=== PATIENT | female | born 1965 | race Caucasian/White ===

== ENCOUNTER 2025-08-15 14:50 | Inpatient (IN) | payer MEDICAID, SELFPAY ==
[2025-08-15] VITALS (11 sets, daily range): BP systolic 101–123; BP diastolic 59–71; PULSE 74–87; RESP 15–24; TEMP 36.6–36.8; O2SAT 90–100; BMI 35.0; BMI 33.3
--- NOTE | 2025-08-15 15:03 | EKG12_ITS ---
Test Reason : Blood Pressure : */* mmHG Vent. Rate : 76 BPM Atrial Rate : 76 BPM P-R Int : 182 ms QRS Dur : 94 ms QT Int : 408 ms P-R-T Axes : 55 37 81 degrees QTcB Int : 459 ms Normal sinus rhythm Normal ECG Confirmed by VILMA AVINA, MAURICE ([id number]), market editor GINO RUBIN ([id number]) on 08/16/2025 9:18:58 AM Referred By: MAEGAN Confirmed By: MAURICE ESPARZA MD
--- NOTE | 2025-08-15 15:10 | ED.VIS.CHEST ---
HPI History of Present Illness Chief Complaint: Chest Pain Informant: patient Onset/Context/Timing Onset: Today Activity at onset: gradual Timing: Continuous Quality: Positive for Burning Location: Substernal Current Severity: Mild Maximum Severity: Mild Worsened By: Nothing Relieved By: Rest Associated Symptoms: Positive for Diaphoresis; Negative for Nausea or Vomiting Narrative Narrative: 60-year-old female history of CAD with a stent in March, hypertension, on Plavix and aspirin, prior history of lung cancer resected 6 years ago. Quit smoking at that time. No history of DVT or PE. No mops this. No pleuritic pain. No recent travel, surgery or immobilization. No calf pain or mops this. Today was walking and developed midsternal chest pain radiating to her back. It is nearly resolved now. Better at rest. Denies any recent exertional chest pain or exertional dyspnea. She has not been hospitalized since her stent in March. Prior Similar Symptoms: No Recent Illness/Hospitalization: No CVD Risk Factors: Positive for Hypertension PE Risk Factors: Negative for Recent Travel/Surgery, Recent Immobilization, Prior DVT or PE or OCP + Smoking + >/=35 TAD Risk Factors: Negative for Marfan's Syndrome [facility] Medical History Hyperlipidemia Hypertension Lung cancer Home Medications Medication Instructions Recorded Last Taken Type aspirin 81 mg tablet,delayed 81 mg PO DAILY 08/15/25 Unknown History release atorvastatin 40 mg tablet 40 mg PO DAILY 08/15/25 08/13/25 History buspirone 10 mg tablet 10 mg PO TID 08/15/25 08/14/25 History carvedilol 6.25 mg tablet 6.25 mg PO BID 08/15/25 Unknown History clopidogrel 75 mg tablet 75 mg PO DAILY 08/15/25 Unknown History Allergy/AdvReac Type Severity Reaction Status Date / Time acetaminophen (From Vicodin) Allergy Mild Nausea Verified 08/15/25 14:52 hydrocodone (From Vicodin) Allergy Mild Nausea Verified 08/15/25 14:52 Surgical History Stented coronary artery S/P lobectomy of lung History of appendectomy Social History Smoking Status: Former smoker ROS ROS ED ROS Narrative Yesterday he developed URI with sore throat and cough of brown sputum. No hemoptysis. Constitutional Constitutional ED: Denies chills or fever(s) Eyes Eyes: Reports none ENT ENT ED: Denies ear pain Cardiovascular Cardiovascular: Reports as per HPI and chest pain; Denies palpitations or racing heartbeat Respiratory/Chest Respiratory/Chest: Denies dyspnea or dyspnea on exertion Gastrointestinal Gastrointestinal: Denies abdominal pain, diarrhea, nausea or vomiting Genitourinary Genitourinary ED: Denies dysuria or hematuria Musculoskeletal Musculoskeletal: Denies arthralgias or back pain Integumentary Denies abscess Neurologic Neurologic: Denies headache(s) Psychiatric Psychiatric: Denies anxiety Endocrine Endocrinology: Denies cold intolerance Hematologic/Lymphatic Hematologic/Lymphatic: Denies easy bleeding, easy bruising or lymphadenopathy Allergic/Immunologic Allergic/Immunologic ED: Denies mouth swelling, tongue swelling or urticaria EXAM Physical Exam Narrative Exam Narrative: 60-year-old female sitting upright in bed vital signs stable pulse ox 90% on room air 96% on 2 L. H EENT exam pupils round react light. Moist mucosa. Neck nontender no JVD. No lymphadenopathy. Lungs clear to auscultation bilaterally. Equal symmetrical. Heart regular rhythm rate about 80 no murmur. Chest wall and ribs are nontender no reproducible pain. Abdomen soft nontender. Moving all 4 extremities. Equal symmetrical education program specialist strength. Dorsi plantarflexion intact. Calves are nontender without edema or cords. Neurologically she is awake alert. Answering questions following commands. Benign exam. Const Vital Signs: 08/15/25 14:51 08/15/25 14:58 08/15/25 14:59 Temperature 98.3 F Temperature Source Oral Pulse Rate 81 79 Respiratory Rate 15 18 Respiratory Effort Normal Non-Labored Blood Pressure 115/71 115/71 Blood Pressure Mean 85 85 Pulse Ox 90 96 Oxygen Delivery Method Room Air Nasal Cannula Oxygen Flow Rate (L/min) 2 08/15/25 15:17 08/15/25 15:51 08/15/25 16:00 Temperature Temperature Source Pulse Rate 74 76 Respiratory Rate 20 H 16 Respiratory Effort Blood Pressure 101/66 113/59 L Blood Pressure Mean 77 77 Pulse Ox 96 100 100 Oxygen Delivery Method Nasal Cannula Nasal Cannula Oxygen Flow Rate (L/min) 2 2 08/15/25 17:07 08/15/25 18:00 Temperature Temperature Source Pulse Rate 78 78 Respiratory Rate 20 H 17 Respiratory Effort Blood Pressure 116/61 117/62 Blood Pressure Mean 79 80 Pulse Ox 100 100 Oxygen Delivery Method Nasal Cannula Nasal Cannula Oxygen Flow Rate (L/min) 2 2 Heart Score History: Moderately Suspicious ECG: Normal Age: >45 - <65 years Risk Factors: >/= 3 Risk Factors or History of CAD Troponin: </= Normal Limit Score: 4 MDM MDM MDM Narrative Medical decision making narrative: 60-year-old with known CAD with a stent known prior lung cancer resection. With chest pain today with exertion. Also recent illness started yesterday with cough and sore throat. She undergo cardiac workup. D-dimer to rule out pulmonary emboli but she never had a pulmonary emboli really does not have any significant risk factors. Repeat exam patient is doing well around 6:10 PM. Discussed test results and second troponin with her and family at bedside. She will be admitted for chest pain with an elevated 2-hour troponin. CTA was already done waiting for radiologist interpretation. I did review it I do not see any obvious large pulmonary emboli. Currently patient is symptom-free resting comfortably. Spoke to hospitalist patient be admitted to the PCU. I also spoke to the casino beverage server and the patient will be started on a heparin bolus and drip. He chose that over Lovenox so that they could stop it if they do a heart cath. History & Record Review Discussion w/independent historian: Patient and Family Additional record(s) reviewed:: No prior records Lab Data Attestation: I reviewed the patient's lab results. Lab results narrative: CBC shows a white count of 13. H&H 12.8 and 40. Platelets 342. Chemistries show a gap of 11. BUN and creatinine 10 and 0.8. Glucose 120. Initial troponin 10. 2-hour troponin is 111. D-dimer is elevated 1.53 the CTA of the chest to be obtained. Labs: Laboratory Results - last 24 hr 08/15/25 08/15/25 15:01 17:10 WBC 13.0 H RBC 4.24 Hgb 12.8 Hct 40.4 MCV 95.3 MCH 30.2 MCHC 31.7 L RDW Std Deviation 48.1 H RDW Coeff of Yuliana 13.7 Plt Count 342 MPV 8.5 Immature Gran % (Auto) 0.600 Neut % (Auto) 64.6 Lymph % (Auto) 23.7 Coffey % (Auto) 7.5 Eos % (Auto) 2.9 Baso % (Auto) 0.7 Absolute Neuts (auto) 8.4 H Absolute Lymphs (auto) 3.07 Nucleated RBC % 0 D-Dimer Quant (PE/DVT) 1.53 H* Sodium 140 Potassium 4.3 Chloride 100 Carbon Dioxide 29.0 Anion Gap 11 BUN 10 Creatinine 0.84 Estim Creat Clear Calc 66.09 Est GFR (MDRD) Non-Af 80 BUN/Creatinine Ratio 12.3 Glucose 120 H Calcium 9.7 Troponin T High Sens 10 Troponin T Hi Sens 2 Hr 111 H* Radiography Chest X-Ray - ED: 2 View, Read by ED Physician, Heart, Lungs, Mediastinum, Bony Structures, No Acute Disease and Chronic Changes Diagnostic Testing: Clinical Impression(s) from Imaging Studies Chest X-Ray 08/15/25 15:20 IMPRESSION: No acute pulmonary process Reading Location: [facility] Chest CTA 08/15/25 17:25 IMPRESSION: 1. No pulmonary embolism or acute cardiopulmonary abnormality. 2. Ground-glass nodule in the right lower lobe measuring 9 mm, and solid nodule in the right upper lobe measuring 3 mm. In the setting of prior postoperative changes, recommend close clinical follow-up and repeat imaging within 6 months. Reading Location: [facility] Chest x-ray, 3 views, AP and lateral, interpreted by myself shows normal cardiac silhouette. Normal mediastinum. Chronic changes. No acute process. No effusion. No pneumonia. Rhythm Strip Rhythm Strip: Sinus Rhythm Rate: 76 Ectopy: None EKG Initial EKG: Attestation: I personally reviewed and interpreted this EKG as follows: Interpretation: Sinus Rhythm and No Acute Injury Pattern Comments: Normal sinus rhythm rate 76 no acute signs of [place] or ischemia. No prior. Discharge Plan Dx/Rx/DC Orders Clinical Impression: Chest pain, exertional, Elevated troponin I level, History of CAD (coronary artery disease), Hx of heart artery stent Disposition Disposition: [facility]
[2025-08-15 15:15] LABS: Hematocrit 40.4 % (37-47); Hemoglobin 12.8 g/dL (12.0-15.0); Immature Granulocytes Count 0.080 X10^3/uL (0.0-0.0); Mean Corp Hgb Conc 31.7 g/dL (32-36); Mean Corpuscular Volume 95.3 fL (81-99); Mean Platelet Vol. 8.5 fl (6.2-12.0); NRBC Flagged by Analyzer 0 % (0-5); Platelet Count 342 K/mm3 (150-450); RBC Distribution Width CV 13.7 % (11.6-14.6); RBC Distribution Width SD 48.1 fl (35.1-43.9); Red Blood Count 4.24 M/mm3 (4.2-5.4); White Blood Count 13.0 K/mm3 (4.4-11.0)
--- NOTE | 2025-08-15 15:20 | RAD_ITS ---
PROCEDURE: CHEST PA AND LATERAL 08/15/2025 REASON FOR EXAM: CHEST PAIN TECHNIQUE: Procedure Code: RADCXR Modality: DX Procedure: CHEST PA AND LATERAL COMPARISON: None FINDINGS: Hardware: EKG leads overlie the chest Heart: The heart size is normal. Mediastinum: The mediastinal contour is unremarkable. Lungs: Chronic interstitial changes without a superimposed acute pulmonary process Bones: Degenerative changes are identified within the thoracic spine. RAD/Chest PA and Lateral IMPRESSION: No acute pulmonary process Reading Location: [id number]
[2025-08-15 15:57] LABS: Anion Gap 11 (5-15); BUN 10 mg/dL (4-19); BUN/Creat Ratio 12.3 RATIO (10-20); Calcium,Total 9.7 mg/dL (7.6-11.0); Carbon Dioxide 29.0 mmol/L (21.0-32.0); Chloride 100 mmol/L (98-108); Estimated Creatinine Clearance 66.09 ml/min (50-250); Glucose 120 mg/dL (70-99); Potassium 4.3 mmol/L (3.3-5.1); Troponin T High Sensitivity 10 ng/L (<=14)
--- OUTSIDE RECORDS SUMMARY | 2025-08-15 16:03 | XMS RPT_ITS | CCD ---
Author Organization [facility] Care Team Providers Care Patented Hogshead Assembler Name Role Phone NO, PHYSICIAN Primary Care Unavailable Toyn Rivera CNP Unavailable Serge Tony KRISHNAMURTHY Primary Care Provider [phone] Serge SENIOR LINUX SYSTEMS ADMINISTRATOR, Tony Moore Primary Care Provider [phone] Lowe YESSY, Tony Oscar Unavailable Lowe YESSY, Tony Moore Primary Care Provider Lowe YESSY, Tony Oscar Unavailable Lowe SENIOR LINUX SYSTEMS ADMINISTRATOR, Tony Moore Primary Care Provider [phone] Lowe SENIOR LINUX SYSTEMS ADMINISTRATOR, Tony Oscar Unavailable Lowe SENIOR LINUX SYSTEMS ADMINISTRATOR, Tony Moore Primary Care Provider TONY RIVERA Primary Care Unavailable RIO CAPONE Admitting Unavailab RIO Rasmussen Attending Unavailab RIO Rasmussen Referring Unavailab le TONY RIVERA Referring Unavailable KURT JARRELL Attending Unavailable LOWEYIFANE OSCAR Primary Care Unavailable LOWEYIFANE OSCAR Primary Care Unavailable TONY RIVERA Attending Unavailable TONY RIVERA Admitting Unavailable LOWEYIFANE OSCAR Primary Care Unavailable DIAN LLAMAS Attending Unavailable TONY RIVERA Referring Unavailable LOWEYIFANE OSCAR Primary Care Unavailable TONY RIVERA Attending Unavailable FRITZ ESQUIVEL Attending Unavailable LOWETONY Primary Care Unavailable BONILLA EMERY Admitting Unavailable LOWETONY Primary Care Unavailable MART CARTER Attending Unavailable DOMINGO LESTER Admitting Unavailable H AND V, [employer] Consulting Unavailable TONY RIVERA Primary Care Unavailable RIO CAPONE Attending Unavailab le TONY RIVERA Primary Care Unavailable RIO CAPONE Referring Unavailab le Allergies Allergy Classification Reported Allergen(s) Allergy Type Date of Onset Reaction(s) Facility (20 sources) Acetaminophen / HYDROcodone; Translations: [HYDROCODONE-ACET AMINOPHEN] Drug Allergy GI Intolerance [facility] Repository Medications Current Medications Medication Drug Class(es) Dates Sig (Normalized) Sig (Original) albuterol 0.83 mg/ml inhalation solution (20 sources) beta2-Adrenergic Agonist Start: 02-11-2024 End: 07-10-2025 take 2 puff(s) by inhalation every four hours as needed for cough albuterol 90 mcg/actuation inhaler Indications: Moderate persistent asthma, uncomplicated Inhale 2 (two) puffs every 4 (four) hours as needed for wheezing, shortness of breath or cough . 18 g 1 06/10/2025 Active Start: 02-12-2023 End: 02-11-2024 take 2 puff(s) by inhalation every four hours as needed for cough albuterol 90 mcg/actuation inhaler Indications: Moderate persistent asthma, uncomplicated Inhale 2 (two) puffs every 4 (four) hours as needed for wheezing, shortness of breath or cough . 6.7 g 0 08/13/2023 02/11/2024 Discontinued (Reorder (Suppress CancelRx Message to Pharmacy)) Start: 12-20-2021 End: 12-20-2022 take 2 puff(s) by inhalation every four hours as needed for cough albuterol 90 mcg/actuation inhaler Indications: Moderate persistent asthma, uncomplicated Inhale 2 (two) puffs every 4 (four) hours as needed for wheezing, shortness of breath or cough . 6.7 g 5 12/20/2021 Active Start: 11-08-2021 End: 07-10-2025 albuterol (PROVENTIL) 2.5 mg /3 mL (0.083 %) nebulizer solution Indications: Moderate persistent asthma, uncomplicated Take 3 mL (2.5 mg total) by nebulization every 6 (six) hours as needed for wheezing . 75 mL 06/10/2025 Active Start: 02-08-2021 End: 11-08-2021 take 2.5 mg by inhalation every six hours as needed albuterol (PROVENTIL) 2.5 mg /3 mL (0.083 %) nebulizer solution Inhale 2.5 mg every 6 (six) hours as needed . 0 02/08/2021 11/08/2021 Discontinued (Reorder) aspirin 81 mg delayed release oral tablet (4 sources) Platelet Aggregation Inhibitor, Nonsteroidal Anti-inflammatory Drug Start: 04-28-2025 End: 04-28-2026 take 1 tablet by mouth once daily aspirin 81 MG EC tablet Take 1 (one) tablet (81 mg total) by mouth daily Start: 04/28/25. 30 tablet 11 04/27/2025 11:09 AM EDT 04/28/2025 04/28/2026 Active atorvastatin 80 mg oral tablet (14 sources) HMG-CoA Reductase Inhibitor Start: 04-27-2025 End: 04-27-2026 take 1 tablet by mouth once daily atorvastatin (LIPITOR) 80 MG tablet Take 1 (one) tablet (80 mg total) by mouth nightly . 30 tablet 11 04/27/2025 11:09 AM EDT 04/27/2025 04/27/2026 Active Start: 07-09-2023 End: 08-18-2025 take 1 tablet by mouth once daily atorvastatin (LIPITOR) 40 MG tablet Indications: Hyperlipidemia, unspecified hyperlipidemia type Take 1 (one) tablet (40 mg total) by mouth daily . 30 tablet 5 08/18/2024 08/18/2025 Active Azithromycin (2 sources) Macrolide Antimicrobial Start: 08-18-2024 End: 08-23-2024 take 6 tablets by mouth once daily azithromycin (Z-MED) 5 day dose pack Indications: Bronchitis Take by mouth daily for 5 days . 6 tablet 08/18/2024 08/23/2024 Active 60 actuat budesonide 0.09 mg/actuat dry powder inhaler (8 sources) Corticosteroid Start: 07-25-2023 End: 02-10-2025 take 2 puff(s) by inhalation twice daily budesonide (PULMICORT) 90 mcg/actuation inhaler Indications: Moderate persistent asthma, uncomplicated Inhale 2 (two) puffs 2 (two) times a day . 1 each 2 02/11/2024 Active 60 actuat budesonide 0.16 mg/actuat / formoterol fumarate 0.0045 mg/actuat metered dose inhaler (11 sources) Corticosteroid, beta2-Adrenergic Agonist Start: 04-26-2025 End: 04-26-2026 take 2 puff(s) by inhalation twice daily Symbicort 160-4.5 mcg/actuation inhaler Indications: Moderate persistent asthma, uncomplicated Inhale 2 (two) puffs 2 (two) times a day . 1 each 12 04/26/2025 04/26/2026 Active Start: 08-18-2024 End: 04-26-2025 take 2 puff(s) by inhalation twice daily budesonide-formoteroL (Symbicort) 160-4.5 mcg/actuation inhaler Indications: Moderate persistent asthma, uncomplicated Inhale 2 (two) puffs 2 (two) times a day . 1 each 12 08/18/2024 04/26/2025 Discontinued (Reorder (Suppress CancelRx Message to Pharmacy)) Start: 08-18-2024 End: 08-18-2025 take 2 puff(s) by inhalation twice daily budesonide-formoteroL (Symbicort) 160-4.5 mcg/actuation inhaler Indications: Moderate persistent asthma, uncomplicated Inhale 2 (two) puffs 2 (two) times a day . 1 each 12 08/18/2024 08/18/2025 Active Start: 02-12-2024 End: 08-18-2024 take 2 puff(s) by inhalation twice daily budesonide-formoteroL (Symbicort) 160-4.5 mcg/actuation inhaler Indications: Moderate persistent asthma, uncomplicated Inhale 2 (two) puffs 2 (two) times a day . 1 each 12 02/12/2024 08/18/2024 Discontinued (Reorder (Suppress CancelRx Message to Pharmacy)) 120 actuat budesonide 0.16 mg/actuat / formoterol fumarate 0.0048 mg/actuat / glycopyrrolate 0.009 mg/actuat metered dose inhaler (2 sources) Corticosteroid, beta2-Adrenergic Agonist Start: 07-25-2023 take 1 puff(s) by inhalation twice daily ktgmsuflaj-uyjyzdjo-nqiqtuzegm (Breztri Aerosphere) 160-9-4.8 mcg/actuation HFAA Indications: COPD, moderate (HCC) Inhale 1 (one) puff 2 (two) times a day . 5.9 g 0 07/25/2023 Active busPIRone hydrochloride 10 mg oral tablet (20 sources) Start: 11-08-2021 End: 06-10-2025 take 1 tablet by mouth three times daily busPIRone (BUSPAR) 10 MG tablet Indications: Anxiety Take 1 (one) tablet (10 mg total) by mouth 3 (three) times a day . 180 tablet 5 06/10/2025 Active Start: 01-24-2021 End: 11-08-2021 take 1 tablet by mouth twice daily busPIRone (BUSPAR) 7.5 MG tablet Take 7.5 mg by mouth 2 (two) times a day . 0 01/24/2021 11/08/2021 Discontinued (Reorder) carvedilol 6.25 mg oral tablet (20 sources) alpha-Adrenergic Aravind, beta-Adrenergic Aravind Start: 04-27-2025 End: 04-27-2026 take 1 tablet by mouth twice daily at mealtime carvediloL (COREG) 6.25 MG tablet Take 1 (one) tablet (6.25 mg total) by mouth 2 (two) times a day with meals . 60 tablet 11 04/27/2025 11:09 AM EDT 04/27/2025 04/27/2026 Active Start: 11-08-2021 End: 08-18-2024 take 1 tablet by mouth twice daily at mealtime carvediloL (COREG) 6.25 MG tablet Indications: Hypertension, unspecified type Take 1 (one) tablet (6.25 mg total) by mouth 2 (two) times a day with meals . 60 tablet 5 08/18/2024 Active Start: 01-24-2021 End: 11-08-2021 carvediloL (COREG) 3.125 MG tablet Take 3.125 mg by mouth . 0 01/24/2021 11/08/2021 Discontinued (Reorder) clopidogrel 75 mg oral tablet (4 sources) [id number] Platelet Inhibitor Start: 04-28-2025 End: 10-25-2025 take 1 tablet by mouth once daily clopidogreL (PLAVIX) 75 mg tablet Take 1 (one) tablet (75 mg total) by mouth daily Start: 04/28/25. 30 tablet 5 04/28/2025 10/25/2025 Active ezetimibe 10 mg oral tablet (4 sources) Dietary Cholesterol Absorption Inhibitor Start: 04-27-2025 End: 04-27-2026 take 1 tablet by mouth once daily ezetimibe (ZETIA) 10 mg tablet Take 1 (one) tablet (10 mg total) by mouth nightly . 30 tablet 11 04/27/2025 11:09 AM EDT 04/27/2025 04/27/2026 Active famotidine 40 mg oral tablet (17 sources) Histamine-2 Receptor Antagonist Start: 07-08-2023 End: 12-07-2025 take 1 tablet by mouth once daily famotidine (PEPCID) 40 MG tablet Indications: Gastroesophageal reflux disease, unspecified whether esophagitis present Take 1 (one) tablet (40 mg total) by mouth daily . 30 tablet 5 06/10/2025 12/07/2025 Active FLUoxetine 20 mg oral capsule (20 sources) Serotonin Reuptake Inhibitor Start: 01-24-2021 End: 06-10-2027 take 1 capsule by mouth once daily FLUoxetine (PROZAC) 20 MG capsule Indications: Anxiety Take 1 (one) capsule (20 mg total) by mouth daily . 30 capsule 06/10/2025 06/10/2027 Active 30 actuat fluticasone furoate 0.2 mg/actuat / vilanterol 0.025 mg/actuat dry powder inhaler (5 sources) Corticosteroid, beta2-Adrenergic Agonist Start: 02-11-2024 take 1 puff(s) by inhalation once daily fluticasone furoate-vilanteroL (Breo Ellipta) 200-25 mcg/dose DsDv Indications: Moderate persistent asthma, uncomplicated Inhale 1 (one) puff daily . 60 each 1 02/11/2024 Active 12 hr guaiFENesin 600 mg / pseudoephedrine hydrochloride 60 mg extended release oral tablet (2 sources) alpha-Adrenergic Agonist Start: 08-14-2024 End: 08-21-2024 take 1 tablet by mouth every twelve hours pseudoephedrine-guai FENesin (MUCINEX D) 60-600 mg per tablet Take 1 (one) tablet by mouth every 12 (twelve) hours for 7 days . 14 tablet 08/14/2024 08/21/2024 Active nitroglycerin 0.4 mg sublingual tablet (4 sources) Nitrate Vasodilator Start: 04-27-2025 nitroGLYCERIN (Nitrostat) 0.[address] 1 (one) tablet (0.4 mg total) under the tongue every 5 (five) minutes as needed for chest pain , if no relief after 3 doses call 911 . 100 tablet 3 04/27/2025 11:09 AM EDT 04/27/2025 Active predniSONE 20 mg oral tablet (1 source) Start: 08-14-2024 End: 08-18-2024 take 2 tablets by mouth once daily predniSONE (DELTASONE) 20 MG tablet Take 2 (two) tablets (40 mg total) by mouth daily for 4 days . 8 tablet 08/14/2024 08/18/2024 Active 30 actuat umeclidinium 0.0625 mg/actuat / vilanterol 0.025 mg/actuat dry powder inhaler (7 sources) Anticholinergic, beta2-Adrenergic Agonist Start: 07-05-2020 End: 11-07-2024 take 1 puff(s) by inhalation once daily umeclidinium-vilante roL (Anoro Ellipta) 62.5-25 mcg/actuation DsDv Indications: COPD, moderate (HCC) Inhale 1 puff daily . 14 each 1 11/08/2021 04/10/2022 Discontinued Completed/Discontinued Medications Medication Drug Class(es) Dates Sig (Normalized) Sig (Original) lidocaine 0.05 mg/mg medicated patch (5 sources) Antiarrhythmic, Amide Local Anesthetic Start: 08-18-2024 End: 08-18-2025 apply 1 dose transdermal route once daily, then apply 1 dose transdermal route every twelve hours lidocaine (LIDODERM) 5 % patch Place 1 (one) patch on the skin daily Remove & Discard patch within 12 hours or as directed by . 30 patch 08/18/2024 06/07/2025 Discontinued ondansetron 4 mg disintegrating oral tablet (12 sources) Serotonin-3 Receptor Antagonist Start: 05-23-2022 End: 06-07-2025 take 1 tablet by mouth every eight hours as needed ondansetron (ZOFRAN-ODT) 4 MG disintegrating tablet Dissolve 1 (one) tablet (4 mg total) on top of tongue every 8 (eight) hours as needed . 20 tablet 05/23/2022 06/07/2025 Discontinued Problems Active Problems Problem Classification Problem Date Documented Date Episodic/Chronic Anxiety disorders (9 sources) Anxiety; Translations: [Anxiety disorder, unspecified] Onset: 08-18-2024 Chronic Asthma (20 sources) Uncomplicated moderate persistent asthma; Translations: [Moderate persistent asthma, uncomplicated] Onset: 12-20-2021 Chronic Cancer of bronchus; lung (20 sources) Malignant tumor of lung; Translations: [Malignant neoplasm of unspecified part of unspecified bronchus or lung] Onset: 11-27-2019 11-08-2021 Chronic Cancer of bronchus; lung (5 sources) History of malignant neoplasm of thoracic cavity structure; Translations: [Personal history of other malignant neoplasm of bronchus and lung] Episodic Chronic obstructive pulmonary disease and bronchiectasis (7 sources) Moderate chronic obstructive pulmonary disease; Translations: [Chronic obstructive pulmonary disease, unspecified] Onset: 08-12-2019 Chronic Coronary atherosclerosis and other heart disease (10 sources) Typical angina; Translations: [Angina pectoris, unspecified] Onset: 04-25-2025 04-25-2025 Chronic Diabetes mellitus without complication (3 sources) Prediabetes; Translations: [Prediabetes] Onset: 06-30-2025 06-30-2025 Episodic Disorders of lipid metabolism (4 sources) Hyperlipidemia; Translations: [Hyperlipidemia, unspecified] Onset: 08-18-2024 02-11-2024 Chronic Esophageal disorders (7 sources) Gastroesophageal reflux disease; Translations: [Gastro-esophageal reflux disease without esophagitis] Onset: 08-18-2024 07-08-2023 Chronic Essential hypertension (9 sources) Hypertensive disorder; Translations: [Essential (primary) hypertension] Onset: 08-18-2024 Chronic Lymphadenitis (6 sources) Mediastinal lymphadenopathy; Translations: [Localized enlarged lymph nodes] Onset: 08-03-2025 04-26-2025 Episodic Other aftercare (2 sources) Long-term current use of drug therapy; Translations: [Other superintendent [employer]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] Onset: 06-30-2025 06-30-2025 Episodic Other aftercare (1 source) Other superintendent [employer]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; Translations: [Other superintendent [employer]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] Onset: 06-30-2025 Episodic Other lower respiratory disease (7 sources) Nodule of lung; Translations: [Solitary pulmonary nodule] Onset: 07-31-2019 11-08-2021 Episodic Other lower respiratory disease (1 source) Dyspnea on exertion; Translations: [Other forms of dyspnea] 07-08-2023 Episodic Other lower respiratory disease (1 source) Rib pain; Translations: [Pleurodynia] 08-18-2024 Episodic Other lower respiratory disease (4 sources) Radiologic infiltrate of lung ; Translations: [Other nonspecific abnormal finding of lung field] 04-26-2025 Episodic Other lower respiratory disease (2 sources) Solitary pulmonary nodule; Translations: [Solitary pulmonary nodule] Onset: 08-03-2025 Episodic Other lower respiratory disease (2 sources) Other nonspecific abnormal finding of lung field; Translations: [Other nonspecific abnormal finding of lung field] Onset: 08-03-2025 Episodic Other nutritional; endocrine; and metabolic disorders (1 source) Disorder of lipid metabolism; Translations: [Disorder of lipoprotein metabolism, unspecified] 06-07-2025 Chronic Other nutritional; endocrine; and metabolic disorders (2 sources) Disorder of lipoprotein metabolism, unspecified; Translations: [Disorder of lipoprotein metabolism, unspecified] Onset: 06-07-2025 Chronic Other screening for suspected conditions (not mental disorders or infectious disease) (20 sources) Cancer cervix screening status; Translations: [Encounter for screening for malignant neoplasm of cervix] Onset: 08-18-2024 Episodic Residual codes; unclassified (2 sources) Family history of cancer of colon; Translations: [Family history of malignant neoplasm of digestive organs] 06-30-2025 Episodic Residual codes; unclassified (2 sources) Family history of malignant neoplasm of digestive organs; Translations: [Family history of malignant neoplasm of digestive organs] Onset: 07-16-2025 Episodic Screening and history of mental health and substance abuse codes (1 source) Ex-smoker; Translations: [Personal history of nicotine dependence] 01-07-2023 Episodic Unclassified (3 sources) Patient encounter status 08-18-2024 Past or Other Problems Problem Classification Problem Date Documented Da te Episodic/Chronic Chronic obstructive pulmonary disease and bronchiectasis (3 sources) Bronchitis; Translations: [Bronchitis, not specified as acute or chronic] Onset: 08-18-2024 08-18-2024 Episodic Disorders of teeth and jaw (2 sources) Periapical abscess without sinus; Translations: [Periapical abscess without sinus] Onset: 03-31-2025 Episodic Immunizations and screening for infectious disease (6 sources) Vaccination needed; Translations: [Encounter for immunization] Onset: 08-18-2024 01-07-2023 Episodic Mood disorders (12 sources) Mood disorders Onset: 02-11-2024 Resolved: 06-30-2025 02-11-2024 Nonspecific chest pain (6 sources) Chest pain; Translations: [Chest pain, unspecified] Onset: 04-25-2025 04-26-2025 Episodic Other lower respiratory disease (2 sources) Pleurodynia; Translations: [Pleurodynia] Onset: 08-18-2024 Episodic Other upper respiratory infections (2 sources) Acute upper respiratory infection, unspecified; Translations: [Acute upper respiratory infection, unspecified] Onset: 08-14-2024 Episodic Results Test Name Value Interpretation Reference Range Facility CT CHEST WITH CONTRASTon CT CHEST WITH CONTRAST EXAMINATION: CT CHEST WITH CONTRAST 08/07/2025 HISTORY: ORDERING SYSTEM PROVIDED HISTORY: Pulmonary infiltrate, TECHNOLOGIST PROVIDED HISTORY: Illness/Other Reason for exam: Respiratory illness, nondiagnostic xray; mediastinal lymphadenopathy Encounter Type: Initial Additional signs and symptoms: Respiratory illness, nondiagnostic xray; mediastinal lymphadenopathy ORDERING SYSTEM PROVIDED DIAGNOSIS CODES: R91.8 Pulmonary infiltrate R59.0 Mediastinal lymphadenopathy COMPARISON: Unenhanced CT scan of the chest, 04/26/2025. TECHNIQUE: 3.75 mm axial images from thoracic inlet through upper abdomen following administration of intravenous contrast were obtained. Sagittal, coronal reconstructions were also performed. Dose reduction techniques were achieved by using automated exposure control and/or adjustment of mA and/or kV according to patient size and/or use of iterative reconstruction technique. CONTRAST: IOPAMIDOL 370 MG IODINE/ML (76%) INTRAVENOUS SOLUTION - 75 mL FINDINGS: Patient has undergone right upper lobectomy with some scarring at the right apex. There is patchy ground-glass density, with a questionable nodule in right lower lobe, image 21 sequence 4, measures 5 mm in size. This remains unchanged. The remaining lungs are free of infiltrates, pleural effusions, pulmonary edema or pneumothorax. There is a linear band of density posteriorly at the right lung base, which has developed since previous examination, image 57 sequence 4, measuring approximately 0.6 x 1.4 cm. No such density was seen previously. The visualized thyroid, great vessels, aorta seem normal except for mild atherosclerotic changes of the aorta. There are a few small lymph nodes in the mediastinum. One of these lymph nodes to the left of the aortic arch at the level of AP window, image 26 sequence 5, measures approximately 4 x 9 mm, previously measuring approximately 6 x 13 mm. No significant new axillary, hilar or mediastinal adenopathy is seen. The pericardium, cardiac structures appear normal. There is no significant axillary adenopathy. The visualized upper abdominal organs including liver, spleen, pancreas, adrenal glands, kidneys appear normal. The patient is status post cholecystectomy. Images on bone windows demonstrate no gross abnormalities. IMPRESSION: 1. There is a linear band of density, measuring 0.6 x 1.4 cm in the posterior right lower lobe, may represent some atelectasis, or resolving inflammatory changes; however, developing mass would be difficult to exclude. Otherwise no recurrent or metastatic disease in the visualized volume of chest, upper abdomen. Patient is status post right upper lobectomy. There is some hazy ground-glass density with a small, but less than 1 cm nodule in the right lower lobe, unchanged. 2. Decrease in size of mediastinal adenopathy. 3. Prior cholecystectomy. [employer] Workstation ID: [id number] Dictated by: NALLELY CURIEL on Sat Aug 07, 2025 7:33:37 PM EST Transcribed by: CYNTHIA FOSTER on Sat Aug 07, 2025 8:27:17 PM EST Finalized by: NALLELY CURIEL on Sat Aug 07, 2025 8:35:22 PM EST [facility] Comment on above: Order Comment: [facility] has implemented the eGFR calculation approach that does not have a coefficient for race that conforms to the NKF-ASN Task Force Recommendations. CBC WITH AUTO DIFFERENTIALon 04-27-2025 AUTO NRBC 0.0 % [facility] Comment on above: Performed By: #### [id number] #### [facility] [address] [address] Dacia Villagran M.D. [id number] AUTO NRBC ABS COUNT 0.00 K/mcL Normal 0.00-0.00 [facility] Comment on above: Performed By: #### [id number] #### [facility] [address] [address] Dacia Villagran M.D. [id number] BASOPHILS ABSOLUTE COUNT 0.08 K/mcL Normal 0.00-0.30 [facility] Comment on above: Performed By: #### 4 [id number] #### [facility] [address] [address] Dacia Villagran M.D. [id number] Basophils/100 WBC (Bld) 0.8 % [facility] Comment on above: Performed By: #### 4 [id number] #### [facility] [address] [address] Dacia Villagran M.D. [id number] Eosinophils (Bld) [#/Vol] 0.37 10*3/uL Normal 0.00-0.50 [facility] Comment on above: Performed By: #### 4 [id number] #### [facility] [address] [address] Dacia Villagran M.D. [id number] Eosinophils/100 WBC (Bld) 3.6 % [facility] Comment on above: Performed By: #### 4 [id number] #### [facility] [address] [address] Dacia Villagran M.D. [id number] Erythrocyte distribution width (RBC) [Ratio] 12.8 % Normal 11.6-14.8 [facility] Comment on above: Performed By: #### [id number] #### [facility] [address] [place], [place] [address] Dacia Villagran M.D. [id number] Hematocrit (Bld) [Volume fraction] 35.1 % Low 36.0-46.0 [facility] Comment on above: Performed By: #### [id number] #### [facility] [address] [address] Dacia Villagran M.D. [id number] Hemoglobin (Bld) [Mass/Vol] 11.6 g/dL Low 12.0-16.0 [facility] Comment on above: Performed By: #### 4 [id number] #### [facility] [address] [address] Dacia Villagran M.D. [id number] IG ABSOLUTE 0.05 K/mcL Normal 0.00-0.30 [facility] Comment on above: Performed By: #### 4 [id number] #### [facility] [address] [address] Dacia Villagran M.D. [id number] IG PERCENT 0.50 % [facility] Comment on above: Result Comment: The IG parameter is the percentage of metamyelocytes, myelocytes and promyelocytes. An immature granulocyte count (IG) of 1% or more suggests the possibility of infection, an IG count of 3% is very likely related to an infection. Performed By: #### [id number] #### [facility] [address] [address] Dacia Villagran M.D. [id number] Lymphocytes (Bld) [#/Vol] 2.10 10*3/uL Normal 0.90-4.00 [facility] Comment on above: Performed By: #### 4 [id number] #### [facility] [address] [address] Dacia Villagran M.D. [id number] Lymphocytes/100 WBC (Bld) 20.3 % [facility] Comment on above: Performed By: #### 4 [id number] #### [facility] [address] [address] Dacia Villagran M.D. [id number] MCH (RBC) [Entitic mass] 31.0 pg Normal 26.0-34.0 [facility] Comment on above: Performed By: #### 4 [id number] #### [facility] [address] [address] Dacia Villagran M.D. [id number] MCV (RBC) [Entitic vol] 93.9 fL Normal 80.0-100.0 [facility] Comment on above: Performed By: #### 4 [id number] #### [facility] [address] [address] Dacia Villagran M.D. [id number] MEAN CORPUSCULAR HEMOGLOBIN CONC 33.0 g/dL Normal 31.0-37.0 [facility] Comment on above: Performed By: #### 4 [id number] #### [facility] [address] [address] Dacia Villagran M.D. [id number] Monocytes (Bld) [#/Vol] 0.75 10*3/uL Normal 0.30-0.90 [facility] Comment on above: Performed By: #### 4 [id number] #### [facility] [address] [address] Dacia Villagran M.D. [id number] Monocytes/100 WBC (Bld) 7.3 % Normal [facility] Comment on above: Performed By: #### 4 6449 #### [facility] [address] [address] Dacia Villagran M.D. [id number] NEUTROPHILS ABSOLUTE COUNT 6.98 K/mcL Normal 1.70-7.00 [facility] Comment on above: Performed By: #### 4 6449 #### [facility] [address] [address]Keshawn Villagran M.D. [id number] Neutrophils/100 WBC (Bld) 67.5 % Normal [facility] Comment on above: Performed By: #### 4 6449 #### [facility] [address] [address] Dacia Villagran M.D. [id number] Platelet mean volume (Bld) [Entitic vol] 8.6 fL Low 9.4-12.4 [facility] Comment on above: Performed By: #### 4 6449 #### [facility] [address] [address] Dacia Villagran M.D. [id number] Platelets (Bld) [#/Vol] 272 10*3/uL Normal 150-400 [facility] Comment on above: Performed By: #### 4 6449 #### [facility] [address] [address]Keshawn Villagran M.D. [id number] RBC (Bld) [#/Vol] 3.74 10*6/uL Low 4.00-5.20 [facility] Comment on above: Performed By: #### 4 6449 #### [facility] [address] [place], [place] [address] Dacia Villagran M.D. [id number] WBC (Bld) [#/Vol] 10.33 10*3/uL Normal 4.50-11.00 [facility] Comment on above: Performed By: #### 4 [id number] #### [facility] [address] [place], [place] [address] Dacia Villagran M.D. [id number] RENAL FUNCTION PANELon 04-27 Albumin [Mass/Vol] 3.8 g/dL Normal 3.2-5.2 [facility] Comment on above: Order Comment: [facility] has implemented the eGFR calculation approach that does not have a coefficient for race that conforms to the NKF-ASN Task Force Recommendations. Performed By: #### 4 6449 #### [facility] [address] [place], [place] [address] Dacia Villagran M.D. [id number] Anion gap [Moles/Vol] 16 mmol/L Normal 10-20 [facility] Comment on above: Order Comment: [facility] has implemented the eGFR calculation approach that does not have a coefficient for race that conforms to the NKF-ASN Task Force Recommendations. Performed By: #### 4 6449 #### [facility] [address] [place], [place] [address] Dacia Villagran M.D. [id number] Calcium [Mass/Vol] 9.0 mg/dL Normal 8.4-10.2 [facility] Comment on above: Order Comment: [facility] has implemented the eGFR calculation approach that does not have a coefficient for race that conforms to the NKF-ASN Task Force Recommendations. Performed By: #### 4 6449 #### [facility] [address] [place], [place] [address] aDcia Villagran M.D. [id number] Chloride [Moles/Vol] 104 mmol/L Normal 98-108 [facility] Comment on above: Order Comment: [facility] has implemented the eGFR calculation approach that does not have a coefficient for race that conforms to the NKF-ASN Task Force Recommendations. Performed By: #### 4 6449 #### [facility] [address] [place], [place] [address] Dacia Villagran M.D. [id number] Creatinine [Mass/Vol] 0.70 mg/dL Normal 0.40-1.10 [facility] Comment on above: Order Comment: [facility] has implemented the eGFR calculation approach that does not have a coefficient for race that conforms to the NKF-ASN Task Force Recommendations. Performed By: #### 4 6449 #### [facility] [address] [place], [place] [address] Dacia Villagran M.D. [id number] EGFR 100 mL/min/1.73 m2 Normal >=60 [facility] Comment on above: Order Comment: [facility] has implemented the eGFR calculation approach that does not have a coefficient for race that conforms to the NKF-ASN Task Force Recommendations. Result Comment: Evelyne mated GFR was calculated using the 2020 CKD-EPI creatinine equation. Performed By: #### 4 [id number] #### [facility] [address] [place], [place] [address] Dacia Villagran M.D. [id number] Glucose [Mass/Vol] 108 mg/dL High 65-99 [facility] Comment on above: Order Comment: [facility] has implemented the eGFR calculation approach that does not have a coefficient for race that conforms to the NKF-ASN Task Force Recommendations. Performed By: #### 4 6449 #### [facility] [address] [place], [place] [address] Dacia Villagran M.D. [id number] HCO3 (Bld) [Moles/Vol] 24 mmol/L Normal 21-32 [facility] Comment on above: Order Comment: [facility] has implemented the eGFR calculation approach that does not have a coefficient for race that conforms to the NKF-ASN Task Force Recommendations. Performed By: #### 4 6449 #### [facility] [address] [place], [place] [address] Dacia Villagran M.D. [id number] Phosphate [Mass/Vol] 2.7 mg/dL Normal 2.7-4.5 [facility] Comment on above: Order Comment: [facility] has implemented the eGFR calculation approach that does not have a coefficient for race that conforms to the NKF-ASN Task Force Recommendations. Performed By: #### 4 6449 #### [facility] [address] [place], [place] [address] Dacia Villagran M.D. [id number] Potassium [Moles/Vol] 3.8 mmol/L Normal 3.5-5.1 [facility] Comment on above: Order Comment: [facility] has implemented the eGFR calculation approach that does not have a coefficient for race that conforms to the NKF-ASN Task Force Recommendations. Performed By: #### 4 6449 #### [facility] [address] [place], [place] [address] Dacia Villagran M.D. [id number] Sodium [Moles/Vol] 140 mmol/L Normal 135-145 [facility] Comment on above: Order Comment: [facility] has implemented the eGFR calculation approach that does not have a coefficient for race that conforms to the NKF-ASN Task Force Recommendations. Performed By: #### 4 6449 #### [facility] [address] [place], [place] [address] Dacia Villagran M.D. [id number] Urea nitrogen [Mass/Vol] 15 mg/dL Normal 8-25 [facility] Comment on above: Order Comment: [facility] has implemented the eGFR calculation approach that does not have a coefficient for race that conforms to the NKF-ASN Task Force Recommendations. Performed By: #### 4 6449 #### [facility] [address] [place], [place] [address] Dacia Villagran M.D. [id number] Urea nitrogen/Creatinine [Mass ratio] 21.4 mg/mg High 10.0-20.0 [facility] Comment on above: Order Comment: [facility] has implemented the eGFR calculation approach that does not have a coefficient for race that conforms to the NKF-ASN Task Force Recommendations. Performed By: #### 4 6449 #### [facility] [address] [address] Dacia Villagran M.D. [id number] CBC WITH AUTO DIFFERENTIALon 04-26-2025 AUTO NRBC 0.0 % Normal [facility] Comment on above: Performed By: #### 4 6124 #### [facility] [address] [address] Dacia Villagran M.D. [id number] AUTO NRBC ABS COUNT 0.00 K/mcL Normal 0.00-0.00 [facility] Comment on above: Performed By: #### 4 6124 #### [facility] [address] [address] Dacia Villagran M.D. [id number] BASOPHILS ABSOLUTE COUNT 0.06 K/mcL Normal 0.00-0.30 [facility] Comment on above: Performed By: #### 4 6124 #### [facility] [address] [address] Dacia Villagran M.D. [id number] Basophils/100 WBC (Bld) 0.7 % Normal [facility] Comment on above: Performed By: #### 4 6124 #### [facility] [address] [address] Dacia Villagran M.D. [id number] Eosinophils (Bld) [#/Vol] 0.35 10*3/uL Normal 0.00-0.50 [facility] Comment on above: Performed By: #### 4 6124 #### [facility] [address] [address] Dacia Villagran M.D. [id number] Eosinophils/100 WBC (Bld) 4.1 % Normal [facility] Comment on above: Performed By: #### 4 6124 #### [facility] [address] [address] Dacia Villagran M.D. [id number] Erythrocyte distribution width (RBC) [Ratio] 12.8 % Normal 11.6-14.8 [facility] Comment on above: Performed By: #### 4 6124 #### [facility] [address] [address] Dacia Villagran M.D. [id number] Hematocrit (Bld) [Volume fraction] 36.4 % Normal 36.0-46.0 [facility] Comment on above: Performed By: #### 4 6124 #### [facility] [address] [address] Dacia Villagran M.D. [id number] Hemoglobin (Bld) [Mass/Vol] 11.6 g/dL Low 12.0-16.0 [facility] Comment on above: Performed By: #### 4 6124 #### [facility] [address] [address] Dacia Villagran M.D. [id number] IG ABSOLUTE 0.03 K/mcL Normal 0.00-0.30 [facility] Comment on above: Performed By: #### 4 6124 #### [facility] [address] [address] Dacia Villagran M.D. [id number] IG PERCENT 0.40 % [facility] Comment on above: Result Comment: The IG parameter is the percentage of metamyelocytes, myelocytes and promyelocytes. An immature granulocyte count (IG) of 1% or more suggests the possibility of infection, an IG count of 3% is very likely related to an infection. Performed By: #### 4 [id number] #### [facility] [address] [address] Dacia Villagran M.D. [id number] Lymphocytes (Bld) [#/Vol] 1.90 10*3/uL Normal 0.90-4.00 [facility] Comment on above: Performed By: #### 4 6124 #### [facility] [address] [address] Dacia Villagran M.D. [id number] Lymphocytes/100 WBC (Bld) 22.2 % Normal [facility] Comment on above: Performed By: #### 4 6124 #### [facility] [address] [address] Dacia Villagran M.D. [id number] MCH (RBC) [Entitic mass] 30.5 pg Normal 26.0-34.0 [facility] Comment on above: Performed By: #### 4 6124 #### [facility] [address] [place], [place] [address] Dacia Villagran M.D. [id number] MCV (RBC) [Entitic vol] 95.8 fL Normal 80.0-100.0 [facility] Comment on above: Performed By: #### 4 6124 #### [facility] [address] [address] Dacia Villagran M.D. [id number] MEAN CORPUSCULAR HEMOGLOBIN CONC 31.9 g/dL Normal 31.0-37.0 [facility] Comment on above: Performed By: #### 4 6124 #### [facility] [address] [address] Dacia Villagran M.D. [id number] Monocytes (Bld) [#/Vol] 0.62 10*3/uL Normal 0.30-0.90 [facility] Comment on above: Performed By: #### 4 6124 #### [facility] [address] [address]Keshawn Villagran M.D. [id number] Monocytes/100 WBC (Bld) 7.3 % Normal [facility] Comment on above: Performed By: #### 4 6124 #### [facility] [address] [address] Dacia Villagran M.D. [id number] NEUTROPHILS ABSOLUTE COUNT 5.59 K/mcL Normal 1.70-7.00 [facility] Comment on above: Performed By: #### 4 6124 #### [facility] [address] [address] Dacia Villagran M.D. [id number] Neutrophils/100 WBC (Bld) 65.3 % Normal [facility] Comment on above: Performed By: #### 4 6181 #### [facility] [address] [address] Dacia Villagran M.D. [id number] Platelet mean volume (Bld) [Entitic vol] 8.8 fL Low 9.4-12.4 [facility] Comment on above: Performed By: #### 4 6124 #### [facility] [address] [place], [place] [address] Dacia Villagran M.D. [id number] Platelets (Bld) [#/Vol] 261 10*3/uL Normal 150-400 [facility] Comment on above: Performed By: #### 4 6124 #### [facility] [address] [place], [place] [address] Dacia Villagran M.D. [id number] RBC (Bld) [#/Vol] 3.80 10*6/uL Low 4.00-5.20 [facility] Comment on above: Performed By: #### 4 6124 #### [facility] [address] [place], [place] [address] Dacia Villagran M.D. [id number] WBC (Bld) [#/Vol] 8.55 10*3/uL Normal 4.50-11.00 [facility] Comment on above: Performed By: #### 4 6124 #### [facility] [address] [place], [place] [address] Dacia Villagran M.D. [id number] CONSULTon 04-26-2025 CONSULT -- Attestation signed by Srinath Mccann MD at 04/26/2025 9:44 AM Attending Addendum I have seen and independently examined the patient with physician hand presser/nurse practitioner. I agree with the documented history, physical exam, assessment and plan as outlined and/or as amended below. Symptoms concerning for new onset typical angina with noted left main/LAD/circumflex calcification on noncontrast CT. Given this, would recommend proceeding with cardiac catheterization. She also notes recent wheezing which is not common for her, if no significant CAD symptoms likely lung related given CT findings. CARDIOLOGY CONSULT NOTE Patient Name: Gail Lewis Admit Date: [id number] MR #: [id number] : 1965 Physicians: Tony Rivera, YESSY (Family); No ref. provider found (Referring) Reason for Consult: Stable angina Assessment and Plan: 1. Angina, troponin negative x 2, EKG NSR without ischemic changes noted 2. Hypertension, current BP 98/61 - On Coreg outpatient 3. HLD, on statin 4. Asthma 5. History of lung cancer Plan: -Echo pending - Plan for [facility], further recommendations pending results -Discussed indications, risks, benefits, alternatives of cardiac catheterization including option of not proceeding with procedure and treating with medical therapy. All questions answered to best of my ability and patient agreeable to proceed, consent obtained. Denies IV dye allergy. Discussed with patient that this procedure is being performed at a hospital that does not have an on site open heart surgery service and that if the need arises, patient will need to be transferred to a receiving service for medical/surgical management. Case reviewed with rounding top lift compressor and discussed medication changes/plan of care/decision making together History of Present Illness: Gail Lewis is a 59 y.o. female presenting with complaints of angina. Patient states she has been having exertional, nonradiating chest heaviness over the last 4 days with associated shortness of breath. Patient notes symptoms lasted a few minutes at a time and dissipated when she sat down and rested. Patient with PMH of hypertension, HLD, lung cancer, asthma and recent tooth abscess. States she recently stopped taking antibiotics for this. Patient denies previous ischemic workup including stress test or heart catheterization. Denies recent illness, lightheadedness or dizziness, palpitations, orthopnea, weight gain. The following conditions were present on admission: No Vizient risk variables were present on admission Please see assessment and plan for further details. History: Past Medical History: Diagnosis Date Hypertension Lung cancer (HCC) 11/27/2019 RUL Adenocarcinoma Moderate persistent asthma, uncomplicated Symptomatic cholelithiasis 11/24/2020 Past Surgical History: Procedure Laterality Date APPENDECTOMY CHOLECYSTECTOMY CT BIOPSY LUNG 10/21/2019 CT BIOPSY LUNG 10/21/2019 CT BIOPSY LUNG 09/16/2019 CT BIOPSY LUNG 09/16/2019 LUNG SURGERY RUL Lobectomy 2018 Family History Problem Relation Age of Onset Cancer Father Heart disease Sister Cancer Brother Heart disease Brother Social History [1] Allergy Information: I have reviewed the patient's allergies. Vicodin [hydrocodone-acetamino phen] Home Medications: Outpatient Medications as of 04/25/2025 Medication Sig albuterol (PROVENTIL) 2.5 mg /3 mL (0.083 %) nebulizer solution Take 3 mL (2.5 mg total) by nebulization every 6 (six) hours as needed for wheezing . albuterol 90 mcg/actuation inhaler Inhale 2 (two) puffs every 4 (four) hours as needed for wheezing, shortness of breath or cough . busPIRone (BUSPAR) 10 MG tablet Take 1 (one) tablet (10 mg total) by mouth 3 (three) times a day . atorvastatin (LIPITOR) 40 MG tablet Take 1 (one) tablet (40 mg total) by mouth daily . budesonide-formoteroL (Symbicort) 160-4.5 mcg/actuation inhaler Inhale 2 (two) puffs 2 (two) times a day . carvediloL (COREG) 6.25 MG tablet Take 1 (one) tablet (6.25 mg total) by mouth 2 (two) times a day with meals . FLUoxetine (PROZAC) 20 MG capsule Take 1 (one) capsule (20 mg total) by mouth daily . fluticasone furoate-vilanteroL (Breo Ellipta) 200-25 mcg/dose DsDv Inhale 1 (one) puff daily . (Patient not taking: Reported on 08/18/2024 .) lidocaine (LIDODERM) 5 % patch Place 1 (one) patch on the skin daily Remove & Discard patch within 12 hours or as directed by MD . Review of Systems: The following system(s) were reviewed and pertinent findings noted: All other systems reviewed and negative other than HPI Physical Examination: Vital Signs: BP 103/65 Pulse 71 Temp 98 degrees F (36.7 degrees C) (Oral) Resp 14 Ht 4' 11" Wt 78.1 kg (172 l (more content not included)... Normal [facility] CT CHEST WITHOUT CONTRASTon 04-26-2025 CT CHEST WITHOUT CONTRAST EXAMINATION: CT CHEST WITHOUT CONTRAST 04/26/2025 HISTORY: ORDERING SYSTEM PROVIDED HISTORY: ACS admission with SOB. Has hx of RUL adenocarcinoma lost to follow up, no recent surveillence imaging, TECHNOLOGIST PROVIDED HISTORY: Illness/Other Reason for exam: ACS admission with SOB. Has hx of RUL adenocarcinoma lost to follow up, no recent surveillence imaging Encounter Type: Initial Additional signs and symptoms: ACS admission with SOB. Has hx of RUL adenocarcinoma lost to follow up, no recent surveillence imaging ORDERING SYSTEM PROVIDED DIAGNOSIS CODES: R07.9 Chest pain, moderate coronary artery risk COMPARISON STUDY: CT of the chest without contrast 08/05/2023. TECHNIQUE: CT examination of the chest without IV contrast. Coronal and sagittal reformations were performed. Dose reduction techniques were achieved by using automated exposure control and/or adjustment of mA and/or kV according to patient size and/or use of iterative reconstruction technique. FINDINGS: Gallbladder is surgically absent. Visualized portions of the upper abdominal contents appear unremarkable. Both adrenals appear unremarkable. Small nonenlarged noncalcified intrathoracic nodes are stable. The lateral aortic recess node on image number 30 has slightly increased in size. This measures 5 x 15 mm. CORONARY ARTERIES: Heart size is stable. Coronary artery calcifications are again noted in a double-vessel distribution. Partial right-sided pneumonectomy is noted. Interval progression of small airways disease since prior exam. There is interval worsening of background bronchial wall cuffing with scattered tree-in-bud opacities noted. This is most apparent within the caudal aspect of the lingula anteromedially, image number 49 as well as involving basilar segments of right lower lobe, image 52. The subcarinal node is also slightly increased in size with short axis measurement of 8 mm. Stable chronic biapical pleural parenchymal fibrotic-type changes noted. No dense consolidation noted. No suspicious pulmonary mass noted otherwise. No acute osseous change in the interval. IMPRESSION: 1. Prior right upper lobe resection. 2. Interval development of infectious/inflammator y bronchitis. Multifocal infectious/inflammator y bronchiolitis with tree-in-bud opacities predominantly involving the lingula and basilar segments of the right lower lobe are noted. No dense consolidation. 3. Slight interval increase in size of mediastinal nodes, likely due to reactive change. Otherwise no convincing evidence of new intrathoracic metastases. Continued follow-up is recommended. 4. Prior cholecystectomy. SKS/tde Workstation ID: [id number] Dictated by: MELISSA ARIAS on SatApr 26, 2025 8:45:11 AM EDT Transcribed by: VICTORIA MEJIA on SatApr 26, 2025 8:57:59 AM EDT Finalized by: MELISSA ARIAS on SatApr 26, 2025 10:15:53 AM EDT Normal [facility] Comment on above: Order Comment: [facility] has implemented the eGFR calculation approach that does not have a coefficient for race that conforms to the NKF-ASN Task Force Recommendations. ECHOCARDIOGRAM COMPLETEon ECHOCARDIOGRAM COMPLETE Patient Info Name: GAIL LEWIS Age: 59 years : 1965 Gender: Female Ht: 150 cm Wt: 78 kg BSA: 1.84 m2 HR: 71 bpm BP: 103 / 65 mmHg Exam Date: 04/26/2025 8:29 AM Patient Status: Inpatient Fellmongery Worker: Adam Enciso RDCS, [place] Exam Type: ECHOCARDIOGRAM COMPLETE Study Info Indications - Chest pain Attending Physician: [facility] [place] [facility] Referring Physician: TREVON Rogers; [id number] BMI: 34.74 kg/m2 Summary 1. Normal cardiac chamber sizes. 2. Relative wall thickness of left ventricle is normal. 3. Left ventricular systolic function is normal with an ejection fraction by Biplane Method of Discs of 55 %. 4. Left ventricular segmental wall motion is normal. 5. There is normal diastolic function. 6. Right ventricular systolic function is normal. 7. There is mild tricuspid valve regurgitation. 8. The proximal ascending aorta is mildly dilated measuring 3.5 cm with an index of 1.9 cm/m2. 9. There is no pericardial effusion. History/Risk Factors Hypertension: Yes Dyslipidemia: Yes Diabetes Mellitus: No Procedure(s): Complete two-dimensional, color flow and Doppler transthoracic echocardiogram is performed. Left Ventricle Left ventricular chamber dimension is normal. Left ventricular systolic function is normal with an ejection fraction by Biplane Method of Discs of 55 %. Normal left ventricular mass. Left ventricular segmental wall motion is normal. There is normal diastolic function. Relative wall thickness of left ventricle is normal. Right Ventricle Right ventricular size and systolic function are normal. Right ventricular systolic function is normal. Ventricular Septum Intact interventricular septum visualized by 2D imaging. Left Atria Left atrial chamber is normal with a left atrial volume index of 15 ml/m2 by BP MOD. Right Atria Right atrial chamber dimension is normal. Atrial Septum Intact interatrial septum visualized by 2D imaging. Aortic Valve The aortic valve is trileaflet. There is no aortic valve sclerosis. There is no aortic valve stenosis. There is no aortic valve regurgitation. Pulmonic Valve The pulmonic valve is normal. There is no pulmonic valve stenosis. There is trace pulmonic regurgitation. Mitral Valve The mitral valve has normal leaflets. There is no mitral valve stenosis. There is no mitral valve regurgitation. Tricuspid Valve The tricuspid valve leaflets are normal. There is no significant tricuspid valve stenosis. There is mild tricuspid valve regurgitation. There is no pulmonary hypertension, estimated right ventricle systolic pressure is 36 mmHg. Pericardium/Pleural The pericardium appears normal. There is no pericardial effusion. Inferior Vena Cava Normal inferior vena cava with >50% collapse upon inspiration consistent with normal right atrial pressure. Aorta The aortic measurements are indexed to age and body surface area. The aortic root is normal measuring 2.8 cm with an index of 1.5 cm/m2. The proximal ascending aorta is mildly dilated measuring 3.5 cm with an index of 1.9 cm/m2. Left Ventricular Outflow Tract ---- Name Value Normal ---- LVOT 2D ---- LVOT Diameter 2.0 cm LVOT Doppler ---- LVOT Peak Velocity 1.0 m/s LVOT Peak Gradient 4 mmHg LVOT Mean Gradient 2 mmHg LVOT VTI 22 cm LVOT VTI/AV VTI Ratio 0.8 LVOT Stroke Volume 67 ml LVOT Stroke Index 36.58 ml/m2 LVOT CO 4.0 l/min LVOT CI 2.2 L/min/m2 Pulmonic Valve ---- Name Value Normal ---- RVOT Doppler ---- RVOT Peak Velocity 49 cm/s RVOT Peak Gradient 1 mmHg RVOT Mean Gradient 1 mmHg RVOT VTI 14 cm PV Doppler ---- PV Peak Velocity 0.60 m/s PV Peak Gradient 1 mmHg Mitral Valve ---- Name Value Normal ---- MV Doppler ---- MV Decel [place] 431 cm/s2 MV PHT 53 ms MV Area (PHT) 4.1 cm2 4.0-5.0 MV Regurgitation Doppler ---- MR Peak Velocity 5 m/s MR Peak Gradient 92 mmHg MV Diastolic Function ---- MV E Peak Velocity 0.79 m/s MV A Peak Velocity 0.76 m/s MV E/A 1.0 MV D (more content not included)... Normal [facility] LEFT HEART CATHon 04-26-2025 LEFT HEART CATH This is a summary report. The complete report is available in the patient's medical record. If you cannot access the medical record, please contact the sending organization for a detailed fax or copy. Impression: LM mild disease LAD with diffuse mild disease Ramus with 80% ostial stenosis with dFR of 0.91 and IVUS assessed stenosis of approximately 80%, s/p successful IVUS-guided PCI with 2.25 x 12mm Xience Skypoint Rx with APPLE 3 flow resulting Lcx with MLI RCA (dominant) with diffuse mild disease LVEDP of 15 mmHg Uncomplicated 6Fr right radial arterial access Recommendations: Continue aspirin 81 mg daily indefinitely and clopidogrel for 6 months Target LDL<70 mg/dL with a high-intensity statin Optimal lifestyle habits including smoking cessation, adopting a Mediterranean diet, and regular moderate-intensity exercise (>3 hours weekly) Participation in cardiac rehabilitation Optimal BP <120/80 mm Hg Patient declined to have any family member or POA notified of this procedure Kurt Jarrell IV, MD, [facility] Interventional Cardiology [facility] [address] [place], [place] [id number] Office: Coronary Findings Diagnostic Dominance: Left Left Main: The vessel was visualized by angiography and is moderate in size. There is mild diffuse disease throughout the vessel. Left Anterior Descending: The vessel was visualized by angiography and is moderate in size. There is mild diffuse disease throughout the vessel. Ramus Intermedius: Ramus lesion is 80% stenosed. APPLE flow is 3. The lesion is type C. Left Circumflex: The vessel was visualized by angiography and is moderate in size. The vessel exhibits minimal luminal irregularities. Right Coronary Artery: The vessel was visualized by angiography and is moderate in size. There is mild diffuse disease throughout the vessel. Intervention Ramus lesion: Stent: A drug-eluting stent was successfully placed. Maximum pressure: 9 aniceto. Inflation time: 8 sec. Supplies Used: STENT 2.25 X 12 XIENCE SKYPOINT RX Post-Intervention Lesion Assessment: Post-intervention APPLE flow is 3. There were no complications. There is a 0% residual stenosis post intervention. Appropriate use criteria Indication for PCI: SIHD. SIHD: stable angina. Syntax score is low. Normal [facility] POC ACTIVATED CLOTTING TIME - Kip 04-26-2025 POC ACT CELITE 335 seconds Normal [facility] Comment on above: Performed By: #### 4 [id number] #### [facility] [address] [place], [place] [address] Dacia Villagran M.D. [id number] RENAL FUNCTION PANEL 04-26 Albumin [Mass/Vol] 3.8 g/dL Normal 3.2-5.2 [facility] Comment on above: Order Comment: [facility] has implemented the eGFR calculation approach that does not have a coefficient for race that conforms to the NKF-ASN Task Force Recommendations. Performed By: #### 4 [id number] #### [facility] [address] [place], [place] [address] Dacia Villagran M.D. [id number] Anion gap [Moles/Vol] 16 mmol/L Normal 10-20 [facility] Comment on above: Order Comment: [facility] has implemented the eGFR calculation approach that does not have a coefficient for race that conforms to the NKF-ASN Task Force Recommendations. Performed By: #### 4 [id number] #### [facility] [address] [place], [place] [address] Dacia Villagran M.D. [id number] Calcium [Mass/Vol] 9.0 mg/dL Normal 8.4-10.2 [facility] Comment on above: Order Comment: [facility] has implemented the eGFR calculation approach that does not have a coefficient for race that conforms to the NKF-ASN Task Force Recommendations. Performed By: #### 4 6449 #### [facility] [address] [place], [place] [address] Dacia Villagran M.D. [id number] Chloride [Moles/Vol] 104 mmol/L Normal 98-108 [facility] Comment on above: Order Comment: [facility] has implemented the eGFR calculation approach that does not have a coefficient for race that conforms to the NKF-ASN Task Force Recommendations. Performed By: #### 4 6449 #### [facility] [address] [place], [place] [address] Dacia Villagran M.D. [id number] Creatinine [Mass/Vol] 0.66 mg/dL Normal 0.40-1.10 [facility] Comment on above: Order Comment: [facility] has implemented the eGFR calculation approach that does not have a coefficient for race that conforms to the NKF-ASN Task Force Recommendations. Performed By: #### 4 [id number] #### [facility] [address] [place] [address] Dacia Villagran M.D. [id number] EGFR 101 mL/min/1.73 m2 Normal >=60 [facility] Comment on above: Order Comment: [facility] has implemented the eGFR calculation approach that does not have a coefficient for race that conforms to the NKF-ASN Task Force Recommendations. Result Comment: Evelyne mated GFR was calculated using the 2020 CKD-EPI creatinine equation. Performed By: #### 4 [id number] #### [facility] [address] [place] [address] Dacia Villagran M.D. [id number] Glucose [Mass/Vol] 101 mg/dL High 65-99 [facility] Comment on above: Order Comment: [facility] has implemented the eGFR calculation approach that does not have a coefficient for race that conforms to the NKF-ASN Task Force Recommendations. Performed By: #### 4 [id number] #### [facility] [address] [place], [place] [address] Dacia Villagran M.D. [id number] HCO3 (Bld) [Moles/Vol] 24 mmol/L Normal 21-32 [facility] Comment on above: Order Comment: [facility] has implemented the eGFR calculation approach that does not have a coefficient for race that conforms to the NKF-ASN Task Force Recommendations. Performed By: #### 4 6449 #### [facility] [address] [place], [place] [address] Dacia Villagran M.D. [id number] Phosphate [Mass/Vol] 3.4 mg/dL Normal 2.7-4.5 [facility] Comment on above: Order Comment: [facility] has implemented the eGFR calculation approach that does not have a coefficient for race that conforms to the NKF-ASN Task Force Recommendations. Performed By: #### 4 [id number] #### [facility] [address] [place], [place] [address] Dacia Villagran M.D. [id number] Potassium [Moles/Vol] 3.8 mmol/L Normal 3.5-5.1 [facility] Comment on above: Order Comment: [facility] has implemented the eGFR calculation approach that does not have a coefficient for race that conforms to the NKF-ASN Task Force Recommendations. Performed By: #### 4 [id number] #### [facility] [address] [place], [place] [address] Dacia Villagran M.D. [id number] Sodium [Moles/Vol] 140 mmol/L Normal 135-145 [facility] Comment on above: Order Comment: [facility] has implemented the eGFR calculation approach that does not have a coefficient for race that conforms to the NKF-ASN Task Force Recommendations. Performed By: #### 4 [id number] #### [facility] [address] [place], [place] [address] Dacia Villagran M.D. [id number] Urea nitrogen [Mass/Vol] 12 mg/dL Normal 8-25 [facility] Comment on above: Order Comment: [facility] has implemented the eGFR calculation approach that does not have a coefficient for race that conforms to the NKF-ASN Task Force Recommendations. Performed By: #### 4 6449 #### [facility] [address] [place], [place] [address] Dacia Villagran M.D. [id number] Urea nitrogen/Creatinine [Mass ratio] 18.2 mg/mg Normal 10.0-20.0 [facility] Comment on above: Order Comment: [facility] has implemented the eGFR calculation approach that does not have a coefficient for race that conforms to the NKF-ASN Task Force Recommendations. Performed By: #### 4 6449 #### [facility] [address] [place], [place] [address] Dacia Villagran M.D. [id number] BASIC METABOLIC PANEL 03-31 Anion gap [Moles/Vol] 19 mmol/L Normal 10-20 [facility] Comment on above: Order Comment: [facility] has implemented the eGFR calculation approach that does not have a coefficient for race that conforms to the NKF-ASN Task Force Recommendations. Performed By: #### 4 6124 #### [facility] [address] [place], [place] [address] Dacia Villagran M.D. [id number] Calcium [Mass/Vol] 9.4 mg/dL Normal 8.4-10.2 [facility] Comment on above: Order Comment: [facility] has implemented the eGFR calculation approach that does not have a coefficient for race that conforms to the NKF-ASN Task Force Recommendations. Performed By: #### 4 6124 #### [facility] [address] [place], [place] [address] Dacia Villagran M.D. [id number] Chloride [Moles/Vol] 104 mmol/L Normal 98-108 [facility] Comment on above: Order Comment: [facility] has implemented the eGFR calculation approach that does not have a coefficient for race that conforms to the NKF-ASN Task Force Recommendations. Performed By: #### 4 6124 #### [facility] [address] [place], [place] [address] Dacia Villagran M.D. [id number] Creatinine [Mass/Vol] 0.68 mg/dL Normal 0.40-1.10 [facility] Comment on above: Order Comment: [facility] has implemented the eGFR calculation approach that does not have a coefficient for race that conforms to the NKF-ASN Task Force Recommendations. Performed By: #### 4 6124 #### [facility] [address] [place], [place] [address] Dacia Villagran M.D. [id number] EGFR 100 mL/min/1.73 m2 Normal >=60 [facility] Comment on above: Order Comment: [facility] has implemented the eGFR calculation approach that does not have a coefficient for race that conforms to the NKF-ASN Task Force Recommendations. Result Comment: Evelyne mated GFR was calculated using the 2020 CKD-EPI creatinine equation. Performed By: #### 4 6124 #### [facility] [address] [place], [place] [address] Dacia Villagran M.D. [id number] Glucose [Mass/Vol] 106 mg/dL High 65-99 [facility] Comment on above: Order Comment: [facility] has implemented the eGFR calculation approach that does not have a coefficient for race that conforms to the NKF-ASN Task Force Recommendations. Performed By: #### 4 [id number] #### [facility] [address] [place], [place] [address] Dacia Villagran M.D. [id number] HCO3 (Bld) [Moles/Vol] 23 mmol/L Normal 21-32 [facility] Comment on above: Order Comment: [facility] has implemented the eGFR calculation approach that does not have a coefficient for race that conforms to the NKF-ASN Task Force Recommendations. Performed By: #### 4 [id number] #### [facility] [address] [place] [address] Dacia Villagran M.D. [id number] Potassium [Moles/Vol] 3.6 mmol/L Normal 3.5-5.1 [facility] Comment on above: Order Comment: [facility] has implemented the eGFR calculation approach that does not have a coefficient for race that conforms to the NKF-ASN Task Force Recommendations. Performed By: #### 4 6124 #### [facility] [address] [place], [place] [address] Dacia Villagran M.D. [id number] Sodium [Moles/Vol] 142 mmol/L Normal 135-145 [facility] Comment on above: Order Comment: [facility] has implemented the eGFR calculation approach that does not have a coefficient for race that conforms to the NKF-ASN Task Force Recommendations. Performed By: #### 4 6124 #### [facility] [address] [place], [place] [address] Dacia Villagran M.D. [id number] Urea nitrogen [Mass/Vol] 13 mg/dL Normal 8-25 [facility] Comment on above: Order Comment: [facility] has implemented the eGFR calculation approach that does not have a coefficient for race that conforms to the NKF-ASN Task Force Recommendations. Performed By: #### 4 [id number] #### [facility] [address] [place], [place] [address] Dacia Villagran M.D. [id number] Urea nitrogen/Creatinine [Mass ratio] 19.1 mg/mg Normal 10.0-20.0 [facility] Comment on above: Order Comment: [facility] has implemented the eGFR calculation approach that does not have a coefficient for race that conforms to the NKF-ASN Task Force Recommendations. Performed By: #### 4 [id number] #### [facility] [address] [place] [address] Dacia Villagran M.D. [id number] BLOOD GAS, VENOUSon 04-25-20 25 BASE EXCESS, VENOUS 0.8 Normal -2.0-2.0 [facility] Comment on above: Performed By: #### 4 6733 #### [facility] [address] [place] [address] Dacia Villagran M.D. [id number] HCO3 (Bld) [Moles/Vol] 25.3 mmol/L Normal 24.0-28.0 [facility] Comment on above: Performed By: #### 4 6733 #### [facility] [address] [place], [place] [address] Dacia Villagran M.D. [id number] Hematocrit (Bld) [Volume fraction] 34.3 % Low 36.0-46.0 [facility] Comment on above: Performed By: #### 4 [id number] #### [facility] [address] [place], [place] [address] Dacia Villagran M.D. [id number] Hemoglobin (Bld) [Mass/Vol] 11.1 g/dL Low 12.0-16.0 [facility] Comment on above: Performed By: #### 4 [id number] #### [facility] [address] [place], [place] [address] Dacia Villagran M.D. [id number] Oxygen saturation in Blood 97.2 % High 40.0-70.0 [facility] Comment on above: Performed By: #### 4 6733 #### [facility] [address] [place] [address] Dacia Villagran M.D. [id number] PCO2 VENOUS 42.3 mm Hg Normal 41.0-51.0 [facility] Comment on above: Performed By: #### 4 6733 #### [facility] [address] [place] [address] Dacia Villagran M.D. [id number] PH VENOUS 7.39 Normal 7.32-7.42 [facility] Comment on above: Performed By: #### 4 [id number] #### [facility] [address] [place] [address] Dacia Villagran M.D. [id number] PO2 VENOUS 87 mm Hg High 25-40 [facility] Comment on above: Performed By: #### 4 [id number] #### [facility] [address] [place] [address] Dacia Villagran M.D. [id number] CBC WITH AUTO DIFFERENTIALon 04-25-2025 AUTO NRBC 0.0 % [facility] Comment on above: Performed By: #### 4 6449 #### [facility] [address] [place] [address] Dacia Villagran M.D. [id number] AUTO NRBC ABS COUNT 0.00 K/mcL Normal 0.00-0.00 [facility] Comment on above: Performed By: #### 4 6449 #### [facility] [address] [place] [address] Dacia Villagran M.D. [id number] BASOPHILS ABSOLUTE COUNT 0.06 K/mcL Normal 0.00-0.30 [facility] Comment on above: Performed By: #### 4 6449 #### [facility] [address] [place] [address] Dacia Villagarn M.D. [id number] Basophils/100 WBC (Bld) 0.5 % [facility] Comment on above: Performed By: #### 4 6449 #### [facility] [address] [place] [address] Dacia Villagran M.D. [id number] Eosinophils (Bld) [#/Vol] 0.44 10*3/uL Normal 0.00-0.50 [facility] Comment on above: Performed By: #### 4 6449 #### [facility] [address] [place] [address] Dacia Villagran M.D. [id number] Eosinophils/100 WBC (Bld) 3.9 % Normal [facility] Comment on above: Performed By: #### 4 6449 #### [facility] [address] [place] [address] Dacia Villagran M.D. [id number] Erythrocyte distribution width (RBC) [Ratio] 12.9 % Normal 11.6-14.8 [facility] Comment on above: Performed By: #### 4 6449 #### [facility] [address] [place] [address] Dacia Villagran M.D. [id number] Hematocrit (Bld) [Volume fraction] 36.1 % Normal 36.0-46.0 [facility] Comment on above: Performed By: #### 4 6449 #### [facility] [address] [place] [address] Dacia Villagran M.D. [id number] Hemoglobin (Bld) [Mass/Vol] 12.0 g/dL Normal 12.0-16.0 [facility] Comment on above: Performed By: #### 4 6449 #### [facility] [address] [place] [address] Dacia Villagran M.D. [id number] IG ABSOLUTE 0.11 K/mcL Normal 0.00-0.30 [facility] Comment on above: Performed By: #### 4 6449 #### [facility] [address] [place] [address] Dacia Villagran M.D. [id number] IG PERCENT 1.00 % Normal [facility] Comment on above: Result Comment: The IG parameter is the percentage of metamyelocytes, myelocytes and promyelocytes. An immature granulocyte count (IG) of 1% or more suggests the possibility of infection, an IG count of 3% is very likely related to an infection. Performed By: #### 4 6449 #### [facility] [address] [place] [address] Dacia Villagran M.D. [id number] Lymphocytes (Bld) [#/Vol] 2.20 10*3/uL Normal 0.90-4.00 [facility] Comment on above: Performed By: #### 4 6449 #### [facility] [address] [place] [address] Dacia Villagran M.D. [id number] Lymphocytes/100 WBC (Bld) 19.5 % Normal [facility] Comment on above: Performed By: #### 4 6449 #### [facility] [address] [place] [address] Dacia Villagran M.D. [id number] MCH (RBC) [Entitic mass] 31.0 pg Normal 26.0-34.0 [facility] Comment on above: Performed By: #### 4 6449 #### [facility] [address] [place] [address] Dacia Villagran M.D. [id number] MCV (RBC) [Entitic vol] 93.3 fL Normal 80.0-100.0 [facility] Comment on above: Performed By: #### 4 6449 #### [facility] [address] [place] [address] Dacia Villagran M.D. [id number] MEAN CORPUSCULAR HEMOGLOBIN CONC 33.2 g/dL Normal 31.0-37.0 [facility] Comment on above: Performed By: #### 4 6449 #### [facility] [address] [place] [address] Dacia Villagran M.D. [id number] Monocytes (Bld) [#/Vol] 0.82 10*3/uL Normal 0.30-0.90 [facility] Comment on above: Performed By: #### 4 6449 #### [facility] [address] [place] [address] Dacia Villagran M.D. [id number] Monocytes/100 WBC (Bld) 7.3 % Normal [facility] Comment on above: Performed By: #### 4 6449 #### [facility] [address] [place], [place] [address] Dacia Villagran M.D. [id number] NEUTROPHILS ABSOLUTE COUNT 7.63 K/mcL High 1.70-7.00 [facility] Comment on above: Performed By: #### 4 6449 #### [facility] [address] [place], [place] [address] Dacia Villagran M.D. [id number] Neutrophils/100 WBC (Bld) 67.8 % Normal [facility] Comment on above: Performed By: #### 4 6449 #### [facility] [address] [place], [place] [address] Dacia Villagran M.D. [id number] Platelet mean volume (Bld) [Entitic vol] 8.8 fL Low 9.4-12.4 [facility] Comment on above: Performed By: #### 4 6449 #### [facility] [address] [place] [address] Dacia Villagran M.D. [id number] Platelets (Bld) [#/Vol] 272 10*3/uL Normal 150-400 [facility] Comment on above: Performed By: #### 4 6449 #### [facility] [address] [place], [place] [address] Dacia Villagran M.D. [id number] RBC (Bld) [#/Vol] 3.87 10*6/uL Low 4.00-5.20 [facility] Comment on above: Performed By: #### 4 6449 #### [facility] [address] [place] [address] Dacia Villagran M.D. [id number] WBC (Bld) [#/Vol] 11.26 10*3/uL High 4.50-11.00 [facility] Comment on above: Performed By: #### 4 6449 #### [facility] [address] [place], [place] [address] Dacia Villagran M.D. [id number] COVID-19/INFLUENZA A,B MOLEC ULARon 04-25-2025 SARS-CoV-2 (COVID-19) Ab IA Ql SARS-COV-2 (BELEN) Not Detected INFLUENZA A (BELEN) Not Detected INFLUENZA B (BELEN) Not Detected Normal Not Detected [facility] Comment on above: Performed By: #### 4 [id number] #### [facility] [address] [place], [place] [address] Dacia Villagran M.D. [id number] D-DIMER, QUANTITATIVEon 03-31 D-DIMER QUANTITATIVE 0.33 mcg/mL FEU Normal 0.27-0.49 [facility] Comment on above: Order Comment: A D-d kane concentration of <0.5 micrograms per milliliter FEU is considered a low probability for pulmonary embolus (PE) and deep venous thrombosis (DVT). Results of this test should always be interpreted in conjunction with the patient's medical history,clinical presentation, and other findings. Clinical diagnosis should not be based on the results of the D-dimer alone. Performed By: #### 4 5434 #### [facility] [address] [place], [place] [address] Dacia Villagran M.D. [id number] ED Prov Noteon 04-25-2025 ED Prov Note [facility] ED Physician Note: NAME: Gail Lewis 59 y.o. CSN: [id number] PCP: Tony Rivera CNP ED Course / Medical Decision Making: Medical Decision Making Problems Addressed: Chest pain, moderate coronary artery risk: acute illness or injury Amount and/or Complexity of Data Reviewed Labs: ordered. Decision-making details documented in ED Course. Radiology: ordered. Decision-making details documented in ED Course. ECG/medicine tests: ordered and independent interpretation performed. Decision-making details documented in ED Course. Risk Decision regarding hospitalization. 59-year-old female with history of HTN, asthma, lung cancer presents to ED reporting recurring episodes of tightness in the center of her chest with exertion over the last 3 days, as described below. Differential diagnosis includes but not limited to acute myocardial infarction, stable angina, bronchitis, pneumonia, pulmonary embolism, CHF, pleural effusion, pneumothorax. EKG shows no acute injury pattern, initial and repeat 2-hour troponin both negative. No EKG or biomarker evidence of acute myocardial infarction. No EKG criteria for pericarditis. Patient has been ill with cough and URI symptoms for several days, I did hear some rhonchi at the right lung base, but radiology reports a clear chest x-ray, does not report concern for pneumonia. She has a history of asthma, but she is not wheezing, she is not in any respiratory distress, oxygen saturation is 93-94% on room air. She is not having any pleuritic pain, she is not tachycardic or tachypneic or hypoxic, no findings in extremities to suggest DVT, D-dimer negative, no evidence of pulmonary embolism. BNP normal at 127, radiology does not report concern for CHF on chest x-ray. I discussed with her that she could potentially have an acute bronchitis, but due to the exertional nature of her chest pain, did recommend hospitalization for further cardiac evaluation. Patient agreeable with this. Case discussed with the admitting hospitalist, who accepted admission on the [facility] service. Clinical Impression: 1. Chest pain, moderate coronary artery risk History: Chief Complaint: Chest Pain HPI: The history was obtained from the patient. She is a 59 y.o. female who presents with a chief complaint of Chest Pain. HPI 59-year-old female with history of hypertension, moderate persistent asthma, lung cancer presents to ED reporting recurring episodes of tightness in the center of her chest the last 3 days. She states the tightness will come on with exertion, will last 2 to 3 hours, eventually goes away with rest. There is no radiation of this discomfort in her chest to her jaw or down the arms. No associated diaphoresis, nausea or vomiting. Has felt short of breath the last several days as well, worse with exertion. She has had chest congestion with productive cough, grayish sputum for 3 to 4 days. Subjective fevers, has never checked her temperature at home. The last 2 days has had right subscapular back pain, worse when she coughs, somewhat worse on exertion, but no pleuritic pain. Has had associated nasal congestion, sore throat, intermittent frontal headache over the last few days. No abdominal pain, vomiting or diarrhea, bloody stools, leg pain or swelling. PMHx: Past Medical History: Diagnosis Date Hypertension Lung cancer (HCC) 11/27/2019 RUL Adenocarcinoma Moderate persistent asthma, uncomplicated Symptomatic cholelithiasis 11/24/2020 PMSx: Past Surgical History: Procedure Laterality Date APPENDECTOMY CHOLECYSTECTOMY CT BIOPSY LUNG 10/21/2019 CT BIOPSY LUNG 10/21/2019 CT BIOPSY LUNG 09/16/2019 CT BIOPSY LUNG 09/16/2019 LUNG SURGERY RUL Lobectomy 2019 FAM. Hx: Family History Problem Relation Age of Onset Cancer Father Heart disease Sister Cancer Brother Heart disease Brother SOC. Hx: Social History [1] MEDs: Previous Medications Medication Sig albuterol (PROVENTIL) 2.5 mg /3 mL (0.083 %) nebulizer solution Take 3 mL (2.5 mg total) by nebulization every 6 (six) hours as needed for wheezing . albuterol 90 mcg/actuation inhaler Inhale 2 (two) puffs every 4 (four) hours as needed for wheezing, shortness of breath or cough . atorvastatin (LIPITOR) 40 MG tablet Take 1 (one) tablet (40 mg total) by mouth daily . busPIRone (BUSPAR) 10 MG tablet Take 1 (one) tablet (10 mg total) by mouth 3 (three) times a day . carvediloL (COREG) 6.25 MG tablet Take 1 (one) tablet (6.25 mg total) by mouth 2 (two) times a day with meals . famotidine (PEPCID) 40 MG tablet Take 1 (one) tablet (40 mg total) by mouth daily . FLUoxetine (PROZAC) 20 MG capsule Take 1 (one) capsule (20 mg total) by mouth daily . [DISCONTINUED] budesonide-formoteroL (Symbicort) 160-4.5 mcg/actuation inhaler Inhale 2 (two) puffs 2 (two) times a day . budesonide (PULMICORT) 90 mcg/actuation inhaler Inhale 2 (two) puffs 2 (two) (more content not included)... Normal [facility] HEMOGLOBIN A1Con 04-25-2025 Glucose [Mass/Vol] 123 mg/dL High 74-114 [facility] Comment on above: Performed By: #### [id number] #### [facility] [address] [address] Dacia Villagran M.D. [id number] HbA1c (Bld) [Mass fraction] 5.9 % High 4.2-5.6 [facility] Comment on above: Performed By: #### [id number] #### [facility] [address], [place] [address] Dacia Villagran M.D. [id number] LIPID PANELon 04-25-2025 Cholesterol [Mass/Vol] 209 mg/dL High 100-199 [facility] Comment on above: Result Comment: [facility] Cholesterol Education Program Guidelines: Cholesterol Desirable: <200 mg/dL Borderline High: 200-239 mg/dL High: greater than or equal to 240 mg/dL Performed By: #### [id number] #### [facility] [address], [place] [address] Dacia Villagran M.D. [id number] Cholesterol in HDL [Mass/Vol] 47 mg/dL Normal 40-59 [facility] Comment on above: Result Comment: [facility] Cholesterol Education Program Guidelines: HDL Cholesterol Low: <40 mg/dL Near Optimal: 40-59 mg/dL High: greater than or equal to 60 mg/dL Performed By: #### [id number] #### [facility] [address], [place] [address] Dacia Villagran M.D. [id number] Cholesterol.total/C holesterol in HDL [Mass ratio] 4.4 {ratio} Normal [facility] Comment on above: Result Comment: Fema le Cholesterol/HDL Ratio: Average risk: 4.4 1/2 average risk: 3.3 2 x average risk: 7.1 Performed By: #### [id number] #### [facility] [address], [place] [address] Dacia Villagran M.D. [id number] LDL CHOLESTEROL CALCULATED 138 mg/dL High 10-130 [facility] Comment on above: Result Comment: [facility] Cholesterol Education Program Guidelines: LDL Cholesterol Optimal: <100 mg/dL Near Optimal/above Optimal: 100-129 mg/dL Borderline High: 130-159 mg/dL High: 160-189 mg/dL Very High: greater than or equal to 190 mg/dL Performed By: #### 4 [id number] #### [facility] [address] [place], [place] [address] Dacia Villagran M.D. [id number] NON HDL CHOL 162 mg/dL Normal [facility] Comment on above: Result Comment: [facility] Cholesterol Education Program Guidelines: NON HDL Cholesterol Desirable: <130 mg/dL Borderline High: 130-159 mg/dL High: 160-189 mg/dL Very High: > or = 190 mg/dL Performed By: #### [id number] #### [facility] [address], [place] [address] Dacia Villagran M.D. [id number] Triglyceride [Mass/Vol] 121 mg/dL Normal 30-150 [facility] Comment on above: Result Comment: [facility] Cholesterol Education Program Guidelines: Triglyceride Normal: <150 mg/dL Borderline High: 150-199 mg/dL High: 200-499 mg/dL Very High: greater than or equal to 500 mg/dL Performed By: #### [id number] #### [facility] [address], [place] [address] Dacia Villagran M.D. [id number] NT PRO BNPon 04-25-2025 Natriuretic peptide B (Bld) [Mass/Vol] 127 pg/mL Normal 0-300 [facility] Comment on above: Order Comment: Pride Study Cut-offs Rule In: < /= 50 Years >450 pg/mL 51 Years - 75 Years >900 pg/mL 76 Years - 99 Years >1800 pg/mL Rule Out: All patients <300 pg/mL Performed By: #### 4 [id number] #### [facility] [address] [place], [place] [address] Dacia Villagran M.D. [id number] TROPONIN X 2 (NOW AND REPEAT IN 2 HOURS)on 04-25-2025 TROPONIN T DELTA CHANGE INTERPRETATION No biomarker evidence of cardiac injury. Normal [facility] Comment on above: Performed By: #### 4 [id number] #### [facility] [address], [place] [address] Dacia Villagran M.D. [id number] TROPONIN T NG/L < Normal <=14 [facility] Comment on above: Performed By: #### 4 6608 #### [facility] [address], [place] [address] Dacia Villagran M.D. [id number] BASELINE TROPONIN T NG/L < Normal <=14 [facility] Comment on above: Performed By: #### 4 [id number] #### [facility] [address], [place] [address] Dacia Villagran M.D. [id number] TROPONIN T INTERPRETATION Normal Normal [facility] Comment on above: Performed By: #### 4 [id number] #### [facility] [address] [place], [place] [address] Dacia Villagran M.D. [id number] TSH WITH REFLEX FREE T4on TSH Qn 2.81 m[IU]/L Normal 0.27-4.20 [facility] Comment on above: Performed By: #### 4 6612 #### [facility] [address] [place], [place] [address] Dacia Villagran M.D. [id number] XR CHEST PA/APon 04-25-2025 XR CHEST PA/AP EXAMINATION: XR CHEST PA/AP 04/25/2025 4:05 pm HISTORY: ORDERING SYSTEM PROVIDED HISTORY: CP, TECHNOLOGIST PROVIDED HISTORY: Illness/Other Reason for exam: chest pain- Patient reports intermittent upper right sided chest pain for the last couple of days along with some shortness of breath. Cancer History: lung cancer Surgery, RadiationHistory: surgery to lungs, cholecystectomy Encounter Type: Initial Additional signs and symptoms: na ORDERING SYSTEM PROVIDED DIAGNOSIS CODES: COMPARISON: PA chest from 08/14/2024. FINDINGS: Trachea, mediastinum, heart size, diaphragm and bony elements are intact. There is slight atelectasis in the lung bases. No effusion or nodule or pneumothorax is noted. IMPRESSION: Nonacute portable chest with slight bibasilar atelectasis. Workstation ID: [id number] Dictated by: SORIN WEBB on [place] Apr 25, 2025 4:48:50 PM EDT Transcribed by: SORIN WEBB on SatApr 25, 2025 4:48:50 PM EDT Finalized by: SORIN WEBB on SatApr 25, 2025 4:48:50 PM EDT Normal [facility] Comment on above: Order Comment: [facility] has implemented the eGFR calculation approach that does not have a coefficient for race that conforms to the NKF-ASN Task Force Recommendations. BASIC METABOLIC PANELon Anion gap [Moles/Vol] 16 mmol/L Normal 10-20 [facility] Comment on above: Order Comment: [facility] has implemented the eGFR calculation approach that does not have a coefficient for race that conforms to the NKF-ASN Task Force Recommendations. Performed By: #### 4 [id number] #### [facility] [address] [place], [place] [address] Dacia Villagran M.D. [id number] Calcium [Mass/Vol] 9.5 mg/dL Normal 8.4-10.2 [facility] Comment on above: Order Comment: [facility] has implemented the eGFR calculation approach that does not have a coefficient for race that conforms to the NKF-ASN Task Force Recommendations. Performed By: #### 4 [id number] #### [facility] [address], [place] [address] Dacia Villagran M.D. [id number] Chloride [Moles/Vol] 100 mmol/L Normal 98-108 [facility] Comment on above: Order Comment: [facility] has implemented the eGFR calculation approach that does not have a coefficient for race that conforms to the NKF-ASN Task Force Recommendations. Performed By: #### 4 [id number] #### [facility] [address], [place] [address] Dacia Villagran M.D. [id number] Creatinine [Mass/Vol] 0.79 mg/dL Normal 0.40-1.10 [facility] Comment on above: Order Comment: [facility] has implemented the eGFR calculation approach that does not have a coefficient for race that conforms to the NKF-ASN Task Force Recommendations. Performed By: #### 4 [id number] #### [facility] [address] [place], [place] [address] Dacia Villagran M.D. [id number] EGFR 86 mL/min/1.73 m2 Normal >=60 [facility] Comment on above: Order Comment: [facility] has implemented the eGFR calculation approach that does not have a coefficient for race that conforms to the NKF-ASN Task Force Recommendations. Result Comment: Evelyne mated GFR was calculated using the 2020 CKD-EPI creatinine equation. Performed By: #### 4 [id number] #### [facility] [address] [place], [place] [address] Dacia Villagran M.D. [id number] Glucose [Mass/Vol] 116 mg/dL High 65-99 [facility] Comment on above: Order Comment: [facility] has implemented the eGFR calculation approach that does not have a coefficient for race that conforms to the NKF-ASN Task Force Recommendations. Performed By: #### 4 [id number] #### [facility] [address] [place], [place] [address] Dacia Villagran M.D. [id number] HCO3 (Bld) [Moles/Vol] 25 mmol/L Normal 21-32 [facility] Comment on above: Order Comment: [facility] has implemented the eGFR calculation approach that does not have a coefficient for race that conforms to the NKF-ASN Task Force Recommendations. Performed By: #### 4 [id number] #### [facility] [address] [place] [address] Dacia Villagran M.D. [id number] Potassium [Moles/Vol] 4.4 mmol/L Normal 3.5-5.1 [facility] Comment on above: Order Comment: [facility] has implemented the eGFR calculation approach that does not have a coefficient for race that conforms to the NKF-ASN Task Force Recommendations. Result Comment: Slig htly Hemolyzed Performed By: #### 4 [id number] #### [facility] [address], [place] [address] Dacia Villagran M.D. [id number] Sodium [Moles/Vol] 137 mmol/L Normal 135-145 [facility] Comment on above: Order Comment: [facility] has implemented the eGFR calculation approach that does not have a coefficient for race that conforms to the NKF-ASN Task Force Recommendations. Performed By: #### 4 [id number] #### [facility] [address] [place], [place] [address] Dacia Villagran M.D. [id number] Urea nitrogen [Mass/Vol] 11 mg/dL Normal 8-25 [facility] Comment on above: Order Comment: [facility] has implemented the eGFR calculation approach that does not have a coefficient for race that conforms to the NKF-ASN Task Force Recommendations. Performed By: #### 4 [id number] #### [facility] [address] [place], [place] [address] Dacia Villagran M.D. [id number] Urea nitrogen/Creatinine [Mass ratio] 13.9 mg/mg Normal 10.0-20.0 [facility] Comment on above: Order Comment: [facility] has implemented the eGFR calculation approach that does not have a coefficient for race that conforms to the NKF-ASN Task Force Recommendations. Performed By: #### 4 [id number] #### [facility] [address] [place], [place] [address] Dacia Villagran M.D. [id number] CT MAXILLOFACIAL WITH CONTRA STon 03-31-2025 CT MAXILLOFACIAL WITH CONTRAST EXAMINATION: CT MAXILLOFACIAL WITH CONTRAST HISTORY: Severe tooth pain, fever, poor dentition MAP PUL OFFICE POLICIES/DANA SIGNED 12/20/2021 Injury/Trauma or Illness?:Illness/Other How long have you had these symptoms (acute/chronic)?:Acute Reason for exam?:Patient arrives from home with c/o dental pain. Per patient, one of her front teeth is infected and the swelling is getting worse. Patient states this has been going on for 4 days. Type of Exam?:Initial MAP PUL OFFICE POLICIES/DANA SIGNED 12/20/2021 Injury/Trauma or Illness?:Illness/Other Severe tooth pain, fever, poor dentition COMPARISON: None available at time of dictation. TECHNIQUE: CT of the facial bones was performed. Axial, coronal, sagittal reformats were created and reviewed. Dose reduction techniques were achieved by using automated exposure control and/or adjustment of mA and/or kV according to patient size and/or use of iterative reconstruction technique. CONTRAST: None. FINDINGS: Facial bones: No acute maxillofacial fractures. Soft tissues: Unremarkable Orbits: Bilateral pseudophakia. Orbital rims are maintained. Soft tissues of the orbits are normal. Paranasal sinuses, middle ear cavities, mastoids: Mild mucoperiosteal thickening with air-fluid level in the left frontal sinus. Other: Multiple carious dental disease involving the maxillary and mandibular teeth with periapical lucency. 3.1 mm central lucency with peripheral enhancement adjacent to the left maxillary central incisor tooth. Breech along the outer alveolar cortex. Temporomandibular joints are maintained. Visualized upper cervical spine appears unremarkable. No radiopaque foreign body identified. IMPRESSION: 1. No evidence of facial bone fracture. 2. Multiple periodontal and carious dental disease. 3 mm dental abscess adjacent to the left maxillary central incisor tooth. Overlying soft tissue swelling with induration in the midline upper lip. 3. Mild left frontal sinusitis. Workstation ID: [id number] Dictated by: YULIET MAURO on SatApr 01, 2025 12:33:05 AM EDT Transcribed by: YULIET MAURO on SatApr 01, 2025 12:33:05 AM EDT Finalized by: YULIET MAURO on SatApr 01, 2025 12:33:05 AM EDT Normal [facility] Comment on above: Order Comment: [facility] has implemented the eGFR calculation approach that does not have a coefficient for race that conforms to the NKF-ASN Task Force Recommendations. ED Prov Noteon 03-31-2025 ED Prov Note EMERGENCY MEDICINE PROVIDER NOTE [facility] EMERGENCY DEPARTMENT Name: Gail Lewis Encounter Date: 04/01/25 Medical Decision Making I have reviewed the chief complaint, triage note, past medical/surgical, family, and social history. Patient with dental pain and fever. Worsening symptoms for the past 4 days. Has poor dentition throughout and several broken teeth. Has been seen by dentistry in the past and has tentative plans to have several teeth removed. She is primarily having pain above her left front tooth at the gumline without obvious single area of fluctuance that would be amenable to drainage. She has several broken teeth in this area as well. Posterior oropharynx is normal. No submental fullness difficulties tolerating creations or neck stiffness, sore throat. She is febrile on arrival here but otherwise hemodynamically stable and nontoxic in appearance. I suspect her symptoms are due to a dental infection. Given this I have started her on Augmentin. However given location and degree of discomfort with fevers did discuss utility in CT imaging to evaluate for any involvement of deeper structures which she was agreeable to. Imaging confirms dental abscess. No acute abnormalities otherwise. Localized. Will treat with outpatient antibiotics and instructed her to follow-up closely with dentistry in the outpatient setting for ongoing care. Patient agreeable. Feeling better with ED treatment. Customary ED return precautions advised. Reviewed information from: Internal hospital records. Discussed with: Not applicable. Impression(s): 1. Dental infection Disposition: Discharge Shared decision making utilized by explaining the results and plan of care for disposition and next steps of care with the patient and/or family. Potential impact of patient's medical/surgical comorbidities were assessed and considered when determining the treatment course and outcome. Discussed options for treatment with or without prescription medications. I considered social determinants of health that may have impacted treatment and disposition. History of Presenting Illness The history was obtained from: patient. 59 y.o. female presenting with concerns for Dental Pain and Fever. 4 days of pain to the left front tooth with swelling in the area. Pain is now radiating towards the nose and she has been having fevers. She has poor dentition with several broken teeth and has been told that she needs to have these teeth pulled by dentist 3 to 4 months ago but has not had this yet scheduled. No headache. No neck pain. Otherwise in a normal state of health. Physical Exam Vital signs and nursing note reviewed. Patient Vitals for the past 24 hrs: BP Temp Temp src Pulse Resp SpO2 Height Weight 04/01/25 0015 -- 99.1 degrees F (37.3 degrees C) Oral -- -- -- -- -- 03/31/25 2343 -- (!) 101.4 degrees F (38.6 degrees C) -- -- -- -- -- -- 03/31/25 2217 (!) 166/86 (!) 101.4 degrees F (38.6 degrees C) Oral 96 18 96 % 4' 11" 77.1 kg (170 lb) General: Alert and oriented x3. Nontoxic appearing. Head/Eyes/ENT: NCAT, EOMI, ears normal, nose normal, pharynx clear with no erythema/swelling. Poor dentition throughout with several broken teeth including the left front tooth which is fractured and necrotic appearing. Tenderness on the superior aspect of the gumline above the left front tooth without obvious area of fluctuance, drainage. Neck: Supple, normal ROM. Cardiovascular: RRR, no murmurs/gallops/rubs. Peripheral pulses intact. Pulmonary: CTA bilaterally. No wheezes, rales, rhonchi. Skin: Dry, warm. Normal capillary refill. Neuro: Gross motor/sensory function intact. Clinical Results CT Maxillofacial With Contrast Final Result 1. No evidence of facial bone fracture. 2. Multiple periodontal and carious dental disease. 3 mm dental abscess adjacent to the left maxillary central incisor tooth. Overlying soft tissue swelling with induration in the midline upper lip. 3. Mild left frontal sinusitis. Workstation ID: [id number] Labs Reviewed BASIC METABOLIC PANEL - Abnormal; Notable for the following components: Result Value Glucose 116 (*) All other components within normal limits Narrative: [facility] has implemented the eGFR calculation approach that does not have a coefficient for race that conforms to the NKF-ASN Task Force Recommendations. Past History, Allergies, Social Determinants of Health, Medications Nursing triage notes/past medical, social, and family hx reviewed by me and I agree except where documented above. Family history reviewed. Social History[1] Past Medical History: Diagnosis Date Hypertension Lung cancer (HCC) 11/27/2019 RUL Adenocarcinoma Moderate persistent asthma, uncomplicated Symptomatic cholelithiasis 11/24/2020 Past Surgical History: Procedure Laterality Date APPENDECTOMY CHOLECYSTECTOMY CT BIOPSY JOSE L (more content not included)... Normal [facility] COVID-19/INFLUENZA A,B MOLEC ULARon 08-14-2024 SARS-CoV-2 (COVID-19) Ab IA Ql SARS-COV-2 (BELEN) Not Detected INFLUENZA A (BELEN) Not Detected INFLUENZA B (BELEN) Not Detected Normal Not Detected [facility] Comment on above: Performed By: #### [id number] #### [facility] [address] [address] Dacia Villagran M.D. [id number] ED Prov Noteon 08-14-2024 ED Prov Note [facility] ED Physician Note: NAME: Gail Lewis 59 y.o. CSN: [id number] PCP: Tony Rivera CNP Clinical Impression: 1. Acute URI Disposition: Patient is being discharged to home New Prescriptions pseudoephedrine-guaiFE Nesin (MUCINEX D) 60-600 mg per tablet Take 1 (one) tablet by mouth every 12 (twelve) hours for 7 days . predniSONE (DELTASONE) 20 MG tablet Take 2 (two) tablets (40 mg total) by mouth daily for 4 days . Follow-up Information 1. Tony Rivera CNP. Specialties: Nurse Practitioner, Primary Care Why: Recheck of todays complaint [address] [address] 2. [facility] Emergency Department. Specialty: Emergency Medicine Why: If symptoms worsen [address] [place] [address] Contact information for after-discharge care Follow-up information has not been specified. History: Chief Complaint: Cough and Headache HPI: The history was obtained from the patient. She is a 59 y.o. female who presents with a chief complaint of Cough and Headache. HPI the patient presents to the emergency department stating she has been sick for the past 4 days. She reports cough, congestion, headache. She denies vomiting. No difficulty breathing. She reports her sister is here being seen with same symptoms and she reports her granddaughter been sick as well. No vomiting. She states she did have diarrhea for couple of days but none currently. She has not tried thing for the symptoms. No calf pain or swelling. PMHx: Past Medical History: Diagnosis Date Hypertension Lung cancer (HCC) 11/27/2019 RUL Adenocarcinoma Moderate persistent asthma, uncomplicated Symptomatic cholelithiasis 11/24/2020 PMSx: Past Surgical History: Procedure Laterality Date APPENDECTOMY CHOLECYSTECTOMY CT BIOPSY LUNG 10/21/2019 CT BIOPSY LUNG 10/21/2019 CT BIOPSY LUNG 09/16/2019 CT BIOPSY LUNG 09/16/2019 LUNG SURGERY RUL Lobectomy 2019 FAM. Hx: Family History Problem Relation Age of Onset Cancer Father Heart disease Sister Cancer Brother Heart disease Brother SOC. Hx: Social History Socioeconomic History Marital status: Tobacco Use Smoking status: Former Current packs/day: 0.00 Average packs/day: 1 pack/day for 35.0 years (35.0 ttl pk-yrs) Types: Cigarettes Start date: 1983 Quit date: 2019 Years since quittin.8 Smokeless tobacco: Never Tobacco comments: 04/10/2022- quit 3yrs ago Vaping Use Vaping status: Never Used Substance and Sexual Activity Alcohol use: Never Drug use: Never Social Drivers of Health Financial Resource Strain: Patient Declined (02/11/2024) Overall Financial Resource Strain (CARDIA) Difficulty of Paying Living Expenses: Patient declined Food Insecurity: No Food Insecurity (02/11/2024) Hunger Vital Sign Worried About Running Out of Food in the Last Year: Never true Ran Out of Food in the Last Year: Never true Transportation Needs: No Transportation Needs (02/11/2024) PRAPARE - Transportation Lack of Transportation (Medical): No Lack of Transportation (Non-Medical): No MEDs: Previous Medications Medication Sig albuterol (PROVENTIL) 2.5 mg /3 mL (0.083 %) nebulizer solution Take 3 mL (2.5 mg total) by nebulization every 6 (six) hours as needed for wheezing . albuterol 90 mcg/actuation inhaler Inhale 2 (two) puffs every 4 (four) hours as needed for wheezing, shortness of breath or cough . atorvastatin (LIPITOR) 40 MG tablet Take 1 (one) tablet (40 mg total) by mouth daily . budesonide (PULMICORT) 90 mcg/actuation inhaler Inhale 2 (two) puffs 2 (two) times a day . budesonide-formoteroL (Symbicort) 160-4.5 mcg/actuation inhaler Inhale 2 (two) puffs 2 (two) times a day . busPIRone (BUSPAR) 10 MG tablet Take 1 (one) tablet (10 mg total) by mouth 3 (three) times a day . carvediloL (COREG) 6.25 MG tablet Take 1 (one) tablet (6.25 mg total) by mouth 2 (two) times a day with meals . famotidine (PEPCID) 40 MG tablet Take 1 (one) tablet (40 mg total) by mouth daily . FLUoxetine (PROZAC) 20 MG capsule Take 1 (one) capsule (20 mg total) by mouth daily . fluticasone furoate-vilanteroL (Breo Ellipta) 200-25 mcg/dose DsDv Inhale 1 (one) puff daily . ondansetron (ZOFRAN-ODT) 4 MG disintegrating tablet Dissolve 1 (one) tablet (4 mg total) on top of tongue every 8 (eight) hours as needed . (Patient not taking: Reported on 01/07/2023 .) ALL: Allergies Allergen Reactions Vicodin [Hydrocodone-Acetamino phen] GI Intolerance ROS: Review of Systems Constitutional: Negative for fever. HENT: Positive for congestion. Eyes: Negative for visual disturbance. Respiratory: Positive for cough. Negative for shortness of breath. Cardiovascular: Negative for chest pain. Gastrointestinal: Positive for diarrhea. Negative for nausea and vomiting. Musculoskeletal: Negative for neck stiffness. Skin: Negative for rash. Neuro (more content not included)... [facility] XR CHEST PA/APon 08-14-2024 XR CHEST PA/AP EXAMINATION: XR CHEST PA/AP HISTORY: cough/congestion COMPARISON: 07/08/2023 IMPRESSION: FINDINGS/ 1. Lungs are clear. 2. No pneumothorax. No pleural effusion. 3. Heart size and mediastinal contours are normal. 4. No acute osseous abnormality. 5. Upper abdominal bowel gas pattern is nonspecific. Workstation ID: [id number] Dictated by: SANDOVAL TODD on SatAug 14, 2024 11:32:46 AM EST Transcribed by: SANDOVAL TODD on SatAug 14, 2024 11:32:46 AM EST Finalized by: SANDOVAL TODD on SatAug 14, 2024 11:32:46 AM EST [facility] Comment on above: Order Comment: [facility] has implemented the eGFR calculation approach that does not have a coefficient for race that conforms to the NKF-ASN Task Force Recommendations. Comprehensive metabolic 2000 panelon 07-08-2023 Albumin [Mass/Vol] 4.2 g/dL 3.2 - 5.2 g/dL [facility] ALP [Catalytic activity/Vol] 113 U/L 40 - 150 U/L [facility] ALT [Catalytic activity/Vol] 24 U/L 0-35 U/L [facility] Anion gap [Moles/Vol] 16 mmol/L 10 - 20 mmol/L [facility] AST [Catalytic activity/Vol] 24 U/L 0-35 U/L [facility] Bilirubin [Mass/Vol] 0.3 mg/dL 0.0 - 1.3 mg/dL [facility] Calcium [Mass/Vol] 9.3 mg/dL 8.4 - 10. 2 mg/dL [facility] Chloride [Moles/Vol] 104 mmol/L 98 - 108 mmol/L [facility] Creatinine [Mass/Vol] 0.70 mg/dL 0.40 - 1.10 mg/dL [facility] GFR/1.73 sq M.predicted CKD-EPI (S/P/Bld) [Vol rate/Area] 100 - PINF [facility] Comment on above: Estimated GFR was ca lculated using the 2020 CKD-EPI creatinine equation. Glucose [Mass/Vol] 116 mg/dL High 65 - 99 mg/dL [facility] HCO3 [Moles/Vol] 27 mmol/L 21 - 32 mmol/L [facility] Potassium [Moles/Vol] 4.5 mmol/L 3.5 - 5.1 mmol/L [facility] Protein [Mass/Vol] 7.4 g/dL 6.0 - 8.0 g/dL [facility] Sodium [Moles/Vol] 142 mmol/L 135 - 145 mmol/L [facility] Urea nitrogen [Mass/Vol] 15 mg/dL 8 - 25 mg/dL [facility] Urea nitrogen/Creatinine [Mass ratio] 21.4 mg/mg High 10.0 - 20.0 [facility] has implemented the eGFR calculation approach that does not have a coefficient for race that conforms to the NKF-ASN Task Force Recommendations. [facility] HbA1c (Bld) [Mass fraction]o n 07-08-2023 Average glucose Estimated from glycated hemoglobin (Bld) [Mass/Vol] 123 mg/dL High 74 - 114 mg/dL [facility] Interpretation and review of laboratory results Abnormal [facility] Hemoglobin A1con 07-08-2023 HbA1c (Bld) [Mass fraction] 5.9 % High 4.2 - 5.6 % [facility] Iron and Iron binding capaci ty panelon 07-08-2023 Iron [Mass/Vol] 142 [facility] [Mass/Vol] 375 [facility] Iron saturation [Mass fraction] 38 % 20 - 50 % [facility] Lipid 1996 panelon 3 Cholesterol [Mass/Vol] 211 mg/dL High 100 - 199 mg/dL [facility] Cholesterol in HDL [Mass/Vol] 47 mg/dL 40 - 59 mg/dL [facility] Cholesterol in LDL [Mass/Vol] 127 mg/dL 10 - 130 mg/dL [facility] Comment on above: National Cholesterol Education Program Guidelines: LDL Cholesterol Optimal: <100 mg/dL Near Optimal/above Optimal: 100-129 mg/dL Borderline High: 130-159 mg/dL High: 160-189 mg/dL Very High: greater than or equal to 190 mg/dL Cholesterol non HDL [Mass/Vol] 164 mg/dL [facility] Comment on above: National Cholesterol Education Program Guidelines: NON HDL Cholesterol Desirable: <130 mg/dL Borderline High: 130-159 mg/dL High: 160-189 mg/dL Very High: > or = 190 mg/dL Cholesterol.total/C holesterol in HDL [Mass ratio] 4.5 {ratio} ratio [facility] Comment on above: Female Cholesterol/H DL Ratio: Average risk: 4.4 1/2 average risk: 3.3 2 x average risk: 7.1 Triglyceride [Mass/Vol] 185 mg/dL High 30 - 150 mg/dL [facility] NT PRO BNPon 07-08-2023 Natriuretic peptide.B prohormone N-Terminal [Mass/Vol] 123 pg/mL 0 - 300 pg/mL [facility] Natriuretic peptide.B prohor cirilo N-Terminal [Mass/Vol]on 07-08-2023 Pride Study Cut-offs Rule In: < /= 50 Years >450 pg/mL 51 Years - 75 Years >900 pg/mL 76 Years - 99 Years >1800 pg/mL Rule Out: All patients <300 pg/mL [facility] No Panel Informationon 07-08 Interpretation and review of laboratory results Normal [facility] Interpretation and review of laboratory results Abnormal [facility] T4, Freeon 07-08-2023 Free T4 [Mass/Vol] 1.0 ng/dL 0.7 - 1.7 ng/dL [facility] TSH DL <= 0.005 mIU/L Qnon 1 TSH Qn 2.15 m[IU]/L [facility] XR Chest AP/PA and LATon No acute cardiopulmonary process is seen. Mild COPD is suspected. DMM/tde Workstation ID: [id number] [employer] [facility] EXAMINATION: XR CHEST AP/PA AND LAT 07/08/2023 8:44 am HISTORY: ORDERING SYSTEM PROVIDED HISTORY: shortness of breath with activity, TECHNOLOGIST PROVIDED HISTORY: Illness/Other Reason for exam: sob x4 months Cancer History: lung cancer Surgery, RadiationHistory: surgery to lungs Encounter Type: Initial Additional signs and symptoms: HBP ORDERING SYSTEM PROVIDED DIAGNOSIS CODES: R06.09 Dyspnea on exertion COMPARISON: The CT of the chest is reviewed of 02/26/2023. The chest is also reviewed of 02/12/2023. The chest is reviewed of 09/20/2022. FINDINGS: Examination of the chest is showing upright PA and lateral projection dated 07/08/2023 at 8:47 a.m. The chest study is showing no indication of vascular congestion. No pleural fluid is seen. There is slight tenting of the right diaphragm. A few fibrotic densities at the right base are seen similar to prior studies. There is a history of a right upper lobe lobectomy. No hilar or mediastinal masses can be seen. The heart size is within normal limits. Mild hyperinflation is suspected on the lateral projection. Some osteoporotic changes in the dorsal spine area could be seen. No acute cardiopulmonary process is seen. Mild COPD is suspected. The heart size remains within normal limits. Bear Woodson MD - 07/08/2023 EXAMINATION: XR CHEST AP/PA AND LAT 07/08/2023 8:44 am HISTORY: ORDERING SYSTEM PROVIDED HISTORY: shortness of breath with activity, TECHNOLOGIST PROVIDED HISTORY: Illness/Other Reason for exam: sob x4 months Cancer History: lung cancer Surgery, RadiationHistory: surgery to lungs Encounter Type: Initial Additional signs and symptoms: [facility] ORDERING SYSTEM PROVIDED DIAGNOSIS CODES: R06.09 Dyspnea on exertion COMPARISON: The CT of the chest is reviewed of 02/26/2023. The chest is also reviewed of 02/12/2023. The chest is reviewed of 09/20/2022. FINDINGS: Examination of the chest is showing upright PA and lateral projection dated 07/08/2023 at 8:47 a.m. The chest study is showing no indication of vascular congestion. No pleural fluid is seen. There is slight tenting of the right diaphragm. A few fibrotic densities at the right base are seen similar to prior studies. There is a history of a right upper lobe lobectomy. No hilar or mediastinal masses can be seen. The heart size is within normal limits. Mild hyperinflation is suspected on the lateral projection. Some osteoporotic changes in the dorsal spine area could be seen. No acute cardiopulmonary process is seen. Mild COPD is suspected. The heart size remains within normal limits. IMPRESSION: No acute cardiopulmonary process is seen. Mild COPD is suspected. DMM/tde Workstation ID: [id number] [facility] Radiology Study observation (narrative) [facility] XR Chest AP/PA and LATOrdere d By: Bear Banuelos on 07-08-2023 [facility] Work Phone: Comprehensive metabolic 2000 panelon 11-08-2021 Albumin [Mass/Vol] 3.8 g/dL 3.2 - 5.2 g/dL [facility] ALP [Catalytic activity/Vol] 161 U/L High 40 - 150 U/L [facility] ALT [Catalytic activity/Vol] 31 U/L 14 - 65 U/L [facility] Anion gap [Moles/Vol] 10 mmol/L 10 - 20 mmol/L [facility] AST [Catalytic activity/Vol] 20 U/L 0 - 45 U/L [facility] Bilirubin [Mass/Vol] 0.2 mg/dL 0.0 - 1.3 mg/dL [facility] Calcium [Mass/Vol] 9.6 mg/dL 8.4 - 10. 2 mg/dL [facility] Chloride [Moles/Vol] 102 mmol/L 98 - 108 mmol/L [facility] Creatinine [Mass/Vol] 0.86 mg/dL 0.40 - 1.10 [facility] GFR/1.73 sq M.predicted CKD-EPI (S/P/Bld) [Vol rate/Area] 76 >=60 mL/min/1.73 m2 [facility] Glucose [Mass/Vol] 122 mg/dL High 65 - 99 mg/dL [facility] HCO3 [Moles/Vol] 28 mmol/L 21 - 32 mmol/L [facility] Interpretation and review of laboratory results Abnormal [facility] Potassium [Moles/Vol] 4.2 mmol/L 3.5 - 5.1 mmol/L [facility] Protein [Mass/Vol] 8.9 g/dL High 6.0 - 8.0 g/dL [facility] Sodium [Moles/Vol] 136 mmol/L 135 - 145 mmol/L [facility] Urea nitrogen [Mass/Vol] 13 mg/dL 8 - 25 mg/dL [facility] Urea nitrogen/Creatinine [Mass ratio] 15.1 mg/mg [facility] The eGFR should be used for monitoring renal function only and not for medication dosing. [facility] HbA1c (Bld) [Mass fraction]o n 11-08-2021 Average glucose Estimated from glycated hemoglobin (Bld) [Mass/Vol] 120 mg/dL High 68 - 114 mg/dL [facility] Interpretation and review of laboratory results Abnormal [facility] Normal: 4.0% - 5.6% Increased risk for diabetes: 5.7% - 6.4% Diabetes: >= 6.5% Pediatrics: No established reference range Estimated average glucose: 68-114 mg/dL [facility] Hemoglobin A1con 11-08-2021 HbA1c (Bld) [Mass fraction] 5.8 % High 4.0 - 5.6 % [facility] Lipid 1996 panelon Cholesterol [Mass/Vol] 241 mg/dL High 100 - 199 mg/dL [facility] Comment on above: National Cholesterol Education Program Guidelines: Cholesterol Desirable: <200 mg/dL Borderline High: 200-239 mg/dL High: greater than or equal to 240 mg/dL Cholesterol in HDL [Mass/Vol] 48 mg/dL 40 - 59 [facility] Comment on above: National Cholesterol Education Program Guidelines: HDL Cholesterol Low: <40 mg/dL Near Optimal: 40-59 mg/dL High: greater than or equal to 60 mg/dL Cholesterol in LDL [Mass/Vol] 147 mg/dL High 10 - 130 mg/dL [facility] Comment on above: National Cholesterol Education Program Guidelines: LDL Cholesterol Optimal: <100 mg/dL Near Optimal/above Optimal: 100-129 mg/dL Borderline High: 130-159 mg/dL High: 160-189 mg/dL Very High: greater than or equal to 190 mg/dL Cholesterol non HDL [Mass/Vol] 193 mg/dL [facility] Comment on above: National Cholesterol Education Program Guidelines: NON HDL Cholesterol Desirable: <130 mg/dL Borderline High: 130-159 mg/dL High: 160-189 mg/dL Very High: > or = 190 mg/dL Cholesterol.total/C holesterol in HDL [Mass ratio] 5.0 {ratio} ratio [facility] Comment on above: Female Cholesterol/H DL Ratio: Average risk: 4.4 1/2 average risk: 3.3 2 x average risk: 7.1 Interpretation and review of laboratory results Abnormal [facility] Triglyceride [Mass/Vol] 230 mg/dL High 30 - 150 mg/dL [facility] Comment on above: National Cholesterol Education Program Guidelines: Triglyceride Normal: <150 mg/dL Borderline High: 150-199 mg/dL High: 200-499 mg/dL Very High: greater than or equal to 500 mg/dL No Panel Informationon 11-08 [facility] TSH DL <= 0.005 mIU/L Qnon 0 11-08-2021 Interpretation and review of laboratory results Normal [facility] TSH Qn 3.79 m[IU]/L [facility] COVID-19/INFLUENZA A,B MOLEC ULARon 10-25-2021 SARS-CoV-2 (COVID-19) Ab IA Ql SARS-COV-2 RNA (LORAINE): Detected INFLUENZA A (LORAINE): Not Detected INFLUENZA B (LORAINE): Not Detected Normal Not Detected [facility] Comment on above: Order Comment: This test was performed under the FDA's Emergency Use Authorization (EUA). Testing was performed using the Jaspal SARS-CoV-2 RT-PCR AND Influenza A/B assay on the [employer] Jaspal 6800 System. This test has not been approved for use in asymptomatic patients and its performance in this patient population has not been evaluated. Negative results do not rule out the presence of SARS-CoV-2/COVID-19, influenza A, and/or influenza B. Fact sheets for this EUA can be found at the following links: For Healthcare Providers: https://www.fda.gov/media/791797/download ?? For Patients: https://www.fda.gov/media/403109/download Performed By: #### L [id number] #### [facility] [address] [place] [address] Remy Corrigan M.D. [id number] Vital Signs Date Time Vital Sign Value Performing Clinician Rafi awad 08-03-2025 08:43-0500 Body height 149.9 cm Rio Capone MD Work Phone: [facility] 08-03-2025 08:43-0500 Body mass index (BMI) [Ratio] 33.53 kg/m2 Rio Capone MD Work Phone: [facility] 08-03-2025 08:43-0500 Body weight 75.3 kg Rio Capone MD Work Phone: [facility] 08-03-2025 08:43-0500 Diastolic blood pressure 77 mm[Hg] Rio Capone MD Work Phone: [facility] 08-03-2025 08:43-0500 Heart rate 75 /min Rio Capone MD Work Phone: [facility] 08-03-2025 08:43-0500 SaO2% (BldA) [Mass fraction] 96 % Rio Capone MD Work Phone: [facility] Comment on above: Room Air 08-03-2025 08:43-0500 Systolic blood pressure 145 mm[Hg] Rio Capone MD Work Phone: [facility] 06-30-2025 09:49-0400 Body height 149.9 cm Tony Lowe [employer] ADMINISTRATOR Work Phone: [facility] 06-30-2025 09:49-0400 Body mass index (BMI) [Ratio] 33.77 kg/m2 Tony Lowe [employer] ADMINISTRATOR Work Phone: [facility] 06-30-2025 09:49-0400 Body weight 75.84 kg Tony Lowe [employer]IOR [employer] ADMINISTRATOR Work Phone: [facility] 06-30-2025 09:49-0400 Diastolic blood pressure 82 mm[Hg] Tony Lowe [employer] ADMINISTRATOR Work Phone: [facility] 06-30-2025 09:49-0400 Heart rate 79 /min Tony Lowe [employer] ADMINISTRATOR Work Phone: [facility] 06-30-2025 09:49-0400 SaO2% (BldA) [Mass fraction] 90 % Tony Lowe [employer] ADMINISTRATOR Work Phone: [facility] 06-30-2025 09:49-0400 Systolic blood pressure 138 mm[Hg] Tony Lowe [employer] ADMINISTRATOR Work Phone: [facility] 06-07-2025 15:20-0400 Body height 149.9 cm Kurt Jarrell MD Work Phone: [facility] 06-07-2025 15:20-0400 Body mass index (BMI) [Ratio] 32.92 kg/m2 Kurt Jarrell MD Work Phone: [facility] 06-07-2025 15:20-0400 Body weight 73.94 kg Kurt Jarrell MD Work Phone: [facility] 06-07-2025 15:20-0400 Diastolic blood pressure 78 mm[Hg] Kurt Jarrell MD Work Phone: [facility] 06-07-2025 15:20-0400 Heart rate 95 /min Kurt Jarrell MD Work Phone: [facility] 06-07-2025 15:20-0400 SaO2% (BldA) [Mass fraction] 91 % Kurt Jarrell MD Work Phone: [facility] 06-07-2025 15:20-0400 Systolic blood pressure 122 mm[Hg] Kurt Jarrell MD Work Phone: [facility] 08-18-2024 08:47-0500 Diastolic blood pressure 82 mm[Hg] Tony Lowe [employer] ADMINISTRATOR Work Phone: [facility] 08-18-2024 08:47-0500 Systolic blood pressure 150 mm[Hg] Tony Lowe [employer] ADMINISTRATOR Work Phone: [facility] 08-18-2024 08:02-0500 Body height 149.9 cm Tony Lowe [employer]IOR [employer] ADMINISTRATOR Work Phone: [facility] 08-18-2024 08:02-0500 Body mass index (BMI) [Ratio] 35.79 kg/m2 Tony Lowe [employer] ADMINISTRATOR Work Phone: [facility] 08-18-2024 08:02-0500 Body weight 80.38 kg Tony Lowe [employer] ADMINISTRATOR Work Phone: [facility] 08-18-2024 08:02-0500 Heart rate 77 /min Tony Lowe [employer] ADMINISTRATOR Work Phone: [facility] 08-18-2024 08:02-0500 SaO2% (BldA) [Mass fraction] 93 % Tony Lowe [employer] ADMINISTRATOR Work Phone: [facility] 02-11-2024 12:38-0400 Diastolic blood pressure 87 mm[Hg] Tony Lowe [employer] ADMINISTRATOR Work Phone: [facility] 02-11-2024 12:38-0400 Systolic blood pressure 138 mm[Hg] Tony Lowe [employer] ADMINISTRATOR Work Phone: [facility] 02-11-2024 08:02-0400 Body height 149.9 cm Tony Lowe [employer]IOR [employer] ADMINISTRATOR Work Phone: [facility] 02-11-2024 08:02-0400 Body mass index (BMI) [Ratio] 35.47 kg/m2 Tony Lowe [employer] ADMINISTRATOR Work Phone: [facility] 02-11-2024 08:02-0400 Body weight 79.65 kg Tony Lowe [employer] ADMINISTRATOR Work Phone: [facility] 02-11-2024 08:02-0400 Heart rate 71 /min Tony Lowe [employer] ADMINISTRATOR Work Phone: [facility] 02-11-2024 08:02-0400 SaO2% (BldA) [Mass fraction] 95 % Tony Lowe [employer] ADMINISTRATOR Work Phone: [facility] 07-08-2023 09:10-0400 Diastolic blood pressure 90 mm[Hg] Tony Lowe [employer] ADMINISTRATOR Work Phone: [facility] 07-08-2023 09:10-0400 Systolic blood pressure 153 mm[Hg] Tony Lowe [employer] ADMINISTRATOR Work Phone: [facility] 07-08-2023 08:02-0400 Body height 149.9 cm Tony Lowe [employer] ADMINISTRATOR Work Phone: [facility] 07-08-2023 08:02-0400 Body mass index (BMI) [Ratio] 34.9 kg/m2 Tony Lowe [employer] ADMINISTRATOR Work Phone: [facility] 07-08-2023 08:02-0400 Body weight 78.38 kg Tony Lowe [employer]IOR [employer] ADMINISTRATOR Work Phone: [facility] 07-08-2023 08:02-0400 Heart rate 77 /min Tony Lowe [employer] ADMINISTRATOR Work Phone: [facility] 07-08-2023 08:02-0400 SaO2% (BldA) [Mass fraction] 94 % Tony Lowe [employer] ADMINISTRATOR Work Phone: [facility] 01-07-2023 10:28-0400 Diastolic blood pressure 82 mm[Hg] Tony Lowe [employer] ADMINISTRATOR Work Phone: [facility] 01-07-2023 10:28-0400 Systolic blood pressure 134 mm[Hg] Tony Lowe [employer] ADMINISTRATOR Work Phone: [facility] 01-07-2023 10:03-0400 Body height 149.9 cm Tony Serge [employer] ADMINISTRATOR Work Phone: [facility] 01-07-2023 10:03-0400 Body mass index (BMI) [Ratio] 34.86 kg/m2 Tony Lowe [employer] ADMINISTRATOR Work Phone: [facility] 01-07-2023 10:03-0400 Body weight 78.29 kg Tony Ulriche [employer] ADMINISTRATOR Work Phone: [facility] 01-07-2023 10:03-0400 Heart rate 80 /min Tony Ulriche [employer] ADMINISTRATOR Work Phone: [facility] 01-07-2023 10:03-0400 SaO2% (BldA) [Mass fraction] 94 % Tony Ulriche [employer] ADMINISTRATOR Work Phone: [facility] 04-10-2022 08:06-0400 Body height 149.9 cm Rio Capone MD Work Phone: [facility] 04-10-2022 08:06-0400 Body mass index (BMI) [Ratio] 34.7 kg/m2 Rio Capone MD Work Phone: [facility] 04-10-2022 08:06-0400 Body weight 77.93 kg Rio Capone MD Work Phone: [facility] 04-10-2022 08:06-0400 Diastolic blood pressure 80 mm[Hg] Rio Capone MD Work Phone: [facility] 04-10-2022 08:06-0400 Heart rate 83 /min Rio Capone MD Work Phone: [facility] 04-10-2022 08:06-0400 SaO2% (BldA) [Mass fraction] 96 % Rio Capone MD Work Phone: [facility] Comment on above: ra 04-10-2022 08:06-0400 Systolic blood pressure 142 mm[Hg] Rio Capone MD Work Phone: [facility] 12-20-2021 09:05-0400 Body height 149.9 cm Rio Capone MD Work Phone: [facility] 12-20-2021 09:05-0400 Body mass index (BMI) [Ratio] 33.33 kg/m2 Rio Capone MD Work Phone: [facility] 12-20-2021 09:05-0400 Body weight 74.84 kg Rio Capone MD Work Phone: [facility] 12-20-2021 09:05-0400 Diastolic blood pressure 82 mm[Hg] Rio Capone MD Work Phone: [facility] 12-20-2021 09:05-0400 Heart rate 86 /min Rio Capone MD Work Phone: [facility] 12-20-2021 09:05-0400 SaO2% (BldA) [Mass fraction] 98 % Rio Capone MD Work Phone: [facility] Comment on above: room air 12-20-2021 09:05-0400 Systolic blood pressure 133 mm[Hg] Rio Capone MD Work Phone: [facility] 12-07-2021 08:53-0500 Diastolic blood pressure 81 mm[Hg] Tony Lowe [employer] ADMINISTRATOR Work Phone: [facility] 12-07-2021 08:53-0500 Systolic blood pressure 134 mm[Hg] Tony Lowe [employer] ADMINISTRATOR Work Phone: [facility] 12-07-2021 08:34-0500 Body height 149.9 cm Tony Lowe [employer]IOR [employer] ADMINISTRATOR Work Phone: [facility] 12-07-2021 08:34-0500 Body mass index (BMI) [Ratio] 33.51 kg/m2 Tony Lowe [employer] ADMINISTRATOR Work Phone: [facility] 12-07-2021 08:34-0500 Body weight 75.25 kg Tony Lowe S[employer]IOR [employer] ADMINISTRATOR Work Phone: [facility] 12-07-2021 08:34-0500 Heart rate 69 /min Tony Lowe [employer] ADMINISTRATOR Work Phone: [facility] 12-07-2021 08:34-0500 SaO2% (BldA) [Mass fraction] 95 % Tony Lowe [employer] ADMINISTRATOR Work Phone: [facility] 11-15-2021 09:39-0500 Diastolic blood pressure 79 mm[Hg] [facility] 11-15-2021 09:39-0500 Systolic blood pressure 120 mm[Hg] [facility] [facility] 11-15-2021 09:32-0500 Heart rate 72 /min [facility] 11-15-2021 09:32-0500 SaO2% (BldA) [Mass fraction] 97 % [facility] 11-08-2021 08:41-0500 Diastolic blood pressure 83 mm[Hg] Tony Lowe SENIOR [employer] ADMINISTRATOR Work Phone: [facility] 11-08-2021 08:41-0500 Systolic blood pressure 152 mm[Hg] Tony Lowe SENIOR [employer] ADMINISTRATOR Work Phone: [facility] 11-08-2021 08:13-0500 Body height 149.9 cm Tony Lowe SENIOR [employer] ADMINISTRATOR Work Phone: [facility] 11-08-2021 08:13-0500 Body mass index (BMI) [Ratio] 33.73 kg/m2 Tony Lowe S[employer]IOR [employer] ADMINISTRATOR Work Phone: [facility] 11-08-2021 08:13-0500 Body weight 75.75 kg Tony Rivera CNP Work Phone: [facility] 11-08-2021 08:13-0500 Heart rate 83 /min Tony Rivera CNP Work Phone: [facility] 11-08-2021 08:13-0500 SaO2% (BldA) [Mass fraction] 97 % Tony Rivera CNP Work Phone: [facility] Encounters Encounter Date Encounter Type Care Provider Facility Start: 08-03-2025 End: 08-03-2025 Office outpatient visit 25 minutes Rio Capone MD Work Phone: [facility] Comment on above: Mild intermittent as thma, uncomplicated (Primary Dx); Pulmonary nodule Start: 08-03-2025 End: 08-03-2025 ambulatory TONY MOORE [facility] Start: 07-16-2025 End: 07-20-2025 ambulatory TONY MOORE [facility] Start: 06-30-2025 End: 06-30-2025 Office outpatient visit 15 minutes Tony Rivera CNP Work Phone: [facility] Phys[facility] Comment on above: Wellness examination (Primary Dx); Prediabetes; Need for vaccination; Screening for diabetes mellitus; Other superintendent [employer]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; Other specified abnormal findings of blood chemistry; Encounter for lipid screening for cardiovascular disease; Screening for colon cancer; Family history of colon cancer Start: 06-30-2025 End: 06-30-2025 Patient encounter status Tony Rivera CNP Work Phone: [facility] Start: 06-30-2025 End: 06-30-2025 ambulatory TONY MOORE [facility] Start: 06-30-2025 End: 06-30-2025 Encounter for general adult medical examination without abnormal findings [facility] Start: 06-10-2025 End: 06-10-2025 Refill Tony Rivera CNP Work Phone: [facility] Comment on above: Moderate persistent asthma, uncomplicated; Anxiety; Gastroesophageal reflux disease, unspecified whether esophagitis present Start: 06-07-2025 End: 06-07-2025 Office outpatient visit 25 minutes Kurt Jarrell MD Work Phone: [facility] Comment on above: Lipid disorder (Prim kendy Dx) Start: 06-07-2025 End: 06-07-2025 ambulatory TONY MOORE [facility] Start: 04-26-2025 End: 04-26-2025 Orders Only Rio Capone MD Work Phone: [facility] Comment on above: Pulmonary infiltrate (Primary Dx); Moderate persistent asthma, uncomplicated; Mediastinal lymphadenopathy Start: 04-25-2025 End: 04-27-2025 [facility] Start: 03-31-2025 End: 04-01-2025 Emergency department patient visit FRITZ ESQUIV[facility] Start: 08-20-2024 End: 08-20-2024 Orders Only Tony Rivera [employer] ADMINISTRATOR Work Phone: [facility] Comment on above: Screening for lung c ancer (Primary Dx) Start: 08-18-2024 End: 08-18-2024 Office outpatient visit 25 minutes Tony Rivera [employer] ADMINISTRATOR Work Phone: [facility] Comment on above: Encounter for screen ing for lung cancer (Primary Dx); Moderate persistent asthma, uncomplicated; Hyperlipidemia, unspecified hyperlipidemia type; Anxiety; Hypertension, unspecified type; Gastroesophageal reflux disease, unspecified whether esophagitis present; Need for influenza vaccination; Screening for diabetes mellitus; Bronchitis; Rib pain on right side Start: 08-18-2024 End: 08-18-2024 ambulatory TONY MOORE [facility] Start: 08-14-2024 End: 08-14-2024 Emergency department patient visit BONILLA EMERY [facility] Start: 02-11-2024 End: 02-11-2024 Office outpatient visit 25 minutes Tony Rivera [employer] ADMINISTRATOR Work Phone: [facility] Comment on above: Moderate persistent asthma, uncomplicated; Hyperlipidemia, unspecified hyperlipidemia type; Anxiety; Hypertension, unspecified type; Gastroesophageal reflux disease, unspecified whether esophagitis present Start: 08-23-2023 Refill Tony Rivera [employer] ADMINISTRATOR Work Phone: [facility] Comment on above: Gastroesophageal ref lux disease, unspecified whether esophagitis present Start: 07-25-2023 Orders Only Tony Rivera [employer]IOR [employer] ADMINISTRATOR Work Phone: [facility] Comment on above: Moderate persistent asthma, uncomplicated COPD, moderate (HCC) (Primary Dx) Start: 07-08-2023 End: 07-08-2023 Office outpatient visit 15 minutes Tony Rivera SENIOR [employer] ADMINISTRATOR Work Phone: [facility] Comment on above: Lung nodule seen on imaging study (Primary Dx); Anxiety; Hypertension, unspecified type; History of lung cancer; Need for vaccination; Dyspnea on exertion; Gastroesophageal reflux disease, unspecified whether esophagitis present Start: 02-11-2023 Orders Only Tony Rivera [employer] ADMINISTRATOR Work Phone: [facility] Comment on above: Breast cancer screen ing by mammogram Start: 02-01-2023 Orders Only Tony Rivera [employer] ADMINISTRATOR Work Phone: [facility] Comment on above: Lung nodule seen on imaging study (Primary Dx); History of lung cancer Start: 01-07-2023 End: 01-07-2023 Office outpatient visit 15 minutes Tony Rivera S[employer] ADMINISTRATOR Work Phone: [facility] Comment on above: Hypertension, unspec ified type (Primary Dx); COPD, moderate (HCC); History of lung cancer; Anxiety; Screening for colon cancer; Screening for cervical cancer; Encounter for screening for malignant neoplasm of breast, unspecified screening modality; Need for vaccination; Former smoker; Encounter for screening for lung cancer Start: 04-10-2022 End: 04-10-2022 Office outpatient visit 15 minutes Rio Capone MD Work Phone: [facility] Comment on above: Mild intermittent as thma, uncomplicated (Primary Dx) Start: 01-10-2022 Documentation procedure Rio Capone MD Work Phone: [facility] Start: 12-20-2021 End: 12-20-2021 Office outpatient new 30 minutes Rio Capone MD Work Phone: [facility] Comment on above: Moderate persistent asthma, uncomplicated Start: 12-07-2021 End: 12-07-2021 Office outpatient visit 10 minutes Tony Rivera CNP Work Phone: [facility] Comment on above: Hypertension, unspec ified type (Primary Dx); COPD, moderate (HCC); History of lung cancer; Anxiety; Screening for colon cancer Start: 11-15-2021 End: 11-15-2021 Clinical Support Jessica Stevenson LPN [facility] Comment on above: Hypertension, unspec ified type (Primary Dx) Start: 11-08-2021 End: 11-08-2021 Office outpatient new 30 minutes Tony Rivera CNP Work Phone: [facility] Comment on above: COPD, moderate (HCC) (Primary Dx); History of lung cancer; Hypertension, unspecified type; Screening for cervical cancer; Encounter for screening for malignant neoplasm of breast, unspecified screening modality; Screening for thyroid disorder; Screening for diabetes mellitus; Encounter for hepatitis C screening test for low risk patient; Screening for HIV (human immunodeficiency virus); Anxiety Start: 10-25-2021 End: 10-25-2021 ambulatory PHYSICIAN [facility] Procedures Date Procedure Procedure Detail Performing Clinician Start: 02-11-2024 Adult depression screening assessment Tony Rivera CNP Work Phone: Start: 01-07-2023 Adult depression screening assessment Tony Rivera CNP Work Phone: Start: 11-08-2021 Adult depression screening assessment Tony Rivera CNP Work Phone: Plan of Treatment Date Care Activity Detail Author Start: 06-30-2026 Administration of herpes zoster vaccine Zoster Vaccines (1 of 2) [facility] Comment on above: Postponed from 2015 (Patient Refus ed) Start: 06-30-2026 COVID-19 Vaccine ( season) COVID-19 Vaccine ( season) [facility] Comment on above: Postponed from 05/31/2025 (Patient Refus ed) Start: 06-30-2026 COVID-19 Vaccine ( season) COVID-19 Vaccine ( season) [facility] Comment on above: Postponed from 05/31/2025 (Patient Refus ed) Start: 06-30-2026 Depression screening using PHQ-9 (Patient Health Questionnaire 9) score Depression Screening/Follow-Up (PHQ-2/9) [facility] Start: 06-30-2026 Respiratory Syncytial Virus Immunization: Risk, 60-74 Risk, or 75+ (1 - Risk 60-74 years 1-dose series) Respiratory Syncytial Virus Immunization: Risk, 60-74 Risk, or 75+ (1 - Risk 60-74 years 1-dose series) [facility] Comment on above: Postponed from 2025 (Patient Refus ed) Start: 06-30-2026 RSV Vaccines (1 - Risk 50-74 years 1-dose series) RSV Vaccines (1 - Risk 50-74 years 1-dose series) [facility] Comment on above: Postponed from 2015 (Patient Refus ed) Start: 06-30-2026 Screening for malignant neoplasm of cervix Cervical Cancer Screening [facility] Comment on above: Postponed from 1995 (Patient Refus ed) Start: 06-30-2026 Tetanus vaccination Tetanus: Every 10yrs [facility] Comment on above: Postponed from 1965 (Patient Refus ed) Start: 06-20-2026 End: 06-20-2026 Patient encounter procedure 06/20/2026 2:20 PM EDT Office Visit [facility] [address] [place] [address] Kurt Jarrell MD [address] [place] [address] [facility] Start: 02-01-2026 End: 02-01-2026 Patient encounter procedure [facility] Scan Start: 01-31-2026 End: 08-03-2026 CT Chest WO contrast CT Chest Without Contrast Imaging Routine Pulmonary nodule Expected: 01/31/2026, Expires: 08/03/2026 [facility] Work Phone: Comment on above: Expected: 01/31/2026, Expires: Start: 12-29-2025 End: 12-29-2025 Patient encounter procedure 12/29/2025 9:40 AM EDT Office Visit [facility] [address] [place] [id number] Tony Rivera, S[employer]IOR [employer] ADMINISTRATOR [address] [place] [address] [facility] Start: 08-18-2025 COVID-19 Vaccine () COVID-19 Vaccine () [facility] Comment on above: Postponed from 05/31/2024 (Patient Refus ed) Start: 08-18-2025 Screening for malignant neoplasm of breast Mammogram [facility] Comment on above: Postponed from 2005 (Patient Refus ed) Start: 08-07-2025 End: 06-07-2026 Lipid 1996 panel - Serum or Plasma Lipid panel Lab Routine Lipid disorder Expected: 08/07/2025, Expires: 06/07/2026 [facility] Work Phone: Comment on above: Expected: 08/07/2025, Expires: Start: 08-03-2025 End: 08-03-2025 Patient encounter procedure [facility] CT Scan Start: 07-27-2025 End: 04-26-2026 CT Chest W contrast IV CT Chest Thorax With Contrast Imaging Routine Pulmonary infiltrate Mediastinal lymphadenopathy Expected: 07/27/2025, Expires: 04/26/2026 [facility] Work Phone: Comment on above: Expected: 07/27/2025, Expires: Start: 07-05-2025 Pneumococcal Vaccine: Ped or At-Risk (2 of 4 - PPSV23) Pneumococcal Vaccine: Ped or At-Risk (2 of 4 - PPSV23) [facility] Start: 06-30-2025 End: 06-30-2025 Patient encounter procedure 06/30/2025 10:40 AM EDT Office Visit [facility] [address] [facility] [address] Tony Rivera, S[employer]IOR [employer] ADMINISTRATOR [address] [place] [address] [facility] Start: 05-31-2025 COVID-19 Vaccine ( season) COVID-19 Vaccine ( season) [facility] Start: 05-31-2025 Influenza vaccination Influenza Vaccine (#1) [facility] Start: 2025 Respiratory Syncytial Virus Immunization: Risk, 60-74 Risk, or 75+ (1 - Risk 60-74 years 1-dose series) Respiratory Syncytial Virus Immunization: Risk, 60-74 Risk, or 75+ (1 - Risk 60-74 years 1-dose series) [facility] Start: 02-10-2025 Depression screening using PHQ-9 (Patient Health Questionnaire 9) score [facility] Start: 02-10-2025 Screening for malignant neoplasm of cervix Cervical Cancer Screening [facility] Comment on above: Postponed from 1995 (Patient Refus ed) Start: 02-10-2025 Screening for malignant neoplasm of colon Colorectal Cancer Screening/Monitoring [facility] Comment on above: Postponed from 1965 (Patient Refus ed) Start: 11-17-2024 End: 11-17-2024 Patient encounter procedure 11/17/2024 8:40 AM EST Office Visit [facility] [address] [facility] [place] [id number] Tony Rivera, SENIOR [employer] ADMINISTRATOR [address] [place] [address] [facility] Start: 08-18-2024 End: 08-18-2024 Patient encounter procedure 08/18/2024 8:20 AM EST Office Visit [facility] [address] [place] [address] Tony Rivera, SENIOR [employer] ADMINISTRATOR [address] [place] [place], [place] [address] [facility] Start: 08-16-2024 COVID-19 Vaccine (#1) COVID-19 Vaccine (#1) [facility] Comment on above: Postponed from 1970 (Treatment Not Available) Start: 08-16-2024 COVID-19 Vaccine () COVID-19 Vaccine () [facility] Comment on above: Postponed from 05/31/2023 (Treatment Not Available) Start: 08-13-2024 Administration of herpes zoster vaccine Zoster Vaccines (1 of 2) [facility] Comment on above: Postponed from 1984 (Treatment Not Available) Postponed from 05/01 (Treatment Not Available) Start: 08-13-2024 History and physical examination, annual for health maintenance Wellness Visit [facility] Start: 08-13-2024 Screening for malignant neoplasm of breast Mammogram [facility] Comment on above: Postponed from 2005 (Patient Refus ed) Start: 08-13-2024 Screening for malignant neoplasm of cervix Pap Smear [facility] Comment on above: Postponed from 1986 (Patient Refus ed) Start: 08-13-2024 Tetanus vaccination Tetanus: Every 10yrs [facility] Comment on above: Postponed from 1965 (Patient Refus ed) Start: 02-11-2024 End: 02-11-2024 Patient encounter procedure 02/11/2024 8:00 AM EDT Office Visit [facility] [address] [place] [phone] Tony Rivera, SENIOR [employer] ADMINISTRATOR [address] [place] [address] [facility] Start: 01-08-2024 Depression screening using PHQ-9 (Patient Health Questionnaire 9) score Depression Screening (PHQ-2/9) [facility] Start: 01-08-2024 Screening for malignant neoplasm of colon Colorectal Cancer Screening/Monitoring [facility] Comment on above: Postponed from 2015 (Patient Refus ed) Start: 09-09-2023 End: 09-09-2023 Patient encounter procedure 09/09/2023 8:20 AM EST Office Visit [facility] [address] [place], [place] [address] Tony Rivera, SENIOR [employer] ADMINISTRATOR [address] [place] [address] [facility] Start: 08-13-2023 End: 08-13-2023 Patient encounter procedure 08/13/2023 8:20 AM EST Office Visit [facility] [address] [place] [address] Tony Rivera, S[employer]IOR [employer] ADMINISTRATOR [address] [place] [address] [facility] Start: 08-05-2023 End: 08-05-2023 Patient encounter procedure 08/05/2023 7:40 AM EST Appointment [facility] CT Scan [address] [place], [place] [address] Tony Rivera, SENIOR [employer] ADMINISTRATOR [address] [place] [address] [facility] [address] Scan Start: 07-31-2023 End: 07-31-2023 Patient encounter procedure 07/31/2023 8:10 AM EDT Appointment [facility] [address] [place] [address] Tony Rivera, SENIOR [employer] ADMINISTRATOR [address] [place] [address] [facility] Start: 07-08-2023 End: 07-08-2023 Patient encounter procedure 07/08/2023 8:00 AM EDT Office Visit [facility] [address] [facility] [place] [address] Tony Rivera, SENIOR [employer] ADMINISTRATOR [address] [facility] [place] [place] [address] [facility] Start: 05-31-2023 Influenza vaccination Sequential Influenza Vaccine (Season Ended) [facility] Start: 02-26-2023 End: 02-26-2023 Patient encounter procedure 02/26/2023 2:20 PM EDT Appointment [facility] CT Scan [address] [facility] [place] [address] Tony Rivera, SENIOR [employer] ADMINISTRATOR [address] [facility] [place] [place] [address] [facility] [address] Scan Start: 12-07-2022 Screening for malignant neoplasm of cervix Pap Smear [facility] Comment on above: Postponed from 1965 (Patient Refus ed) Start: 11-08-2022 Depression screening using PHQ-9 (Patient Health Questionnaire 9) score Depression Screening (PHQ-2/9) [facility] Start: 05-31-2022 Influenza vaccination [facility] Start: 05-08-2022 Influenza vaccination Sequential Influenza Vaccine (#1) [facility] Comment on above: Postponed from 05/31/2021 (Patient Refus ed) Start: 03-21-2022 End: 03-21-2022 Patient encounter procedure 03/21/2022 Office Visit Pulmonology Rio Capone MD [address] [facility] [place] [place] [address] [facility] Start: 12-20-2021 End: 12-20-2021 Patient encounter procedure [facility] Start: 12-06-2021 End: 12-06-2021 Patient encounter procedure 12/06/2021 Office Visit Primary Care Tony Rivera, SENIOR [employer] ADMINISTRATOR [address] [place] [address] [facility] Start: 11-22-2021 End: 11-22-2021 Patient encounter procedure 11/22/2021 Office Visit Obstetrics and Gynecology [facility] Tony Oscar, [employer] ADMINISTRATOR [address] [place] [address] Liana Martínez, S[employer]IOR [employer] ADMINISTRATOR [address] [place] [address] [facility] Obstetrics and Gynecology Start: 11-15-2021 End: 11-15-2021 Clinical Support 11/15/2021 Clinical Support Primary Care [facility] Start: 07-05-2021 Pneumococcal Vaccine: Ped or At-Risk (2 - PCV) Pneumococcal Vaccine: Ped or At-Risk (2 - PCV) [facility] Start: 07-05-2021 Pneumococcal Vaccine: Ped or At-Risk (2 of 4 - PCV13) Pneumococcal Vaccine: Ped or At-Risk (2 of 4 - PCV13) [facility] Start: 2015 Administration of herpes zoster vaccine Zoster Vaccines (1 of 2) [facility] Start: 2015 Screening for malignant neoplasm of colon [facility] Start: 2005 Screening for malignant neoplasm of breast Mammogram [facility] Start: 1995 [facility] Start: 1986 Screening for malignant neoplasm of cervix Pap Smear [facility] Start: 1984 Administration of herpes zoster vaccine Zoster Vaccines (1 of 2) [facility] Start: 1984 Vaccination for diphtheria, pertussis, and tetanus Tetanus/Diphtheria/Pertus sis (1 - Tdap) [facility] Start: 1983 Hepatitis C screening Hepatitis C Screening [facility] Start: 1980 HIV screening HIV Screening [facility] Start: 1977 COVID-19 Vaccine (1) COVID-19 Vaccine (1) [facility] Start: 1970 COVID-19 Vaccine (#1) COVID-19 Vaccine (#1) [facility] Start: 1968 History and physical examination, annual for health maintenance Wellness Visit [facility] Start: 1966 [id number] vaccination MMR Vaccines (1 of 1 - Standard series) [facility] Start: 1965 COVID-19 Vaccine (#1) COVID-19 Vaccine (#1) [facility] Start: 1965 Screening for malignant neoplasm of cervix Pap Smear [facility] Start: 1965 Screening for malignant neoplasm of colon [facility] Start: 1965 Tetanus vaccination Tetanus: Every 10yrs [facility] End: 06-30-2026 CBC panel - Blood by Automated count CBC Lab Routine Prediabetes 1 Occurrences starting 06/30/2025 until 06/30/2026 [facility] Comment on above: 1 Occurrences starting 06/30/2025 until 06/30/2026 Cologuard Cologuard Lab Ro utine Screening for colon cancer Ordered: 12/07/2021 [facility] Work Phone: Comment on above: Ordered: 12/07/2021 End: 08-19-2025 Complete blood count with white cell differential, manual CBC and Differential Lab Routine Hypertension, unspecified type 1 Occurrences starting 08/18/2024 until 08/19/2025 [facility] Comment on above: 1 Occurrences starting 08/18/2024 until 08/19/2025 End: 08-19-2025 Comprehensive metabolic 2000 panel - Serum or Plasma Comprehensive Metabolic Panel Lab Routine Hypertension, unspecified type 1 Occurrences starting 08/18/2024 until 08/19/2025 [facility] Comment on above: 1 Occurrences starting 08/18/2024 until 08/19/2025 End: 06-30-2026 Comprehensive metabolic 2000 panel - Serum or Plasma Comprehensive Metabolic Panel Lab Routine Prediabetes 1 Occurrences starting 06/30/2025 until 06/30/2026 [facility] Work Phone: Comment on above: 1 Occurrences starting 06/30/2025 until 06/30/2026 End: 08-18-2025 CT Chest for screening WO contrast CT Lung Cancer Screening Imaging Routine Encounter for screening for lung cancer 1 Occurrences starting 08/18/2024 until 08/18/2025 [facility] Work Phone: Comment on above: 1 Occurrences starting 08/18/2024 until 08/18/2025 End: 08-20-2025 CT Chest for screening WO contrast CT Lung Cancer Screening Imaging Routine Screening for lung cancer 1 Occurrences starting 08/20/2024 until 08/20/2025 [facility] Work Phone: Comment on above: 1 Occurrences starting 08/20/2024 until 08/20/2025 End: 05-04-2023 CT of chest without contrast CT Chest Without Contrast Imaging Routine Lung nodule seen on imaging study History of lung cancer 1 Occurrences starting 02/01/2023 until 05/04/2023 [facility] Work Phone: Comment on above: 1 Occurrences starting 02/01/2023 until 05/04/2023 End: 07-08-2024 CT of chest without contrast CT Chest Without Contrast Imaging Routine Lung nodule seen on imaging study History of lung cancer 1 Occurrences starting 07/08/2023 until 07/08/2024 [facility] Work Phone: Comment on above: 1 Occurrences starting 07/08/2023 until 07/08/2024 End: 09-07-2024 Echocardiography Echocardiogram complete Echocardiography Routine Dyspnea on exertion 1 Occurrences starting 07/08/2023 until 09/07/2024 [facility] Comment on above: 1 Occurrences starting 07/08/2023 until 09/07/2024 End: 08-19-2025 Hemoglobin A1c/Hemoglobin.total in Blood Hemoglobin A1c Lab Routine Screening for diabetes mellitus 1 Occurrences starting 08/18/2024 until 08/19/2025 [facility] Comment on above: 1 Occurrences starting 08/18/2024 until 08/19/2025 End: 06-30-2026 Hemoglobin A1c/Hemoglobin.total in Blood Hemoglobin A1c Lab Routine Prediabetes Screening for diabetes mellitus Other [employer]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 Other specified abnormal findings of blood chemistry 1 Occurrences starting 06/30/2025 until 06/30/2026 [facility] Comment on above: 1 Occurrences starting 06/30/2025 until 06/30/2026 End: 11-08-2022 Hepatitis C antibody measurement Hepatitis C Antibody Lab Routine Encounter for hepatitis C screening test for low risk patient 1 Occurrences starting 11/08/2021 until 11/08/2022 [facility] Comment on above: 1 Occurrences starting 11/08/2021 until 11/08/2022 Hepatitis C antibody measurement Hepatitis C Antibody Lab Routine Encounter for hepatitis C screening test for low risk patient 11/08/2021 8:54 AM EST [facility] End: 11-09-2022 Human immunodeficiency virus antibody test HIV 1/2 Screen (4th Generation) Lab Routine Screening for HIV (human immunodeficiency virus) 1 Occurrences starting 11/08/2021 until 11/09/2022 [facility] Comment on above: 1 Occurrences starting 11/08/2021 until 11/09/2022 Human immunodeficien cy virus antibody test HIV 1/2 Screen (4th Generation) Lab Routine Screening for HIV (human immunodeficiency virus) 11/08/2021 8:54 AM [facility] End: 08-19-2025 Lipid 1996 panel - Serum or Plasma Lipid Panel Lab Routine Hyperlipidemia, unspecified hyperlipidemia type 1 Occurrences starting 08/18/2024 until 08/19/2025 [facility] Comment on above: 1 Occurrences starting 08/18/2024 until 08/19/2025 End: 06-30-2026 Lipid 1996 panel - Serum or Plasma Lipid Panel Lab Routine Encounter for lipid screening for cardiovascular disease 1 Occurrences starting 06/30/2025 until 06/30/2026 [facility] Comment on above: 1 Occurrences starting 06/30/2025 until 06/30/2026 End: 01-08-2024 Low dose computed tomography of thorax CT Lung Cancer Screening Imaging Routine History of lung cancer Former smoker Encounter for screening for lung cancer 1 Occurrences starting 01/07/2023 until 01/08/2024 [facility] Work Phone: Comment on above: 1 Occurrences starting 01/07/2023 until 01/08/2024 End: 01-09-2023 MG Breast - bilateral Screening Mammography Screening Bilateral Imaging Routine Encounter for screening for malignant neoplasm of breast, unspecified screening modality 1 Occurrences starting 11/08/2021 until 01/09/2023 [facility] Work Phone: Comment on above: 1 Occurrences starting 11/08/2021 until 01/09/2023 End: 04-13-2024 MG Breast - bilateral Screening Mammography Screening Ronak Bilateral Imaging Routine Breast cancer screening by mammogram 1 Occurrences starting 02/11/2023 until 04/13/2024 [employer] [employer] Work Phone: Comment on above: 1 Occurrences starting 02/11/2023 until 04/13/2024 Immunizations Immunization Date Immunization Notes Care Provider Fa cilijuan 06-30-2025 Seasonal, trivalent, recombinant, injectable influenza vaccine, preservative free Tony Lowe [facility] Work Phone: [facility] 08-18-2024 Seasonal, trivalent, recombinant, injectable influenza vaccine, preservative free Tony Lowe [facility] Work Phone: [facility] 08-18-2024 influenza virus vacc ine, unspecified formulation Rio Capone MD Work Phone: [facility] 07-08-2023 influenza, injectabl e, quadrivalent, preservative free [facility] 07-08-2023 flu vacc [id number] 6 mos up,PF, (FLUZONE QUAD/FLULAVAL QUAD/FLUARIX QUAD) 60 mcg (15 mcg x 4)/0.5 mL Syrg syringe [facility] Work Phone: [facility] 01-07-2023 Pneumococcal Conjuga te 20-Valent (Prevnar 20) [facility] Work Phone: [facility] 01-07-2023 pneumococcal conj. 20-valent (PREVNAR 20) 0.5 mL vaccine [facility] Work Phone: [facility] 07-05-2020 pneumococcal polysac charide vaccine, 23 valent [facility] Work Phone: [facility] 07-05-2020 Seasonal, quadrivale nt, recombinant, injectable influenza vaccine, preservative free [facility] Payers Date Payer Category Payer Medicaid [id number] 2021 Medicaid [id number] 2021 Medicaid (Managed Care) [employer] [id number] 2021 Medicaid [id number] 1965 Unknown [id number] 1965 Unknown [id number] 903 1965 Unknown [id number] 903 1965 Unknown [id number] 903 1965 Unknown [id number] 903 1965 Unknown [id number] 903 1965 Unknown [id number] 903 1965 Unknown [id number] 903 1965 Unknown [id number] 903 1965 Unknown [id number] 903 Social History Date Type Detail Facility Start: 10-04-2021 End: 11-08-2021 Tobacco smoking status NHIS Never smoked tobacco [facility] Start: 10-04-2021 End: 07-16-2025 Tobacco use and exposure Smokeless tobacco non-user [facility] Start: 11-08-2021 End: 08-03-2025 Alcohol intake Lifetime non-drinker (finding) [facility] Start: 10-04-2021 History SDOH Alcohol Frequency 1 [facility] Start: 1965 Sex Assigned At Not on file [facility] Exposure to SARS-CoV -2 (event) Yes [facility] Start: 11-27-2021 End: 01-28-2023 Exposure to SARS-CoV-2 (event) Not sure [facility] Start: 12-20-2021 End: 07-16-2025 Tobacco smoking status NHIS Ex-smoker [facility] Start: 09-30-1983 End: 09-30-2018 History of tobacco use Current smoker [facility] Start: 12-20-2021 End: 04-25-2025 Cigarettes smoked current (pack per day) - Reported 1 [facility] Start: 09-30-1983 End: 09-30-2018 History of tobacco use Cigarette Smoker [facility] Start: 04-10-2022 Tobacco Comment 04/10/2022- quit 3yrs ago [facility] Start: 09-20-2022 End: 04-25-2025 Tobacco use panel [facility] Adult Depression Scr eening Assessment 0 [facility] (I/We) worried wheth er (my/our) food would run out before (I/we) got money to buy more. DK or Refused [facility] (I/We) worried wheth er (my/our) food would run out before (I/we) got money to buy more. Never true [facility] Has the [employer], [employer], oil, or water company threatened to shut off services in your home in past 12Mo No [facility] Start: 04-25-2025 Gender identity Identifies as female gender (finding) [facility] Start: 04-25-2025 Sexual orientation Heterosexual (fin mark) [facility] Medical Equipment Procedure Code Equipment Code Equipment Origin al Text Equipment Identifier Dates Stent 2.25 X 12 [facility] - [id number] [facility] Start: 04-26-2025 Clinical Notes 11-08-2021 to 08-03-2025 Rio Capone MD - 08/03/2025 8:53 AM Tony Guadalupe CNP - 06/30/2025 9:57 AM EDTTelephone Encounter - Jodi, SCOTTIE Dueñas - 06/10/2025 12:24 PM EDTPatient Instructions Note Date & Type Note Facility 08-03-2025 Note [facility] [address] [facility] (11) [facility] [address] [facility] [id number] Name: Gail Lewis Age: 60 y.o. : 1965 Today's date: 08/03/25 Outpatient Pulmonary Follow-up Note CC: Asthma, abnormal CT Gail Lewis is a 60 y.o. female who presents to Pulmonary clinic for follow up of a March hospitalization. They were last seen on 04/06/2025. HPI: At her appointment in March Ms. Lewis had an acute asthma exacerbation and we resumed Symbicort with as needed albuterol. She was getting a follow-up CT for tree-in-bud infiltrates. Today she says she is feeling much better and has not needed her albuterol much at all. Review of Systems All other systems reviewed and are negative. Tobacco Use History[1] Counseling given: Not Answered Tobacco comments: 04/10/2022- quit 3yrs ago Objective: Outpatient Medications as of 08/03/2025 Medication Sig albuterol (PROVENTIL) 2.5 mg /3 mL (0.083 %) nebulizer solution Take 3 mL (2.5 mg total) by nebulization every 6 (six) hours as needed for wheezing . albuterol 90 mcg/actuation inhaler Inhale 2 (two) puffs every 4 (four) hours as needed for wheezing, shortness of breath or cough . aspirin 81 MG EC tablet Take 1 (one) tablet (81 mg total) by mouth daily Start: 04/28/25. atorvastatin (LIPITOR) 80 MG tablet Take 1 (one) tablet (80 mg total) by mouth nightly . busPIRone (BUSPAR) 10 MG tablet Take 1 (one) tablet (10 mg total) by mouth 3 (three) times a day . carvediloL (COREG) 6.25 MG tablet Take 1 (one) tablet (6.25 mg total) by mouth 2 (two) times a day with meals . clopidogreL (PLAVIX) 75 mg tablet Take 1 (one) tablet (75 mg total) by mouth daily Start: 04/28/25. ezetimibe (ZETIA) 10 mg tablet Take 1 (one) tablet (10 mg total) by mouth nightly . famotidine (PEPCID) 40 MG tablet Take 1 (one) tablet (40 mg total) by mouth daily . FLUoxetine (PROZAC) 20 MG capsule Take 1 (one) capsule (20 mg total) by mouth daily . nitroGLYCERIN (Nitrostat) 0.[address] 1 (one) tablet (0.4 mg total) under the tongue every 5 (five) minutes as needed for chest pain , if no relief after 3 doses call 911 . Symbicort 160-4.5 mcg/actuation inhaler Inhale 2 (two) puffs 2 (two) times a day . Allergies[2] BP (!) 145/77 (BP Location: Right arm, Patient Position: Sitting, BP Cuff Size: Adult) Pulse 75 Ht 4' 11" Wt 75.3 kg (166 lb) SpO2 96% Comment: Room Air BMI 33.53 kg/m Date/Time Weight 08/03/25 0843 75.3 Physical Exam: Vitals reviewed Gen: Alert and oriented x 3, In no apparent distress HEENT: Head: Normocephalic, no lesions, without obvious abnormality. Pharynx: Dental Hygiene adequate. Normal buccal mucosa. Normal pharynx. Cardio: regular rate and rhythm Resp: clear to auscultation bilaterally, no wheezes or crackles, no tachypnea or accessory muscle use Imaging: Personally reviewed images from CT Chest (08/03/24), revealing resolution of almost all the tree-in-bud infiltrates from March, however there is a new irregular consolidation in the posterior inferior right lower lobe Assessment and Plan: Gail was seen today for follow-up. Diagnoses and all orders for this visit: Mild intermittent asthma, uncomplicated Pulmonary nodule - CT Chest Without Contrast; Future Though this consolidation in her right lower lobe is likely residual atelectasis or inflammation from her issues is prior summer, as it is new and on the same side where she had her prior lobectomy for lung cancer we will keep it under further surveillance with another CT in 6 months. Otherwise she may remain on her Symbicort with rare need of albuterol. We will consider stepping down her controller inhaler therapy in the spring if she continues to maintain good control. RTC in 6 months [1] Tobacco & Smokeless: Tobacco Use Smoking status: Former Packs/day: 0.00 Years: 1 pack/day for 35.0 years (35.0 ttl pk-yrs) Types: Cigarettes Start date: 1983 Quit date: 2019 Years since quittin.8 Smokeless tobacco: Never Tobacco comments: 04/10/2022- quit 3yrs ago [2] Allergies Allergen Reactions Vicodin [Hydrocodone-Acetaminophen] GI Intolerance AUTHENTICATED BY RIO CAPONE, ON 08/03/2025 08:55:54 [facility] 08-03-2025 History of Presen t illness Narrative [facility] (11) [facility] [phone] Name: Gail Lewis Age: 60 y.o. : 1965 Today's date: 08/03/25 Outpatient Pulmonary Follow-up Note CC: Asthma, abnormal CT Gail Lewis is a 60 y.o. female who presents to Pulmonary clinic for follow up of a March hospitalization. They were last seen on 04/06/2025. HPI: At her appointment in March Ms. Lewis had an acute asthma exacerbation and we resumed Symbicort with as needed albuterol. She was getting a follow-up CT for tree-in-bud infiltrates. Today she says she is feeling much better and has not needed her albuterol much at all. Review of Systems All other systems reviewed and are negative. Tobacco Use History[1] Counseling given: Not Answered Tobacco comments: 04/10/2022- quit 3yrs ago Objective: Outpatient Medications as of 08/03/2025 Medication Sig albuterol (PROVENTIL) 2.5 mg /3 mL (0.083 %) nebulizer solution Take 3 mL (2.5 mg total) by nebulization every 6 (six) hours as needed for wheezing . albuterol 90 mcg/actuation inhaler Inhale 2 (two) puffs every 4 (four) hours as needed for wheezing, shortness of breath or cough . aspirin 81 MG EC tablet Take 1 (one) tablet (81 mg total) by mouth daily Start: 04/28/25. atorvastatin (LIPITOR) 80 MG tablet Take 1 (one) tablet (80 mg total) by mouth nightly . busPIRone (BUSPAR) 10 MG tablet Take 1 (one) tablet (10 mg total) by mouth 3 (three) times a day . carvediloL (COREG) 6.25 MG tablet Take 1 (one) tablet (6.25 mg total) by mouth 2 (two) times a day with meals . clopidogreL (PLAVIX) 75 mg tablet Take 1 (one) tablet (75 mg total) by mouth daily Start: 04/28/25. ezetimibe (ZETIA) 10 mg tablet Take 1 (one) tablet (10 mg total) by mouth nightly . famotidine (PEPCID) 40 MG tablet Take 1 (one) tablet (40 mg total) by mouth daily . FLUoxetine (PROZAC) 20 MG capsule Take 1 (one) capsule (20 mg total) by mouth daily . nitroGLYCERIN (Nitrostat) 0.[address] 1 (one) tablet (0.4 mg total) under the tongue every 5 (five) minutes as needed for chest pain , if no relief after 3 doses call 911 . Symbicort 160-4.5 mcg/actuation inhaler Inhale 2 (two) puffs 2 (two) times a day . Allergies[2] BP (!) 145/77 (BP Location: Right arm, Patient Position: Sitting, BP Cuff Size: Adult) Pulse 75 Ht 4' 11" Wt 75.3 kg (166 lb) SpO2 96% Comment: Room Air BMI 33.53 kg/m Date/Time Weight 08/03/25 0843 75.3 Physical Exam: Vitals reviewed Gen: Alert and oriented x 3, In no apparent distress HEENT: Head: Normocephalic, no lesions, without obvious abnormality. Pharynx: Dental Hygiene adequate. Normal buccal mucosa. Normal pharynx. Cardio: regular rate and rhythm Resp: clear to auscultation bilaterally, no wheezes or crackles, no tachypnea or accessory muscle use Imaging: Personally reviewed images from CT Chest (08/03/24), revealing resolution of almost all the tree-in-bud infiltrates from March, however there is a new irregular consolidation in the posterior inferior right lower lobe Assessment and Plan: Gail was seen today for follow-up. Diagnoses and all orders for this visit: Mild intermittent asthma, uncomplicated Pulmonary nodule - CT Chest Without Contrast; Future Though this consolidation in her right lower lobe is likely residual atelectasis or inflammation from her issues is prior summer, as it is new and on the same side where she had her prior lobectomy for lung cancer we will keep it under further surveillance with another CT in 6 months. Otherwise she may remain on her Symbicort with rare need of albuterol. We will consider stepping down her controller inhaler therapy in the spring if she continues to maintain good control. RTC in 6 months [1] Tobacco & Smokeless: Tobacco Use Smoking status: Former Packs/day: 0.00 Years: 1 pack/day for 35.0 years (35.0 ttl pk-yrs) Types: Cigarettes Start date: 1983 Quit date: 2018 Years since quittin.8 Smokeless tobacco: Never Tobacco comments: 04/10/2022- quit 3yrs ago [2] Allergies Allergen Reactions Vicodin [Hydrocodone-Acetaminophen] GI Intolerance documented in this encounter [facility] 07-16-2025 Note HISTORY AND PHYSICAL Patient Name: Gail Lewis MR #: [id number] [facility] #: [id number] Clinician: Dian Llamas DO Assessment/Plan Encounter for screening colonoscopy Hx of CAD s/p NAIMA 04/26/25 -Patient has never had a c-scope before. I spoke with Dr. Jarrell with cardiology about not scheduling her colonoscopy until it has been 6 months after NAIMA placement since she will need to hold her ASA and plavix for 7 and 5 days respectively for the colonoscopy. He agrees with this plan. We will postpone scheduling her colonoscopy until September and October of next year. The patient expressed understanding of this and was given our contact information. Subjective Gail Lewis is a 60 y.o. female who presents for a screening colonoscopy. She has never had a colonoscopy before. Per chart review she just had a NAIMA placed in March of this year and has been on aspirin and plavix. She has since felt okay and been ambulating with chest pain or SOB. She denies blood in her stool and no abdominal pain. No nausea or emesis. Past Medical History: Diagnosis Date Hypertension Lung cancer (HCC) 11/27/2019 RUL Adenocarcinoma Moderate persistent asthma, uncomplicated Symptomatic cholelithiasis 11/24/2020 Past Surgical History: Procedure Laterality Date APPENDECTOMY CARDIAC CATHETERIZATION N/A 04/26/2025 Procedure: Left Heart Cath; Surgeon: Kurt Jarrell MD; [facility]; Service: Cardiovascular; Laterality: N/A; CARDIAC CATHETERIZATION N/A 04/26/2025 Procedure: Fractional Flow [place]; Surgeon: Kurt Jarrell MD; Location[place] [facility]; Service: Cardiovascular; Laterality: N/A; CARDIAC CATHETERIZATION N/A 04/26/2025 Procedure: IVUS - Coronary; Surgeon: Kurt Jarrell MD; Location: [facility]; Service: Cardiovascular; Laterality: N/A; CARDIAC CATHETERIZATION N/A 04/26/2025 Procedure: NAIMA Stent - Coronary; Surgeon: Kurt Jarrell MD; Location: [facility]; Service: Cardiovascular; Laterality: N/A; CHOLECYSTECTOMY CT BIOPSY LUNG 10/21/2019 CT BIOPSY LUNG 10/21/2019 CT BIOPSY LUNG 09/16/2019 CT BIOPSY LUNG 09/16/2019 LUNG SURGERY RUL Lobectomy 2018 Family History Problem Relation Age of Onset Cancer Father Heart disease Sister Cancer Brother Heart disease Brother Social History [1] Allergy Information: I have reviewed the patient's allergies. Vicodin [hydrocodone-acetaminophen] Home Medications: Outpatient Medications as of 07/16/2025 Medication Sig albuterol (PROVENTIL) 2.5 mg /3 mL (0.083 %) nebulizer solution Take 3 mL (2.5 mg total) by nebulization every 6 (six) hours as needed for wheezing . albuterol 90 mcg/actuation inhaler Inhale 2 (two) puffs every 4 (four) hours as needed for wheezing, shortness of breath or cough . aspirin 81 MG EC tablet Take 1 (one) tablet (81 mg total) by mouth daily Start: 04/28/25. atorvastatin (LIPITOR) 80 MG tablet Take 1 (one) tablet (80 mg total) by mouth nightly . busPIRone (BUSPAR) 10 MG tablet Take 1 (one) tablet (10 mg total) by mouth 3 (three) times a day . carvediloL (COREG) 6.25 MG tablet Take 1 (one) tablet (6.25 mg total) by mouth 2 (two) times a day with meals . clopidogreL (PLAVIX) 75 mg tablet Take 1 (one) tablet (75 mg total) by mouth daily Start: 04/28/25. ezetimibe (ZETIA) 10 mg tablet Take 1 (one) tablet (10 mg total) by mouth nightly . famotidine (PEPCID) 40 MG tablet Take 1 (one) tablet (40 mg total) by mouth daily . FLUoxetine (PROZAC) 20 MG capsule Take 1 (one) capsule (20 mg total) by mouth daily . nitroGLYCERIN (Nitrostat) 0.[address] 1 (one) tablet (0.4 mg total) under the tongue every 5 (five) minutes as needed for chest pain , if no relief after 3 doses call 911 . Symbicort 160-4.5 mcg/actuation inhaler Inhale 2 (two) puffs 2 (two) times a day . Review of Systems: Constitutional: No fever, no weight loss Eyes: No diplopia ENT: No sinus drainage CV: No chest pain. No ankle swelling Respiratory: No dyspnea. No wheezing GI: No abdominal pain.No abdominal distention : No dysuria Neurologic: No headache Integumentary: No skin rash Musculoskeletal: No arthralgias Endocrine: No polyuria Hematology/Lymphatic: No apparent lymphadenopathy Allergic/Immunologic: No hives Psych: No unusual mood swings Objective Vital signs in last 24 hours: There were no vitals filed for this visit. Physical Exam: General Appearance: Alert, cooperative, no distress Head: Normocephalic, without obvious abnormality, atraumatic Eyes: PERRLA, conjunctiva/corneas clear, EOM's intact Throat: Lips, mucosa, and tongue normal; teeth and gums normal Neck Supple, symmetrical, trachea midline Back: Symmetric, no curvature, ROM normal Lungs: No acute distress, no accessory muscle recruitment Chest wall: No tenderness or deformity Cardiovascular: Regular rate and rhythm, no lower extremity edema Abdomen: Soft, non tender, non distended, no rebound, no percussion, no (more content not included)... [facility] 06-30-2025 Note [facility] INTERNAL MEDICINE [address] [place] [address] Patient: Gail Lewis is a 60 y.o. female. Chief Complaint Patient presents with Gap Closure (Health Maintenance) Annual Exam Patient could not review med list- History of present illness Pt here for complete physical. Patient doing well overall. Denies concern. PHYSICAL- hx HTN, CAD, cholesterol. Denies cp or sob or palpitations. Denies change in size/firmness of stools, change in size/color of moles. Denies rashes. Denies headaches, pain in legs, chest, abdomen, joints. Denies trouble with sleep. Denies symptoms of depression/anxiety. Denies changes in weight. Denies fam hx prostate, breast, uterine, ovarian CA. Denies fam hx OK/CAD <50yo.+ colon cancer in sister Dental exam-needs eye exam-needs Always wears seat belt. Working smoke detector in the house. Diet-tries to follow healthy diet. Exercise-states she tries to stay active during the day Occupation-none Smoker-former smoker LABS: Pt due for: Ordered Immunizations: Flu Vaccine discussed Pneumovax Vaccine discussed Prevnar 13 Vaccine discussed Zostavax Vaccine discussed COVID Vaccine discussed For the following tests or procedures risks and benefits were discussed in detail with the patient and the patient understood the risks and benefits clearly: PAP-declines MAMMO-declines CSCOPE-ordered Past medical/surgical history Past Medical History: Diagnosis Date Hypertension Lung cancer (HCC) 11/27/2019 RUL Adenocarcinoma Moderate persistent asthma, uncomplicated Symptomatic cholelithiasis 11/24/2020 Past Surgical History: Procedure Laterality Date APPENDECTOMY CARDIAC CATHETERIZATION N/A 04/26/2025 Procedure: Left Heart Cath; Surgeon: Kurt Jarrell MD; Location[facility]; Service: Cardiovascular; Laterality: N/A; CARDIAC CATHETERIZATION N/A 04/26/2025 Procedure: Fractional Flow [place]; Surgeon: Kurt Jarrell MD; Location[facility]; Service: Cardiovascular; Laterality: N/A; CARDIAC CATHETERIZATION N/A 04/26/2025 Procedure: IVUS - Coronary; Surgeon: Kurt Jarrell MD; Location: [facility]; Service: Cardiovascular; Laterality: N/A; CARDIAC CATHETERIZATION N/A 04/26/2025 Procedure: NAIMA Stent - Coronary; Surgeon: Kurt Jarrell MD; Location: [facility]; Service: Cardiovascular; Laterality: N/A; CHOLECYSTECTOMY CT BIOPSY LUNG 10/21/2019 CT BIOPSY LUNG 10/21/2019 CT BIOPSY LUNG 09/16/2019 CT BIOPSY LUNG 09/16/2019 LUNG SURGERY RUL Lobectomy 2018 Family History Problem Relation Age of Onset Cancer Father Heart disease Sister Cancer Brother Heart disease Brother Current Medications[1] Allergies[2] reports that she quit smoking about 6 years ago. Her smoking use included cigarettes. She started smoking about 41 years ago. She has a 35 pack-year smoking history. She has never used smokeless tobacco. She reports that she does not drink alcohol and does not use drugs. reports that she quit smoking about 6 years ago. Her smoking use included cigarettes. She started smoking about 41 years ago. She has a 35 pack-year smoking history. She has never used smokeless tobacco. Current medication list reviewed and updated with patient. Past medical history reviewed. Past Surgical History reviewed Personal history Social History reviewed. Family history Family History reviewed. REVIEW OF SYSTEMS General: Patient denies fatigue, fever, weight loss. Patient denies sleep changes. Eyes: Patient denies blurred vision, eye pain, vision changes/disturbance. ENT: Patient denies hearing loss/changes. Patient denies ear pain, congestion, sore throat. Cardiovascular: Patient denies chest pain, palpitations. Respiratory: Patient denies cough, wheezing, or shortness of breath. Gastrointestinal: Patient denies nausea, vomiting, abdominal pain, constipation, diarrhea. Urinary: Patient denies urinary frequency, urinary urgency, dysuria. Musculoskeletal: Patient denies back pain, joint pain. Skin: Patient denies rash, concerning skin lesions. Neurologic: Patient denies weakness, dizziness, headache, numbness/tingling in the hands, numbness/tingling in the feet. Mental Status: Patient denies anxiety, depression. Endocrinology: Patient denies weight change. Hematologic: Patient denies abnormal bruising, bleeding, enlarged lymph nodes. Physical findings Vitals: 06/30/25 0949 BP: 138/82 BP Location: Left arm Patient Position: Sitting Pulse: 79 SpO2: 90% Weight: 75.8 kg (167 lb 3.2 oz) Height: 4' 11" General: well developed. General: not appearing ill. General: not cachectic. General: alert, awake, no acute distress. Eyes: PERRLA. Eyes: no conjunctiva present and lid normal. Ears/Nose/Throat/Mouth: External ear, canal, TM normal. Ears/Nose/Throat/Mouth: nose, nasal mucosa, septum normal. Ears/Nose/Throat/Mouth: oral cavity (more content not included)... [facility] 06-30-2025 History of Presen t illness Narrative [facility] INTERNAL MEDICINE [address] [place] [address] Patient: Gail Lewis is a 60 y.o. female. Chief Complaint Patient presents with Gap Closure (Health Maintenance) Annual Exam Patient could not review med list- History of present illness Pt here for complete physical. Patient doing well overall. Denies concern. PHYSICAL- hx HTN, CAD, cholesterol. Denies cp or sob or palpitations. Denies change in size/firmness of stools, change in size/color of moles. Denies rashes. Denies headaches, pain in legs, chest, abdomen, joints. Denies trouble with sleep. Denies symptoms of depression/anxiety. Denies changes in weight. Denies fam hx prostate, breast, uterine, ovarian CA. Denies fam hx OK/CAD <50yo.+ colon cancer in sister Dental exam-needs eye exam-needs Always wears seat belt. Working smoke detector in the house. Diet-tries to follow healthy diet. Exercise-states she tries to stay active during the day Occupation-none Smoker-former smoker LABS: Pt due for: Ordered Immunizations: Flu Vaccine discussed Pneumovax Vaccine discussed Prevnar 13 Vaccine discussed Zostavax Vaccine discussed COVID Vaccine discussed For the following tests or procedures risks and benefits were discussed in detail with the patient and the patient understood the risks and benefits clearly: PAP-declines MAMMO-declines CSCOPE-ordered Past medical/surgical history Past Medical History: Diagnosis Date Hypertension Lung cancer (HCC) 11/27/2019 RUL Adenocarcinoma Moderate persistent asthma, uncomplicated Symptomatic cholelithiasis 11/24/2020 Past Surgical History: Procedure Laterality Date APPENDECTOMY CARDIAC CATHETERIZATION N/A 04/26/2025 Procedure: Left Heart Cath; Surgeon: Kurt Jarrell MD; [facility] [facility]; Service: Cardiovascular; Laterality: N/A; CARDIAC CATHETERIZATION N/A 04/26/2025 Procedure: Fractional Flow [place]; Surgeon: Kurt Jarrell MD; [facility] [facility]; Service: Cardiovascular; Laterality: N/A; CARDIAC CATHETERIZATION N/A 04/26/2025 Procedure: IVUS - Coronary; Surgeon: Kurt Jarrell MD; [facility] [facility]; Service: Cardiovascular; Laterality: N/A; CARDIAC CATHETERIZATION N/A 04/26/2025 Procedure: NAIMA Stent - Coronary; Surgeon: Kurt Jarrell MD; [facility] [facility]; Service: Cardiovascular; Laterality: N/A; CHOLECYSTECTOMY CT BIOPSY LUNG 10/21/2019 CT BIOPSY LUNG 10/21/2019 CT BIOPSY LUNG 09/16/2019 CT BIOPSY LUNG 09/16/2019 LUNG SURGERY RUL Lobectomy 2018 Family History Problem Relation Age of Onset Cancer Father Heart disease Sister Cancer Brother Heart disease Brother Current Medications[1] Allergies[2] reports that she quit smoking about 6 years ago. Her smoking use included cigarettes. She started smoking about 41 years ago. She has a 35 pack-year smoking history. She has never used smokeless tobacco. She reports that she does not drink alcohol and does not use drugs. reports that she quit smoking about 6 years ago. Her smoking use included cigarettes. She started smoking about 41 years ago. She has a 35 pack-year smoking history. She has never used smokeless tobacco. Current medication list reviewed and updated with patient. Past medical history reviewed. Past Surgical History reviewed Personal history Social History reviewed. Family history Family History reviewed. REVIEW OF SYSTEMS General: Patient denies fatigue, fever, weight loss. Patient denies sleep changes. Eyes: Patient denies blurred vision, eye pain, vision changes/disturbance. ENT: Patient denies hearing loss/changes. Patient denies ear pain, congestion, sore throat. Cardiovascular: Patient denies chest pain, palpitations. Respiratory: Patient denies cough, wheezing, or shortness of breath. Gastrointestinal: Patient denies nausea, vomiting, abdominal pain, constipation, diarrhea. Urinary: Patient denies urinary frequency, urinary urgency, dysuria. Musculoskeletal: Patient denies back pain, joint pain. Skin: Patient denies rash, concerning skin lesions. Neurologic: Patient denies weakness, dizziness, headache, numbness/tingling in the hands, numbness/tingling in the feet. Mental Status: Patient denies anxiety, depression. Endocrinology: Patient denies weight change. Hematologic: Patient denies abnormal bruising, bleeding, enlarged lymph nodes. Physical findings Vitals: 06/30/25 0949 BP: 138/82 BP Location: Left arm Patient Position: Sitting Pulse: 79 SpO2: 90% Weight: 75.8 kg (167 lb 3.2 oz) Height: 4' 11" General: well developed. General: not appearing ill. General: not cachectic. General: alert, awake, no acute distress. Eyes: PERRLA. Eyes: no conjunctiva present and lid normal. Ears/Nose/Throat/Mouth: External ear, canal, TM normal. Ears/Nose/Throat/Mouth: nose, nasal mucosa, septum normal. Ears/Nose/Throat/Mouth: oral cavity, mucosa, teeth, gums, tongue normal. Ears/Nose/Throat/Mouth: salivary glands, soft and hard palate are normal. Ears/Nose/Throat/Mouth: no pharyngeal erythema. Neck: supple and no cervical adenopathy noted. NECK: thyroid not enlarged. Neck: no thyroid nodule. Cardiovascular: heart regular rate and rhythm. Cardiovascular: no heart murmur. Cardiovascular: no carotid bruit. Cardiovascular: extremity edema not present. Cardiovascular: varicosity not present. Cardiovascular: normal peripheral pulse. Respiratory: respiratory effort normal. Respiratory: clear to auscultation. Gastrointestinal: palpation for tenderness/mass performed and normal. Gastrointestinal: normal palpation of liver and spleen. Gastrointestinal: normal auscultation for bowel sounds. Skin color is normal. Neurological: normal mental status; alert and oriented to person, place and time. Neurological: Cranial nerves II through XII are normal. Neurological: normal deep tendon reflexes. Musculoskeletal/Extremity: normal motor exam of tone, strength and movement. Musculoskeletal/Extremity: normal gait and station. Psychiatry: alert and oriented to person, place and time. normal mood. Psychiatry: normal affect. Psychiatry: normal insight. Psychiatry: normal judgement. Rectal exam deferred- heme stool testing or colonoscopy to be completed. Counseling/Education Patient Counseling: --Nutrition: Stressed importance of moderation in sodium/caffeine intake, saturated fat and cholesterol, caloric balance, sufficient intake of fresh fruits, vegetables, fiber, calcium, iron --Exercise: Stressed the importance of regular exercise. --Substance Abuse: Discussed cessation/primary prevention of tobacco, alcohol, or other drug use; driving or other dangerous activities under the influence; availability of treatment for abuse. --Sexuality: Discussed sexually transmitted diseases, partner selection, use of condoms, avoidance of unintended and contraceptive alternatives. --Injury prevention: Discussed safety belts, smoke detector --Dental health: Discussed importance of regular tooth brushing, flossing, and dental visits. --Immunizations reviewed. --Self breast exams monthly, self skin assessment monthly (ABCDE) Assessment/Plan: 1. Wellness examination (Primary) Patient doing well overall blood pressure well-controlled. Continue with current medications. Not needing refills at this time. Will get flu shot today. Discussed RSV vaccine. Encourage patient to think about this and look at local pharmacy. Declines Pap smear, mammogram. Is agreeable to do colon cancer screening at this time due to sister recently being diagnosed with stage IV colon cancer. Will place referral. Follow-up in 6 months or sooner if needed diet and lifestyle changes discussed 2. Prediabetes - Comprehensive Metabolic Panel; Future - CBC; Future - Hemoglobin A1c; Future 3. Need for vaccination - Influenza RIV3 (FLUBLOK) 9 years old or greater - syringe (CPT 22324) 4. Screening for diabetes mellitus - Hemoglobin A1c; Future 5. Other [employer]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 - Hemoglobin A1c; Future 6. Other specified abnormal findings of blood chemistry - Hemoglobin A1c; Future 7. Encounter for lipid screening for cardiovascular disease - Lipid Panel; Future 8. Screening for colon cancer - Ambulatory referral to General Surgery; Future 9. Family history of colon cancer - Ambulatory referral to General Surgery; Future Condition and plan discussed with patient in detail, patient agrees. Risk, benefits, and side effects of medicines discussed with the patient, patient agrees with plan. Recent laboratory / radiology / other study results discussed with patient. For any new medications prescribed today, patient was educated about indications for the medication, how to take the medication and potential side effects of the medications. Return to office: No follow-ups on file. Tony Rivera CNP 06/30/2025 9:52 AM PHQ-9 Review Little interest or pleasure in doing things 0 Feeling down, depressed, or hopeless 0 PHQ-2 Total Score 0 Trouble falling or staying asleep, or sleeping too much 0 Feeling tired or having little energy 0 Poor appetite or overeating 0 Feeling bad about yourself - or that you are a failure or have let yourself or your family down 0 Trouble concentrating on things, such as reading the newspaper or watching television 0 Moving or speaking so slowly that other people could have noticed. Or the opposite - being so fidgety or restless that you have been moving around a lot more than usual 0 Thoughts that you would be better off , or of hurting yourself in some way 0 PHQ-9 Total Score 0 If you checked off any problems, how difficult have these problems made it for you to do your work, take care of things at home, or get along with other people? Not difficult at all [1] Current Outpatient Medications Medication Sig Dispense Refill albuterol (PROVENTIL) 2.5 mg /3 mL (0.083 %) nebulizer solution Take 3 mL (2.5 mg total) by nebulization every 6 (six) hours as needed for wheezing . 75 mL 0 albuterol 90 mcg/actuation inhaler Inhale 2 (two) puffs every 4 (four) hours as needed for wheezing, shortness of breath or cough . 18 g 1 aspirin 81 MG EC tablet Take 1 (one) tablet (81 mg total) by mouth daily Start: 04/28/25. 30 tablet 11 atorvastatin (LIPITOR) 80 MG tablet Take 1 (one) tablet (80 mg total) by mouth nightly . 30 tablet 11 busPIRone (BUSPAR) 10 MG tablet Take 1 (one) tablet (10 mg total) by mouth 3 (three) times a day . 180 tablet 5 carvediloL (COREG) 6.25 MG tablet Take 1 (one) tablet (6.25 mg total) by mouth 2 (two) times a day with meals . 60 tablet 11 clopidogreL (PLAVIX) 75 mg tablet Take 1 (one) tablet (75 mg total) by mouth daily Start: 04/28/25. 30 tablet 5 ezetimibe (ZETIA) 10 mg tablet Take 1 (one) tablet (10 mg total) by mouth nightly . 30 tablet 11 famotidine (PEPCID) 40 MG tablet Take 1 (one) tablet (40 mg total) by mouth daily . 30 tablet 5 FLUoxetine (PROZAC) 20 MG capsule Take 1 (one) capsule (20 mg total) by mouth daily . 30 capsule 5 nitroGLYCERIN (Nitrostat) 0.[address] 1 (one) tablet (0.4 mg total) under the tongue every 5 (five) minutes as needed for chest pain , if no relief after 3 doses call 911 . 100 tablet 3 Symbicort 160-4.5 mcg/actuation inhaler Inhale 2 (two) puffs 2 (two) times a day . 1 each 12 No current facility-administered medications for this visit. [2] Allergies Allergen Reactions Vicodin [Hydrocodone-Acetaminophen] GI Intolerance documented in this encounter [facility] 06-10-2025 Telephone encounter Note Gail is requesting a refill for Requested Prescriptions Pending Prescriptions Disp Refills albuterol 90 mcg/actuation inhaler 18 g 1 Sig: Inhale 2 (two) puffs every 4 (four) hours as needed for wheezing, shortness of breath or cough . albuterol (PROVENTIL) 2.5 mg /3 mL (0.083 %) nebulizer solution 75 mL 0 Sig: Take 3 mL (2.5 mg total) by nebulization every 6 (six) hours as needed for wheezing . busPIRone (BUSPAR) 10 MG tablet 180 tablet 5 Sig: Take 1 (one) tablet (10 mg total) by mouth 3 (three) times a day . famotidine (PEPCID) 40 MG tablet 30 tablet 5 Sig: Take 1 (one) tablet (40 mg total) by mouth daily . FLUoxetine (PROZAC) 20 MG capsule 30 capsule 5 Sig: Take 1 (one) capsule (20 mg total) by mouth daily . Last refill: 08/18/24 All listed medications Last appt: 08/18/24 Upcoming appt (when is it due or is it scheduled): 06/30/25 Follow up: Refill pending for review without additional follow up based on information above. [facility] 06-10-2025 Miscellaneous Notes Gail is requesting a refill for Requested Prescriptions Pending Prescriptions Disp Refills albuterol 90 mcg/actuation inhaler 18 g 1 Sig: Inhale 2 (two) puffs every 4 (four) hours as needed for wheezing, shortness of breath or cough . albuterol (PROVENTIL) 2.5 mg /3 mL (0.083 %) nebulizer solution 75 mL 0 Sig: Take 3 mL (2.5 mg total) by nebulization every 6 (six) hours as needed for wheezing . busPIRone (BUSPAR) 10 MG tablet 180 tablet 5 Sig: Take 1 (one) tablet (10 mg total) by mouth 3 (three) times a day . famotidine (PEPCID) 40 MG tablet 30 tablet 5 Sig: Take 1 (one) tablet (40 mg total) by mouth daily . FLUoxetine (PROZAC) 20 MG capsule 30 capsule 5 Sig: Take 1 (one) capsule (20 mg total) by mouth daily . Last refill: 08/18/24 All listed medications Last appt: 08/18/24 Upcoming appt (when is it due or is it scheduled): 06/30/25 Follow up: Refill pending for review without additional follow up based on information above. documented in this encounter [facility] 06-07-2025 History of Presen t illness Narrative Interventional Cardiology Clinic Follow-up Heart & Vascular [facility] 06/07/2025 Kurt Jarrell MD [address] [place], [place] [id number] Patient: Gail Lewis Date of : 1965 (60 y.o.) PCP: Tony Rivera, YESSY Assessment & Plan Gail Lewis is a 60 y.o. female with a PMHx remarkable for CAD s/p PCI to [facility] (03/2025), essential HTN, HL, Hx lung CA, who presents today for follow-up after recent hospitalization for angina with PCI resulting. #Coronary Artery Disease s/p NAIMA x1 to [place] (03/2025): - ASA 81mg po every day - Plavix 75mg PO every day - SL NTG 0.4mg PO PRN - patient has declined participation in cardiac rehabilitation #Essential Hypertension: - coreg 6.25mg PO BID #Dyslipidemia: LDL-C of 138 mg/dL and TG of 121 mg/dL as of 03/2025 (while on high-intensity statin, but before Zetia was added) - atorvastatin 80mg PO at bedtime - ezetimibe 10mg PO every day - planning on repeat FLP in early July 2025 to determine efficacy of zetia addition to high-intensity statin; if not effective, could consider candidacy for PCSK9i Follow-up: Return in about 1 year (around 06/07/2026). Chief Complaint: Follow-up (Patient denies any recent cardiac symptoms or concerns at this time ) Subjective History of Present Illness: Gail Lewis is a 60 y.o. female with a PMHx remarkable for CAD s/p PCI to [facility] (03/2025), essential HTN, HL, Hx lung CA, who presents today for follow-up after recent hospitalization for angina with PCI resulting. Denies any chest pain, chest pressure, or shortness of breath. The patient does not smoke, endorses occasional EtOH, denies marijuana. The patient is primarily citing walking as her main source of physical activity. Objective Tobacco Use History[1] ECG 12 Lead Final Result by Interface, Lab Results In [facility] (04/26/2025 1539) Echocardiogram Complete Final Result by Grace Boston MD (04/26/2025 1010) Cardiac Catheterization Final Result by Kurt Jarrell MD (04/26/2025 1505) HOME Medications: Patient's Medications New Prescriptions No medications on file Previous Medications ALBUTEROL (PROVENTIL) 2.5 MG /3 ML (0.083 %) NEBULIZER SOLUTION Take 3 mL (2.5 mg total) by nebulization every 6 (six) hours as needed for wheezing . ALBUTEROL 90 MCG/ACTUATION INHALER Inhale 2 (two) puffs every 4 (four) hours as needed for wheezing, shortness of breath or cough . ASPIRIN 81 MG EC TABLET Take 1 (one) tablet (81 mg total) by mouth daily Start: 04/28/25. ATORVASTATIN (LIPITOR) 80 MG TABLET Take 1 (one) tablet (80 mg total) by mouth nightly . BUSPIRONE (BUSPAR) 10 MG TABLET Take 1 (one) tablet (10 mg total) by mouth 3 (three) times a day . CARVEDILOL (COREG) 6.25 MG TABLET Take 1 (one) tablet (6.25 mg total) by mouth 2 (two) times a day with meals . CLOPIDOGREL (PLAVIX) 75 MG TABLET Take 1 (one) tablet (75 mg total) by mouth daily Start: 04/28/25. EZETIMIBE (ZETIA) 10 MG TABLET Take 1 (one) tablet (10 mg total) by mouth nightly . FAMOTIDINE (PEPCID) 40 MG TABLET Take 1 (one) tablet (40 mg total) by mouth daily . FLUOXETINE (PROZAC) 20 MG CAPSULE Take 1 (one) capsule (20 mg total) by mouth daily . NITROGLYCERIN (NITROSTAT) 0.[address] 1 (one) tablet (0.4 mg total) under the tongue every 5 (five) minutes as needed for chest pain , if no relief after 3 doses call 911 . SYMBICORT 160-4.5 MCG/ACTUATION INHALER Inhale 2 (two) puffs 2 (two) times a day . Modified Medications No medications on file Discontinued Medications LIDOCAINE (LIDODERM) 5 % PATCH Place 1 (one) patch on the skin daily Remove & Discard patch within 12 hours or as directed by MD . ONDANSETRON (ZOFRAN-ODT) 4 MG DISINTEGRATING TABLET Dissolve 1 (one) tablet (4 mg total) on top of tongue every 8 (eight) hours as needed . Physical Examination: BP 122/78 (BP Location: Left arm, Patient Position: Sitting, BP Cuff Size: X-large Adult) Pulse 95 Ht 4' 11" Wt 73.9 kg (163 lb) SpO2 91% BMI 32.92 kg/m CARDIAC loud and distinct S1 and S2 without murmurs, rubs, or gallops PULM clear to auscultation bilaterally EXT no lower extremity edema present Lab Results Component Value Date CHOL 209 (H) 04/25/2025 LDLCALC 138 (H) 04/25/2025 TRIG 121 04/25/2025 HDL 47 04/25/2025 Creatinine clearance cannot be calculated (Patient's most recent lab result is older than the maximum 14 days allowed.) Kurt Jarrell IV, MD, [facility] Inter[facility] Cardiology [facility] [address] [place] [id number] Office: [1] Tobacco Use Smoking Status Former Current packs/day: 0.00 Average packs/day: 1 pack/day for 35.0 years (35.0 ttl pk-yrs) Types: Cigarettes Start date: 1983 Quit date: 2019 Years since quittin.6 Smokeless Tobacco Never Tobacco Comments 04/10/2022- quit 3yrs ago documented in this encounter [facility] 06-07-2025 Note Interventional Cardi ology Clinic Follow-up Heart & Vascular [facility] 06/07/2025 Kurt Jarrell MD [address] [place] [id number] Patient: Gail Lewis Date of : 1965 (60 y.o.) PCP: Tony Rivera, [employer] Assessment & Plan Gail Lewis is a 60 y.o. female with a PMHx remarkable for CAD s/p [facility] [facility] (03/2025), essential HTN, HL, Hx lung CA, who presents today for follow-up after recent hospitalization for angina with PCI resulting. #Coronary Artery Disease s/p NAIMA x1 to [facility] (03/2025): - ASA 81mg po every day - Plavix 75mg PO every day - SL NTG 0.4mg PO PRN - patient has declined participation in cardiac rehabilitation #Essential Hypertension: - coreg 6.25mg PO BID #Dyslipidemia: LDL-C of 138 mg/dL and TG of 121 mg/dL as of 03/2025 (while on high-intensity statin, but before Zetia was added) - atorvastatin 80mg PO at bedtime - ezetimibe 10mg PO every day - planning on repeat FLP in early July 2025 to determine efficacy of zetia addition to high-intensity statin; if not effective, could consider candidacy for PCSK9i Follow-up: Return in about 1 year (around 06/07/2026). Chief Complaint: Follow-up (Patient denies any recent cardiac symptoms or concerns at this time ) Subjective History of Present Illness: Gail Lewis is a 60 y.o. female with a PMHx remarkable for CAD s/p PCI to [facility] (03/2025), essential HTN, HL, Hx lung CA, who presents today for follow-up after recent hospitalization for angina with PCI resulting. Denies any chest pain, chest pressure, or shortness of breath. The patient does not smoke, endorses occasional EtOH, denies marijuana. The patient is primarily citing walking as her main source of physical activity. Objective Tobacco Use History[1] ECG 12 Lead Final Result by Interface, Lab Results In [place] [facility] (04/26/2025 1539) Echocardiogram Complete Final Result by Grace Boston MD (04/26/2025 1010) Cardiac Catheterization Final Result by Kurt Jarrell MD (04/26/2025 1505) HOME Medications: Patient's Medications New Prescriptions No medications on file Previous Medications ALBUTEROL (PROVENTIL) 2.5 MG /3 ML (0.083 %) NEBULIZER SOLUTION Take 3 mL (2.5 mg total) by nebulization every 6 (six) hours as needed for wheezing . ALBUTEROL 90 MCG/ACTUATION INHALER Inhale 2 (two) puffs every 4 (four) hours as needed for wheezing, shortness of breath or cough . ASPIRIN 81 MG EC TABLET Take 1 (one) tablet (81 mg total) by mouth daily Start: 04/28/25. ATORVASTATIN (LIPITOR) 80 MG TABLET Take 1 (one) tablet (80 mg total) by mouth nightly . BUSPIRONE (BUSPAR) 10 MG TABLET Take 1 (one) tablet (10 mg total) by mouth 3 (three) times a day . CARVEDILOL (COREG) 6.25 MG TABLET Take 1 (one) tablet (6.25 mg total) by mouth 2 (two) times a day with meals . CLOPIDOGREL (PLAVIX) 75 MG TABLET Take 1 (one) tablet (75 mg total) by mouth daily Start: 04/28/25. EZETIMIBE (ZETIA) 10 MG TABLET Take 1 (one) tablet (10 mg total) by mouth nightly . FAMOTIDINE (PEPCID) 40 MG TABLET Take 1 (one) tablet (40 mg total) by mouth daily . FLUOXETINE (PROZAC) 20 MG CAPSULE Take 1 (one) capsule (20 mg total) by mouth daily . NITROGLYCERIN (NITROSTAT) 0.[address] 1 (one) tablet (0.4 mg total) under the tongue every 5 (five) minutes as needed for chest pain , if no relief after 3 doses call 911 . SYMBICORT 160-4.5 MCG/ACTUATION INHALER Inhale 2 (two) puffs 2 (two) times a day . Modified Medications No medications on file Discontinued Medications LIDOCAINE (LIDODERM) 5 % PATCH Place 1 (one) patch on the skin daily Remove & Discard patch within 12 hours or as directed by MD . ONDANSETRON (ZOFRAN-ODT) 4 MG DISINTEGRATING TABLET Dissolve 1 (one) tablet (4 mg total) on top of tongue every 8 (eight) hours as needed . Physical Examination: BP 122/78 (BP Location: Left arm, Patient Position: Sitting, BP Cuff Size: X-large Adult) Pulse 95 Ht 4' 11" Wt 73.9 kg (163 lb) SpO2 91% BMI 32.92 kg/m CARDIAC loud and distinct S1 and S2 without murmurs, rubs, or gallops PULM clear to auscultation bilaterally EXT no lower extremity edema present Lab Results Component Value Date CHOL 209 (H) 04/25/2025 LDLCALC 138 (H) 04/25/2025 TRIG 121 04/25/2025 HDL 47 04/25/2025 Creatinine clearance cannot be calculated (Patient's most recent lab result is older than the maximum 14 days allowed.) Kurt Jarrell IV, MD, [facility] Interventional Cardiology [facility] [address] [place], [place] [id number] Office: [1] Tobacco Use Smoking Status Former Current packs/day: 0.00 Average packs/day: 1 pack/day for 35.0 years (35.0 ttl pk-yrs) Types: Cigarettes Start date: 1983 Quit date: 2019 Years since quittin.6 Smokeless Tobacco Never Tobacco Comments 04/10/2022- quit 3yrs ago AUTHENTICATED BY KURT JARRELL, ON 06/07 (more content not included)... [facility] 04-27-2025 Note Cardiology Progress Note Assessment/Plan: 1. Angina, troponin negative x 2, EKG NSR without ischemic changes noted 2. CAD, s/p C 04/26/2025 with PCI to ramus 3. Hypertension, current BP 123/73 - On Coreg outpatient -Echo 04/26/2025: EF 55%, LV wall motion normal. Mild MR 4. HLD, on statin. LDL not at goal 5. Asthma 6. History of lung cancer Plan: -Patient s/p [facility] with PCI to ramus -Right radial cath site without complication, site CDI. No bleeding or hematoma appreciated, palpable radial pulse. Post-cath activity instructions reviewed -continue aspirin 81 mg daily indefinitely and Plavix for 6 months. 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 Patient educated on necessity of med compliance -Continue Coreg. Hold off on addition of BULMARO due to borderline BP. Will increase Lipitor to 80 mg and add additional Zetia given LDL not at goal. Will need repeat lipid panel in approximately 3 months -Will have patient follow-up with Dr. Thompson or BIRD -This BILLET CUTTER discussed Cardiac Rehabilitation with the Patient. Subjects covered during this discussion included: The importance and benefits of Cardiac Rehab and exercise upon discharge from the hospital. Instructed that a member of the Cardiac Rehab Team will contact them to schedule these appointments after discharge Were provided a list of locations to choose for this follow-up. [place] [facility] Referral order placed? YES - No further inpatient cardiology workup at this time, cardiology will sign off Subjective: Patient sitting up in bed eating breakfast. States she feels good. Denies any chest pain/pressure/heaviness, shortness of breath, lightheadedness or dizziness. Objective: Vital signs in last 24 hours: Temp: [97.7 degrees F (36.5 degrees C)-98 degrees F (36.7 degrees C)] 98 degrees F (36.7 degrees C) Heart Rate: [68-76] 70 Resp: [14-18] 14 BP: (95-130)/(55-78) 130/78 Intake/Output last 3 shifts: I/O last 3 completed shifts: In: 282 [P.O.:240; I.V.:42] Out: - Intake/Output this shift: I/O this shift: In: 380 [P.O.:380] Out: - Review of Systems: All systems were reviewed and otherwise negative except for that noted above. Physical Exam: Heart is regular in rate and rhythm. Normal intensity of S1 and S2. No rubs. No murmurs. Lungs clear to auscultation bilaterally. No crackles or rhonci. Abdomen is soft without notable masses. Extremities are warm. No peripheral edema. Grossly normal range of motion in extremities. Alert and Oriented. No acute distress. Right radial CDI, no bleeding or hematoma appreciated. Palpable radial pulse Telemetry: Normal sinus rhythm. and No events noted. Cardiographics: Reviewed and noted above. Imaging: Reviewed and noted above. Lab Review Results from last 7 days Lab Units 04/25/25 1727 04/25/25 1530 TROPONIN T ng/L <6 <6 Results from last 7 days Lab Units 04/27/25 0653 SODIUM mmol/L 140 POTASSIUM mmol/L 3.8 CHLORIDE mmol/L 104 BUN mg/dL 15 CREATININE mg/dL 0.70 GLUCOSE mg/dL 108* CALCIUM mg/dL 9.0 Results from last 7 days Lab Units 04/27/25 0653 WBC K/mcL 10.33 HGB g/dL 11.6* HCT % 35.1* PLT K/mcL 272 AUTHENTICATED BY JESSICA CHAVIS, ON 04/27/2025 10:16:00 [facility] 04-26-2025 Note Pulmonary Consult No te Reason for Consultation: Asthma Impression and Recommendations 1) Pulmonary infiltrates and mediastinal lymphadenopathy - Tree-in-bud infiltrates consistent with small airway disease from uncontrolled asthma - Imaging not consistent with recurrence of remote lung cancer - Treat asthma as below; CT chest with IV contrast in 3 months 2) Moderate persistent asthma without exacerbation - Had been on Breo 3 years ago, but stopped due to lack of symptoms - Currently using Ventolin 4 times daily at home, active chest tightness and wheezing/cough - Reordered brand-name Symbicort based off of insurance formulary - May continue with Ventolin as needed She has active chest tightness and cough consistent with uncontrolled asthma, likely flaring because of the humidity and other environmental conditions. Will resume ICS-LABA, and it appears that brand-name Symbicort is what is preferred on her insurance formulary. [facility]. She may continue with Ventolin as needed. Will schedule follow-up CT chest in 3 months with follow-up in the office afterward. Pulmonary service will sign off. Please call with questions. History of Presenting Illness: Gail Lewis is a 59 y.o. female with a past medical history significant for asthma and prior RUL lobectomy for adenocarcinoma, who p/w chest pain and was admitted to observation for angina. Cardiology is planning a heart catheterization. CT obtained overnight last night had a tree-in-bud infiltrate. She does report cough that has worsened over the last 4 days. She denies any sputum production or fevers. She has had a lot of chest tightness and wheezing lately and is using a Ventolin inhaler at least 4 times a day. She denies using any other inhalers. Review of Systems: [x] ROS is otherwise negative except for noted above Past Medical, Surgical, Family, and Social History: Past Medical History: Diagnosis Date Hypertension Lung cancer (HCC) 11/27/2019 RUL Adenocarcinoma Moderate persistent asthma, uncomplicated Symptomatic cholelithiasis 11/24/2020 Past Surgical History: Procedure Laterality Date APPENDECTOMY CHOLECYSTECTOMY CT BIOPSY LUNG 10/21/2019 CT BIOPSY LUNG 10/21/2019 CT BIOPSY LUNG 09/16/2019 CT BIOPSY LUNG 09/16/2019 LUNG SURGERY RUL Lobectomy 2018 Family History Problem Relation Age of Onset Cancer Father Heart disease Sister Cancer Brother Heart disease Brother Other pulmonary history: Denies family history of lung cancer or other chronic lung diseases other than as listed above Social History[1] Allergies and Medications: Allergies: Allergies[2] Select home or hospital medications: Prior to Admission medications Medication Sig Start Date End Date Taking? Authorizing Provider albuterol (PROVENTIL) 2.5 mg /3 mL (0.083 %) nebulizer solution Take 3 mL (2.5 mg total) by nebulization every 6 (six) hours as needed for wheezing . 08/18/24 04/26/25 Yes Tony Rivera CNP albuterol 90 mcg/actuation inhaler Inhale 2 (two) puffs every 4 (four) hours as needed for wheezing, shortness of breath or cough . 08/18/24 04/26/25 Yes Tony Rivera CNP atorvastatin (LIPITOR) 40 MG tablet Take 1 (one) tablet (40 mg total) by mouth daily . 08/18/24 08/18/25 Yes Tony Rivera CNP busPIRone (BUSPAR) 10 MG tablet Take 1 (one) tablet (10 mg total) by mouth 3 (three) times a day . 08/18/24 Yes Tony Rivera CNP carvediloL (COREG) 6.25 MG tablet Take 1 (one) tablet (6.25 mg total) by mouth 2 (two) times a day with meals . 08/18/24 Yes Tony Rivera CNP famotidine (PEPCID) 40 MG tablet Take 1 (one) tablet (40 mg total) by mouth daily . 08/18/24 04/26/25 Yes Tony Rivera CNP FLUoxetine (PROZAC) 20 MG capsule Take 1 (one) capsule (20 mg total) by mouth daily . 08/18/24 08/18/26 Yes Tony Rivera CNP budesonide-formoteroL (Symbicort) 160-4.5 mcg/actuation inhaler Inhale 2 (two) puffs 2 (two) times a day . 08/18/24 04/26/25 Yes Tony Rivera CNP budesonide (PULMICORT) 90 mcg/actuation inhaler Inhale 2 (two) puffs 2 (two) times a day . Patient not taking: Reported on 04/26/2025 . 02/11/24 02/10/25 Tony Rivera CNP fluticasone furoate-vilanteroL (Breo Ellipta) 200-25 mcg/dose DsDv Inhale 1 (one) puff daily . Patient not taking: Reported on 04/26/2025 . 02/11/24 Tony Rivera CNP lidocaine (LIDODERM) 5 % patch Place 1 (one) patch on the skin daily Remove & Discard patch within 12 hours or as directed by MD . Patient not taking: Reported on 04/26/2025 . 08/18/24 08/18/25 Tony Rivera CNP ondansetron (ZOFRAN-ODT) 4 MG disintegrating tablet Dissolve 1 (one) tablet (4 mg total) on top of tongue every 8 (eight) hours as needed . Patient not taking: Reported on 04/26/2025 . 05/23/22 05/30/22 Jose Juan Felder MD Symbicort 160-4.5 mcg/actuation inhaler Inhale 2 (two) puffs 2 (two) times a day . 04/26/25 04/26/26 Hailey, (more content not included)... [facility] 04-26-2025 Note Addended by: RIO RAI on: 04/26/2025 01:06 PM Modules accepted: Orders [facility] 04-26-2025 Note Addended by: RIO RAI on: 04/26/2025 01:06 PM Modules accepted: Orders [facility] 04-26-2025 Miscellaneous Notes Addended by: RIO CAPONE on: 04/26/2025 01:06 PM Modules accepted: Orders documented in this encounter [facility] 04-26-2025 Miscellaneous Notes Addended by: RIO CAPONE on: 04/26/2025 01:06 PM Modules accepted: Orders documented in this encounter [facility] 04-25-2025 Note HMS HISTORY AND PHYS ICAL ? [facility] Patient Name/: Gail Lewis 1965 Date of Admission: 04/25/2025 PCP: Tony Rivera CNP Referring: No ref. provider found Assessment & Plan Gail Lewis is a 59 y.o. female patient of Tony Rivera CNP with a PMHx of right upper lobe adenocarcinoma, asthma, HTN, anxiety/depression presenting from home with chest pain. Typical angina HTN, HLD P/w substernal chest pressure provoked by exertion and improved with rest. Associated SOB/WHITTAKER Afebrile on arrival, HDS Trop 6?6. EKG (my read): NSR. Nonischemic No prior echoes, stress MPS, or [facility]'s Repeat EKG on 4 arrival to assess for dynamic changes Check 2D echo Add-on lipid panel, A1c, TSH Cont home Coreg, statin Cardiology consulted due to higher pretest probability Asthma, not in exacerbation RUL adenocarcinoma Previously followed Dr. Capone but lost to follow-up No recent surveillance Given symptoms we will check CT chest Continue home inhalers GERD Home Pepcid Depression/anxiety Home Prozac, BuSpar Quality Measures DVT ppx: Subq heparin Monique: N Med rec: Verified Status: Full Code Vizient risk variables POA: None Case was discussed directly with ED provider CC: chest pain History of Present Illness Gail Lewis is a 59 y.o. female patient of Tony Rivera CNP with a PMHx of right upper lobe adenocarcinoma (dx 2021), asthma, HTN, anxiety/depression presenting from home with chest pain. Patient reports substernal chest pressure with started 3 days ago while she was doing chores. She states that the chest pressure is worse with any exertion including walking up stairs or heavy cleaning. Chest pain improves with rest. There is associated shortness of breath and dyspnea with exertion. Pain is nonradiating. Occasional dizziness. No palpitations. No fevers, chills, night sweats. She follows with Dr. Capone but has not been seen in several years. Past Medical History: Diagnosis Date Hypertension Lung cancer (HCC) 11/27/2019 RUL Adenocarcinoma Moderate persistent asthma, uncomplicated Symptomatic cholelithiasis 11/24/2020 Past Surgical History: Procedure Laterality Date APPENDECTOMY CHOLECYSTECTOMY CT BIOPSY LUNG 10/21/2019 CT BIOPSY LUNG 10/21/2019 CT BIOPSY LUNG 09/16/2019 CT BIOPSY LUNG 09/16/2019 LUNG SURGERY RUL Lobectomy 2019 Family History Problem Relation Age of Onset Cancer Father Heart disease Sister Cancer Brother Heart disease Brother Social History[1] Allergies Vicodin [hydrocodone-acetaminophen] Home Medications Outpatient Medications as of 04/25/2025 Medication Sig albuterol (PROVENTIL) 2.5 mg /3 mL (0.083 %) nebulizer solution Take 3 mL (2.5 mg total) by nebulization every 6 (six) hours as needed for wheezing . albuterol 90 mcg/actuation inhaler Inhale 2 (two) puffs every 4 (four) hours as needed for wheezing, shortness of breath or cough . atorvastatin (LIPITOR) 40 MG tablet Take 1 (one) tablet (40 mg total) by mouth daily . budesonide (PULMICORT) 90 mcg/actuation inhaler Inhale 2 (two) puffs 2 (two) times a day . budesonide-formoteroL (Symbicort) 160-4.5 mcg/actuation inhaler Inhale 2 (two) puffs 2 (two) times a day . busPIRone (BUSPAR) 10 MG tablet Take 1 (one) tablet (10 mg total) by mouth 3 (three) times a day . carvediloL (COREG) 6.25 MG tablet Take 1 (one) tablet (6.25 mg total) by mouth 2 (two) times a day with meals . famotidine (PEPCID) 40 MG tablet Take 1 (one) tablet (40 mg total) by mouth daily . FLUoxetine (PROZAC) 20 MG capsule Take 1 (one) capsule (20 mg total) by mouth daily . fluticasone furoate-vilanteroL (Breo Ellipta) 200-25 mcg/dose DsDv Inhale 1 (one) puff daily . (Patient not taking: Reported on 08/18/2024 .) lidocaine (LIDODERM) 5 % patch Place 1 (one) patch on the skin daily Remove & Discard patch within 12 hours or as directed by MD . ondansetron (ZOFRAN-ODT) 4 MG disintegrating tablet Dissolve 1 (one) tablet (4 mg total) on top of tongue every 8 (eight) hours as needed . (Patient not taking: Reported on 01/07/2023 .) Objective BP (!) 174/92 Pulse 80 Temp 98.2 degrees F (36.8 degrees C) (Oral) Resp 16 Ht 4' 11" Wt 78.1 kg (172 lb 2.9 oz) SpO2 90% BMI 34.78 kg/m Gen: alert, chronically ill appearing, in NAD HEENT: AT/NC. Sclera anicteric CV: RRR. No m/r/g. No LE edema. Resp: CTAB. No w/r/c. On RA Abd: NT/ND. No peritoneal signs. Neuro: AO. No focal deficits. Speech wnl. MSK: No joint deformities Skin: No obvious rashes or lesions Psych: Mood normal Labs Reviewed: Results from last 7 days Lab Units 04/25/25 1612 04/25/25 1530 WBC K/mcL -- 11.26* HGB g/dL -- 12.0 HEMOGLOBIN BG g/dL 11.1* -- PLT K/mcL -- 272 Results from last 7 days Lab Units 04/25/25 1530 SODIUM mmol/L 142 POTASSIUM mmol/L 3.6 BICARB mmol/L 23 BUN mg/dL 13 CREATININE mg/dL 0.68 GLUC (more content not included)... [facility] 08-18-2024 Note [facility] INTERNAL MEDICINE [address] [address] Patient: Gail Lewis is a 59 y.o. female. Chief Complaint Patient presents with Follow-up 6 mo Abdominal Pain Ruq started a few months ago, worse with bending/turning HPI: Patient Here for follow-up. Patient doing well overall. Past medical history significant for COPD, HTN. Lung cancer, depression, anxiety. patient was in the ER on the due to upper respiratory infection. Patient was treated with steroids and had a chest x-ray which was normal. Patient states she continues to have a bad cough. Has had now for about 8 to 9 days. States it is productive at times. Utilizing her inhalers as needed. Minimal improvement with the prednisone. Patient also reports some right upper quadrant lower rib and abdominal pain. States has been going on for couple months. States the pain is worse with bending and twisting and turning. Denies any recent injury. States it just bothers her intermittently. Is not a constant pain. Denies nausea, vomiting, fever, chills, bowel changes, urinary symptoms. Has not tried anything [id number] Asthma, hx of lung cancer: Currently taking Pulmicort 2 puffs twice daily, albuterol as needed. Patient also reports history of lung cancer in 2019. Currently is in remission. Patient is former smoker. was previously following with pulmonology- has been seen since 2021. Due for follow-up CT. Insurance would not cover the [facility]. HTN: Currently taking 6.25 of Coreg twice daily. Blood pressure well-controlled on this regiment typically. Patient has not yet taken her Coreg today. Blood pressure 150/82. Patient denies any chest pain, palpitations, edema. Depression, Anxiety: BuSpar 10 mg 3 times a day, Prozac 20 mg daily.Denies any suicidal or homicidal ideations. Past medical/surgical history Past Medical History: Diagnosis Date Hypertension Lung cancer (HCC) 11/27/2019 RUL Adenocarcinoma Moderate persistent asthma, uncomplicated Symptomatic cholelithiasis 11/24/2020 Past Surgical History: Procedure Laterality Date APPENDECTOMY CHOLECYSTECTOMY CT BIOPSY LUNG 10/21/2019 CT BIOPSY LUNG 10/21/2019 CT BIOPSY LUNG 09/16/2019 CT BIOPSY LUNG 09/16/2019 LUNG SURGERY RUL Lobectomy 2018 Family History Problem Relation Age of Onset Cancer Father Heart disease Sister Cancer Brother Heart disease Brother Current Outpatient Medications Medication Sig Dispense Refill budesonide (PULMICORT) 90 mcg/actuation inhaler Inhale 2 (two) puffs 2 (two) times a day . 1 each 2 predniSONE (DELTASONE) 20 MG tablet Take 2 (two) tablets (40 mg total) by mouth daily for 4 days . 8 tablet 0 pseudoephedrine-guaiFENesin (MUCINEX D) 60-600 mg per tablet Take 1 (one) tablet by mouth every 12 (twelve) hours for 7 days . 14 tablet 0 albuterol (PROVENTIL) 2.5 mg /3 mL (0.083 %) nebulizer solution Take 3 mL (2.5 mg total) by nebulization every 6 (six) hours as needed for wheezing . 75 mL 0 albuterol 90 mcg/actuation inhaler Inhale 2 (two) puffs every 4 (four) hours as needed for wheezing, shortness of breath or cough . 18 g 1 atorvastatin (LIPITOR) 40 MG tablet Take 1 (one) tablet (40 mg total) by mouth daily . 30 tablet 5 azithromycin (Z-MED) 5 day dose pack Take by mouth daily for 5 days . 6 tablet 0 budesonide-formoteroL (Symbicort) 160-4.5 mcg/actuation inhaler Inhale 2 (two) puffs 2 (two) times a day . 1 each 12 busPIRone (BUSPAR) 10 MG tablet Take 1 (one) tablet (10 mg total) by mouth 3 (three) times a day . 180 tablet 5 carvediloL (COREG) 6.25 MG tablet Take 1 (one) tablet (6.25 mg total) by mouth 2 (two) times a day with meals . 60 tablet 5 famotidine (PEPCID) 40 MG tablet Take 1 (one) tablet (40 mg total) by mouth daily . 30 tablet 5 FLUoxetine (PROZAC) 20 MG capsule Take 1 (one) capsule (20 mg total) by mouth daily . 30 capsule 5 fluticasone furoate-vilanteroL (Breo Ellipta) 200-25 mcg/dose DsDv Inhale 1 (one) puff daily . (Patient not taking: Reported on 08/18/2024 .) 60 each 1 lidocaine (LIDODERM) 5 % patch Place 1 (one) patch on the skin daily Remove & Discard patch within 12 hours or as directed by MD . 30 patch 0 ondansetron (ZOFRAN-ODT) 4 MG disintegrating tablet Dissolve 1 (one) tablet (4 mg total) on top of tongue every 8 (eight) hours as needed . (Patient not taking: Reported on 01/07/2023 .) 20 tablet 0 No current facility-administered medications for this visit. Allergies Allergen Reactions Vicodin [Hydrocodone-Acetaminophen] GI Intolerance reports that she quit smoking about 5 years ago. Her smoking use included cigarettes. She started smoking about 40 years ago. She has a 35 pack-year smoking history. She has never used smokeless tobacco. She reports that she does not drink alcohol and does not use drugs. reports that she quit smoking about 5 years ago. Her smoking use included cigarettes. She s (more content not included)... [facility] 08-18-2024 History of Presen t illness Narrative [facility] [address] [place] [address]. [place] [address] Patient: Gail Lewis is a 59 y.o. female. Chief Complaint Patient presents with Follow-up 6 mo Abdominal Pain Ruq started a few months ago, worse with bending/turning HPI: Patient Here for follow-up. Patient doing well overall. Past medical history significant for COPD, HTN. Lung cancer, depression, anxiety. patient was in the ER on the due to upper respiratory infection. Patient was treated with steroids and had a chest x-ray which was normal. Patient states she continues to have a bad cough. Has had now for about 8 to 9 days. States it is productive at times. Utilizing her inhalers as needed. Minimal improvement with the prednisone. Patient also reports some right upper quadrant lower rib and abdominal pain. States has been going on for couple months. States the pain is worse with bending and twisting and turning. Denies any recent injury. States it just bothers her intermittently. Is not a constant pain. Denies nausea, vomiting, fever, chills, bowel changes, urinary symptoms. Has not tried anything [id number] Asthma, hx of lung cancer: Currently taking Pulmicort 2 puffs twice daily, albuterol as needed. Patient also reports history of lung cancer in 2019. Currently is in remission. Patient is former smoker. was previously following with pulmonology- has been seen since 2021. Due for follow-up CT. Insurance would not cover the [facility]. HTN: Currently taking 6.25 of Coreg twice daily. Blood pressure well-controlled on this regiment typically. Patient has not yet taken her Coreg today. Blood pressure 150/82. Patient denies any chest pain, palpitations, edema. Depression, Anxiety: BuSpar 10 mg 3 times a day, Prozac 20 mg daily.Denies any suicidal or homicidal ideations. Past medical/surgical history Past Medical History: Diagnosis Date Hypertension Lung cancer (HCC) 11/27/2019 RUL Adenocarcinoma Moderate persistent asthma, uncomplicated Symptomatic cholelithiasis 11/24/2020 Past Surgical History: Procedure Laterality Date APPENDECTOMY CHOLECYSTECTOMY CT BIOPSY LUNG 10/21/2019 CT BIOPSY LUNG 10/21/2019 CT BIOPSY LUNG 09/16/2019 CT BIOPSY LUNG 09/16/2019 LUNG SURGERY RUL Lobectomy 2019 Family History Problem Relation Age of Onset Cancer Father Heart disease Sister Cancer Brother Heart disease Brother Current Outpatient Medications Medication Sig Dispense Refill budesonide (PULMICORT) 90 mcg/actuation inhaler Inhale 2 (two) puffs 2 (two) times a day . 1 each 2 predniSONE (DELTASONE) 20 MG tablet Take 2 (two) tablets (40 mg total) by mouth daily for 4 days . 8 tablet 0 pseudoephedrine-guaiFENesin (MUCINEX D) 60-600 mg per tablet Take 1 (one) tablet by mouth every 12 (twelve) hours for 7 days . 14 tablet 0 albuterol (PROVENTIL) 2.5 mg /3 mL (0.083 %) nebulizer solution Take 3 mL (2.5 mg total) by nebulization every 6 (six) hours as needed for wheezing . 75 mL 0 albuterol 90 mcg/actuation inhaler Inhale 2 (two) puffs every 4 (four) hours as needed for wheezing, shortness of breath or cough . 18 g 1 atorvastatin (LIPITOR) 40 MG tablet Take 1 (one) tablet (40 mg total) by mouth daily . 30 tablet 5 azithromycin (Z-MED) 5 day dose pack Take by mouth daily for 5 days . 6 tablet 0 budesonide-formoteroL (Symbicort) 160-4.5 mcg/actuation inhaler Inhale 2 (two) puffs 2 (two) times a day . 1 each 12 busPIRone (BUSPAR) 10 MG tablet Take 1 (one) tablet (10 mg total) by mouth 3 (three) times a day . 180 tablet 5 carvediloL (COREG) 6.25 MG tablet Take 1 (one) tablet (6.25 mg total) by mouth 2 (two) times a day with meals . 60 tablet 5 famotidine (PEPCID) 40 MG tablet Take 1 (one) tablet (40 mg total) by mouth daily . 30 tablet 5 FLUoxetine (PROZAC) 20 MG capsule Take 1 (one) capsule (20 mg total) by mouth daily . 30 capsule 5 fluticasone furoate-vilanteroL (Breo Ellipta) 200-25 mcg/dose DsDv Inhale 1 (one) puff daily . (Patient not taking: Reported on 08/18/2024 .) 60 each 1 lidocaine (LIDODERM) 5 % patch Place 1 (one) patch on the skin daily Remove & Discard patch within 12 hours or as directed by MD . 30 patch 0 ondansetron (ZOFRAN-ODT) 4 MG disintegrating tablet Dissolve 1 (one) tablet (4 mg total) on top of tongue every 8 (eight) hours as needed . (Patient not taking: Reported on 01/07/2023 .) 20 tablet 0 No current facility-administered medications for this visit. Allergies Allergen Reactions Vicodin [Hydrocodone-Acetaminophen] GI Intolerance reports that she quit smoking about 5 years ago. Her smoking use included cigarettes. She started smoking about 40 years ago. She has a 35 pack-year smoking history. She has never used smokeless tobacco. She reports that she does not drink alcohol and does not use drugs. reports that she quit smoking about 5 years ago. Her smoking use included cigarettes. She started smoking about 40 years ago. She has a 35 pack-year smoking history. She has never used smokeless tobacco. Current medication list and allergies reviewed and updated with patient. Past medical history reviewed. Past Surgical History reviewed. Personal history Social History reviewed. Family history Family History reviewed. REVIEW OF SYSTEMS General: Patient denies fatigue, fever, weight loss. Patient denies sleep changes. Eyes: Patient denies blurred vision, eye pain, vision changes/disturbance. ENT: Patient denies hearing loss/changes. Patient denies ear pain, congestion, sore throat. Cardiovascular: Patient denies chest pain, palpitations. Respiratory: Patient reports cough, wheezing, or shortness of breath. Gastrointestinal: Patient reports right upper quadrant pain with movement Urinary: Patient denies urinary frequency, urinary urgency, dysuria. Musculoskeletal: Patient denies back pain, joint pain. Skin: Patient denies rash, concerning skin lesions. Neurologic: Patient denies weakness, dizziness, headache, numbness/tingling in the hands, numbness/tingling in the feet. Mental Status: Patient reports anxiety, depression. Endocrinology: Patient denies weight change. Hematologic: Patient denies abnormal bruising, bleeding, enlarged lymph nodes. PE: Vitals: 08/18/24 0802 BP: (!) 162/88 BP Location: Right arm Patient Position: Sitting BP Cuff Size: Adult Pulse: 77 SpO2: 93% Weight: 80.4 kg (177 lb 3.2 oz) Height: 4' 11" Physical Exam Constitutional: Patient appears well-developed and well-nourished. No acute distress. Alert and oriented x3. HENT: Head: Normocephalic and atraumatic. Cardiovascular: Normal rate, regular rhythm, normal heart sounds and intact distal pulses. No edema. Pulmonary/Chest: Effort normal and breath sounds normal. Harsh cough noted Abdominal: +Normal BS. Soft. Nontender. No masses noted. Neurological: No disorientation was observed and the memory was unimpaired. gait and stance were normal. CN II-XII Grossly intact. PSYCH: Patient is alert and oriented to person, place, and time Normal affect, Insight and Judgement intact. Mood is not depressed or anxious. No delusions and no suicidal tendencies. SKIN: No rashes noted. ASSESSMENT/PLAN: 1. Moderate persistent asthma, uncomplicated Patient doing well on current medications. Will see if insurance will cover Symbicort if not continue with Pulmicort. Due for CT will order. - albuterol 90 mcg/actuation inhaler; Inhale 2 (two) puffs every 4 (four) hours as needed for wheezing, shortness of breath or cough . Dispense: 18 g; Refill: 1 - albuterol (PROVENTIL) 2.5 mg /3 mL (0.083 %) nebulizer solution; Take 3 mL (2.5 mg total) by nebulization every 6 (six) hours as needed for wheezing . Dispense: 75 mL; Refill: 0 - budesonide-formoteroL (Symbicort) 160-4.5 mcg/actuation inhaler; Inhale 2 (two) puffs 2 (two) times a day . Dispense: 1 each; Refill: 12 2. Hyperlipidemia, unspecified hyperlipidemia type Continue with Lipitor will get updated blood work - atorvastatin (LIPITOR) 40 MG tablet; Take 1 (one) tablet (40 mg total) by mouth daily . Dispense: 30 tablet; Refill: 5 - Lipid Panel; Future 3. Anxiety Continue with BuSpar and Prozac - busPIRone (BUSPAR) 10 MG tablet; Take 1 (one) tablet (10 mg total) by mouth 3 (three) times a day . Dispense: 180 tablet; Refill: 5 - FLUoxetine (PROZAC) 20 MG capsule; Take 1 (one) capsule (20 mg total) by mouth daily . Dispense: 30 capsule; Refill: 5 4. Hypertension, unspecified type Blood pressure is typically well-controlled with current regiment however patient has not taken medications today. Encourage patient to take medications prior to appointments so we can verify well-controlled blood pressure. - carvediloL (COREG) 6.25 MG tablet; Take 1 (one) tablet (6.25 mg total) by mouth 2 (two) times a day with meals . Dispense: 60 tablet; Refill: 5 - CBC and Differential; Future - Comprehensive Metabolic Panel; Future 5. Gastroesophageal reflux disease, unspecified whether esophagitis present Doing well on Pepcid - famotidine (PEPCID) 40 MG tablet; Take 1 (one) tablet (40 mg total) by mouth daily . Dispense: 30 tablet; Refill: 5 6. Encounter for screening for lung cancer (Primary) - CT Lung Cancer Screening; Future 7. Need for influenza vaccination Will get flu shot today - influenza RIV3 (FLUBLOK) 18 years old or greater - syringe 8. Screening for diabetes mellitus - Hemoglobin A1c; Future 9. Bronchitis Given persistent symptoms we will treat with Z-Med. If not improvement or worsening patient will let us know - azithromycin (Z-MED) 5 day dose pack; Take by mouth daily for 5 days . Dispense: 6 tablet; Refill: 0 10. Rib pain on right side Will give patient Lidoderm patch. Seems more musculoskeletal in nature given worse with movement. Suggest rest, Tylenol/ibuprofen, heat, stretching. If no significant improvement patient will let us Condition and plan discussed with patient in detail, patient agrees with plan. Risk, benefits, and side effects of medicines discussed with the patient, patient agrees with plan. Recent laboratory / radiology / other study results discussed with patient. For any new medications prescribed today, patient was educated about indications for the medication, how to take the medication and potential side effects of the medications. Patient to return to office: Return in about 3 months (around 11/18/2024) for Annual physical. Tony Rivera CNP documented in this encounter [facility] 02-11-2024 History of Presen t illness Narrative [facility] [place] [address] Patient: Gail Lewis is a 58 y.o. female. No chief complaint on file. HPI: Patient here for follow-up. Patient doing well overall. Past medical history significant for COPD, HTN. Lung cancer, depression, anxiety. Asthma, hx of lung cancer: Currently taking Pulmicort 2 puffs twice daily, albuterol as needed. Patient also reports history of lung cancer in 2019. Currently is in remission. Patient is former smoker. was previously following with pulmonology- has been seen since 2021. Needs follow up CT in July for lung nodules. Still having shortness of breath, wheezing intermittently. Notices it worse in the evenings and with activity--albuterol does seem to help during increased wheezing. HTN: Currently taking 6.25 of Coreg twice daily. Blood pressure well-controlled. Patient denies any chest pain, palpitations, edema. Depression, Anxiety: BuSpar 10 mg 3 times a day, Prozac 20 mg daily.Denies any suicidal or homicidal ideations. Past medical/surgical history Past Medical History: Diagnosis Date Hypertension Lung cancer (HCC) 11/27/2019 RUL Adenocarcinoma Moderate persistent asthma, uncomplicated Symptomatic cholelithiasis 11/24/2020 Past Surgical History: Procedure Laterality Date APPENDECTOMY CHOLECYSTECTOMY CT BIOPSY LUNG 10/21/2019 CT BIOPSY LUNG 10/21/2019 CT BIOPSY LUNG 09/16/2019 CT BIOPSY LUNG 09/16/2019 LUNG SURGERY RUL Lobectomy 2018 Family History Problem Relation Age of Onset Cancer Father Heart disease Sister Cancer Brother Heart disease Brother Current Outpatient Medications Medication Sig Dispense Refill albuterol (PROVENTIL) 2.5 mg /3 mL (0.083 %) nebulizer solution Take 3 mL (2.5 mg total) by nebulization every 6 (six) hours as needed for wheezing . 75 mL 0 albuterol 90 mcg/actuation inhaler Inhale 2 (two) puffs every 4 (four) hours as needed for wheezing, shortness of breath or cough . 18 g 1 atorvastatin (LIPITOR) 40 MG tablet Take 1 (one) tablet (40 mg total) by mouth daily . 30 tablet 5 budesonide (PULMICORT) 90 mcg/actuation inhaler Inhale 2 (two) puffs 2 (two) times a day . 1 each 2 busPIRone (BUSPAR) 10 MG tablet Take 1 (one) tablet (10 mg total) by mouth 3 (three) times a day . 180 tablet 5 carvediloL (COREG) 6.25 MG tablet Take 1 (one) tablet (6.25 mg total) by mouth 2 (two) times a day with meals . 60 tablet 5 famotidine (PEPCID) 40 MG tablet Take 1 (one) tablet (40 mg total) by mouth daily . 30 tablet 5 FLUoxetine (PROZAC) 20 MG capsule Take 1 (one) capsule (20 mg total) by mouth daily . 30 capsule 5 fluticasone furoate-vilanteroL (Breo Ellipta) 200-25 mcg/dose DsDv Inhale 1 (one) puff daily . 60 each 1 ondansetron (ZOFRAN-ODT) 4 MG disintegrating tablet Dissolve 1 (one) tablet (4 mg total) on top of tongue every 8 (eight) hours as needed . (Patient not taking: Reported on 01/07/2023 .) 20 tablet 0 No current facility-administered medications for this visit. Allergies Allergen Reactions Vicodin [Hydrocodone-Acetaminophen] GI Intolerance reports that she quit smoking about 5 years ago. Her smoking use included cigarettes. She has a 35 pack-year smoking history. She has never used smokeless tobacco. She reports that she does not drink alcohol and does not use drugs. reports that she quit smoking about 5 years ago. Her smoking use included cigarettes. She has a 35 pack-year smoking history. She has never used smokeless tobacco. Current medication list and allergies reviewed and updated with patient. Past medical history reviewed. Past Surgical History reviewed. Personal history Social History reviewed. Family history Family History reviewed. REVIEW OF SYSTEMS General: Patient denies fatigue, fever, weight loss. Patient denies sleep changes. Eyes: Patient denies blurred vision, eye pain, vision changes/disturbance. ENT: Patient denies hearing loss/changes. Patient denies ear pain, congestion, sore throat. Cardiovascular: Patient denies chest pain, palpitations. Respiratory: Patient reports intermittent wheezing, or shortness of breath. Gastrointestinal: Patient denies nausea, vomiting, abdominal pain, constipation, diarrhea. Urinary: Patient denies urinary frequency, urinary urgency, dysuria. Musculoskeletal: Patient denies back pain, joint pain. Skin: Patient denies rash, concerning skin lesions. Neurologic: Patient denies weakness, dizziness, headache, numbness/tingling in the hands, numbness/tingling in the feet. Mental Status: Patient reports anxiety, depression. Endocrinology: Patient denies weight change. Hematologic: Patient denies abnormal bruising, bleeding, enlarged lymph nodes. PE: Vitals: 02/11/24 0802 02/11/24 1238 BP: (!) 141/83 138/87 BP Location: Left arm Patient Position: Sitting BP Cuff Size: Adult Pulse: 71 SpO2: 95% Weight: 79.7 kg (175 lb 9.6 oz) Height: 4' 11" Physical Exam Constitutional: Patient appears well-developed and well-nourished. No acute distress. Alert and oriented x3. HENT: Head: Normocephalic and atraumatic. Cardiovascular: Normal rate, regular rhythm, normal heart sounds and intact distal pulses. No edema. Pulmonary/Chest: Effort normal and breath sounds normal. Neurological: No disorientation was observed and the memory was unimpaired. gait and stance were normal. CN II-XII Grossly intact. PSYCH: Patient is alert and oriented to person, place, and time Normal affect, Insight and Judgement intact. Mood is not depressed or anxious. No delusions and no suicidal tendencies. SKIN: No rashes noted. ASSESSMENT/PLAN: 1. Moderate persistent asthma, uncomplicated Continue with albuterol as needed. Will try getting the Breo Ellipta approved through her insurance as this is what his bogger operator had suggested previously. Continue with Pulmicort until then. Will follow-up with patient regarding prior Auth. Will also send patient back to pulmonology for further recommendations. - albuterol (PROVENTIL) 2.5 mg /3 mL (0.083 %) nebulizer solution; Take 3 mL (2.5 mg total) by nebulization every 6 (six) hours as needed for wheezing . Dispense: 75 mL; Refill: 0 - albuterol 90 mcg/actuation inhaler; Inhale 2 (two) puffs every 4 (four) hours as needed for wheezing, shortness of breath or cough . Dispense: 18 g; Refill: 1 - budesonide (PULMICORT) 90 mcg/actuation inhaler; Inhale 2 (two) puffs 2 (two) times a day . Dispense: 1 each; Refill: 2 - fluticasone furoate-vilanteroL (Breo Ellipta) 200-25 mcg/dose DsDv; Inhale 1 (one) puff daily . Dispense: 60 each; Refill: 1 - Ambulatory referral to Pulmonology; Future 2. Hyperlipidemia, unspecified hyperlipidemia type Continue with Lipitor as prescribed - atorvastatin (LIPITOR) 40 MG tablet; Take 1 (one) tablet (40 mg total) by mouth daily . Dispense: 30 tablet; Refill: 5 3. Anxiety Doing well the Prozac and BuSpar combination will continue with current dosages - busPIRone (BUSPAR) 10 MG tablet; Take 1 (one) tablet (10 mg total) by mouth 3 (three) times a day . Dispense: 180 tablet; Refill: 5 - FLUoxetine (PROZAC) 20 MG capsule; Take 1 (one) capsule (20 mg total) by mouth daily . Dispense: 30 capsule; Refill: 5 4. Hypertension, unspecified type Blood pressure well-controlled with Coreg will continue - carvediloL (COREG) 6.25 MG tablet; Take 1 (one) tablet (6.25 mg total) by mouth 2 (two) times a day with meals . Dispense: 60 tablet; Refill: 5 5. Gastroesophageal reflux disease, unspecified whether esophagitis present Pepcid controlling acid reflux - famotidine (PEPCID) 40 MG tablet; Take 1 (one) tablet (40 mg total) by mouth daily . Dispense: 30 tablet; Refill: 5 My ongoing relationship with Gail Lewis requires continued responsibility and cognitive effort of being the focal point for all services related to chronic condition(s). Condition and plan discussed with patient in detail, patient agrees with plan. Risk, benefits, and side effects of medicines discussed with the patient, patient agrees with plan. Recent laboratory / radiology / other study results discussed with patient. For any new medications prescribed today, patient was educated about indications for the medication, how to take the medication and potential side effects of the medications. Patient to return to office: Return in about 6 months (around 08/13/2024) for Annual physical. Tony Rivera CNP documented in this encounter [facility] 08-26-2023 Telephone encounter Note Geraldine: 08/13/23 [facility] 08-26-2023 Miscellaneous Notes Geraldine: 08/13/23 documented in this encounter [facility] 07-08-2023 History of Presen t illness Narrative [facility] [address] [place] [address] Patient: Gail Lewis is a 58 y.o. female. Chief Complaint Patient presents with Follow-up 6 mo Shortness of Breath When climbs stairs, for about 3-4 months HPI: Patient here for follow-up. Patient doing well overall. Past medical history significant for COPD, HTN. Lung cancer, depression, anxiety. COPD, hx of lung cancer: Patient reports history of COPD. Currently taking albuterol nebulizer as needed. Patient also reports history of lung cancer in 2019. Currently is in remission. Patient is non-smoker. was previously following with pulmonology- has been over a year. Needs follow up CT in July for lung nodule. HTN: Currently taking 6.25 of Coreg twice daily. Blood pressure is elevated today during office visit however patient states she checks on a regular basis at home and is typically running 130s over 80s. Patient denies any chest pain, palpitations, edema. However does state that for the last 3 to 4 months she has had increased shortness of breath with activity. States activities such as climbing stairs seem to make it worse. Does have history of asthma states that she does have an albuterol inhaler that she utilizes as needed. States that she has taken this when these episodes occur and it does seem to help some. States she also notices some shortness of breath when lying down. Some intermittent wheezes on occasion. Depression, Anxiety: BuSpar 10 mg 3 times a day, Prozac 20 mg daily.Denies any suicidal or homicidal ideations. Past medical/surgical history Past Medical History: Diagnosis Date Hypertension Lung cancer (HCC) 11/27/2019 RUL Adenocarcinoma Moderate persistent asthma, uncomplicated Symptomatic cholelithiasis 11/24/2020 Past Surgical History: Procedure Laterality Date APPENDECTOMY CHOLECYSTECTOMY LUNG SURGERY RUL Lobectomy 2018 Family History Problem Relation Age of Onset Cancer Father Heart disease Sister Cancer Brother Heart disease Brother Current Outpatient Medications Medication Sig Dispense Refill albuterol (PROVENTIL) 2.5 mg /3 mL (0.083 %) nebulizer solution Take 3 mL (2.5 mg total) by nebulization every 6 (six) hours as needed for wheezing . 75 mL 0 albuterol 90 mcg/actuation inhaler Inhale 2 (two) puffs every 4 (four) hours as needed for wheezing, shortness of breath or cough . 6.7 g 0 busPIRone (BUSPAR) 10 MG tablet Take 1 (one) tablet (10 mg total) by mouth 3 (three) times a day . 180 tablet 5 carvediloL (COREG) 6.25 MG tablet Take 1 (one) tablet (6.25 mg total) by mouth 2 (two) times a day with meals . 60 tablet 5 famotidine (PEPCID) 40 MG tablet Take 1 (one) tablet (40 mg total) by mouth daily . 30 tablet 2 flu vacc [id number] 6mos up,PF, (FLUZONE QUAD/FLULAVAL QUAD/FLUARIX QUAD) 60 mcg (15 mcg x 4)/0.5 mL Syrg syringe Sign this order in conjunction with the immunization order to satisfy [place] [employer] Positive ID requirements for immunization orders. . 0.5 mL 0 FLUoxetine (PROZAC) 20 MG capsule Take 1 (one) capsule (20 mg total) by mouth daily . 30 capsule 5 ondansetron (ZOFRAN-ODT) 4 MG disintegrating tablet Dissolve 1 (one) tablet (4 mg total) on top of tongue every 8 (eight) hours as needed . (Patient not taking: Reported on 01/07/2023 .) 20 tablet 0 No current facility-administered medications for this visit. Allergies Allergen Reactions Vicodin [Hydrocodone-Acetaminophen] GI Intolerance reports that she quit smoking about 4 years ago. Her smoking use included cigarettes. She has a 35.00 pack-year smoking history. She has never used smokeless tobacco. She reports that she does not drink alcohol and does not use drugs. reports that she quit smoking about 4 years ago. Her smoking use included cigarettes. She has a 35.00 pack-year smoking history. She has never used smokeless tobacco. Current medication list and allergies reviewed and updated with patient. Past medical history reviewed. Past Surgical History reviewed. Personal history Social History reviewed. Family history Family History reviewed. REVIEW OF SYSTEMS General: Patient denies fatigue, fever, weight loss. Patient denies sleep changes. Eyes: Patient denies blurred vision, eye pain, vision changes/disturbance. ENT: Patient denies hearing loss/changes. Patient denies ear pain, congestion, sore throat. Cardiovascular: Patient denies chest pain, palpitations. Respiratory: Patient denies cough, wheezing. Reports shortness of breath with activity Gastrointestinal: Patient denies nausea, vomiting, abdominal pain, constipation, diarrhea. Urinary: Patient denies urinary frequency, urinary urgency, dysuria. Musculoskeletal: Patient denies back pain, joint pain. Skin: Patient denies rash, concerning skin lesions. Neurologic: Patient denies weakness, dizziness, headache, numbness/tingling in the hands, numbness/tingling in the feet. Mental Status: Patient reports anxiety, depression. Endocrinology: Patient denies weight change. Hematologic: Patient denies abnormal bruising, bleeding, enlarged lymph nodes. PE: Vitals: 07/08/23 0802 07/08/23 0910 BP: (!) 146/85 (!) 153/90 BP Location: Left arm Patient Position: Sitting BP Cuff Size: Adult Pulse: 77 SpO2: 94% Weight: 78.4 kg (172 lb 12.8 oz) Height: 4' 11" Physical Exam Constitutional: Patient appears well-developed and well-nourished. No acute distress. Alert and oriented x3. HENT: Head: Normocephalic and atraumatic. Neck: Normal range of motion. Neck supple. No carotid bruits noted. Trachea midline. No adenopathy. Cardiovascular: Normal rate, regular rhythm, normal heart sounds and intact distal pulses. No edema. Pulmonary/Chest: Effort normal and breath sounds normal. Neurological: No disorientation was observed and the memory was unimpaired. gait and stance were normal. CN II-XII Grossly intact. PSYCH: Patient is alert and oriented to person, place, and time Normal affect, Insight and Judgement intact. Mood is not depressed or anxious. No delusions and no suicidal tendencies. SKIN: No rashes noted. ASSESSMENT/PLAN: 1. Anxiety Patient doing well on the Prozac and BuSpar. We will continue with current dosages. - busPIRone (BUSPAR) 10 MG tablet; Take 1 (one) tablet (10 mg total) by mouth 3 (three) times a day . Dispense: 180 tablet; Refill: 5 - FLUoxetine (PROZAC) 20 MG capsule; Take 1 (one) capsule (20 mg total) by mouth daily . Dispense: 30 capsule; Refill: 5 - TSH; Future - T4, Free; Future 2. Hypertension, unspecified type Patient's blood pressure elevated today however running 130s over 80s at home. Encouraged patient to continue monitoring if she has any elevated readings persistently she is encouraged to reach out we will continue with current Coreg dosage for now. Given patient's history of hypertension and now some dyspnea with exertion over the last 3 to 4 months we will get updated lab work today as well as chest x-ray and echo. Encourage patient to continue monitoring symptoms if any worsening or nonimprovement she will let us know. Understands emergent signs and symptoms to seek care given her history of asthma did go ahead and give her some samples of Xyzal to try as well. Patient understands and agreeable to plan. - carvediloL (COREG) 6.25 MG tablet; Take 1 (one) tablet (6.25 mg total) by mouth 2 (two) times a day with meals . Dispense: 60 tablet; Refill: 5 - CBC and Differential; Future - Comprehensive Metabolic Panel; Future - Lipid Panel; Future - Hemoglobin A1c; Future - Iron and TIBC; Future 3. Lung nodule seen on imaging study We will follow-up with [address] orders. Encourage patient to get these scheduled by the end of July. - CT Chest Without Contrast; Future 4. History of lung cancer - CT Chest Without Contrast; Future 5. Need for vaccination We will get flu shot today - Influenza IIV4 6mo or >,Fluzone Quad - flu vacc [id number] 6mos up,PF, (FLUZONE QUAD/FLULAVAL QUAD/FLUARIX QUAD) 60 mcg (15 mcg x 4)/0.5 mL Syrg syringe; Sign this order in conjunction with the immunization order to satisfy [place] Board of Pharmacy Positive ID requirements for immunization orders. . Dispense: 0.5 mL; Refill: 0 6. Dyspnea on exertion Follow-up with patient once receive results. - XR Chest AP/PA and LAT; Future - Iron and TIBC; Future - NT PRO BNP; Future - Echocardiogram complete; Future 7. Gastroesophageal reflux disease, unspecified whether esophagitis present Patient also reports some intermittent acid reflux that she has had for years. States she has been taking [id number] medications. However does not seem to be working as well. We will try her on Pepcid 40 mg daily follow-up in 2 months. - famotidine (PEPCID) 40 MG tablet; Take 1 (one) tablet (40 mg total) by mouth daily . Dispense: 30 tablet; Refill: 2 Condition and plan discussed with patient in detail, patient agrees with plan. Risk, benefits, and side effects of medicines discussed with the patient, patient agrees with plan. Recent laboratory / radiology / other study results discussed with patient. For any new medications prescribed today, patient was educated about indications for the medication, how to take the medication and potential side effects of the medications. Patient to return to office: Return in about 2 months (around 09/07/2023). Tony Rivera CNP documented in this encounter [facility] 01-07-2023 History of Presen t illness Narrative [facility] [place] [address] Patient: Gail Lewis is a 57 y.o. female. Chief Complaint Patient presents with Follow-up Medication Refill HPI:Patient here for follow-up. Patient doing well overall. Past medical history significant for COPD, HTN. Lung cancer, depression, anxiety. COPD, hx of lung cancer: Patient reports history of COPD. Currently taking albuterol nebulizer as needed. Patient also reports history of lung cancer in 2019. Currently is in remission. Patient is non-smoker. following with pulmonology. HTN: Currently taking 6.25 of Coreg twice daily. Patient denies any chest pain, shortness of breath, palpitations, edema. Depression, Anxiety: BuSpar 10 mg 3 times a day, Prozac 20 mg daily.Denies any suicidal or homicidal ideations. Past medical/surgical history Past Medical History: Diagnosis Date Hypertension Lung cancer (HCC) 11/27/2019 RUL Adenocarcinoma Moderate persistent asthma, uncomplicated Symptomatic cholelithiasis 11/24/2020 Past Surgical History: Procedure Laterality Date APPENDECTOMY CHOLECYSTECTOMY LUNG SURGERY RUL Lobectomy 2018 Family History Problem Relation Age of Onset Cancer Father Heart disease Sister Cancer Brother Heart disease Brother Current Outpatient Medications Medication Sig Dispense Refill albuterol 90 mcg/actuation inhaler Inhale 2 (two) puffs every 4 (four) hours as needed for wheezing, shortness of breath or cough . 6.7 g 5 albuterol (PROVENTIL) 2.5 mg /3 mL (0.083 %) nebulizer solution Take 3 mL (2.5 mg total) by nebulization every 6 (six) hours as needed . 75 mL 1 busPIRone (BUSPAR) 10 MG tablet Take 1 (one) tablet (10 mg total) by mouth 3 (three) times a day . 180 tablet 5 carvediloL (COREG) 6.25 MG tablet Take 1 (one) tablet (6.25 mg total) by mouth 2 (two) times a day with meals . 60 tablet 5 FLUoxetine (PROZAC) 20 MG capsule Take 1 (one) capsule (20 mg total) by mouth daily . 30 capsule 5 ondansetron (ZOFRAN-ODT) 4 MG disintegrating tablet Dissolve 1 (one) tablet (4 mg total) on top of tongue every 8 (eight) hours as needed . (Patient not taking: Reported on 01/07/2023 .) 20 tablet 0 pneumococcal conj. 20-valent (PREVNAR 20) 0.5 mL vaccine Inject 0.5 mL into the shoulder, thigh, or buttocks Sign this order in conjunction with the immunization order to satisfy [place] Board of Pharmacy Positive ID requirements for immunization orders . 0 No current facility-administered medications for this visit. Allergies Allergen Reactions Vicodin [Hydrocodone-Acetaminophen] GI Intolerance reports that she quit smoking about 4 years ago. Her smoking use included cigarettes. She has a 35.00 pack-year smoking history. She has never used smokeless tobacco. She reports that she does not drink alcohol and does not use drugs. reports that she quit smoking about 4 years ago. Her smoking use included cigarettes. She has a 35.00 pack-year smoking history. She has never used smokeless tobacco. Current medication list and allergies reviewed and updated with patient. Past medical history reviewed. Past Surgical History reviewed. Personal history Social History reviewed. Family history Family History reviewed. REVIEW OF SYSTEMS General: Patient denies fatigue, fever, weight loss. Patient denies sleep changes. Eyes: Patient denies blurred vision, eye pain, vision changes/disturbance. ENT: Patient denies hearing loss/changes. Patient denies ear pain, congestion, sore throat. Cardiovascular: Patient denies chest pain, palpitations. Respiratory: Patient denies cough, wheezing, or shortness of breath. Gastrointestinal: Patient denies nausea, vomiting, abdominal pain, constipation, diarrhea. Urinary: Patient denies urinary frequency, urinary urgency, dysuria. Musculoskeletal: Patient denies back pain, joint pain. Skin: Patient denies rash, concerning skin lesions. Neurologic: Patient denies weakness, dizziness, headache, numbness/tingling in the hands, numbness/tingling in the feet. Mental Status: Patient reports anxiety, depression. Endocrinology: Patient denies weight change. Hematologic: Patient denies abnormal bruising, bleeding, enlarged lymph nodes. PE: Vitals: 01/07/23 1003 BP: (!) 154/84 BP Location: Left arm Patient Position: Sitting BP Cuff Size: X-large Adult Pulse: 80 SpO2: 94% Weight: 78.3 kg (172 lb 9.6 oz) Height: 4' 11" Physical Exam Constitutional: Patient appears well-developed and well-nourished. No acute distress. Alert and oriented x3. HENT: Head: Normocephalic and atraumatic. Neck: Normal range of motion. Neck supple. No carotid bruits noted. Trachea midline. No adenopathy. Cardiovascular: Normal rate, regular rhythm, normal heart sounds and intact distal pulses. No edema. Pulmonary/Chest: Effort normal and breath sounds normal. Neurological: No disorientation was observed and the memory was unimpaired. gait and stance were normal. CN II-XII Grossly intact. PSYCH: Patient is alert and oriented to person, place, and time Normal affect, Insight and Judgement intact. Flat affect. Mood is not depressed or anxious. No delusions and no suicidal tendencies. SKIN: No rashes noted. ASSESSMENT/PLAN: 1. Hypertension, unspecified type Patient's blood pressure better on second reading. Continue with Coreg at current dosage. Encourage low-sodium diet. Denies any cardiopulmonary symptoms. - carvediloL (COREG) 6.25 MG tablet; Take 1 (one) tablet (6.25 mg total) by mouth 2 (two) times a day with meals . Dispense: 60 tablet; Refill: 5 2. COPD, moderate (HCC) Patient doing well with albuterol as needed. Has not seen pulmonology for about a year now. States she is doing okay with just albuterol. - albuterol (PROVENTIL) 2.5 mg /3 mL (0.083 %) nebulizer solution; Take 3 mL (2.5 mg total) by nebulization every 6 (six) hours as needed . Dispense: 75 mL; Refill: 1 3. History of lung cancer, encounter for screening for lung cancer Patient due for CT lung cancer screening. Given her smoking history as well as history of lung cancer patient is agreeable. We will go ahead and order this. 4. Anxiety Patient doing well with Prozac and BuSpar. We will continue with current dosages. Follow-up in 6 months or sooner if needed. - busPIRone (BUSPAR) 10 MG tablet; Take 1 (one) tablet (10 mg total) by mouth 3 (three) times a day . Dispense: 180 tablet; Refill: 5 - FLUoxetine (PROZAC) 20 MG capsule; Take 1 (one) capsule (20 mg total) by mouth daily . Dispense: 30 capsule; Refill: 5 5. Screening for colon cancer Patient declines colon cancer screening. 6. Screening for cervical cancer Patient declines cervical cancer screening. 7. Encounter for screening for malignant neoplasm of breast, unspecified screening modality Patient declines breast cancer screening 8. Need for vaccination - Pneumococcal conjugate vaccine 20-valent - pneumococcal conj. 20-valent (PREVNAR 20) 0.5 mL vaccine; Inject 0.5 mL into the shoulder, thigh, or buttocks Sign this order in conjunction with the immunization order to satisfy [place] Board of Pharmacy Positive ID requirements for immunization orders .; Refill: 0 Condition and plan discussed with patient in detail, patient agrees with plan. Risk, benefits, and side effects of medicines discussed with the patient, patient agrees with plan. Recent laboratory / radiology / other study results discussed with patient. For any new medications prescribed today, patient was educated about indications for the medication, how to take the medication and potential side effects of the medications. Patient to return to office: Return in about 6 months (around 07/09/2023) for Annual physical. Tony Rivera CNP documented in this encounter [facility] 04-10-2022 History of Presen t illness Narrative [facility] [address] [address] [place] [address] Name: Gail Lewis Age: 56 y.o. : 1965 Today's date: 04/10/22 Outpatient Pulmonary Follow-up Note CC: Mild intermittent asthma Gail Lewis is a 56 y.o. female who presents to Pulmonary clinic for follow up of asthma. They were last seen on 12/20/2021. HPI: At her appointment in November, Ms. Lewis had asthma, not COPD, and had quit smoking 3 years prior. I gave her a sample of Breo to try instead of Anoro. Today she says that it may be helped a little bit, but she is currently not using either Breo or Anoro as she feels well. She is using her albuterol maybe once only on the hottest days. Otherwise, she denies any respiratory symptoms today. Review of Systems All other systems reviewed and are negative. Tobacco & Smokeless: Tobacco Use Smoking status: Former Packs/day: 1.00 Years: 35.00 Pack years: 35 Types: Cigarettes Quit date: 2018 Years since quittin.5 Smokeless tobacco: Never Tobacco comments: 04/10/2022- quit 3yrs ago Counseling given: Not Answered Tobacco comments: 04/10/2022- quit 3yrs ago Objective: Outpatient Medications as of 04/10/2022 Medication Sig albuterol (PROVENTIL) 2.5 mg /3 mL (0.083 %) nebulizer solution Take 3 mL (2.5 mg total) by nebulization every 6 (six) hours as needed . albuterol 90 mcg/actuation inhaler Inhale 2 (two) puffs every 4 (four) hours as needed for wheezing, shortness of breath or cough . busPIRone (BUSPAR) 10 MG tablet Take 1 (one) tablet (10 mg total) by mouth 3 (three) times a day . carvediloL (COREG) 6.25 MG tablet Take 1 (one) tablet (6.25 mg total) by mouth 2 (two) times a day with meals . FLUoxetine (PROZAC) 20 MG capsule Take 1 (one) capsule (20 mg total) by mouth daily . [DISCONTINUED] umeclidinium-vilanteroL (Anoro Ellipta) 62.5-25 mcg/actuation DsDv Inhale 1 puff daily . (Patient not taking: Reported on 04/10/2022 .) Allergies Allergen Reactions Vicodin [Hydrocodone-Acetaminophen] GI Intolerance BP (!) 142/80 Pulse 83 Ht 4' 11" Wt 77.9 kg (171 lb 12.8 oz) SpO2 96% Comment: ra BMI 34.70 kg/m from IP Vitals Flowsheet Date/Time Weight 04/10/22 0806 77.9 Physical Exam: Vitals reviewed Gen: Alert and oriented x 3, In no apparent distress HEENT: Head: Normocephalic, no lesions, without obvious abnormality. Pharynx: Dental Hygiene adequate. Normal buccal mucosa. Normal pharynx. Cardio: regular rate and rhythm, no murmur, brisk capillary refill Resp: clear to auscultation bilaterally, no wheezes or crackles, no tachypnea or accessory muscle use Assessment and Plan: Gail was seen today for follow-up. Diagnoses and all orders for this visit: Mild intermittent asthma, uncomplicated Her asthma is currently under good control and she is needing albuterol only 1-2 times per week. At this point it is okay for her to remain off of a controller inhaler, but I did ask that she call us if she starts needing her albuterol more often or notes daily symptoms. RTC as needed documented in this encounter [facility] 01-10-2022 History of Presen t illness Narrative Received results of A1AT screen, which was normal. Results will be scanned under media. documented in this encounter [facility] 12-20-2021 History of Presen t illness Narrative [facility] [address] [facility] [address] [facility] [phone] Name: Gail Lewis Age: 56 y.o. : 1965 Today's date: 12/20/21 Outpatient Pulmonary Consult Note CC: Respiratory failure Gail Lewis is a 56 y.o. female who presents to Pulmonary clinic for evaluation of respiratory failure. They were referred by Tony Rivera CNP. HPI: Ms. Lewis was treated at [facility] in early September for an upper respiratory infection and establish with a new PCP in October. She had followed with a bogger operator in [place] and wanted to establish with one here. She says today she has exertional shortness of breath with chest tightness and no chest pain. She has occasional wheeze and a cough productive of clear sputum. She has had the symptoms "all my life" but does not know if she ever had childhood asthma. Multiple family members do have asthma. Anoro provides some help, but she feels like she would need to use an albuterol inhaler if she had 1. She is 98% on room air at rest in the office today. Past Medical History: Diagnosis Date COPD (chronic obstructive pulmonary disease) (HCC) Hypertension Lung cancer (HCC) 11/27/2019 RUL Adenocarcinoma Symptomatic cholelithiasis 11/24/2020 Past Surgical History: Procedure Laterality Date APPENDECTOMY CHOLECYSTECTOMY LUNG SURGERY RUL Lobectomy 2018 Family History Problem Relation Age of Onset Cancer Father Heart disease Sister Cancer Brother Heart disease Brother Other pulmonary history: Her mom and multiple siblings have asthma Social History Socioeconomic History Marital status: Tobacco Use Smoking status: Former Smoker Packs/day: 1.00 Years: 35.00 Pack years: 35.00 Quit date: 2018 Years since quittin.2 Smokeless tobacco: Never Used Vaping Use Vaping Use: Never used Substance and Sexual Activity Alcohol use: Never Drug use: Never Counseling given: Not Answered Occupation: Disabled 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 Objective: Outpatient Medications as of 12/20/2021 Medication Sig albuterol (PROVENTIL) 2.5 mg /3 mL (0.083 %) nebulizer solution Take 3 mL (2.5 mg total) by nebulization every 6 (six) hours as needed . busPIRone (BUSPAR) 10 MG tablet Take 1 (one) tablet (10 mg total) by mouth 3 (three) times a day . carvediloL (COREG) 6.25 MG tablet Take 1 (one) tablet (6.25 mg total) by mouth 2 (two) times a day with meals . FLUoxetine (PROZAC) 20 MG capsule Take 1 (one) capsule (20 mg total) by mouth daily . umeclidinium-vilanteroL (Anoro Ellipta) 62.5-25 mcg/actuation DsDv Inhale 1 puff daily . Allergies Allergen Reactions Vicodin [Hydrocodone-Acetaminophen] GI Intolerance BP 133/82 Pulse 86 Ht 4' 11" Wt 74.8 kg (165 lb) SpO2 98% Comment: room air BMI 33.33 kg/m from IP Vitals Flowsheet Date/Time Weight 12/20/21904 74.8 Physical Exam: Vitals reviewed Gen: Alert and oriented x 3, In no apparent distress HEENT: Head: Normocephalic, no lesions, without obvious abnormality. Pharynx: Dental Hygiene adequate. Normal buccal mucosa. Normal pharynx. Neck: nontender, full range of motion, no mass, no focal lymphadenopathy Cardio: regular rate and rhythm, no murmur, brisk capillary refill Resp: clear to auscultation bilaterally, no wheezes or crackles, no tachypnea or accessory muscle use Abd: soft, nontender, nondistended, no hepatosplenomegaly, no mass, normal bowel sounds MSK: Moves all four extremities spontaneously. Neuro: Grossly normal without focal findings Skin: no rashes, no jaundice PFT Results PFT Pre-bronchodilator 12/20/21904 FVC 1.85 (% predicted) 66 FEV1 1.04 (% predicted) 47 FEV1/FVC 56 VC 1.85 (% predicted) 66 PFT Post-bronchodilator 12/20/21904 FVC 1.89 (% predicted) 67 (% change) 2 FEV1 1.08 (% predicted) 49 (% change) 4 FEV1/FVC 57 PFT Lung Volumes 12/20/21904 TLC 4.29 (% predicted) 100 RV 2.44 (% predicted) 146 PFT Diffusion 12/20/21904 DLCO 11.34 (% predicted) 56 DLCO/VA 3.80 (% predicted) 81 Interpretation: Spirometry and lung volumes reveal moderate obstruction, with moderate air trapping. Midflows were severely reduced. There was not significant improvement in both FVC and FEV1 with administration of a bronchodilator. Diffusing capacity uncorrected for hemoglobin was moderately reduced, normal when corrected for alveolar ventilation. 6MWT: Resting oxygen saturation was 96% on room air. Patient ambulated on flat ground for 6 minutes. Total distance walked was 1050 ft (323 m). Lowest exertional oxygen saturation was 93% on room air. Mohit score for dyspnea post-test was 2. Imaging: Personally reviewed images from Chest PA/Lat (12/20/21), which shows some upper lung field hyperlucency, but no permanent scarring and just some tracheal deviation to the right in response to her prior surgery Assessment and Plan: Gail was seen today for consult and shortness of breath. Diagnoses and all orders for this visit: Moderate persistent asthma, uncomplicated - Ambulatory referral to Pulmonology - albuterol 90 mcg/actuation inhaler; Inhale 2 (two) puffs every 4 (four) hours as needed for wheezing, shortness of breath or cough . She does not have COPD, but instead has symptoms and PFTs more suggestive of a moderate asthma. She will stop her Anoro and I gave her a sample of Breo to try to see if it provides a little bit more symptomatic benefit. I also sent in a prescription for a rescue inhaler for her. We will screen her for alpha-1 antitrypsin deficiency today as well, in light of her chest x-ray results and her significant family history of lung disease. RTC in 3 months documented in this encounter [facility] 12-07-2021 History of Presen t illness Narrative [facility] [address] [place] [address]. [place] [address] Patient: Gail Lewis is a 56 y.o. female. Chief Complaint Patient presents with Follow-up 1mo HPI: Patient here for follow-up. Patient doing well overall. Past medical history significant for COPD, HTN. Lung cancer, depression, anxiety. COPD, hx of lung cancer: Patient reports history of COPD. Currently taking albuterol nebulizer as needed as well as Anoro Ellipta. Patient also reports history of lung cancer in 2019. Currently is in remission. Patient is non-smoker. Has appointment set up with pulmonology as well as some lung testing for the end of the month. HTN: Patient reports history of high blood pressure. Blood pressure today in office 134/81 on second check. patient does not have a blood pressure cuff at home. Currently taking 6.25 of Coreg twice daily. Patient denies any chest pain, shortness of breath, palpitations, edema. Depression, Anxiety: Patient was increased on her BuSpar at last visit from 7.5 mg twice daily to 10 mg 3 times a day. Patient states this seems to be controlling her anxiety much better. Doing well on the Prozac. Denies any suicidal or homicidal ideations. Past medical/surgical history Past Medical History: Diagnosis Date COPD (chronic obstructive pulmonary disease) (HCC) Hypertension Lung cancer (HCC) 11/27/2019 Pulmonary nodule 07/31/2019 RUL and GEORGE Shortness of breath 07/31/2019 Symptomatic cholelithiasis 11/24/2020 Past Surgical History: Procedure Laterality Date APPENDECTOMY CHOLECYSTECTOMY LUNG SURGERY Family History Problem Relation Age of Onset Cancer Father Heart disease Sister Cancer Brother Heart disease Brother Current Outpatient Medications Medication Sig Dispense Refill albuterol (PROVENTIL) 2.5 mg /3 mL (0.083 %) nebulizer solution Take 3 mL (2.5 mg total) by nebulization every 6 (six) hours as needed . 75 mL 1 busPIRone (BUSPAR) 10 MG tablet Take 1 (one) tablet (10 mg total) by mouth 3 (three) times a day . 180 tablet 0 carvediloL (COREG) 6.25 MG tablet Take 1 (one) tablet (6.25 mg total) by mouth 2 (two) times a day with meals . 60 tablet 1 FLUoxetine (PROZAC) 20 MG capsule Take 1 (one) capsule (20 mg total) by mouth daily . 30 capsule 0 umeclidinium-vilanteroL (Anoro Ellipta) 62.5-25 mcg/actuation DsDv Inhale 1 puff daily . 14 each 1 No current facility-administered medications for this visit. Allergies Allergen Reactions Vicodin [Hydrocodone-Acetaminophen] GI Intolerance reports that she has never smoked. She has never used smokeless tobacco. She reports that she does not drink alcohol and does not use drugs. reports that she has never smoked. She has never used smokeless tobacco. Current medication list and allergies reviewed and updated with patient. Past medical history reviewed. Past Surgical History reviewed. Personal history Social History reviewed. Family history Family History reviewed. REVIEW OF SYSTEMS General: Patient denies fatigue, fever, weight loss. Patient denies sleep changes. Eyes: Patient denies blurred vision, eye pain, vision changes/disturbance. ENT: Patient denies hearing loss/changes. Patient denies ear pain, congestion, sore throat. Cardiovascular: Patient denies chest pain, palpitations. Respiratory: Patient denies cough, wheezing, or shortness of breath. Gastrointestinal: Patient denies nausea, vomiting, abdominal pain, constipation, diarrhea. Urinary: Patient denies urinary frequency, urinary urgency, dysuria. Musculoskeletal: Patient denies back pain, joint pain. Skin: Patient denies rash, concerning skin lesions. Neurologic: Patient denies weakness, dizziness, headache, numbness/tingling in the hands, numbness/tingling in the feet. Mental Status: Patient reports anxiety, depression. Endocrinology: Patient denies weight change. Hematologic: Patient denies abnormal bruising, bleeding, enlarged lymph nodes. PE: Vitals: 12/07/21 0834 12/07/21 0853 BP: (!) 140/85 134/81 BP Location: Left arm Patient Position: Sitting BP Cuff Size: Adult Pulse: 69 SpO2: 95% Weight: 75.3 kg (165 lb 14.4 oz) Height: 4' 11" Physical Exam Constitutional: Patient appears well-developed and well-nourished. No acute distress. Alert and oriented x3. HENT: Head: Normocephalic and atraumatic. Cardiovascular: Normal rate, regular rhythm, normal heart sounds and intact distal pulses. No edema. Pulmonary/Chest: Effort normal and breath sounds normal. Abdominal: +Normal BS. Soft. Nontender. No masses noted. Neurological: No disorientation was observed and the memory was unimpaired. gait and stance were normal. CN II-XII Grossly intact. PSYCH: Patient is alert and oriented to person, place, and time Normal affect, Insight and Judgement intact. Mood is not depressed or anxious. No delusions and no suicidal tendencies. SKIN: No rashes noted. ASSESSMENT/PLAN: 1. Hypertension, unspecified type Patient's blood pressure doing much better with the increase in the Coreg. We will continue. Encourage patient to report any dizziness or lightheadedness. We will follow-up with patient in 5 months or sooner if needed. Encouraged low-sodium diet. 2. COPD, moderate (HCC) Patient doing well on current inhalers. Does have upcoming lung testing and appointment with pulmonology. Encourage patient to keep these appointments. Patient understands and agreeable. 3. History of lung cancer Continue with appointments with pulmonology. 4. Anxiety Patient doing much better with the increase in the BuSpar. We will continue with current dosages of Prozac and BuSpar. Follow-up with patient in 5 months or sooner if needed. 5. Screening for colon cancer Discussed colon cancer screening. Patient not wanting to do colonoscopy. No family history of colon cancer that patient knows of. No bowel issues herself. We will go ahead with Cologuard. Explained risk versus benefits of procedure. Patient agreeable. - Cologuard Condition and plan discussed with patient in detail, patient agrees with plan. Risk, benefits, and side effects of medicines discussed with the patient, patient agrees with plan. Recent laboratory / radiology / other study results discussed with patient. For any new medications prescribed today, patient was educated about indications for the medication, how to take the medication and potential side effects of the medications. Patient to return to office: Return in about 5 months (around 05/09/2022). Tony Rivera CNP documented in this encounter [facility] 11-15-2021 History of Presen t illness Narrative Patient here for blood pressure check. BP- 151/85, pulse-71, SPO2-97%. Waited 5 minutes, BP- 120/79 Patient does not want to schedule mammogram at this time, patient states that she does self exams at home. documented in this encounter [facility] 11-08-2021 Instructions Tony Rivera CNP - 11/08/2021 8:15 AM EST Images from the original note were not included. Chronic Obstructive Pulmonary Disease (COPD): Care Instructions Overview Chronic obstructive pulmonary disease (COPD) is a lung disease that makes it hard to breathe. With COPD, the airways that lead to the lungs are narrowed, and the tiny air sacs in the lungs are damaged and lose their stretch. People with COPD have decreased airflow in and out of the lungs, which makes it hard to breathe. The airways also can get clogged with thick mucus. Cigarette smoking is a major cause of COPD. Although there is no cure for COPD, you can slow its progress. Following your treatment plan and taking care of yourself can help you feel better and live longer. Follow-up care is a montoya part of your treatment and safety. Be sure to make and go to all appointments, and call your doctor if you are having problems. It's also a good idea to know your test results and keep a list of the medicines you take. How can you care for yourself at home? Staying healthy Do not smoke. This is the most important step you can take to prevent more damage to your lungs. If you need help quitting, talk to your doctor about stop-smoking programs and medicines. These can increase your chances of quitting for good. Avoid colds and other infections. Get the pneumococcal and whooping cough (pertussis) vaccines. If you have had these vaccines before, ask your doctor if you need another dose. Get the flu vaccine every fall. If you must be around people with colds or the flu, wash your hands often. Avoid secondhand smoke and air pollution. Try to stay inside with your windows closed when air pollution is bad. Medicines and oxygen therapy Take your medicines exactly as prescribed. Call your doctor if you think you are having a problem with your medicine. You may be taking medicines such as: ? Bronchodilators. These help open your airways and make breathing easier. They are either short-acting (work for 4 to 9 hours) or long-acting (work for 12 to 24 hours). You inhale most bronchodilators, so they start to act quickly. Always carry your quick-relief inhaler with you in case you need it. ? Corticosteroids (prednisone, budesonide). These reduce airway inflammation. They come in inhaled or pill form. Ask your doctor or pharmacist if you are using each type of inhaler correctly. With correct use, the medicine is more likely to get to your lungs. See if a spacer is right for you. A spacer may also help you get more inhaled medicine to your lungs. If you use one, ask how to use it properly. Do not take any vitamins, [id number] medicine, or herbal products without talking to your doctor first. If your doctor prescribed antibiotics, take them as directed. Do not stop taking them just because you feel better. You need to take the full course of antibiotics. If you use oxygen therapy, use the flow rate your doctor has recommended. Don't change it without talking to your doctor first. Oxygen therapy boosts the amount of oxygen in your blood and helps you breathe easier. Activity Get regular exercise. Walking is an easy way to get exercise. Start out slowly, and walk a little more each day. Pay attention to your breathing. You are exercising too hard if you can't talk while you exercise. Take short rest breaks when doing [address] and other activities. Learn breathing methods such as breathing through pursed lips to help you become less short of breath. If your doctor has not set you up with a pulmonary rehabilitation program, ask if rehab is right for you. Rehab includes exercise programs, education about your disease and how to manage it, help with diet and other changes, and emotional support. Diet Eat regular, healthy meals. Use bronchodilators about 1 hour before you eat to make it easier to eat. Eat several smaller, frequent meals to prevent getting too full. A full stomach can push on the muscle that helps you breathe (your diaphragm) and make it harder to breathe. Drink beverages at the end of the meal. Avoid foods that are hard to chew. Eat foods that contain protein so you don't lose muscle mass. Talk with your doctor if you gain too much weight or if you lose weight without trying. Mental health Talk to your family, friends, or a therapist about your feelings. Some people feel frightened, angry, hopeless, helpless, and even guilty. Talking openly about feelings may help you cope. If these feelings last, talk to your doctor. When should you call for help? Call 911 anytime you think you may need emergency care. For example, call if: You have severe trouble breathing. You are having chest pain that is different or worse than usual. Call your doctor now or seek immediate medical care if: You have new or worse trouble breathing. You cough up blood. You have a fever. You have feelings of anxiety or depression. Watch closely for changes in your health, and be sure to contact your doctor if: You cough more deeply or more often, especially if you notice more mucus or a change in the color of your mucus. You have new or worse swelling in your legs or belly. You are not getting better as expected. Where can you learn more? Log into your personal health record on [email or web address] and enter X915 in the "Education" box to learn more about "Chronic Obstructive Pulmonary Disease (COPD): Care Instructions." Current as of: April 04, 2021 Content Version: 13.1 [employer]. Care instructions adapted under license by your healthcare professional. If you have questions about a medical condition or this instruction, always ask your healthcare professional. [employer] disclaims any warranty or liability for your use of this information. documented in this encounter [facility] 11-08-2021 History of Presen t illness Narrative [facility] [address] [place] [address]. [place] [address] Patient: Gail Lewis is a 56 y.o. female. Chief Complaint Patient presents with Establish Care Medication Refill Needs a nebulizer as well Heartburn HPI: patient here to establish care. Recently moved to [place] from [place]. Past medical history significant for COPD, HTN. Lung cancer, depression, anxiety. COPD, hx of lung cancer: Patient reports history of COPD. Currently taking albuterol nebulizer as needed as well as Anoro Ellipta. Patient needing new nebulizer. Patient states she was following with pulmonology back in [place]. Needing provider locally. Patient also reports history of lung cancer in 2019. Currently is in remission. Patient is non-smoker. HTN: Patient reports history of high blood pressure. Blood pressure today in office elevated 161/92, 152/ 83. patient does not have a blood pressure cuff at home. Currently taking 3.125mg coreg twice daily. Patient denies any chest pain, shortness of breath, palpitations, edema. Depression, Anxiety: Patient reports history of depression anxiety. States that she feels like her depression symptoms are well controlled with the Prozac however feels like her anxiety control could be better. States that the BuSpar works well when she takes it--taking 7.5 mg twice daily. Past medical/surgical history Past Medical History: Diagnosis Date COPD (chronic obstructive pulmonary disease) (HCC) Hypertension Past Surgical History: Procedure Laterality Date APPENDECTOMY CHOLECYSTECTOMY LUNG SURGERY Family History Problem Relation Age of Onset Cancer Father Heart disease Sister Cancer Brother Heart disease Brother Current Outpatient Medications Medication Sig Dispense Refill albuterol (PROVENTIL) 2.5 mg /3 mL (0.083 %) nebulizer solution Take 3 mL (2.5 mg total) by nebulization every 6 (six) hours as needed . 75 mL 1 busPIRone (BUSPAR) 10 MG tablet Take 1 (one) tablet (10 mg total) by mouth 3 (three) times a day . 180 tablet 0 carvediloL (COREG) 6.25 MG tablet Take 1 (one) tablet (6.25 mg total) by mouth 2 (two) times a day with meals . 60 tablet 1 FLUoxetine (PROZAC) 20 MG capsule Take 1 (one) capsule (20 mg total) by mouth daily . 30 capsule 0 umeclidinium-vilanteroL (Anoro Ellipta) 62.5-25 mcg/actuation DsDv Inhale 1 puff daily . 14 each 1 No current facility-administered medications for this visit. Allergies Allergen Reactions Vicodin [Hydrocodone-Acetaminophen] GI Intolerance reports that she has never smoked. She has never used smokeless tobacco. She reports that she does not drink alcohol and does not use drugs. reports that she has never smoked. She has never used smokeless tobacco. Current medication list and allergies reviewed and updated with patient. Past medical history reviewed. Past Surgical History reviewed. Personal history Social History reviewed. Family history Family History reviewed. REVIEW OF SYSTEMS General: Patient denies fatigue, fever, weight loss. Patient denies sleep changes. Eyes: Patient denies blurred vision, eye pain, vision changes/disturbance. ENT: Patient denies hearing loss/changes. Patient denies ear pain, congestion, sore throat. Cardiovascular: Patient denies chest pain, palpitations. Respiratory: Patient denies cough, wheezing, or shortness of breath. Gastrointestinal: Patient denies nausea, vomiting, abdominal pain, constipation, diarrhea. Urinary: Patient denies urinary frequency, urinary urgency, dysuria. Musculoskeletal: Patient denies back pain, joint pain. Skin: Patient denies rash, concerning skin lesions. Neurologic: Patient denies weakness, dizziness, headache, numbness/tingling in the hands, numbness/tingling in the feet. Mental Status: Patient reports anxiety, depression. Endocrinology: Patient denies weight change. Hematologic: Patient denies abnormal bruising, bleeding, enlarged lymph nodes. PE: Vitals: 11/08/21 0813 11/08/21 0841 BP: (!) 161/92 (!) 152/83 BP Location: Right arm Patient Position: Sitting BP Cuff Size: Adult Pulse: 83 SpO2: 97% Weight: 75.8 kg (167 lb) Height: 4' 11" Physical Exam Constitutional: Patient appears well-developed and well-nourished. No acute distress. Alert and oriented x3. HENT: Head: Normocephalic and atraumatic. Eyes: Conjunctivae and EOM are normal. Pupils are equal, round, and reactive to light. Neck: Normal range of motion. Neck supple. No carotid bruits noted. Trachea midline. No adenopathy. Cardiovascular: Normal rate, regular rhythm, normal heart sounds and intact distal pulses. No edema. Pulmonary/Chest: Effort normal and breath sounds normal. Neurological: No disorientation was observed and the memory was unimpaired. gait and stance were normal. CN II-XII Grossly intact. PSYCH: Patient is alert and oriented to person, place, and time Normal affect, Insight and Judgement intact. Mood is not depressed or anxious. No delusions and no suicidal tendencies. SKIN: No rashes noted. ASSESSMENT/PLAN: 1. COPD, moderate (HCC), history of lung cancer Given patient's history of COPD as well as lung cancer we will go ahead with referral to pulmonology. Patient was previously following with pulmonology in [place]. We will get updated lab work. We will also go ahead with order for new nebulizer and supplies. Patient also needing refill on her albuterol and Anoro Ellipta. We will continue. - CBC and Differential; Future - Comprehensive Metabolic Panel; Future - Ambulatory referral to Pulmonology; Future - albuterol (PROVENTIL) 2.5 mg /3 mL (0.083 %) nebulizer solution; Take 3 mL (2.5 mg total) by nebulization every 6 (six) hours as needed . Dispense: 75 mL; Refill: 1 - umeclidinium-vilanteroL (Anoro Ellipta) 62.5-25 mcg/actuation DsDv; Inhale 1 puff daily . Dispense: 14 each; Refill: 1 - Home Nebulizer (E0570) with Nebulizer Supplies albuterol (ACCUNEB); every 6 hours 2. Hypertension, unspecified type Patient's blood pressure not well controlled. Patient is on a low dose of Coreg. We will increase to 6.25 twice daily. We discussed risks and benefits, side effects. Encourage patient to try and get a blood pressure cuff if she is able if she is able to check this at home she will keep a log prior to next appointment. If she is not able to we will go ahead with 1 week follow-up for BP check and then 4 weeks with me. Encouraged low-sodium diet as well. - CBC and Differential; Future - Comprehensive Metabolic Panel; Future - Lipid Panel; Future - carvediloL (COREG) 6.25 MG tablet; Take 1 (one) tablet (6.25 mg total) by mouth 2 (two) times a day with meals . Dispense: 60 tablet; Refill: 1 3. Screening for cervical cancer Patient reports it has been years since she had a Pap. Denies any history of abnormal Paps or family history of cervical cancer. - Ambulatory referral to Obstetrics / Gynecology; Future 4. Encounter for screening for malignant neoplasm of breast, unspecified screening modality - Mammography Screening Bilateral; Future 5. Screening for thyroid disorder - TSH; Future 6. Screening for diabetes mellitus - Hemoglobin A1c; Future 7. Encounter for hepatitis C screening test for low risk patient - Hepatitis C Antibody; Future 8. Screening for HIV (human immunodeficiency virus) - HIV 1/2 Screen (4th Generation); Future 9. Anxiety Patient feels that the control of her anxiety could be better. We will increase her BuSpar to 10 mg 3 times a day. We will follow-up with patient in 4 weeks to see how she is doing with this. If she has any additional questions or concerns prior to this she will let me know. We will also continue with Prozac 20 mg daily. - busPIRone (BUSPAR) 10 MG tablet; Take 1 (one) tablet (10 mg total) by mouth 3 (three) times a day . Dispense: 180 tablet; Refill: 0 - FLUoxetine (PROZAC) 20 MG capsule; Take 1 (one) capsule (20 mg total) by mouth daily . Dispense: 30 capsule; Refill: 0 Condition and plan discussed with patient in detail, patient agrees with plan. Risk, benefits, and side effects of medicines discussed with the patient, patient agrees with plan. Recent laboratory / radiology / other study results discussed with patient. For any new medications prescribed today, patient was educated about indications for the medication, how to take the medication and potential side effects of the medications. Patient to return to office: Return in about 4 weeks (around 12/06/2021). Tony Rivera CNP documented in this encounter [facility] Evaluation note Diagnosis COPD, moderate (HCC)- Primary History of lung cancer Personal history of malignant neoplasm of bronchus and lung Hypertension, unspecified type Screening for cervical cancer Screening for malignant neoplasm of the cervix Encounter for screening for malignant neoplasm of breast, unspecified screening modality Anxiety Anxiety state, unspecified [facility] Diagnosis Hypertension, unspecified type- Primary [facility] Diagnosis Hypertension, unspecified type- Primary COPD, moderate (HCC) History of lung cancer Personal history of malignant neoplasm of bronchus and lung Anxiety Anxiety state, unspecified Screening for colon cancer Special screening for malignant neoplasms, colon [facility] Diagnosis Moderate persistent asthma, uncomplicated [facility]* Diagnosis Mild intermittent asthma, uncomplicated- Primary [facility]* Diagnosis Hypertension, unspecified type- Primary COPD, moderate (HCC) History of lung cancer Personal history of malignant neoplasm of bronchus and lung Anxiety Anxiety state, unspecified Encounter for screening for malignant neoplasm of breast, unspecified screening modality Screening for cervical cancer Screening for malignant neoplasm of the cervix Need for vaccination Need for prophylactic vaccination and inoculation against unspecified single disease Former smoker Personal history of tobacco use, presenting hazards to health [facility] Diagnosis Lung nodule seen on imaging study- Primary History of lung cancer Personal history of malignant neoplasm of bronchus and lung [facility] Diagnosis Breast cancer screening by mammogram [facility]* Diagnosis Lung nodule seen on imaging study- Primary Anxiety Anxiety state, unspecified Hypertension, unspecified type History of lung cancer Personal history of malignant neoplasm of bronchus and lung Need for vaccination Need for prophylactic vaccination and inoculation against unspecified single disease Dyspnea on exertion Other dyspnea and respiratory abnormality Gastroesophageal reflux disease, unspecified whether esophagitis present Dyspnea on exertion Other dyspnea and respiratory abnormality [facility] Diagnosis Moderate persistent asthma, uncomplicated [facility] Diagnosis COPD, moderate (HCC)- Primary [facility] Diagnosis Gastroesophageal reflux disease, unspecified whether esophagitis present [facility] Diagnosis Moderate persistent asthma, uncomplicated Hyperlipidemia, unspecified hyperlipidemia type Anxiety Anxiety state, unspecified Hypertension, unspecified type Gastroesophageal reflux disease, unspecified whether esophagitis present [facility] Diagnosis Encounter for screening for lung cancer- Primary Moderate persistent asthma, uncomplicated Hyperlipidemia, unspecified hyperlipidemia type Anxiety Anxiety state, unspecified Hypertension, unspecified type Gastroesophageal reflux disease, unspecified whether esophagitis present Need for influenza vaccination Need for prophylactic vaccination and inoculation against influenza Screening for diabetes mellitus Bronchitis Bronchitis, not specified as acute or chronic Rib pain on right side [facility] Diagnosis Screening for lung cancer- Primary [facility] Diagnosis Pulmonary infiltrate- Primary Pulmonary eosinophilia Moderate persistent asthma, uncomplicated Mediastinal lymphadenopathy Enlargement of lymph nodes [facility] Diagnosis Pulmonary infiltrate- Primary Pulmonary eosinophilia Moderate persistent asthma, uncomplicated Mediastinal lymphadenopathy Enlargement of lymph nodes [facility] Diagnosis 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 [facility] Diagnosis Moderate persistent asthma, uncomplicated Anxiety Anxiety state, unspecified Gastroesophageal reflux disease, unspecified whether esophagitis present [facility] Diagnosis Wellness examination- Primary Prediabetes Other abnormal glucose Need for vaccination Need for prophylactic vaccination and inoculation against unspecified single disease Screening for diabetes mellitus Other mcc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 Other specified abnormal findings of blood chemistry Encounter for lipid screening for cardiovascular disease Screening for colon cancer Special screening for malignant neoplasms, colon Family history of colon cancer Family history of malignant neoplasm of gastrointestinal tract [facility] Diagnosis Mild intermittent asthma, uncomplicated- Primary Pulmonary nodule Other diseases of lung, not elsewhere classified [facility] Attachments The following attachments cannot be sent through Care Everywhere. * Diet: DASH (Kittitian) [facility] Attachments The following attachments cannot be sent through Care Everywhere. * Diet: DASH (Kittitian) [facility]* Attachments The following attachments cannot be sent through Care Everywhere. * SOB (Shortness of Breath) (Kittitian) [facility]* Attachments The following attachments cannot be sent through Care Everywhere. * Asthma: Adult (Kittitian) [facility]* Attachments The following attachments cannot be sent through Care Everywhere. * Diet: DASH (Kittitian) [facility]* Attachments The following attachments cannot be sent through Care Everywhere. * Well Visit: 50 to 65 Year Women (Kittitian) [facility] Purpose Family History No Family History Records FoundNo Family History Records FoundNo Family History Records Found Advance Directives No Advanced Directives Records FoundDocuments on File Type Date Recorded Patient Inspector And Sorter Expl anation Advance Directives and Livin g Will 10/04/2021 2:32 PM Documents on File Type Date Recorded Patient Inspector And Sorter Expl anation Advance Directives and Livin g Will 10/04/2021 2:32 PM Documents on File Type Date Recorded Patient Inspector And Sorter Expl anation Advance Directives and Livin g Will 12/20/2021 2:32 PM Date Activated Date Inactivated Comments 04/25/2025 9:40 PM Date Activated Date Inactivated Comments 04/25/2025 9:40 PM 04/27/2025 3:00 PM Date Activated Date Inactivated Comments 04/25/2025 9:40 PM 04/27/2025 3:00 PM Reason for Referral Specialty Diagnoses / Procedures Referred By Michell t Referred To Contact Pulmonary Disease / Pulmonology Diagnoses COPD, moderate (HCC) History of lung cancer Tony Rivera, YESSY [address] [place] [address] [facility] [address] [place] [address] Referral ID Status Reason Start Date Expiration Date Visits Requested Visits Authorized [id number] Authorized Specialty Services Required/Pat ient's Best Interest 11/08/2021 11/08/2022 1 1 Specialty Diagnoses / Procedures Referred By Contac t Referred To Contact Central Scheduling Diagnoses Encounter for screening for malignant neoplasm of breast, unspecified screening modality Procedures Mammography Screening Bilateral Tony Rivera CNP [address] [place] [address] Central Scheduling [address] [place] [address] Referral ID Status Reason Start Date Expiration Date V isits Requested Visits Authorized [id number] Authorized 11/08/2021 11/08/2022 1 1 Specialty Diagnoses / Procedures Referred By Contac t Referred To Contact Obstetrics and Gynecology Diagnoses Screening for cervical cancer Tony Rivera CNP [address] [place] [address] [facility] Pipe Smoker Machine Operator [address] [address] Referral ID Status Reason Start Date Expiration Date Visits Requested Visits Authorized [id number] Authorized Specialty Services Required/Pat ient's Best Interest 11/08/2021 11/08/2022 1 1 Specialty Diagnoses / Procedures Referred By Contac t Referred To Contact Radiology Diagnoses History of lung cancer Former smoker Encounter for screening for lung cancer Procedures CT Lung Cancer Screening Tony Rivera CNP [address] [place] [address] Referral ID Status Reason Start Date Expiration Date V isits Requested Visits Authorized [id number] New Request 01/07/2023 01/07/2024 1 1 Specialty Diagnoses / Procedures Referred By Contac t Referred To Contact Central Scheduling Diagnoses Lung nodule seen on imaging study History of lung cancer Procedures CT Chest Without Contrast Tony Rivera CNP [address] [place] [address] Central Scheduling [address] [place] [address] Referral ID Status Reason Start Date Expiration Date V isits Requested Visits Authorized [id number] New Request 02/01/2023 02/01/2024 1 1 Specialty Diagnoses / Procedures Referred By Contac t Referred To Contact Central Scheduling Diagnoses Breast cancer screening by mammogram Procedures Mammography Screening Ronak Bilateral Tony Rivera CNP [facility] [place] [address] Central Scheduling [address] [place] [address] Referral ID Status Reason Start Date Expiration Date V isits Requested Visits Authorized [id number] Authorized 02/11/2023 02/11/2024 1 1 Specialty Diagnoses / Procedures Referred By Contac t Referred To Contact Cardiology Diagnoses Dyspnea on exertion Procedures Echocardiogram complete Tony Rivera CNP [address] [place] [address] Referral ID Status Reason Start Date Expiration Date V isits Requested Visits Authorized [id number] New Request 07/08/2023 07/07/2024 1 1 Specialty Diagnoses / Procedures Referred By Contac t Referred To Contact Radiology Diagnoses Lung nodule seen on imaging study History of lung cancer Procedures CT Chest Without Contrast Tony Rivera CNP [address] [place] [address] Referral ID Status Reason Start Date Expiration Date V isits Requested Visits Authorized [id number] New Request 07/08/2023 07/07/2024 1 1 Specialty Diagnoses / Procedures Referred By Contac t Referred To Contact Pulmonology Diagnoses Moderate persistent asthma, uncomplicated Tony Rivera CNP [address] [place] [address] Rio Capone MD [address] [place] [address] Referral ID Status Reason Start Date Expiration Date V isits Requested Visits Authorized [id number] Authorized 02/11/2024 02/10/2025 1 1 Specialty Diagnoses / Procedures Referred By Contac t Referred To Contact Diagnoses Moderate persistent asthma, uncomplicated Tony Rivera CNP [address] [place] [address] Referral ID Status Reason Start Date Expiration Date V isits Requested Visits Authorized [id number] Pending Review 1 1 Additional Source Comments INFORMATION SOURCE (unrecogn ized section and content) DATE CREATED AUTHOR 10/26/2021 [facility] DATE CREATED AUTHOR AUTHOR'S ORGANIZ ATION 08/04/2025 [facility] DATE CREATED AUTHOR AUTHOR'S ORGANIZ ATION 08/08/2025 [facility] Reason for Visit (unrecogniz ed section and content) Reason Comments Establish Care Medication Refill Needs a nebulizer as well Heartburn Reason Comments Blood Pressure Check Reason Comments Follow-up 1mo Reason Comments Consult Shortness of Breath Difficulty breathing with exertion Specialty Diagnoses / Procedures Referred By Michell turner Referred To Contact Pulmonology Diagnoses COPD, moderate (HCC) History of lung cancer Tony Rivera CNP [address] [place] [address] Rio Capone MD [address] [place] [address] Referral ID Status Reason Start Date Expiration Date V isits Requested Visits Authorized [id number] Closed Specialty Services Required/Anai ent's Best Interest 11/08/2021 11/08/2022 1 1 Reason Comments Follow-up Asthma 4 monthDoing well Reason Comments Follow-up Medication Refill Reason Comments Follow-up 6 mo Shortness of Breath When climbs stairs, for about 3-4 months Reason Onset Date Comments Medication Refill 08/23/2023 Reason Comments Follow-up 6 mo Abdominal Pain Ruq started a few mo nths ago, worse with bending/turning Reason Comments Follow-up Patient denies any r ecent cardiac symptoms or concerns at this time Reason Onset Date Comments Medication Refill 06/10/2025 Reason Comments Gap Closure (Health Maintenance) Annual Exam Patient could not re view med list- Reason Comments Follow-up [address] / hosp fo llow up Care Teams (unrecognized sec tion and content) Patented Hogshead Assembler Relationship Specialty Start Date End Date Tony Rivera CNP [address] [place] [address] PCP - Internal Medicine Nurse Practitioner 11/08/21 Patented Hogshead Assembler Relationship Specialty Start Date End Date Tony Rivera CNP [address] [place], [place] [address] PCP - Internal Medicine Nurse Practitioner 11/08/21 Tony Rivera, SENIOR LINUX SYSTEMS ADMINISTRATOR [address] [place] [address] PCP - General Nurse Practitioner 11/15/21 11/15/21 Patented Hogshead Assembler Relationship Specialty Start Date End Date Tony Rivera CNP [address] [place], [place] [address] PCP - Internal Medicine Nurse Practitioner 11/08/21 Patented Hogshead Assembler Relationship Specialty Start Date End Date Tony Rivera, SENIOR LINUX SYSTEMS ADMINISTRATOR [address] [place] [address] PCP - Internal Medicine Nurse Practitioner 11/08/21 Tony Rivera, SENIOR LINUX SYSTEMS ADMINISTRATOR [address] [place] [address] PCP - General Nurse Practitioner 12/20/21 Patented Hogshead Assembler Relationship Specialty Start Date End Date Tony Rivera SENIOR LINUX SYSTEMS ADMINISTRATOR [address] [place] [address] PCP - Internal Medicine Nurse Practitioner 11/08/21 Tony Rivera, SENIOR LINUX SYSTEMS ADMINISTRATOR [address] [place] [address] PCP - General Nurse Practitioner 12/20/21 Patented Hogshead Assembler Relationship Specialty Start Date End Date Tony Rivera, SENIOR LINUX SYSTEMS ADMINISTRATOR [address] [place] [address] PCP - Internal Medicine Nurse Practitioner 11/08/21 Tony Rivera CNP [address] [place] [address] PCP - General Nurse Practitioner 12/20/21 Patented Hogshead Assembler Relationship Specialty Start Date End Date Tony Rivera CNP [address] [place] [address] PCP - Internal Medicine Nurse Practitioner 11/08/21 Tony Rivera CNP [address] [place] [address] PCP - General Nurse Practitioner 12/20/21 Patented Hogshead Assembler Relationship Specialty Start Date End Date Tony Rivera CNP [address] [place] [address] PCP - Internal Medicine Nurse Practitioner 11/08/21 Tony Rivera CNP [address] [place] [address] PCP - General Nurse Practitioner 12/20/21 Patented Hogshead Assembler Relationship Specialty Start Date End Date Tony Rivera CNP [address] [place] [address] PCP - Internal Medicine Nurse Practitioner 11/08/21 Tony Rivera CNP [address] [place] [address] PCP - General Nurse Practitioner 12/20/21 Patented Hogshead Assembler Relationship Specialty Start Date End Date Tony Rivera CNP [address] [place] [address] PCP - Internal Medicine Nurse Practitioner 11/08/21 Tony Rivera CNP [address] [place] [address] PCP - General Nurse Practitioner 12/20/21 Patented Hogshead Assembler Relationship Specialty Start Date End Date Tony Rivera CNP [address] [place] [address] PCP - Internal Medicine Nurse Practitioner 11/08/21 Tony Rivera CNP [address] [place] [address] PCP - General Nurse Practitioner 12/20/21 Patented Hogshead Assembler Relationship Specialty Start Date End Date Tony Rivera CNP [facility] [place] [address] PCP - Internal Medicine Nurse Practitioner 11/08/21 Tony Rivera CNP [facility] [place] [address] PCP - General Nurse Practitioner 12/20/21 Patented Hogshead Assembler Relationship Specialty Start Date End Date Tony Rivera CNP [address] [place] [address] PCP - Internal Medicine Nurse Practitioner 11/08/21 Tony Rivera CNP [facility] [place] [address] PCP - General Nurse Practitioner 12/20/21 Patented Hogshead Assembler Relationship Specialty Start Date End Date Tony Rivera CNP [address] [place] [address] PCP - Internal Medicine Nurse Practitioner 11/08/21 Tony Rivera CNP [address] [place] [address] PCP - General Nurse Practitioner 12/20/21 Patented Hogshead Assembler Relationship Specialty Start Date End Date Tony Rivera CNP [address] [place] [address] PCP - Internal Medicine Nurse Practitioner 11/08/21 Tony Rivera CNP [address] [place] [address] PCP - General Nurse Practitioner 12/20/21 Patented Hogshead Assembler Relationship Specialty Start Date End Date Tony Rivera CNP [address] [place] [address] PCP - Internal Medicine Nurse Practitioner 11/08/21 Tony Rivera CNP [address] [place] [address] PCP - General Nurse Practitioner 12/20/21 Patented Hogshead Assembler Relationship Specialty Start Date End Date Tony Rivera CNP [address] [place] [address] PCP - Internal Medicine Nurse Practitioner 11/08/21 Tony Rivera CNP [address] [place] [address] PCP - General Nurse Practitioner 12/20/21 Patented Hogshead Assembler Relationship Specialty Start Date End Date Tony Rivera CNP [address] [place] [address] PCP - Internal Medicine Nurse Practitioner 11/08/21 Tony Rivera CNP [address] [place] [address] PCP - General Nurse Practitioner 12/20/21 Patented Hogshead Assembler Relationship Specialty Start Date End Date Tony Rivera CNP [address] [place] [address] PCP - Internal Medicine Nurse Practitioner 11/08/21 Tony Rivera CNP [address] [place] [address] PCP - General Nurse Practitioner 12/20/21 Patented Hogshead Assembler Relationship Specialty Start Date End Date Tony Rivera CNP [place] [place] [address] PCP - Internal Medicine Nurse Practitioner 11/08/21 Tony Rivera CNP [address] [place] [address] PCP - General Nurse Practitioner 12/20/21 FOR RECORDS PERTAINING TO PATIENTS WHO ARE OR HAVE BEEN ENROLLED IN A CHEMICAL DEPENDENCY/SUBSTANCEABUSE PROGRAM, SOME INFORMATION MAY BE OMITTED. This clinical summary was aggregated from multiple sources. Caution should be exercised in using it in the provision of clinical care. This summary normalizes information from multiple sources, and as a consequence, information in this document may materially change the coding, format and clinical context of patient data. In addition, data may be omitted in some cases. CLINICAL DECISIONS SHOULD BE BASED ON THE PRIMARY CLINICAL RECORDS. [facility]. provides no warranty or guarantee of the accuracy or completeness of information in this document.
[2025-08-15 16:06] LABS: D-Dimer Quantitative (DVT/PE) 1.53 FEU/ug/m (0.27-0.49)
--- NOTE | 2025-08-15 17:25 | CT_ITS ---
PROCEDURE: CTA CHEST W/WO CONTRAST 08/15/2025 REASON FOR EXAM: CHEST PAIN WITH ELEVATED D-DIMER. TECHNIQUE: Procedure Code: [id number] Modality: CT Procedure: CTA CHEST W/WO CONTRAST Multiplanar Sagittal and Coronal images were obtained. 3D post processing was performed CONTRAST: Isovue 370 VOLUME: 70 mL One or more dose reduction techniques were used (e.g., Automated exposure control, adjustment of the mA and/or kV according to patient size, use of iterative reconstruction technique). RADIATION DOSE SUMMARY: CTDlvol: 13.9 mGy DLP: 427 mGycm COMPARISON: Chest radiograph on 08/15/2025 FINDINGS: Lymph nodes: No lymphadenopathy Heart: Normal size. Mild coronary artery calcification. Thoracic Aorta: Unremarkable Pulmonary Vessels: No evidence of acute pulmonary emboli within the limitations of respiratory motion. Lungs and Airways: Respiratory limits evaluation of the lung bases. Postoperative changes in the right lung. Centrilobular emphysema. Ground-glass opacity in the right lower lobe measuring 9 mm (series 2 image 164). Solid nodule in the right upper lobe measuring 3 mm (image 153) Pleura: No effusion or pneumothorax. Upper Abdomen: Cholecystectomy clips. Bones: Degenerative changes of the thoracic spine. CT/CTA Chest W/WO Contrast IMPRESSION: 1. No pulmonary embolism or acute cardiopulmonary abnormality. 2. Ground-glass nodule in the right lower lobe measuring 9 mm, and solid nodul e in the right upper lobe measuring 3 mm. In the setting of prior postoperative changes, recommend close clinical follow-up and repeat imaging within 6 months. Reading Location: [facility]
[2025-08-15 17:35] LABS: Troponin T High Sens 2 HR 111 ng/L (<=14)
--- NOTE | 2025-08-15 18:37 | PCM.HP.STD ---
HPI - General General Date of Admission: 08/15/25 Date of Service: 08/15/25 Chief Complaint: Chest pain and shortness of breath on walking outside [place] HPI Narrative MARCI LEWIS, is a 60 F with history of recent CA/cardiac stent in March 2025 outside in [place], [place] was brought to ED by EMS with chest patient/pressure about 3 to 4 hours ago. Patient said that she was doing climbing walking near [place] outside when she developed chest pain which felt like a pressure or squeezing sensation left-sided with radiation to left arm and interscapular area associated with mild shortness of breath, feeling dizzy lightheaded and diaphoresis. Patient did not pass out. Pain persisted till she came to ED and EMS gave nitro sublingual which relieved the pain. Twelve-lead EKG done in the ER shows NSR at 76 bpm, QTc 459 ms. First troponin normal but second troponin high 111. Patient admitted with diagnosis of non-STEMI started on IV heparin drip with bolus. Patient also felt mild cough, dry in nature, losing voice for last 2 days. Denies fever or chills. Patient denies any history of DVT/PE or thromboembolic disease [facility] Medical History Hyperlipidemia Hypertension Lung cancer Home Medications Medication Instructions Recorded Last Taken Type aspirin 81 mg tablet,delayed 81 mg PO DAILY 08/15/25 Unknown History release atorvastatin 40 mg tablet 40 mg PO DAILY 08/15/25 08/13/25 History buspirone 10 mg tablet 10 mg PO TID 08/15/25 08/14/25 History carvedilol 6.25 mg tablet 6.25 mg PO BID 08/15/25 Unknown History clopidogrel 75 mg tablet 75 mg PO DAILY 08/15/25 Unknown History Allergy/AdvReac Type Severity Reaction Status Date / Time acetaminophen (From Vicodin) Allergy Mild Nausea Verified 08/15/25 14:52 hydrocodone (From Vicodin) Allergy Mild Nausea Verified 08/15/25 14:52 Surgical History Stented coronary artery S/P lobectomy of lung History of appendectomy Social History Smoking Status: Former smoker ROS ROS Narrative Constitutional: Reports fatigue and weakness. No fever. HEENT: Reports systems reviewed and no addt'l complaints, except as documented Respiratory/Chest: History of asthma/COPD lung cancer. Mild wheezing. CVS: As described in HPI Gastrointestinal: Denies coffee ground emesis, hematemesis or vomiting Genitourinary: Denies burning urination or new urinary tract symptoms Musculoskeletal: Denies acute joint pain or limited range of motion. No acute injury Neurologic: Denies seizure-like symptoms. skin: No ulcer. No rash Endocrinology: Reports systems reviewed and no addt'l complaints, except as documented Hematologic/Lymphatic: Reports systems reviewed and no addt'l complaints, except as documented Rest 14 ROS are negative except as mentioned in HPI Vital Signs Vital Signs Vital Signs: 08/15/25 14:51 08/15/25 14:58 08/15/25 14:59 Temperature 98.3 F Temperature Source Oral Pulse Rate 81 79 Respiratory Rate 15 18 Respiratory Effort Normal Non-Labored Blood Pressure 115/71 115/71 Blood Pressure Mean 85 85 Pulse Ox 90 96 Oxygen Delivery Method Room Air Nasal Cannula Oxygen Flow Rate (L/min) 2 08/15/25 15:17 08/15/25 15:51 08/15/25 16:00 Temperature Temperature Source Pulse Rate 74 76 Respiratory Rate 20 H 16 Respiratory Effort Blood Pressure 101/66 113/59 L Blood Pressure Mean 77 77 Pulse Ox 96 100 100 Oxygen Delivery Method Nasal Cannula Nasal Cannula Oxygen Flow Rate (L/min) 2 2 08/15/25 17:07 08/15/25 18:00 Temperature Temperature Source Pulse Rate 78 78 Respiratory Rate 20 H 17 Respiratory Effort Blood Pressure 116/61 117/62 Blood Pressure Mean 79 80 Pulse Ox 100 100 Oxygen Delivery Method Nasal Cannula Nasal Cannula Oxygen Flow Rate (L/min) 2 2 Weight Weight: 173 lb 8.061 oz Body Mass Index (BMI) 35.0 Physical Exam Narrative General: Alert, Oriented x3, Cooperative. BMI 35.0 kg/m². Obesity grade 2 HEENT: Atraumatic, PERRLA, EOMI, Normocephalic. Oral: No Gingival or Mucosal Lesions/ Ulcerations Neck: Supple, No JVD, Negative Carotid Bruits Chest wall/Lungs: Air entry diminished in bilateral lung bases. Mild bilateral wheezing. Cardiovascular: Regular rate and rhythm, Normal S1,S2, No M/G/R Abdomen: Bowel Sounds Present, Soft, Non Tender, Non-Distended : No dysuria. No renal angle tenderness. No suprapubic tenderness. Extremities: No edema, Capillary Refill Less than 3 Seconds Skin: No rashes, No breakdown Musculoskeletal: No Tenderness to Palpation of Joints or Extremities Neurological: Cranial nerves II-XII grossly intact, DTR 2+/4. No acute focal neurological deficit. Psych/Mental Status: Flat affect. Results Lab / Micro Data 08/15/25 15:01 08/15/25 15:01 Labs: Laboratory Results - last 24 hr 08/15/25 15:01: WBC 13.0 H, RBC 4.24, Hgb 12.8, Hct 40.4, MCV 95.3, MCH 30.2, MCHC 31.7 L, RDW Std Deviation 48.1 H, RDW Coeff of Yuliana 13.7, Plt Count 342, MPV 8.5, Immature Gran % (Auto) 0.600, Neut % (Auto) 64.6, Lymph % (Auto) 23.7, Dillon % (Auto) 7.5, Eos % (Auto) 2.9, Baso % (Auto) 0.7, Absolute Neuts (auto) 8.4 H, Absolute Lymphs (auto) 3.07, Nucleated RBC % 0, D-Dimer Quant (PE/DVT) 1.53 H*, Sodium 140, Potassium 4.3, Chloride 100, Carbon Dioxide 29.0, Anion Gap 11, BUN 10, Creatinine 0.84, Estim Creat Clear Calc 66.09, Est GFR (MDRD) Non-Af 80, BUN/Creatinine Ratio 12.3, Glucose 120 H, Calcium 9.7, Troponin T High Sens 10 08/15/25 17:10: Troponin T Hi Sens 2 Hr 111 H* Rhythm Strip Rhythm Strip: Sinus Rhythm Rate: 76 Ectopy: None Imaging Radiology Impression Chest X-Ray 08/15/25 15:20 IMPRESSION: No acute pulmonary process Reading Location: [facility] Chest CTA 08/15/25 17:25 IMPRESSION: 1. No pulmonary embolism or acute cardiopulmonary abnormality. 2. Ground-glass nodule in the right lower lobe measuring 9 mm, and solid nodule in the right upper lobe measuring 3 mm. In the setting of prior postoperative changes, recommend close clinical follow-up and repeat imaging within 6 months. Reading Location: [id number] Assessment & Plan Assessment/Plan (1) NSTEMI, initial episode of care: PLAN: Plan This 64-year-old female admitted with exertional chest pain and shortness of breath on tracking near the water[place] suggestive of non-STEMI 1. Non-STEMI with history of CAD status post cardiac stent in March 2025: Patient is being admitted in PCU. Patient was given aspirin 324 mg and started on IV heparin drip with bolus with consultation of program rep Dr. Middleton. Plan for cardiac catheter tomorrow AM. First troponin normal second 111. Twelve-lead EKG normal. At home, patient already on baby aspirin, Plavix, atorvastatin, carvedilol 6.25 mg twice daily. It seems patient not taking carvedilol as she thinks it is not needed. Chest x-ray and CTA angiogram was done. CTA does not show pulmonary embolism or acute cardiopulmonary abnormality but ground glass nodule in RLL measuring 9 mm solid nodule in the right upper lobe measuring 3 mm. 2. History of COPD/asthma and lung cancer: No documentation available to for meet. Patient states that she is on inhaler at home but it does not show up on her home medications. DuoNeb as needed and Pulmicort scheduled ordered. It seems patient had lobectomy of lung. 3. Hypertension: Patient blood pressure is in normal range. She she was prescribed carvedilol but probably she is not taking it. 4. Dyslipidemia: On atorvastatin 40 mg daily. Fasting profile and TSH tomorrow a.m. 5. Ex-smoker: Patient used to smoke since teenager but quit for 5 years ago. DVT prophylaxis, high risk: Patient on heparin IV for non-STEMI. Living will/advanced directive/end of life care: Patient does not have living will or advanced directive. Her daughter is next of kin after discussion of benefits/risks procedures involved with full code, DNR CC arrest and DNR CC, the patient opted for full code. Patient does want artificial life support including intubation, tube feed, ventilator and/chest compression, central venous catheter, vasopressor and DC shock if needed Total time spent in [id number] encounter in discussion of advanced directive 17 minutes. Laboratory Results 08/15/25 15:01: WBC 13.0 H, RBC 4.24, Hgb 12.8, Hct 40.4, MCV 95.3, MCH 30.2, MCHC 31.7 L, RDW Std Deviation 48.1 H, RDW Coeff of Yuliana 13.7, Plt Count 342, MPV 8.5, Immature Gran % (Auto) 0.600, Neut % (Auto) 64.6, Lymph % (Auto) 23.7, Dillon % (Auto) 7.5, Eos % (Auto) 2.9, Baso % (Auto) 0.7, Absolute Neuts (auto) 8.4 H, Absolute Lymphs (auto) 3.07, Nucleated RBC % 0, PT Pending, INR Pending, APTT Pending, D-Dimer Quant (PE/DVT) 1.53 H*, Sodium 140, Potassium 4.3, Chloride 100, Carbon Dioxide 29.0, Anion Gap 11, BUN 10, Creatinine 0.84, Estim Creat Clear Calc 66.09, Est GFR (MDRD) Non-Af 80, BUN/Creatinine Ratio 12.3, Glucose 120 H, Calcium 9.7, Troponin T High Sens 10 08/15/25 17:10: Troponin T Hi Sens 2 Hr 111 H* Clinical Impression(s) from Imaging Studies Chest X-Ray 08/15/25 15:20 IMPRESSION: No acute pulmonary process Reading Location: [facility] Chest CTA 08/15/25 17:25 IMPRESSION: 1. No pulmonary embolism or acute cardiopulmonary abnormality. 2. Ground-glass nodule in the right lower lobe measuring 9 mm, and solid nodule in the right upper lobe measuring 3 mm. In the setting of prior postoperative changes, recommend close clinical follow-up and repeat imaging within 6 months. Reading Location: [id number] Charges/Coding Visit Charges Inpatient E&M: 75298 Init Hosp L3 Procedures Hospitalists Procedures: 63257 Advncd Care Plan 30 Min
--- OUTSIDE RECORDS SUMMARY | 2025-08-15 18:40 | XMS RPT_ITS | CCD ---
Author Organization [facility] Care Team Providers Care Logistics Team Leader Name Role Phone NO, PHYSICIAN Primary Care Unavailable Tony Rivera CNP Unavailable Serge Tony KRISHNAMURTHY Primary Care Provider Serge BULL BUCKER, Tony Moore Primary Care Provider [phone] Lowe YESSY, Tony Oscar Unavailable Lowe YESSY, Tony Moore Primary Care Provider Lowe YESSY, Tony Oscar Unavailable Lowe BULL BUCKER, Tony Moore Primary Care Provider Lowe BULL BUCKER, Tony Oscar Unavailable [phone] Lowe BULL BUCKER, Tony Moore Primary Care Provider [phone] TONY RIVERA Primary Care Unavailable RIO CAPONE [...] Translations: [HYDROCODONE-ACET AMINOPHEN] Drug Allergy GI Intolerance [facility] Repository Medications Current Medications Medication Drug [...] take 1 puff(s) by inhalation twice daily nlzchouwgn-qwyzitzd-gibmtmrphf (Breztri Aerosphere) 160-9-4.8 mcg/actuation HFAA Indications: COPD, [...] current use of drug therapy; Translations: [Other technician terminal and repeater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] Onset: 06-30-2025 06-30-2025 Episodic Other aftercare (1 source) Other technician terminal and repeater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; Translations: [Other technician terminal and repeater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] Onset: 06-30-2025 Episodic Other [...] size of mediastinal adenopathy. 3. Prior cholecystectomy. [employer] Workstation ID: [id number] Dictated by: NALLELY CURIEL on Sat Aug 07, 2025 7:33:37 PM EST Transcribed by: CYNTHIA FOSTER on Sat Aug 07, 2025 8:27:17 PM EST Finalized by: NALLELY CURIEL on Sat Aug 07, 2025 8:35:22 PM EST Normal [facility] Comment on above: Order Comment: [facility] has implemented the eGFR calculation approach that does not have a coefficient for race that conforms to the NKF-ASN Task Force Recommendations. CBC WITH AUTO DIFFERENTIALon 04-27-2025 AUTO NRBC 0.0 % Normal [facility] Comment on above: Performed By: #### 4 6449 #### [facility] [address] [address] Dacia Villagran M.D. [id number] AUTO NRBC ABS COUNT 0.00 K/mcL Normal 0.00-0.00 [facility] Comment on above: Performed By: #### 4 6449 #### [facility] [address] [address] Dacia Villagran M.D. [id number] BASOPHILS ABSOLUTE COUNT 0.08 K/mcL Normal 0.00-0.30 [facility] Comment on above: Performed By: #### 4 6449 #### [facility] [address] [address] Dacia Villagran M.D. [id number] Basophils/100 WBC (Bld) 0.8 % Normal [facility] Comment on above: Performed By: #### 4 6449 #### [facility] [address] [address] Dacia Villagran M.D. [id number] Eosinophils (Bld) [#/Vol] 0.37 10*3/uL Normal 0.00-0.50 [facility] Comment on above: Performed By: #### 4 6449 #### [facility] [address] [address] Dacia Villagran M.D. [id number] Eosinophils/100 WBC (Bld) 3.6 % Normal [facility] Comment on above: Performed By: #### 4 6449 #### [facility] [address] [address] Dacia Villagran M.D. [id number] Erythrocyte distribution width (RBC) [Ratio] 12.8 % Normal 11.6-14.8 [facility] Comment on above: Performed By: #### 4 6449 #### [facility] [address], [place] [address] Dacia Villagran M.D. [id number] Hematocrit (Bld) [Volume fraction] 35.1 % Low 36.0-46.0 [facility] Comment on above: Performed By: #### 4 6449 #### [facility] [address] [address] Dacia Villagran M.D. [id number] Hemoglobin (Bld) [Mass/Vol] 11.6 g/dL Low 12.0-16.0 [facility] Comment on above: Performed By: #### 4 6449 #### [facility] [address] [address] Dacia Villagran M.D. [id number] IG ABSOLUTE 0.05 K/mcL Normal 0.00-0.30 [facility] Comment on above: Performed By: #### 4 6449 #### [facility] [address] [address] Dacia Villagran M.D. [id number] IG PERCENT 0.50 % Normal [facility] Comment on above: Result Comment: The IG parameter is the percentage of metamyelocytes, myelocytes and promyelocytes. An immature granulocyte count (IG) of 1% or more suggests the possibility of infection, an IG count of 3% is very likely related to an infection. Performed By: #### 4 6449 #### [facility] [address] [address] Dacia Villagran M.D. [id number] Lymphocytes (Bld) [#/Vol] 2.10 10*3/uL Normal 0.90-4.00 [facility] Comment on above: Performed By: #### 4 6449 #### [facility] [address] [address] Dacia Villagran M.D. [id number] Lymphocytes/100 WBC (Bld) 20.3 % Normal [facility] Comment on above: Performed By: #### 4 6449 #### [facility] [address] [address] Dacia Villagran M.D. [id number] MCH (RBC) [Entitic mass] 31.0 pg Normal 26.0-34.0 [facility] Comment on above: Performed By: #### 4 6449 #### [facility] [address] [address] Dacia Villagran M.D. [id number] MCV (RBC) [Entitic vol] 93.9 fL Normal 80.0-100.0 [facility] Comment on above: Performed By: #### 4 6449 #### [facility] [address] [address] Dacia Villagran M.D. [id number] MEAN CORPUSCULAR HEMOGLOBIN CONC 33.0 g/dL Normal 31.0-37.0 [facility] Comment on above: Performed By: #### 4 6449 #### [facility] [address] [address] Dacia Villagran M.D. [id number] Monocytes (Bld) [#/Vol] 0.75 10*3/uL Normal 0.30-0.90 [facility] Comment on above: Performed By: #### 4 6449 #### [facility] [address] [address] Dacia Villagran M.D. [id number] Monocytes/100 WBC (Bld) 7.3 % Normal [facility] Comment on above: Performed By: #### 4 6449 #### [facility] [address] [address] Dacia Villagran M.D. [id number] NEUTROPHILS ABSOLUTE COUNT 6.98 K/mcL Normal 1.70-7.00 [facility] Comment on above: Performed By: #### 4 6449 #### [facility] [address] [address]Keshawn Villagran M.D. [id number] Neutrophils/100 WBC (Bld) 67.5 % Normal [facility] Comment on above: Performed By: #### 4 6449 #### [facility] [address] [address] Dacia Villagran M.D. [id number] Platelet mean volume (Bld) [Entitic vol] 8.6 fL Low 9.4-12.4 [facility] Comment on above: Performed By: #### 4 6449 #### [facility] [address] [address] Dacia Villagran M.D. [id number] Platelets (Bld) [#/Vol] 272 10*3/uL Normal 150-400 [facility] Comment on above: Performed By: #### 4 6449 #### [facility] [address] [address]Keshawn Villagran M.D. [id number] RBC (Bld) [#/Vol] 3.74 10*6/uL Low 4.00-5.20 [facility] Comment on above: Performed By: #### 4 6449 #### [facility] [address], [place] [address] Dacia Villagran M.D. [id number] WBC (Bld) [#/Vol] 10.33 10*3/uL Normal 4.50-11.00 [facility] Comment on above: Performed By: #### 4 6449 #### [facility] [address], [place] [address] Dacia Villagran M.D. [id number] RENAL FUNCTION PANELon 04-27 Albumin [Mass/Vol] 3.8 g/dL Normal 3.2-5.2 [facility] Comment on above: Order Comment: [facility] has implemented the eGFR calculation approach that does not have a coefficient for race that conforms to the NKF-ASN Task Force Recommendations. Performed By: #### 4 6449 #### [facility] [address], [place] [address] Dacia Villagran M.D. [id number] Anion gap [Moles/Vol] 16 mmol/L Normal 10-20 [facility] Comment on above: Order Comment: [facility] has implemented the eGFR calculation approach that does not have a coefficient for race that conforms to the NKF-ASN Task Force Recommendations. Performed By: #### 4 6449 #### [facility] [address], [place] [address] Dacia Villagran M.D. [id number] Calcium [Mass/Vol] 9.0 mg/dL Normal 8.4-10.2 [facility] Comment on above: Order Comment: [facility] has implemented the eGFR calculation approach that does not have a coefficient for race that conforms to the NKF-ASN Task Force Recommendations. Performed By: #### 4 6449 #### [facility] [address], [place] [address] Dacia Villagran M.D. [id number] Chloride [Moles/Vol] 104 mmol/L Normal 98-108 [facility] Comment on above: Order Comment: [facility] has implemented the eGFR calculation approach that does not have a coefficient for race that conforms to the NKF-ASN Task Force Recommendations. Performed By: #### 4 6449 #### [facility] [address], [place] [address] Dacia Villagran M.D. [id number] Creatinine [Mass/Vol] 0.70 mg/dL Normal 0.40-1.10 [facility] Comment on above: Order Comment: [facility] has implemented the eGFR calculation approach that does not have a coefficient for race that conforms to the NKF-ASN Task Force Recommendations. Performed By: #### 4 6449 #### [facility] [address], [place] [address] Dacia Villagran M.D. [id number] EGFR 100 mL/min/1.73 m2 Normal >=60 [facility] Comment on above: Order Comment: [facility] has implemented the eGFR calculation approach that does not have a coefficient for race that conforms to the NKF-ASN Task Force Recommendations. Result Comment: Evelyne mated GFR was calculated using the 2020 CKD-EPI creatinine equation. Performed By: #### 4 6449 #### [facility] [address], [place] [address] Dacia Villagran M.D. [id number] Glucose [Mass/Vol] 108 mg/dL High 65-99 [facility] Comment on above: Order Comment: [facility] has implemented the eGFR calculation approach that does not have a coefficient for race that conforms to the NKF-ASN Task Force Recommendations. Performed By: #### 4 6449 #### [facility] [address], [place] [address] Dacia Villagran M.D. [id number] HCO3 (Bld) [Moles/Vol] 24 mmol/L Normal 21-32 [facility] Comment on above: Order Comment: [facility] has implemented the eGFR calculation approach that does not have a coefficient for race that conforms to the NKF-ASN Task Force Recommendations. Performed By: #### 4 6449 #### [facility] [address], [place] [address] Dacia Villagran M.D. [id number] Phosphate [Mass/Vol] 2.7 mg/dL Normal 2.7-4.5 [facility] Comment on above: Order Comment: [facility] has implemented the eGFR calculation approach that does not have a coefficient for race that conforms to the NKF-ASN Task Force Recommendations. Performed By: #### 4 6449 #### [facility] [address], [place] [address] Dacia Villagran M.D. [id number] Potassium [Moles/Vol] 3.8 mmol/L Normal 3.5-5.1 [facility] Comment on above: Order Comment: [facility] has implemented the eGFR calculation approach that does not have a coefficient for race that conforms to the NKF-ASN Task Force Recommendations. Performed By: #### 4 6449 #### [facility] [address], [place] [address] Dacia Villagran M.D. [id number] Sodium [Moles/Vol] 140 mmol/L Normal 135-145 [facility] Comment on above: Order Comment: [facility] has implemented the eGFR calculation approach that does not have a coefficient for race that conforms to the NKF-ASN Task Force Recommendations. Performed By: #### 4 6449 #### [facility] [address], [place] [address] Dacia Villagran M.D. [id number] Urea nitrogen [Mass/Vol] 15 mg/dL Normal 8-25 [facility] Comment on above: Order Comment: [facility] has implemented the eGFR calculation approach that does not have a coefficient for race that conforms to the NKF-ASN Task Force Recommendations. Performed By: #### 4 6449 #### [facility] [address], [place] [address] Dacia Villagran M.D. [id number] Urea nitrogen/Creatinine [Mass ratio] 21.4 mg/mg High 10.0-20.0 [facility] Comment on above: Order Comment: [facility] has implemented the eGFR calculation approach that does not have a coefficient for race that conforms to the NKF-ASN Task Force Recommendations. Performed By: #### 4 6449 #### [facility] [address] [address] Dacia Villagran M.D. [id number] CBC WITH AUTO DIFFERENTIALon 04-26-2025 AUTO NRBC 0.0 % Normal [facility] Comment on above: Performed By: #### 4 6124 #### [facility] [address] [address] Dacia Villagran M.D. [id number] AUTO NRBC ABS COUNT 0.00 K/mcL Normal 0.00-0.00 [facility] Comment on above: Performed By: #### 4 6124 #### [facility] [address] [address] Dacia Villagran M.D. [id number] BASOPHILS ABSOLUTE COUNT 0.06 K/mcL Normal 0.00-0.30 [facility] Comment on above: Performed By: #### 4 6124 #### [facility] [address] [address] Dacia Villagran M.D. [id number] Basophils/100 WBC (Bld) 0.7 % Normal [facility] Comment on above: Performed By: #### 4 6124 #### [facility] [address] [address] Dacia Villagran M.D. [id number] Eosinophils (Bld) [#/Vol] 0.35 10*3/uL Normal 0.00-0.50 [facility] Comment on above: Performed By: #### 4 6124 #### [facility] [address] [address] Dacia Villagran M.D. [id number] Eosinophils/100 WBC (Bld) 4.1 % Normal [facility] Comment on above: Performed By: #### 4 6124 #### [facility] [address] [address] Dacia Villagran M.D. [id number] Erythrocyte distribution width (RBC) [Ratio] 12.8 % Normal 11.6-14.8 [facility] Comment on above: Performed By: #### 4 6124 #### [facility] [address] [address] Dacia Villagran M.D. [id number] Hematocrit (Bld) [Volume fraction] 36.4 % Normal 36.0-46.0 [facility] Comment on above: Performed By: #### 4 6124 #### [facility] [address] [address] Dacia Villagran M.D. [id number] Hemoglobin (Bld) [Mass/Vol] 11.6 g/dL Low 12.0-16.0 [facility] Comment on above: Performed By: #### 4 6124 #### [facility] [address] [address] Dacia Villagran M.D. [id number] IG ABSOLUTE 0.03 K/mcL Normal 0.00-0.30 [facility] Comment on above: Performed By: #### 4 6124 #### [facility] [address] [address] Dacia Villagran M.D. [id number] IG PERCENT 0.40 % [facility] Comment on above: Result Comment: The IG parameter is the percentage of metamyelocytes, myelocytes and promyelocytes. An immature granulocyte count (IG) of 1% or more suggests the possibility of infection, an IG count of 3% is very likely related to an infection. Performed By: #### 4 6124 #### [facility] [address] [address] Dacia Villagran M.D. [id number] Lymphocytes (Bld) [#/Vol] 1.90 10*3/uL Normal 0.90-4.00 [facility] Comment on above: Performed By: #### 4 6124 #### [facility] [address] [address] Dacia Villagran M.D. [id number] Lymphocytes/100 WBC (Bld) 22.2 % Normal [facility] Comment on above: Performed By: #### 4 6124 #### [facility] [address] [id number] Dacia Villagran M.D. [id number] MCH (RBC) [Entitic mass] 30.5 pg Normal 26.0-34.0 [facility] Comment on above: Performed By: #### 4 6124 #### [facility] [address], [place] [address] Dacia Villagran M.D. [id number] MCV (RBC) [Entitic vol] 95.8 fL Normal 80.0-100.0 [facility] Comment on above: Performed By: #### 4 6124 #### [facility] [address] [address] Dacia Villagran M.D. [id number] MEAN CORPUSCULAR HEMOGLOBIN CONC 31.9 g/dL Normal 31.0-37.0 [facility] Comment on above: Performed By: #### 4 6124 #### [facility] [address] [address] Dacia Villagran M.D. [id number] Monocytes (Bld) [#/Vol] 0.62 10*3/uL Normal 0.30-0.90 [facility] Comment on above: Performed By: #### 4 6124 #### [facility] [address] [address]Keshawn Villagran M.D. [id number] Monocytes/100 WBC (Bld) 7.3 % Normal [facility] Comment on above: Performed By: #### 4 6124 #### [facility] [address] [address] Dacia Villagran M.D. [id number] NEUTROPHILS ABSOLUTE COUNT 5.59 K/mcL Normal 1.70-7.00 [facility] Comment on above: Performed By: #### 4 6124 #### [facility] [address] [address] Dacia Villagran M.D. [id number] Neutrophils/100 WBC (Bld) 65.3 % Normal [facility] Comment on above: Performed By: #### 4 6190 #### [facility] [address] [address] Dacia Villagran M.D. [id number] Platelet mean volume (Bld) [Entitic vol] 8.8 fL Low 9.4-12.4 [facility] Comment on above: Performed By: #### 4 6124 #### [facility] [address], [place] [address] Dacia Villagran M.D. [id number] Platelets (Bld) [#/Vol] 261 10*3/uL Normal 150-400 [facility] Comment on above: Performed By: #### 4 6124 #### [facility] [address], [place] [address] Dacia Villagran M.D. [id number] RBC (Bld) [#/Vol] 3.80 10*6/uL Low 4.00-5.20 [facility] Comment on above: Performed By: #### 4 6124 #### [facility] [address], [place] [address] Dacia Villagran M.D. [id number] WBC (Bld) [#/Vol] 8.55 10*3/uL Normal 4.50-11.00 [facility] Comment on above: Performed By: #### 4 6124 #### [facility] [address], [place] [address] Dacia Villagran M.D. [id number] CONSULTon 04-26-2025 CONSULT -- Attestation signed by Srinath Mccann MD at 04/26/2025 9:44 AM Attending Addendum I have seen and independently examined the patient with physician research laboratory manager/nurse practitioner. I agree with the documented history, [...] Gail Lewis Admit Date: [id number] MR #: [id number] : 1965 Physicians: Tony Rivera, YESSY (Family); No ref. provider found (Referring) Reason for Consult: Stable angina Assessment and Plan: 1. Angina, troponin negative x 2, EKG NSR without ischemic changes noted 2. Hypertension, current BP 98/61 - On Coreg outpatient 3. HLD, on statin 4. Asthma 5. History of lung cancer Plan: -Echo pending - Plan for [facility], further recommendations pending results -Discussed [...] for medical/surgical management. Case reviewed with rounding computer operations analyst and discussed medication changes/plan of care/decision making [...] (172 l (more content not included)... Normal [facility] CT CHEST WITHOUT CONTRASTon 04-26-2025 CT CHEST [...] SatApr 26, 2025 10:15:53 AM EDT Normal [facility] Comment on above: Order Comment: [facility] has implemented the eGFR [...] Date: 04/26/2025 8:29 AM Patient Status: Inpatient Spa Coordinator: Adam Enciso RDCS, [place] Exam Type: ECHOCARDIOGRAM COMPLETE Study Info Indications - Chest pain Attending Physician: [facility] [place] [facility] Referring Physician: TREVON Rogers; [id number] BMI: 34.74 kg/m2 Summary 1. Normal cardiac [...] Normal ---- MV Doppler ---- MV Decel [place] 431 cm/s2 MV PHT 53 ms MV Area (PHT) 4.1 cm2 4.0-5.0 MV Regurgitation Doppler ---- MR Peak Velocity 5 m/s MR Peak Gradient 92 mmHg MV Diastolic Function ---- MV E Peak Velocity 0.79 m/s MV A Peak Velocity 0.76 m/s MV E/A 1.0 MV D (more content not included)... Normal [facility] LEFT HEART CATHon 04-26-2025 LEFT HEART CATH [...] of this procedure Kurt Jarrell IV, MD, [facility] Interventional Cardiology [facility] [address] [place], [place] [id number] Office: Coronary Findings Diagnostic Dominance: Left Left [...] stable angina. Syntax score is low. Normal [facility] POC ACTIVATED CLOTTING TIME - Kip 04-26-2025 POC ACT CELITE [address] [facility] Comment on above: Performed By: #### 4 [id number] #### [facility] [address], [place] [address] Dacia Villagran M.D. [id number] RENAL FUNCTION PANEL 04-26 Albumin [Mass/Vol] 3.8 g/dL Normal 3.2-5.2 [facility] Comment on above: Order Comment: [facility] has implemented the eGFR calculation approach that does not have a coefficient for race that conforms to the NKF-ASN Task Force Recommendations. Performed By: #### 4 6449 #### LAB [address], [place] [address] Dacia Villagran M.D. [id number] Anion gap [Moles/Vol] 16 mmol/L Normal 10-20 [facility] Comment on above: Order Comment: [facility] has implemented the eGFR calculation approach that does not have a coefficient for race that conforms to the NKF-ASN Task Force Recommendations. Performed By: #### 4 6449 #### [facility] [address], [place] [address] Dacia Villagran M.D. [id number] Calcium [Mass/Vol] 9.0 mg/dL Normal 8.4-10.2 [facility] Comment on above: Order Comment: [facility] has implemented the eGFR calculation approach that does not have a coefficient for race that conforms to the NKF-ASN Task Force Recommendations. Performed By: #### 4 6449 #### [facility] [address], [place] [address] Dacia Villagran M.D. [id number] Chloride [Moles/Vol] 104 mmol/L Normal 98-108 [facility] Comment on above: Order Comment: [facility] has implemented the eGFR calculation approach that does not have a coefficient for race that conforms to the NKF-ASN Task Force Recommendations. Performed By: #### 4 6449 #### [facility] [address], [place] [address] Dacia Villagran M.D. [id number] Creatinine [Mass/Vol] 0.66 mg/dL Normal 0.40-1.10 [facility] Comment on above: Order Comment: [facility] has implemented the eGFR calculation approach that does not have a coefficient for race that conforms to the NKF-ASN Task Force Recommendations. Performed By: #### 4 6449 #### [facility] [address] [address] Dacia Villagran M.D. [id number] EGFR 101 mL/min/1.73 m2 Normal >=60 [facility] Comment on above: Order Comment: [facility] has implemented the eGFR calculation approach that does not have a coefficient for race that conforms to the NKF-ASN Task Force Recommendations. Result Comment: Evelyne mated GFR was calculated using the 2020 CKD-EPI creatinine equation. Performed By: #### 4 [id number] #### [facility] [address] [address] Dacia Villagran M.D. [id number] Glucose [Mass/Vol] 101 mg/dL High 65-99 [facility] Comment on above: Order Comment: [facility] has implemented the eGFR calculation approach that does not have a coefficient for race that conforms to the NKF-ASN Task Force Recommendations. Performed By: #### 4 [id number] #### [facility] [address], [place] [address] Dacia Villagran M.D. [id number] HCO3 (Bld) [Moles/Vol] 24 mmol/L Normal 21-32 [facility] Comment on above: Order Comment: [facility] has implemented the eGFR calculation approach that does not have a coefficient for race that conforms to the NKF-ASN Task Force Recommendations. Performed By: #### 4 6449 #### [facility] [address], [place] [address] Dacia Villagran M.D. [id number] Phosphate [Mass/Vol] 3.4 mg/dL Normal 2.7-4.5 [facility] Comment on above: Order Comment: [facility] has implemented the eGFR calculation approach that does not have a coefficient for race that conforms to the NKF-ASN Task Force Recommendations. Performed By: #### 4 [id number] #### [facility] [address], [place] [address] Dacia Villagran M.D. [id number] Potassium [Moles/Vol] 3.8 mmol/L Normal 3.5-5.1 [facility] Comment on above: Order Comment: [facility] has implemented the eGFR calculation approach that does not have a coefficient for race that conforms to the NKF-ASN Task Force Recommendations. Performed By: #### 4 [id number] #### [facility] [address], [place] [address] Dacia Villagran M.D. [id number] Sodium [Moles/Vol] 140 mmol/L Normal 135-145 [facility] Comment on above: Order Comment: [facility] has implemented the eGFR calculation approach that does not have a coefficient for race that conforms to the NKF-ASN Task Force Recommendations. Performed By: #### 4 [id number] #### [facility] [address], [place] [address] Dacia Villagran M.D. [id number] Urea nitrogen [Mass/Vol] 12 mg/dL Normal 8-25 [facility] Comment on above: Order Comment: [facility] has implemented the eGFR calculation approach that does not have a coefficient for race that conforms to the NKF-ASN Task Force Recommendations. Performed By: #### 4 [id number] #### [facility] [address], [place] [address] Dacia Villagran M.D. [id number] Urea nitrogen/Creatinine [Mass ratio] 18.2 mg/mg Normal 10.0-20.0 [facility] Comment on above: Order Comment: [facility] has implemented the eGFR calculation approach that does not have a coefficient for race that conforms to the NKF-ASN Task Force Recommendations. Performed By: #### 4 [id number] #### [facility] [address], [place] [address] Dacia Villagran M.D. [id number] BASIC METABOLIC PANEL 03-31 Anion gap [Moles/Vol] 19 mmol/L Normal 10-20 [facility] Comment on above: Order Comment: [facility] has implemented the eGFR calculation approach that does not have a coefficient for race that conforms to the NKF-ASN Task Force Recommendations. Performed By: #### 4 [id number] #### [facility] [address], [place] [address] Dacia Villagran M.D. [id number] Calcium [Mass/Vol] 9.4 mg/dL Normal 8.4-10.2 [facility] Comment on above: Order Comment: [facility] has implemented the eGFR calculation approach that does not have a coefficient for race that conforms to the NKF-ASN Task Force Recommendations. Performed By: #### 4 [id number] #### [facility] [address], [place] [address] Dacia Villagran M.D. [id number] Chloride [Moles/Vol] 104 mmol/L Normal 98-108 [facility] Comment on above: Order Comment: [facility] has implemented the eGFR calculation approach that does not have a coefficient for race that conforms to the NKF-ASN Task Force Recommendations. Performed By: #### 4 [id number] #### [facility] [address], [place] [address] Dacia Villagran M.D. [id number] Creatinine [Mass/Vol] 0.68 mg/dL Normal 0.40-1.10 [facility] Comment on above: Order Comment: [facility] has implemented the eGFR calculation approach that does not have a coefficient for race that conforms to the NKF-ASN Task Force Recommendations. Performed By: #### 4 [id number] #### [facility] [address], [place] [address] Dacia Villagran M.D. [id number] EGFR 100 mL/min/1.73 m2 Normal >=60 [facility] Comment on above: Order Comment: [facility] has implemented the eGFR calculation approach that does not have a coefficient for race that conforms to the NKF-ASN Task Force Recommendations. Result Comment: Evelyne mated GFR was calculated using the 2020 CKD-EPI creatinine equation. Performed By: #### 4 [id number] #### [facility] [address], [place] [address] Dacia Villagran M.D. [id number] Glucose [Mass/Vol] 106 mg/dL High 65-99 [facility] Comment on above: Order Comment: [facility] has implemented the eGFR calculation approach that does not have a coefficient for race that conforms to the NKF-ASN Task Force Recommendations. Performed By: #### 4 [id number] #### [facility] [address], [place] [address] Dacia Villagran M.D. [id number] HCO3 (Bld) [Moles/Vol] 23 mmol/L Normal 21-32 [facility] Comment on above: Order Comment: [facility] has implemented the eGFR calculation approach that does not have a coefficient for race that conforms to the NKF-ASN Task Force Recommendations. Performed By: #### 4 [id number] #### [facility] [address] [place] [address] Dacia Villagran M.D. [id number] Potassium [Moles/Vol] 3.6 mmol/L Normal 3.5-5.1 [facility] Comment on above: Order Comment: [facility] has implemented the eGFR calculation approach that does not have a coefficient for race that conforms to the NKF-ASN Task Force Recommendations. Performed By: #### 4 [id number] #### [facility] [address], [place] [address] Dacia Villagran M.D. [id number] Sodium [Moles/Vol] 142 mmol/L Normal 135-145 [facility] Comment on above: Order Comment: [facility] has implemented the eGFR calculation approach that does not have a coefficient for race that conforms to the NKF-ASN Task Force Recommendations. Performed By: #### 4 [id number] #### [facility] [address], [place] [address] Dacia Villagran M.D. [id number] Urea nitrogen [Mass/Vol] 13 mg/dL Normal 8-25 [facility] Comment on above: Order Comment: [facility] has implemented the eGFR calculation approach that does not have a coefficient for race that conforms to the NKF-ASN Task Force Recommendations. Performed By: #### 4 [id number] #### [facility] [address], [place] [address] Dacia Villagran M.D. [id number] Urea nitrogen/Creatinine [Mass ratio] 19.1 mg/mg Normal 10.0-20.0 [facility] Comment on above: Order Comment: [facility] has implemented the eGFR calculation approach that does not have a coefficient for race that conforms to the NKF-ASN Task Force Recommendations. Performed By: #### 4 [id number] #### [facility] [address] [address] Dacia Villagran M.D. [id number] BLOOD GAS, VENOUSon 04-25-20 25 BASE EXCESS, VENOUS 0.8 Normal -2.0-2.0 [facility] Comment on above: Performed By: #### 4 [id number] #### [facility] [address] [address] Dacia Villagran M.D. [id number] HCO3 (Bld) [Moles/Vol] 25.3 mmol/L Normal 24.0-28.0 [facility] Comment on above: Performed By: #### 4 [id number] #### [facility] [address], [place] [address] Dacia Villagran M.D. [id number] Hematocrit (Bld) [Volume fraction] 34.3 % Low 36.0-46.0 [facility] Comment on above: Performed By: #### 4 [id number] #### [facility] [address], [place] [address] Dacia Villagran M.D. [id number] Hemoglobin (Bld) [Mass/Vol] 11.1 g/dL Low 12.0-16.0 [facility] Comment on above: Performed By: #### 4 [id number] #### [facility] [address], [place] [address] Dacia Villagran M.D. [id number] Oxygen saturation in Blood 97.2 % High 40.0-70.0 [facility] Comment on above: Performed By: #### 4 [id number] #### [facility] [address] [address] Dacia Villagran M.D. [id number] PCO2 VENOUS 42.3 mm Hg Normal 41.0-51.0 [facility] Comment on above: Performed By: #### 4 [id number] #### [facility] [address] [address] Dacia Villagran M.D. [id number] PH VENOUS 7.39 Normal 7.32-7.42 [facility] Comment on above: Performed By: #### 4 [id number] #### [facility] [address] [address] Dacia Villagran M.D. [id number] PO2 VENOUS 87 mm Hg High 25-40 [facility] Comment on above: Performed By: #### 4 [id number] #### [facility] [address] [address] Dacia Villagran M.D. [id number] CBC WITH AUTO DIFFERENTIALon 04-25-2025 AUTO NRBC 0.0 % [facility] Comment on above: Performed By: #### 4 [id number] #### [facility] [address] [address] Dacia Villagran M.D. [id number] AUTO NRBC ABS COUNT 0.00 K/mcL Normal 0.00-0.00 [facility] Comment on above: Performed By: #### 4 [id number] #### [facility] [address] [address] Dacia Villagran M.D. [id number] BASOPHILS ABSOLUTE COUNT 0.06 K/mcL Normal 0.00-0.30 [facility] Comment on above: Performed By: #### 4 [id number] #### [facility] [address] [address] Dacia Villagran M.D. [id number] Basophils/100 WBC (Bld) 0.5 % [facility] Comment on above: Performed By: #### 4 [id number] #### [facility] [address] [address] Dacia Villagran M.D. [id number] Eosinophils (Bld) [#/Vol] 0.44 10*3/uL Normal 0.00-0.50 [facility] Comment on above: Performed By: #### 4 [id number] #### [facility] [address] [address] Dacia Villagran M.D. [id number] Eosinophils/100 WBC (Bld) 3.9 % Normal [facility] Comment on above: Performed By: #### 4 6449 #### [facility] [address] [address] Dacia Villagran M.D. [id number] Erythrocyte distribution width (RBC) [Ratio] 12.9 % Normal 11.6-14.8 [facility] Comment on above: Performed By: #### 4 [id number] #### [facility] [address] [address] Dacia Villagran M.D. [id number] Hematocrit (Bld) [Volume fraction] 36.1 % Normal 36.0-46.0 [facility] Comment on above: Performed By: #### 4 [id number] #### [facility] [address] [address] Dacia Villagran M.D. [id number] Hemoglobin (Bld) [Mass/Vol] 12.0 g/dL Normal 12.0-16.0 [facility] Comment on above: Performed By: #### 4 [id number] #### [facility] [address] [address] Dacia Villagran M.D. [id number] IG ABSOLUTE 0.11 K/mcL Normal 0.00-0.30 [facility] Comment on above: Performed By: #### 4 6449 #### [facility] [address] [address] Dacia Villagran M.D. [id number] IG PERCENT 1.00 % Normal [facility] Comment on above: Result Comment: The IG parameter is the percentage of metamyelocytes, myelocytes and promyelocytes. An immature granulocyte count (IG) of 1% or more suggests the possibility of infection, an IG count of 3% is very likely related to an infection. Performed By: #### 4 [id number] #### [facility] [address] [address] Dacia Villagran M.D. [id number] Lymphocytes (Bld) [#/Vol] 2.20 10*3/uL Normal 0.90-4.00 [facility] Comment on above: Performed By: #### 4 [id number] #### [facility] [address] [address] Dacia Villagran M.D. [id number] Lymphocytes/100 WBC (Bld) 19.5 % Normal [facility] Comment on above: Performed By: #### 4 6449 #### [facility] [address] [address] Dacia Villagran M.D. [id number] MCH (RBC) [Entitic mass] 31.0 pg Normal 26.0-34.0 [facility] Comment on above: Performed By: #### 4 6449 #### [facility] [address] [address] Dacia Villagran M.D. [id number] MCV (RBC) [Entitic vol] 93.3 fL Normal 80.0-100.0 [facility] Comment on above: Performed By: #### 4 6449 #### [facility] [address] [address] Dacia Villagran M.D. [id number] MEAN CORPUSCULAR HEMOGLOBIN CONC 33.2 g/dL Normal 31.0-37.0 [facility] Comment on above: Performed By: #### 4 6449 #### [facility] [address] [address] Dacia Villagran M.D. [id number] Monocytes (Bld) [#/Vol] 0.82 10*3/uL Normal 0.30-0.90 [facility] Comment on above: Performed By: #### 4 6449 #### [facility] [address] [address] Dacia Villagran M.D. [id number] Monocytes/100 WBC (Bld) 7.3 % Normal [facility] Comment on above: Performed By: #### 4 6449 #### [facility] [address], [place] [address] Dacia Villagran M.D. [id number] NEUTROPHILS ABSOLUTE COUNT 7.63 K/mcL High 1.70-7.00 [facility] Comment on above: Performed By: #### 4 6449 #### [facility] [address], [place] [address] Dacia Villagran M.D. [id number] Neutrophils/100 WBC (Bld) 67.8 % Normal [facility] Comment on above: Performed By: #### 4 6449 #### [facility] [address], [place] [address] Dacia Villagran M.D. [id number] Platelet mean volume (Bld) [Entitic vol] 8.8 fL Low 9.4-12.4 [facility] Comment on above: Performed By: #### 4 6449 #### [facility] [address] [address] Dacia Villagran M.D. [id number] Platelets (Bld) [#/Vol] 272 10*3/uL Normal 150-400 [facility] Comment on above: Performed By: #### 4 6449 #### [facility] [address], [place] [address] Dacia Villagran M.D. [id number] RBC (Bld) [#/Vol] 3.87 10*6/uL Low 4.00-5.20 [facility] Comment on above: Performed By: #### 4 6449 #### [facility] [address] [address] Dacia Villagran M.D. [id number] WBC (Bld) [#/Vol] 11.26 10*3/uL High 4.50-11.00 [facility] Comment on above: Performed By: #### 4 6449 #### [facility] [address], [place] [address] Dacia Villagran M.D. [id number] COVID-19/INFLUENZA A,B MOLEC ULARon 04-25-2025 SARS-CoV-2 (COVID-19) Ab IA Ql SARS-COV-2 (BELEN) Not Detected INFLUENZA A (BELEN) Not Detected INFLUENZA B (BELEN) Not Detected Normal Not Detected [facility] Comment on above: Performed By: #### 4 6449 #### [facility] [address], [place] [address] Dacia Villagran M.D. [id number] D-DIMER, QUANTITATIVEon 03-31 D-DIMER QUANTITATIVE 0.33 mcg/mL FEU Normal 0.27-0.49 [facility] Comment on above: Order Comment: A D-d [...] alone. Performed By: #### 4 5434 #### [facility] [address], [place] [address] Dacia Villagran M.D. [id number] ED Prov Noteon 04-25-2025 ED Prov Note [facility] ED Physician Note: NAME: Gail Lewis 59 y.o. CSN: [id number] PCP: Tony Rivera CNP ED Course / [...] admitting hospitalist, who accepted admission on the [facility] service. Clinical Impression: 1. Chest pain, moderate [...] 2 (two) (more content not included)... Normal [facility] HEMOGLOBIN A1Con 04-25-2025 Glucose [Mass/Vol] 123 mg/dL High 74-114 [facility] Comment on above: Performed By: #### 8 6759 #### [facility] [address] [address] Dacia Villagran M.D. [id number] HbA1c (Bld) [Mass fraction] 5.9 % High 4.2-5.6 [facility] Comment on above: Performed By: #### 4 5163 #### [facility] [address], [place] [address] Dacia Villagran M.D. [id number] LIPID PANELon 04-25-2025 Cholesterol [Mass/Vol] 209 mg/dL High 100-199 [facility] Comment on above: Result Comment: [facility] Cholesterol Education Program Guidelines: Cholesterol Desirable: <200 mg/dL Borderline High: 200-239 mg/dL High: greater than or equal to 240 mg/dL Performed By: #### 4 6124 #### [facility] [address], [place] [address] Dacia Villagran M.D. [id number] Cholesterol in HDL [Mass/Vol] 47 mg/dL Normal 40-59 [facility] Comment on above: Result Comment: [facility] Cholesterol Education Program Guidelines: HDL Cholesterol Low: <40 mg/dL Near Optimal: 40-59 mg/dL High: greater than or equal to 60 mg/dL Performed By: #### 4 6124 #### [facility] [address], [place] [address] Dacia Villagran M.D. [id number] Cholesterol.total/C holesterol in HDL [Mass ratio] 4.4 {ratio} Normal [facility] Comment on above: Result Comment: [facility] Cholesterol/HDL Ratio: Average risk: 4.4 1/2 average risk: 3.3 2 x average risk: 7.1 Performed By: #### 4 6124 #### [facility] [address], [place] [address] Dacia Villagran M.D. [id number] LDL CHOLESTEROL CALCULATED 138 mg/dL High 10-130 [facility] Comment on above: Result Comment: [facility] Cholesterol Education Program Guidelines: LDL Cholesterol Optimal: <100 mg/dL Near Optimal/above Optimal: 100-129 mg/dL Borderline High: 130-159 mg/dL High: 160-189 mg/dL Very High: greater than or equal to 190 mg/dL Performed By: #### 4 6124 #### [facility] [address], [place] [address] Dacia Villagran M.D. [id number] NON HDL CHOL 162 mg/dL Normal [facility] Comment on above: Result Comment: [facility] Cholesterol Education Program Guidelines: NON HDL Cholesterol Desirable: <130 mg/dL Borderline High: 130-159 mg/dL High: 160-189 mg/dL Very High: > or = 190 mg/dL Performed By: #### 4 6124 #### [facility] [address], [place] [address] Dacia Villagran M.D. [id number] Triglyceride [Mass/Vol] 121 mg/dL Normal 30-150 [facility] Comment on above: Result Comment: [facility] Cholesterol Education Program Guidelines: Triglyceride Normal: <150 mg/dL Borderline High: 150-199 mg/dL High: 200-499 mg/dL Very High: greater than or equal to 500 mg/dL Performed By: #### 4 6124 #### [facility] [address], [place] [address] Dacia Villagran M.D. [id number] NT PRO BNPon 04-25-2025 Natriuretic peptide B (Bld) [Mass/Vol] 127 pg/mL Normal 0-300 [facility] Comment on above: Order Comment: [employer] Study Cut-offs Rule In: < /= 50 Years >450 pg/mL 51 Years - 75 Years >900 pg/mL 76 Years - 99 Years >1800 pg/mL Rule Out: All patients <300 pg/mL Performed By: #### 4 7395 #### [facility] [address], [place] [address] Dacia Villagran M.D. [id number] TROPONIN X 2 (NOW AND REPEAT IN 2 HOURS)on 04-25-2025 TROPONIN T DELTA CHANGE INTERPRETATION No biomarker evidence of cardiac injury. Normal [facility] Comment on above: Performed By: #### 4 6608 #### [facility] [address], [place] [address] Dacia Villagran M.D. [id number] TROPONIN T NG/L < Normal <=14 [facility] Comment on above: Performed By: #### 4 6608 #### [facility] [address], [place] [address] Dacia Villagran M.D. [id number] BASELINE TROPONIN T NG/L < Normal <=14 [facility] Comment on above: Performed By: #### 4 6608 #### [facility] [address], [place] [address] Dacia Villagran M.D. [id number] TROPONIN T INTERPRETATION Normal Normal [facility] Comment on above: Performed By: #### 4 6608 #### [facility] [address], [place] [address] Dacia Villagran M.D. [id number] TSH WITH REFLEX FREE T4on TSH Qn 2.81 m[IU]/L Normal 0.27-4.20 [facility] Comment on above: Performed By: #### 4 6612 #### [facility] [address], [place] [address] Dacia Villagran M.D. [id number] XR CHEST PA/APon 04-25-2025 XR CHEST PA/AP [...] ID: [id number] Dictated by: SORIN WEBB on [place] Apr 25, 2025 4:48:50 PM EDT Transcribed by: SORIN WEBB on SatApr 25, 2025 4:48:50 PM EDT Finalized by: SORIN WEBB on SatApr 25, 2025 4:48:50 PM EDT Normal [facility] Comment on above: Order Comment: [facility] has implemented the eGFR calculation approach that does not have a coefficient for race that conforms to the NKF-ASN Task Force Recommendations. BASIC METABOLIC PANELon Anion gap [Moles/Vol] 16 mmol/L Normal 10-20 [facility] Comment on above: Order Comment: [facility] has implemented the eGFR calculation approach that does not have a coefficient for race that conforms to the NKF-ASN Task Force Recommendations. Performed By: #### 4 6124 #### [facility] [address], [place] [address] Dacia Villagran M.D. [id number] Calcium [Mass/Vol] 9.5 mg/dL Normal 8.4-10.2 [facility] Comment on above: Order Comment: [facility] has implemented the eGFR calculation approach that does not have a coefficient for race that conforms to the NKF-ASN Task Force Recommendations. Performed By: #### 4 6124 #### [facility] [address], [place] [address] Dacia Villagran M.D. [id number] Chloride [Moles/Vol] 100 mmol/L Normal 98-108 [facility] Comment on above: Order Comment: [facility] has implemented the eGFR calculation approach that does not have a coefficient for race that conforms to the NKF-ASN Task Force Recommendations. Performed By: #### 4 6124 #### [facility] [address], [place] [address] Dacia Villagran M.D. [id number] Creatinine [Mass/Vol] 0.79 mg/dL Normal 0.40-1.10 [facility] Comment on above: Order Comment: [facility] has implemented the eGFR calculation approach that does not have a coefficient for race that conforms to the NKF-ASN Task Force Recommendations. Performed By: #### 4 [id number] #### [facility] [address], [place] [address] Dacia Villagran M.D. [id number] EGFR 86 mL/min/1.73 m2 Normal >=60 [facility] Comment on above: Order Comment: [facility] has implemented the eGFR calculation approach that does not have a coefficient for race that conforms to the NKF-ASN Task Force Recommendations. Result Comment: Evelyne mated GFR was calculated using the 2020 CKD-EPI creatinine equation. Performed By: #### [id number] #### [facility] [address], [place] [address] Dacia Villagran M.D. [id number] Glucose [Mass/Vol] 116 mg/dL High 65-99 [facility] Comment on above: Order Comment: [facility] has implemented the eGFR calculation approach that does not have a coefficient for race that conforms to the NKF-ASN Task Force Recommendations. Performed By: #### [id number] #### [facility] [address], [place] [address] Dacia Villagran M.D. [id number] HCO3 (Bld) [Moles/Vol] 25 mmol/L Normal 21-32 [facility] Comment on above: Order Comment: [facility] has implemented the eGFR calculation approach that does not have a coefficient for race that conforms to the NKF-ASN Task Force Recommendations. Performed By: #### [id number] #### [facility] [address] [place] [address] Dacia Villagran M.D. [id number] Potassium [Moles/Vol] 4.4 mmol/L Normal 3.5-5.1 [facility] Comment on above: Order Comment: [facility] has implemented the eGFR calculation approach that does not have a coefficient for race that conforms to the NKF-ASN Task Force Recommendations. Result Comment: Slig htly Hemolyzed Performed By: #### [id number] #### [facility] [address], [place] [address] Dacia Villagran M.D. [id number] Sodium [Moles/Vol] 137 mmol/L Normal 135-145 [facility] Comment on above: Order Comment: [facility] has implemented the eGFR calculation approach that does not have a coefficient for race that conforms to the NKF-ASN Task Force Recommendations. Performed By: #### [id number] #### [facility] [address], [place] [address] Dacia Villagran M.D. [id number] Urea nitrogen [Mass/Vol] 11 mg/dL Normal 8-25 [facility] Comment on above: Order Comment: [facility] has implemented the eGFR calculation approach that does not have a coefficient for race that conforms to the NKF-ASN Task Force Recommendations. Performed By: #### [id number] #### [facility] [address], [place] [address] Dacia Villagran M.D. [id number] Urea nitrogen/Creatinine [Mass ratio] 13.9 mg/mg Normal 10.0-20.0 [facility] Comment on above: Order Comment: [facility] has implemented the eGFR calculation approach that does not have a coefficient for race that conforms to the NKF-ASN Task Force Recommendations. Performed By: #### [id number] #### [facility] [address], [place] [address] D[address]ag[address] M.D. [id number] CT MAXILLOFACIAL WITH CONTRA STon 03-31-2025 CT MAXILLOFACIAL WITH CONTRAST EXAMINATION: CT MAXILLOFACIAL WITH CONTRAST HISTORY: Severe tooth pain, fever, poor dentition MAP PUL OFFICE POLICIES/DAAN SIGNED 12/20/2021 Injury/Trauma or Illness?:Illness/Other How long [...] SatApr 01, 2025 12:33:05 AM EDT Normal [facility] Comment on above: Order Comment: [facility] has implemented the eGFR calculation approach that does not have a coefficient for race that conforms to the NKF-ASN Task Force Recommendations. ED Prov Noteon 03-31-2025 ED Prov Note EMERGENCY MEDICINE PROVIDER NOTE [facility] EMERGENCY DEPARTMENT Name: Gail Lewis Encounter Date: [...] All other components within normal limits Narrative: [facility] has implemented the eGFR calculation [...] JOSE L (more content not included)... Normal [facility] COVID-19/INFLUENZA A,B MOLEC ULARon 08-14-2024 SARS-CoV-2 (COVID-19) Ab IA Ql SARS-COV-2 (BELEN) Not Detected INFLUENZA A (BELEN) Not Detected INFLUENZA B (BELEN) Not Detected Normal Not Detected [facility] Comment on above: Performed By: #### [id number] #### [facility] [address] [place] [address] Dacia Villagran M.D. [id number] ED Prov Noteon 08-14-2024 ED Prov Note [facility] ED Physician Note: NAME: Gail Lewis 59 y.o. CSN: [id number] PCP: Tony Rivera CNP Clinical Impression: 1. [...] Recheck of todays complaint [address] [address] 2. [facility] Emergency Department. Specialty: Emergency Medicine Why: If symptoms worsen [address] [place] [address] Contact information for after-discharge care Follow-up information [...] rash. Neuro (more content not included)... Normal [facility] XR CHEST PA/APon 08-14-2024 XR CHEST PA/AP [...] SatAug 14, 2024 11:32:46 AM EST Normal [facility] Comment on above: Order Comment: [facility] has implemented the eGFR calculation approach that does not have a coefficient for race that conforms to the NKF-ASN Task Force Recommendations. Comprehensive metabolic 2000 panelon 07-08-2023 Albumin [Mass/Vol] 4.2 g/dL 3.2 - 5.2 g/dL [facility] ALP [Catalytic activity/Vol] 113 U/L 40 - 150 U/L [facility] ALT [Catalytic activity/Vol] 24 U/L 0-35 U/L [facility] Anion gap [Moles/Vol] 16 mmol/L 10 - 20 mmol/L [facility] AST [Catalytic activity/Vol] 24 U/L 0-35 U/L [facility] Bilirubin [Mass/Vol] 0.3 mg/dL 0.0 - 1.3 mg/dL [facility] Calcium [Mass/Vol] 9.3 mg/dL 8.4 - 10. 2 mg/dL [facility] Chloride [Moles/Vol] 104 mmol/L 98 - 108 mmol/L [facility] Creatinine [Mass/Vol] 0.70 mg/dL 0.40 - 1.10 mg/dL [facility] GFR/1.73 sq M.predicted CKD-EPI (S/P/Bld) [Vol rate/Area] 100 - PINF [facility] Comment on above: Estimated GFR was ca lculated using the 2020 CKD-EPI creatinine equation. Glucose [Mass/Vol] 116 mg/dL High 65 - 99 mg/dL [facility] HCO3 [Moles/Vol] 27 mmol/L 21 - 32 mmol/L [facility] Potassium [Moles/Vol] 4.5 mmol/L 3.5 - 5.1 mmol/L [facility] Protein [Mass/Vol] 7.4 g/dL 6.0 - 8.0 g/dL [facility] Sodium [Moles/Vol] 142 mmol/L 135 - 145 mmol/L [facility] Urea nitrogen [Mass/Vol] 15 mg/dL 8 - 25 mg/dL [facility] Urea nitrogen/Creatinine [Mass ratio] 21.4 mg/mg High 10.0 - 20.0 [facility] has implemented the eGFR calculation approach that does not have a coefficient for race that conforms to the NKF-ASN Task Force Recommendations. [facility] HbA1c (Bld) [Mass fraction]o n 07-08-2023 Average glucose Estimated from glycated hemoglobin (Bld) [Mass/Vol] 123 mg/dL High 74 - 114 mg/dL [facility] Interpretation and review of laboratory results Abnormal [facility] Hemoglobin A1con 07-08-2023 HbA1c (Bld) [Mass fraction] 5.9 % High 4.2 - 5.6 % [facility] Iron and Iron binding capaci ty panelon 07-08-2023 Iron [Mass/Vol] 142 ug[facility] capacity [Mass/Vol] 375 [facility] Iron saturation [Mass fraction] 38 % 20 - 50 % [facility] Lipid 1996 panelon 3 Cholesterol [Mass/Vol] 211 mg/dL High 100 - 199 mg/dL [facility] Cholesterol in HDL [Mass/Vol] 47 mg/dL 40 - 59 mg/dL [facility] Cholesterol in LDL [Mass/Vol] 127 mg/dL 10 - 130 mg/dL [facility] Comment on above: National Cholesterol Education Program Guidelines: LDL Cholesterol Optimal: <100 mg/dL Near Optimal/above Optimal: 100-129 mg/dL Borderline High: 130-159 mg/dL High: 160-189 mg/dL Very High: greater than or equal to 190 mg/dL Cholesterol non HDL [Mass/Vol] 164 mg/dL [facility] Comment on above: National Cholesterol Education Program Guidelines: NON HDL Cholesterol Desirable: <130 mg/dL Borderline High: 130-159 mg/dL High: 160-189 mg/dL Very High: > or = 190 mg/dL Cholesterol.total/C holesterol in HDL [Mass ratio] 4.5 {ratio} ratio [facility] Comment on above: Female Cholesterol/H DL Ratio: Average risk: 4.4 1/2 average risk: 3.3 2 x average risk: 7.1 Triglyceride [Mass/Vol] 185 mg/dL High 30 - 150 mg/dL [facility] NT PRO BNPon 07-08-2023 Natriuretic peptide.B prohormone N-Terminal [Mass/Vol] 123 pg/mL 0 - 300 pg/mL [facility] Natriuretic peptide.B prohor cirilo N-Terminal [Mass/Vol]on 07-08-2023 Pride Study Cut-offs Rule In: < /= 50 Years >450 pg/mL 51 Years - 75 Years >900 pg/mL 76 Years - 99 Years >1800 pg/mL Rule Out: All patients <300 pg/mL [facility] No Panel Informationon 07-08 Interpretation and review of laboratory results Normal [facility] Interpretation and review of laboratory results Abnormal [facility] T4, Freeon 07-08-2023 Free T4 [Mass/Vol] 1.0 ng/dL 0.7 - 1.7 ng/dL [facility] TSH DL <= 0.005 mIU/L Qnon 1 TSH Qn 2.15 m[IU]/L [facility] XR Chest AP/PA and LATon No acute cardiopulmonary process is seen. Mild COPD is suspected. DMM/tde Workstation ID: [id number] [employer] [facility] EXAMINATION: XR CHEST AP/PA AND LAT 07/08/2023 [...] Encounter Type: Initial Additional signs and symptoms: [facility] ORDERING SYSTEM PROVIDED DIAGNOSIS CODES: R06.09 [...] COPD is suspected. DMM/tde Workstation ID: [id number] [facility] Radiology Study observation (narrative) [facility] XR Chest AP/PA and LATOrdere d By: Bear Banuelos on 07-08-2023 [facility] Work Phone: Comprehensive metabolic 2000 panelon 11-08-2021 Albumin [Mass/Vol] 3.8 g/dL 3.2 - 5.2 g/dL [facility] ALP [Catalytic activity/Vol] 161 U/L High 40 - 150 U/L [facility] ALT [Catalytic activity/Vol] 31 U/L 14 - 65 U/L [facility] Anion gap [Moles/Vol] 10 mmol/L 10 - 20 mmol/L [facility] AST [Catalytic activity/Vol] 20 U/L 0 - 45 U/L [facility] Bilirubin [Mass/Vol] 0.2 mg/dL 0.0 - 1.3 mg/dL [facility] Calcium [Mass/Vol] 9.6 mg/dL 8.4 - 10. 2 mg/dL [facility] Chloride [Moles/Vol] 102 mmol/L 98 - 108 mmol/L [facility] Creatinine [Mass/Vol] 0.86 mg/dL 0.40 - 1.10 [facility] GFR/1.73 sq M.predicted CKD-EPI (S/P/Bld) [Vol rate/Area] 76 >=60 mL/min/1.73 m2 [facility] Glucose [Mass/Vol] 122 mg/dL High 65 - 99 mg/dL [facility] HCO3 [Moles/Vol] 28 mmol/L 21 - 32 mmol/L [facility] Interpretation and review of laboratory results Abnormal [facility] Potassium [Moles/Vol] 4.2 mmol/L 3.5 - 5.1 mmol/L [facility] Protein [Mass/Vol] 8.9 g/dL High 6.0 - 8.0 g/dL [facility] Sodium [Moles/Vol] 136 mmol/L 135 - 145 mmol/L [facility] Urea nitrogen [Mass/Vol] 13 mg/dL 8 - 25 mg/dL [facility] Urea nitrogen/Creatinine [Mass ratio] 15.1 mg/mg [facility] The eGFR should be used for monitoring renal function only and not for medication dosing. [facility] HbA1c (Bld) [Mass fraction]o n 11-08-2021 Average glucose Estimated from glycated hemoglobin (Bld) [Mass/Vol] 120 mg/dL High 68 - 114 mg/dL [facility] Interpretation and review of laboratory results Abnormal [facility] Normal: 4.0% - 5.6% Increased risk for diabetes: 5.7% - 6.4% Diabetes: >= 6.5% Pediatrics: No established reference range Estimated average glucose: 68-114 mg/dL [facility] Hemoglobin A1con 11-08-2021 HbA1c (Bld) [Mass fraction] 5.8 % High 4.0 - 5.6 % [facility] Lipid 1996 panelon Cholesterol [Mass/Vol] 241 mg/dL High 100 - 199 mg/dL [facility] Comment on above: National Cholesterol Education Program Guidelines: Cholesterol Desirable: <200 mg/dL Borderline High: 200-239 mg/dL High: greater than or equal to 240 mg/dL Cholesterol in HDL [Mass/Vol] 48 mg/dL 40 - 59 [facility] Comment on above: National Cholesterol Education Program Guidelines: HDL Cholesterol Low: <40 mg/dL Near Optimal: 40-59 mg/dL High: greater than or equal to 60 mg/dL Cholesterol in LDL [Mass/Vol] 147 mg/dL High 10 - 130 mg/dL [facility] Comment on above: National Cholesterol Education Program Guidelines: LDL Cholesterol Optimal: <100 mg/dL Near Optimal/above Optimal: 100-129 mg/dL Borderline High: 130-159 mg/dL High: 160-189 mg/dL Very High: greater than or equal to 190 mg/dL Cholesterol non HDL [Mass/Vol] 193 mg/dL [facility] Comment on above: National Cholesterol Education Program Guidelines: NON HDL Cholesterol Desirable: <130 mg/dL Borderline High: 130-159 mg/dL High: 160-189 mg/dL Very High: > or = 190 mg/dL Cholesterol.total/C holesterol in HDL [Mass ratio] 5.0 {ratio} ratio [facility] Comment on above: Female Cholesterol/H DL Ratio: Average risk: 4.4 1/2 average risk: 3.3 2 x average risk: 7.1 Interpretation and review of laboratory results Abnormal [facility] Triglyceride [Mass/Vol] 230 mg/dL High 30 - 150 mg/dL [facility] Comment on above: National Cholesterol Education Program Guidelines: Triglyceride Normal: <150 mg/dL Borderline High: 150-199 mg/dL High: 200-499 mg/dL Very High: greater than or equal to 500 mg/dL No Panel Informationon 11-08 [facility] TSH DL <= 0.005 mIU/L Qnon 0 11-08-2021 Interpretation and review of laboratory results Normal [facility] TSH Qn 3.79 m[IU]/L [facility] COVID-19/INFLUENZA A,B MOLEC ULARon 10-25-2021 SARS-CoV-2 (COVID-19) Ab [place] Ql SARS-COV-2 RNA (LORAINE): Detected INFLUENZA A (LORAINE): Not Detected INFLUENZA B (LORAINE): Not Detected Normal Not Detected [facility] Comment on above: Order Comment: This test [...] at the following links: For Healthcare Providers: https://www.fda.gov/media/812145/download ?? For Patients: https://www.fda.gov/media/919174/download Performed By: #### [id number] #### [facility] [address] [place] [address] Remy Corrigan M.D. [id number] Vital Signs Date Time Vital Sign Value Performing Clinician Rafi awad 08-03-2025 08:43-0500 Body height 149.9 cm Rio Capone MD Work Phone: [facility] 08-03-2025 08:43-0500 Body mass index (BMI) [Ratio] 33.53 kg/m2 Rio Capone MD Work Phone: [facility] 08-03-2025 08:43-0500 Body weight 75.3 kg Rio Capone MD Work Phone: [facility] 08-03-2025 08:43-0500 Diastolic blood pressure 77 mm[Hg] Rio Capone MD Work Phone: [facility] 08-03-2025 08:43-0500 Heart rate 75 /min Rio Capone MD Work Phone: [facility] 08-03-2025 08:43-0500 SaO2% (BldA) [Mass fraction] 96 % Rio Capone MD Work Phone: [facility] Comment on above: Room Air 08-03-2025 08:43-0500 Systolic blood pressure 145 mm[Hg] Rio Capone MD Work Phone: [facility] 06-30-2025 09:49-0400 Body height 149.9 cm Tony Lowe [employer] Work Phone: [facility] 06-30-2025 09:49-0400 Body mass index (BMI) [Ratio] 33.77 kg/m2 Tony Lowe [employer] Work Phone: [facility] 06-30-2025 09:49-0400 Body weight 75.84 kg Tony Lowe [employer] Work Phone: [facility] 06-30-2025 09:49-0400 Diastolic blood pressure 82 mm[Hg] Tony Lowe [employer] Work Phone: [facility] 06-30-2025 09:49-0400 Heart rate 79 /min Tony Lowe [employer] Work Phone: [facility] 06-30-2025 09:49-0400 SaO2% (BldA) [Mass fraction] 90 % Tony Lowe [employer] Work Phone: [facility] 06-30-2025 09:49-0400 Systolic blood pressure 138 mm[Hg] Tony Lowe [employer] Work Phone: [facility] 06-07-2025 15:20-0400 Body height 149.9 cm Kurt Jarrell MD Work Phone: [facility] 06-07-2025 15:20-0400 Body mass index (BMI) [Ratio] 32.92 kg/m2 Kurt Jarrell MD Work Phone: [facility] 06-07-2025 15:20-0400 Body weight 73.94 kg uKrt Jarrell MD Work Phone: [facility] 06-07-2025 15:20-0400 Diastolic blood pressure 78 mm[Hg] Kurt Jarrell MD Work Phone: [facility] 06-07-2025 15:20-0400 Heart rate 95 /min Kurt Jarrell MD Work Phone: [facility] 06-07-2025 15:20-0400 SaO2% (BldA) [Mass fraction] 91 % Kurt Jarrell MD Work Phone: [facility] 06-07-2025 15:20-0400 Systolic blood pressure 122 mm[Hg] Kurt Jarrell MD Work Phone: [facility] 08-18-2024 08:47-0500 Diastolic blood pressure 82 mm[Hg] Tony Lowe [employer] Work Phone: [facility] 08-18-2024 08:47-0500 Systolic blood pressure 150 mm[Hg] Tony Lowe [employer] Work Phone: [facility] 08-18-2024 08:02-0500 Body height 149.9 cm Tony Lowe [employer] Work Phone: [facility] 08-18-2024 08:02-0500 Body mass index (BMI) [Ratio] 35.79 kg/m2 Tony Lowe [employer] Work Phone: [facility] 08-18-2024 08:02-0500 Body weight 80.38 kg Tony Lowe [employer] Work Phone: [facility] 08-18-2024 08:02-0500 Heart rate 77 /min Tony Lowe [employer] Work Phone: [facility] 08-18-2024 08:02-0500 SaO2% (BldA) [Mass fraction] 93 % Tony Lowe [employer] Work Phone: [facility] 02-11-2024 12:38-0400 Diastolic blood pressure 87 mm[Hg] Tony Lowe [employer] Work Phone: [facility] 02-11-2024 12:38-0400 Systolic blood pressure 138 mm[Hg] Tony Lowe [employer] Work Phone: [facility] 02-11-2024 08:02-0400 Body height 149.9 cm Tony Lowe [employer] Work Phone: [facility] 02-11-2024 08:02-0400 Body mass index (BMI) [Ratio] 35.47 kg/m2 Tony Lowe [employer] Work Phone: [facility] 02-11-2024 08:02-0400 Body weight 79.65 kg Tony Lowe [employer] Work Phone: [facility] 02-11-2024 08:02-0400 Heart rate 71 /min Tony Lowe [employer] Work Phone: [facility] 02-11-2024 08:02-0400 SaO2% (BldA) [Mass fraction] 95 % Tony Lowe [employer] Work Phone: [facility] 07-08-2023 09:10-0400 Diastolic blood pressure 90 mm[Hg] Tony Lowe [employer] Work Phone: [facility] 07-08-2023 09:10-0400 Systolic blood pressure 153 mm[Hg] Tony Lowe [employer] Work Phone: [facility] 07-08-2023 08:02-0400 Body height 149.9 cm Tony Lowe [employer] Work Phone: [facility] 07-08-2023 08:02-0400 Body mass index (BMI) [Ratio] 34.9 kg/m2 Tony Lowe [employer] Work Phone: [facility] 07-08-2023 08:02-0400 Body weight 78.38 kg Tony Lowe [employer] Work Phone: [facility] 07-08-2023 08:02-0400 Heart rate 77 /min Tony Lowe [employer] Work Phone: [facility] 07-08-2023 08:02-0400 SaO2% (BldA) [Mass fraction] 94 % Tony Lowe [employer] Work Phone: [facility] 01-07-2023 10:28-0400 Diastolic blood pressure 82 mm[Hg] Tony Lowe [employer] Work Phone: [facility] 01-07-2023 10:28-0400 Systolic blood pressure 134 mm[Hg] Tony Lowe [employer] Work Phone: [facility] 01-07-2023 10:03-0400 Body height 149.9 cm Tony Serge [employer] Work Phone: [facility] 01-07-2023 10:03-0400 Body mass index (BMI) [Ratio] 34.86 kg/m2 Tony Lowe [employer] Work Phone: [facility] 01-07-2023 10:03-0400 Body weight 78.29 kg Tony Ulriche [employer] Work Phone: [facility] 01-07-2023 10:03-0400 Heart rate 80 /min Tony Ulriche [employer] Work Phone: [facility] 01-07-2023 10:03-0400 SaO2% (BldA) [Mass fraction] 94 % Tony Ulriche [employer] Work Phone: [facility] 04-10-2022 08:06-0400 Body height 149.9 cm Rio Capone MD Work Phone: [facility] 04-10-2022 08:06-0400 Body mass index (BMI) [Ratio] 34.7 kg/m2 Rio Capone MD Work Phone: [facility] 04-10-2022 08:06-0400 Body weight 77.93 kg Rio Capone MD Work Phone: [facility] 04-10-2022 08:06-0400 Diastolic blood pressure 80 mm[Hg] Rio Capone MD Work Phone: [facility] 04-10-2022 08:06-0400 Heart rate 83 /min Rio Capone MD Work Phone: [facility] 04-10-2022 08:06-0400 SaO2% (BldA) [Mass fraction] 96 % Rio Capone MD Work Phone: [facility] Comment on above: ra 04-10-2022 08:06-0400 Systolic blood pressure 142 mm[Hg] Rio Capone MD Work Phone: [facility] 12-20-2021 09:05-0400 Body height 149.9 cm Rio Capone MD Work Phone: [facility] 12-20-2021 09:05-0400 Body mass index (BMI) [Ratio] 33.33 kg/m2 Rio Capone MD Work Phone: [facility] 12-20-2021 09:05-0400 Body weight 74.84 kg Rio Capone MD Work Phone: [facility] 12-20-2021 09:05-0400 Diastolic blood pressure 82 mm[Hg] Rio Capone MD Work Phone: [facility] 12-20-2021 09:05-0400 Heart rate 86 /min Rio Capone MD Work Phone: [facility] 12-20-2021 09:05-0400 SaO2% (BldA) [Mass fraction] 98 % Rio Capone MD Work Phone: [facility] Comment on above: room air 12-20-2021 09:05-0400 Systolic blood pressure 133 mm[Hg] Rio Capone MD Work Phone: [facility] 12-07-2021 08:53-0500 Diastolic blood pressure 81 mm[Hg] Tony Lowe [employer] Work Phone: [facility] 12-07-2021 08:53-0500 Systolic blood pressure 134 mm[Hg] Tony Lowe [employer] Work Phone: [facility] 12-07-2021 08:34-0500 Body height 149.9 cm Tony Lowe [employer] Work Phone: [facility] 12-07-2021 08:34-0500 Body mass index (BMI) [Ratio] 33.51 kg/m2 Tony Lowe [employer] Work Phone: [facility] [facility] 12-07-2021 08:34-0500 Body weight 75.25 kg Tony Lowe BULL BUCKER Work Phone: [facility] 12-07-2021 08:34-0500 Heart rate 69 /min Tony Lowe BULL BUCKER Work Phone: [facility] 12-07-2021 08:34-0500 SaO2% (BldA) [Mass fraction] 95 % Tony Lowe BULL BUCKER Work Phone: [facility] 11-15-2021 09:39-0500 Diastolic blood pressure 79 mm[Hg] [facility] 11-15-2021 09:39-0500 Systolic blood pressure 120 mm[Hg] [facility] 11-15-2021 09:32-0500 Heart rate 72 /min [facility] 11-15-2021 09:32-0500 SaO2% (BldA) [Mass fraction] 97 % [facility] 11-08-2021 08:41-0500 Diastolic blood pressure 83 mm[Hg] Tony Lowe BULL BUCKER Work Phone: [facility] 11-08-2021 08:41-0500 Systolic blood pressure 152 mm[Hg] Tony Lowe BULL BUCKER Work Phone: [facility] 11-08-2021 08:13-0500 Body height 149.9 cm Tony Lowe BULL BUCKER Work Phone: [facility] 11-08-2021 08:13-0500 Body mass index (BMI) [Ratio] 33.73 kg/m2 Tony Lowe BULL BUCKER Work Phone: [facility] 11-08-2021 08:13-0500 Body weight 75.75 kg Tony Rivera CNP Work Phone: [facility] 11-08-2021 08:13-0500 Heart rate 83 /min Tony Rivera CNP Work Phone: [facility] 11-08-2021 08:13-0500 SaO2% (BldA) [Mass fraction] 97 % Tony Rivera CNP Work Phone: [facility] Encounters Encounter Date Encounter Type Care Provider Facility Start: 08-03-2025 End: 08-03-2025 Office outpatient visit 25 minutes Rio Capone MD Work Phone: [facility] Comment on above: Mild intermittent as thma, uncomplicated (Primary Dx); Pulmonary nodule Start: 08-03-2025 End: 08-03-2025 ambulatory TONY MOORE [facility] Start: 07-16-2025 End: 07-20-2025 ambulatory TONY MOORE 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 Start: 06-30-2025 End: 06-30-2025 Encounter for general adult medical examination without abnormal findings [facility] Start: 06-10-2025 End: 06-10-2025 Refill Tony Rivera CNP Work Phone: [facility] Comment on above: Moderate persistent asthma, uncomplicated; Anxiety; Gastroesophageal reflux disease, unspecified whether esophagitis present Start: 06-07-2025 End: 06-07-2025 Office outpatient visit 25 minutes Kurt Jarrell MD Work Phone: [facility] Comment on above: Lipid disorder (Prim kendy Dx) Start: 06-07-2025 End: 06-07-2025 ambulatory [address] MOORE [facility] Start: 04-26-2025 End: 04-26-2025 Orders Only Rio Capone MD Work Phone: [facility] Comment on above: Pulmonary infiltrate (Primary Dx); Moderate persistent asthma, uncomplicated; Mediastinal lymphadenopathy Start: 04-25-2025 End: 04-27-2025 [facility] Start: 03-31-2025 End: 04-01-2025 Emergency department patient visit FRITZ ESQUIVEL [facility] Start: 08-20-2024 End: 08-20-2024 Orders Only Tony Rivera BULL BUCKER Work Phone: [facility] Comment on above: Screening for lung c ancer (Primary Dx) Start: 08-18-2024 End: 08-18-2024 Office outpatient visit 25 minutes Tony Rivera BULL BUCKER Work Phone: [facility] Comment on above: Encounter for screen ing for lung cancer (Primary Dx); Moderate persistent asthma, uncomplicated; Hyperlipidemia, unspecified hyperlipidemia type; Anxiety; Hypertension, unspecified type; Gastroesophageal reflux disease, unspecified whether esophagitis present; Need for influenza vaccination; Screening for diabetes mellitus; Bronchitis; Rib pain on right side Start: 08-18-2024 End: 08-18-2024 ambulatory [address] MOORE [facility] Start: 08-14-2024 End: 08-14-2024 Emergency department patient visit BONILLA EMERY [facility] Start: 02-11-2024 End: 02-11-2024 Office outpatient visit 25 minutes Tony Rivera BULL BUCKER Work Phone: [facility] Comment on above: Moderate persistent asthma, uncomplicated; Hyperlipidemia, unspecified hyperlipidemia type; Anxiety; Hypertension, unspecified type; Gastroesophageal reflux disease, unspecified whether esophagitis present Start: 08-23-2023 Refill Tony Rivera BULL BUCKER Work Phone: [facility] Comment on above: Gastroesophageal ref lux disease, unspecified whether esophagitis present Start: 07-25-2023 Orders Only Tony Rivera BULL BUCKER Work Phone: [facility] Comment on above: Moderate persistent asthma, uncomplicated COPD, moderate (HCC) (Primary Dx) Start: 07-08-2023 End: 07-08-2023 Office outpatient visit 15 minutes Tony Rivera BULL BUCKER Work Phone: [facility] Comment on above: Lung nodule seen on imaging study (Primary Dx); Anxiety; Hypertension, unspecified type; History of lung cancer; Need for vaccination; Dyspnea on exertion; Gastroesophageal reflux disease, unspecified whether esophagitis present Start: 02-11-2023 Orders Only Tony Rivera BULL BUCKER Work Phone: [facility] Comment on above: Breast cancer screen ing by mammogram Start: 02-01-2023 Orders Only Tony Rivera BULL BUCKER Work Phone: [facility] Comment on above: Lung nodule seen on imaging study (Primary Dx); History of lung cancer Start: 01-07-2023 End: 01-07-2023 Office outpatient visit 15 minutes Tony Rivera BULL BUCKER Work Phone: [facility] Comment on above: [...] 15 minutes Rio Capone MD Work Phone: [facility] Comment on above: Mild intermittent as thma, uncomplicated (Primary Dx) Start: 01-10-2022 Documentation procedure Rio Capone MD Work Phone: [facility] Start: 12-20-2021 End: 12-20-2021 Office outpatient new 30 minutes Rio Capone MD Work Phone: [facility] Comment on above: Moderate persistent asthma, uncomplicated Start: 12-07-2021 End: 12-07-2021 Office outpatient visit 10 minutes Tony Rivera CNP Work Phone: [facility] Comment on above: Hypertension, unspec ified type (Primary Dx); COPD, moderate (HCC); History of lung cancer; Anxiety; Screening for colon cancer Start: 11-15-2021 End: 11-15-2021 Clinical Support Jessica Stevenson LPN [facility] Comment on above: Hypertension, unspec ified type (Primary Dx) Start: 11-08-2021 End: 11-08-2021 Office outpatient new 30 minutes Tony Rivera CNP Work Phone: [facility] Comment on above: [...] Anxiety Start: 10-25-2021 End: 10-25-2021 ambulatory PHYSICIAN [facility] Procedures Date Procedure Procedure Detail Performing Clinician Start: 02-11-2024 Adult depression screening assessment Tony Rivera CNP Work Phone: Start: 01-07-2023 Adult depression screening assessment Tony Rivera CNP Work Phone: Start: 11-08-2021 Adult depression screening assessment Tony Rivera CNP Work Phone: Plan of Treatment Date Care Activity Detail Author Start: 06-30-2026 Administration of herpes zoster vaccine Zoster Vaccines (1 of 2) [facility] Comment on above: Postponed from 2015 (Patient Refus ed) Start: 06-30-2026 COVID-19 Vaccine ( season) COVID-19 Vaccine ( season) [facility] Comment on above: Postponed from 05/31/2025 (Patient Refus ed) Start: 06-30-2026 COVID-19 Vaccine ( season) COVID-19 Vaccine ( season) [facility] Comment on above: Postponed from 05/31/2025 (Patient Refus ed) Start: 06-30-2026 Depression screening using PHQ-9 (Patient Health Questionnaire 9) score Depression Screening/Follow-Up (PHQ-2/9) [facility] Start: 06-30-2026 Respiratory Syncytial Virus Immunization: Risk, 60-74 Risk, or 75+ (1 - Risk 60-74 years 1-dose series) Respiratory Syncytial Virus Immunization: Risk, 60-74 Risk, or 75+ (1 - Risk 60-74 years 1-dose series) [facility] Comment on above: Postponed from 2025 (Patient Refus ed) Start: 06-30-2026 RSV Vaccines (1 - Risk 50-74 years 1-dose series) RSV Vaccines (1 - Risk 50-74 years 1-dose series) [facility] Comment on above: Postponed from 2015 (Patient Refus ed) Start: 06-30-2026 Screening for malignant neoplasm of cervix Cervical Cancer Screening [facility] Comment on above: Postponed from 1995 (Patient Refus ed) Start: 06-30-2026 Tetanus vaccination Tetanus: Every 10yrs [facility] Comment on above: Postponed from 1965 (Patient Refus ed) Start: 06-20-2026 End: 06-20-2026 Patient encounter procedure 06/20/2026 2:20 PM EDT Office Visit [facility] [address] [place] [address] Kurt Jarrell MD [address] [place] [address] [facility] Start: 02-01-2026 End: 02-01-2026 Patient encounter procedure [facility] CT Scan Start: 01-31-2026 End: 08-03-2026 CT Chest WO contrast CT Chest Without Contrast Imaging Routine Pulmonary nodule Expected: 01/31/2026, Expires: 08/03/2026 [facility] Work Phone: Comment on above: Expected: 01/31/2026, Expires: Start: 12-29-2025 End: 12-29-2025 Patient encounter procedure 12/29/2025 9:40 AM EDT Office Visit [facility] [address] [place] [id number] Tony Rivera, BULL BUCKER [address] [place] [address] [facility] Start: 08-18-2025 COVID-19 Vaccine () COVID-19 Vaccine () [facility] Comment on above: Postponed from 05/31/2024 (Patient Refus ed) Start: 08-18-2025 Screening for malignant neoplasm of breast Mammogram [facility] Comment on above: Postponed from 2005 (Patient Refus ed) Start: 08-07-2025 End: 06-07-2026 Lipid 1996 panel - Serum or Plasma Lipid panel Lab Routine Lipid disorder Expected: 08/07/2025, Expires: 06/07/2026 [facility] Work Phone: Comment on above: Expected: 08/07/2025, Expires: Start: 08-03-2025 End: 08-03-2025 Patient encounter procedure [facility] CT Scan Start: 07-27-2025 End: 04-26-2026 CT Chest W contrast IV CT Chest Thorax With Contrast Imaging Routine Pulmonary infiltrate Mediastinal lymphadenopathy Expected: 07/27/2025, Expires: 04/26/2026 [facility] Work Phone: Comment on above: Expected: 07/27/2025, Expires: Start: 07-05-2025 Pneumococcal Vaccine: Ped or At-Risk (2 of 4 - PPSV23) Pneumococcal Vaccine: Ped or At-Risk (2 of 4 - PPSV23) [facility] Start: 06-30-2025 End: 06-30-2025 Patient encounter procedure 06/30/2025 10:40 AM EDT Office Visit [facility] [address] [facility] [place] [address] Tony Rivera, BULL BUCKER [address] [place] [address] [facility] Start: 05-31-2025 COVID-19 Vaccine ( season) COVID-19 Vaccine ( season) [facility] Start: 05-31-2025 Influenza vaccination Influenza Vaccine (#1) [facility] Start: 2025 Respiratory Syncytial Virus Immunization: Risk, 60-74 Risk, or 75+ (1 - Risk 60-74 years 1-dose series) Respiratory Syncytial Virus Immunization: Risk, 60-74 Risk, or 75+ (1 - Risk 60-74 years 1-dose series) [facility] Start: 02-10-2025 Depression screening using PHQ-9 (Patient Health Questionnaire 9) score [facility] Start: 02-10-2025 Screening for malignant neoplasm of cervix Cervical Cancer Screening [facility] Comment on above: Postponed from 1995 (Patient Refus ed) Start: 02-10-2025 Screening for malignant neoplasm of colon Colorectal Cancer Screening/Monitoring [facility] Comment on above: Postponed from 1965 (Patient Refus ed) Start: 11-17-2024 End: 11-17-2024 Patient encounter procedure 11/17/2024 8:40 AM EST Office Visit [facility] [address] [facility] [place] [id number] Tony Rivera, BULL BUCKER [address] [place] [address] [facility] Start: 08-18-2024 End: 08-18-2024 Patient encounter procedure 08/18/2024 8:20 AM EST Office Visit [facility] [address] [place] [address] Tony Rivera, BULL BUCKER [address] [place] [place] [address] [facility] Start: 08-16-2024 COVID-19 Vaccine (#1) COVID-19 Vaccine (#1) [facility] Comment on above: Postponed from 1970 (Treatment Not Available) Start: 08-16-2024 COVID-19 Vaccine () COVID-19 Vaccine () [facility] Comment on above: Postponed from 05/31/2023 (Treatment Not Available) Start: 08-13-2024 Administration of herpes zoster vaccine Zoster Vaccines (1 of 2) [facility] Comment on above: Postponed from 1984 (Treatment Not Available) Postponed from 05/01 (Treatment Not Available) Start: 08-13-2024 History and physical examination, annual for health maintenance Wellness Visit [facility] Start: 08-13-2024 Screening for malignant neoplasm of breast Mammogram [facility] Comment on above: Postponed from 2005 (Patient Refus ed) Start: 08-13-2024 Screening for malignant neoplasm of cervix Pap Smear [facility] Comment on above: Postponed from 1986 (Patient Refus ed) Start: 08-13-2024 Tetanus vaccination Tetanus: Every 10yrs [facility] Comment on above: Postponed from 1965 (Patient Refus ed) Start: 02-11-2024 End: 02-11-2024 Patient encounter procedure 02/11/2024 8:00 AM EDT Office Visit [facility] [address] [place] [phone] Tony Rivera, BULL BUCKER [address] [place] [address] [facility] Start: 01-08-2024 Depression screening using PHQ-9 (Patient Health Questionnaire 9) score Depression Screening (PHQ-2/9) [facility] Start: 01-08-2024 Screening for malignant neoplasm of colon Colorectal Cancer Screening/Monitoring [facility] Comment on above: Postponed from 2015 (Patient Refus ed) Start: 09-09-2023 End: 09-09-2023 Patient encounter procedure 09/09/2023 8:20 AM EST Office Visit [facility] [address] [place] [address] Tony Rivera, BULL BUCKER [address] [place] [address] [facility] Start: 08-13-2023 End: 08-13-2023 Patient encounter procedure 08/13/2023 8:20 AM EST Office Visit [facility] [address] [place] [address] Tony Rivera, BULL BUCKER [address] [place] [address] [facility] Start: 08-05-2023 End: 08-05-2023 Patient encounter procedure 08/05/2023 7:40 AM EST Appointment [facility] CT Scan [address] [place], [place] [address] Tony Rivera, BULL BUCKER [address] [place] [address] [facility] [address] Scan Start: 07-31-2023 End: 07-31-2023 Patient encounter procedure 07/31/2023 8:10 AM EDT Appointment [facility] [address] [place] [address] Tony Rivera, BULL BUCKER [address] [place] [address] [facility] Start: 07-08-2023 End: 07-08-2023 Patient encounter procedure 07/08/2023 8:00 AM EDT Office Visit [facility] [address] [facility] [place] [address] Tony Rivera, BULL BUCKER [address] [facility] [place] [address] [facility] Start: 05-31-2023 Influenza vaccination Sequential Influenza Vaccine (Season Ended) [facility] Start: 02-26-2023 End: 02-26-2023 Patient encounter procedure 02/26/2023 2:20 PM EDT Appointment [facility] Scan [address] [facility] [place] [address] Tony Rivera, BULL BUCKER [address] [facility] [place] [address] [facility] [address] Scan Start: 12-07-2022 Screening for malignant neoplasm of cervix Pap Smear [facility] Comment on above: Postponed from 1965 (Patient Refus ed) Start: 11-08-2022 Depression screening using PHQ-9 (Patient Health Questionnaire 9) score Depression Screening (PHQ-2/9) [facility] Start: 05-31-2022 Influenza vaccination [facility] Start: 05-08-2022 Influenza vaccination Sequential Influenza Vaccine (#1) [facility] Comment on above: Postponed from 05/31/2021 (Patient Refus ed) Start: 03-21-2022 End: 03-21-2022 Patient encounter procedure 03/21/2022 Office Visit Pulmonology Rio Capone MD [address] [facility] [place] [address] [facility] Start: 12-20-2021 End: 12-20-2021 Patient encounter procedure [facility] Start: 12-06-2021 End: 12-06-2021 Patient encounter procedure 12/06/2021 Office Visit Primary Care Tony Rivera, BULL BUCKER [address] [place] [address] [facility] Start: 11-22-2021 End: 11-22-2021 Patient encounter procedure 11/22/2021 Office Visit Obstetrics and Gynecology [facility] Tony Oscar, BULL BUCKER [address] [place] [address] Liana Martínez, BULL BUCKER [address] [place] [address] [facility] Start: 11-15-2021 End: 11-15-2021 Clinical Support 11/15/2021 Clinical Support Primary Care [facility] Start: 07-05-2021 Pneumococcal Vaccine: Ped or At-Risk (2 - PCV) Pneumococcal Vaccine: Ped or At-Risk (2 - PCV) [facility] Start: 07-05-2021 Pneumococcal Vaccine: Ped or At-Risk (2 of 4 - PCV13) Pneumococcal Vaccine: Ped or At-Risk (2 of 4 - PCV13) [facility] Start: 2015 Administration of herpes zoster vaccine Zoster Vaccines (1 of 2) [facility] Start: 2015 Screening for malignant neoplasm of colon [facility] Start: 2005 Screening for malignant neoplasm of breast Mammogram [facility] Start: 1995 Scre[facility] malignant [facility] Start: 1986 Screening for malignant neoplasm of cervix Pap Smear [facility] Start: 1984 Administration of herpes zoster vaccine Zoster Vaccines (1 of 2) [facility] Start: 1984 Vaccination for diphtheria, pertussis, and tetanus Tetanus/Diphtheria/Pertus sis (1 - Tdap) [facility] Start: 1983 Hepatitis C screening Hepatitis C Screening [facility] Start: 1980 HIV screening HIV Screening [facility] Start: 1977 COVID-19 Vaccine (1) COVID-19 Vaccine (1) [facility] Start: 1970 COVID-19 Vaccine (#1) COVID-19 Vaccine (#1) [facility] Start: 1968 History and physical examination, annual for health maintenance Wellness Visit [facility] Start: 1966 [id number] vaccination MMR Vaccines (1 of 1 - Standard series) [facility] Start: 1965 COVID-19 Vaccine (#1) COVID-19 Vaccine (#1) [facility] Start: 1965 Screening for malignant neoplasm of cervix Pap Smear [facility] Start: 1965 Screening for malignant neoplasm of colon [facility] Start: 1965 Tetanus vaccination Tetanus: Every 10yrs [facility] End: 06-30-2026 CBC panel - Blood by Automated count CBC Lab Routine Prediabetes 1 Occurrences starting 06/30/2025 until 06/30/2026 [facility] Comment on above: 1 Occurrences starting 06/30/2025 until 06/30/2026 Cologuard Cologuard Lab Ro utine Screening for colon cancer Ordered: 12/07/2021 [facility] Work Phone: Comment on above: Ordered: 12/07/2021 End: 08-19-2025 Complete blood count with white cell differential, manual CBC and Differential Lab Routine Hypertension, unspecified type 1 Occurrences starting 08/18/2024 until 08/19/2025 [facility] Comment on above: 1 Occurrences starting 08/18/2024 until 08/19/2025 End: 08-19-2025 Comprehensive metabolic 2000 panel - Serum or Plasma Comprehensive Metabolic Panel Lab Routine Hypertension, unspecified type 1 Occurrences starting 08/18/2024 until 08/19/2025 [facility] Comment on above: 1 Occurrences starting 08/18/2024 until 08/19/2025 End: 06-30-2026 Comprehensive metabolic 2000 panel - Serum or Plasma Comprehensive Metabolic Panel Lab Routine Prediabetes 1 Occurrences starting 06/30/2025 until 06/30/2026 [facility] Work Phone: Comment on above: 1 Occurrences starting 06/30/2025 until 06/30/2026 End: 08-18-2025 CT Chest for screening WO contrast CT Lung Cancer Screening Imaging Routine Encounter for screening for lung cancer 1 Occurrences starting 08/18/2024 until 08/18/2025 [facility] Work Phone: Comment on above: 1 Occurrences starting 08/18/2024 until 08/18/2025 End: 08-20-2025 CT Chest for screening WO contrast CT Lung Cancer Screening Imaging Routine Screening for lung cancer 1 Occurrences starting 08/20/2024 until 08/20/2025 [facility] Work Phone: Comment on above: 1 Occurrences starting 08/20/2024 until 08/20/2025 End: 05-04-2023 CT of chest without contrast CT Chest Without Contrast Imaging Routine Lung nodule seen on imaging study History of lung cancer 1 Occurrences starting 02/01/2023 until 05/04/2023 [facility] Work Phone: Comment on above: 1 Occurrences starting 02/01/2023 until 05/04/2023 End: 07-08-2024 CT of chest without contrast CT Chest Without Contrast Imaging Routine Lung nodule seen on imaging study History of lung cancer 1 Occurrences starting 07/08/2023 until 07/08/2024 [facility] Work Phone: Comment on above: 1 Occurrences starting 07/08/2023 until 07/08/2024 End: 09-07-2024 Echocardiography Echocardiogram complete Echocardiography Routine Dyspnea on exertion 1 Occurrences starting 07/08/2023 until 09/07/2024 [facility] Comment on above: 1 Occurrences starting 07/08/2023 until 09/07/2024 End: 08-19-2025 Hemoglobin A1c/Hemoglobin.total in Blood Hemoglobin A1c Lab Routine Screening for diabetes mellitus 1 Occurrences starting 08/18/2024 until 08/19/2025 [facility] Comment on above: 1 Occurrences starting 08/18/2024 until 08/19/2025 End: 06-30-2026 Hemoglobin A1c/Hemoglobin.total in Blood Hemoglobin A1c Lab Routine Prediabetes Screening for diabetes mellitus Other technician terminal and repeater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 Other specified abnormal findings of blood chemistry 1 Occurrences starting 06/30/2025 until 06/30/2026 [facility] Comment on above: 1 Occurrences starting 06/30/2025 until 06/30/2026 End: 11-08-2022 Hepatitis C antibody measurement Hepatitis C Antibody Lab Routine Encounter for hepatitis C screening test for low risk patient 1 Occurrences starting 11/08/2021 until 11/08/2022 [facility] Comment on above: 1 Occurrences starting 11/08/2021 until 11/08/2022 Hepatitis C antibody measurement Hepatitis C Antibody Lab Routine Encounter for hepatitis C screening test for low risk patient 11/08/2021 8:54 AM EST [facility] End: 11-09-2022 Human immunodeficiency virus antibody test HIV 1/2 Screen (4th Generation) Lab Routine Screening for HIV (human immunodeficiency virus) 1 Occurrences starting 11/08/2021 until 11/09/2022 [facility] Comment on above: 1 Occurrences starting 11/08/2021 until 11/09/2022 Human immunodeficien cy virus antibody test HIV 1/2 Screen (4th Generation) Lab Routine Screening for HIV (human immunodeficiency virus) 11/08/2021 8:54 AM [facility] End: 08-19-2025 Lipid 1996 panel - Serum or Plasma Lipid Panel Lab Routine Hyperlipidemia, unspecified hyperlipidemia type 1 Occurrences starting 08/18/2024 until 08/19/2025 [facility] Comment on above: 1 Occurrences starting 08/18/2024 until 08/19/2025 End: 06-30-2026 Lipid 1996 panel - Serum or Plasma Lipid Panel Lab Routine Encounter for lipid screening for cardiovascular disease 1 Occurrences starting 06/30/2025 until 06/30/2026 [facility] Comment on above: 1 Occurrences starting 06/30/2025 until 06/30/2026 End: 01-08-2024 Low dose computed tomography of thorax CT Lung Cancer Screening Imaging Routine History of lung cancer Former smoker Encounter for screening for lung cancer 1 Occurrences starting 01/07/2023 until 01/08/2024 [facility] Work Phone: Comment on above: 1 Occurrences starting 01/07/2023 until 01/08/2024 End: 01-09-2023 MG Breast - bilateral Screening Mammography Screening Bilateral Imaging Routine Encounter for screening for malignant neoplasm of breast, unspecified screening modality 1 Occurrences starting 11/08/2021 until 01/09/2023 [facility] Work Phone: Comment on above: 1 Occurrences starting 11/08/2021 until 01/09/2023 End: 04-13-2024 MG Breast - bilateral Screening Mammography Screening Ronak Bilateral Imaging Routine Breast cancer screening by mammogram 1 Occurrences starting 02/11/2023 until 04/13/2024 [facility] Work Phone: Comment on above: 1 Occurrences starting 02/11/2023 until 04/13/2024 Immunizations Immunization Date Immunization Notes Care Provider Fa cilijuan 06-30-2025 Seasonal, trivalent, recombinant, injectable influenza vaccine, preservative free Tony Lowe [facility] Work Phone: [facility] 08-18-2024 Seasonal, trivalent, recombinant, injectable influenza vaccine, preservative free Tony Lowe [facility] Work Phone: [facility] 08-18-2024 influenza virus vacc ine, unspecified formulation Rio Capone MD Work Phone: [facility] 07-08-2023 influenza, injectabl e, quadrivalent, preservative free [facility] 07-08-2023 flu vacc [id number] 6 mos up,PF, (FLUZONE QUAD/FLULAVAL QUAD/FLUARIX QUAD) 60 mcg (15 mcg x 4)/0.5 mL Syrg syringe [facility] Work Phone: [facility] 01-07-2023 Pneumococcal Conjuga te 20-Valent (Prevnar 20) [facility] Work Phone: [facility] 01-07-2023 pneumococcal conj. 20-valent (PREVNAR 20) 0.5 mL vaccine [facility] Work Phone: [facility] 07-05-2020 pneumococcal polysac charide vaccine, 23 valent [facility] Work Phone: [facility] 07-05-2020 Seasonal, quadrivale nt, recombinant, injectable influenza vaccine, preservative free [facility] Payers Date Payer Category Payer Medicaid [id number] 2021 Medicaid [id number] 2021 Medicaid (Managed Care) [employer] [id number] 2021 Medicaid [id number] 1965 Unknown [id number] 1965 Unknown [id number] 903 1965 Unknown [id number] 903 1965 Unknown [id number] 903 1965 Unknown [id number] 903 1965 Unknown [id number] 903 1965 Unknown [id number] 903 1965 Unknown [id number] 903 1965 Unknown [id number]. 903 1965 Unknown [id number] 903 Social History Date Type Detail Facility Start: 10-04-2021 End: 11-08-2021 Tobacco smoking status NHIS Never smoked tobacco [facility] Start: 10-04-2021 End: 07-16-2025 Tobacco use and exposure Smokeless tobacco non-user [facility] Start: 11-08-2021 End: 08-03-2025 Alcohol intake Lifetime non-drinker (finding) [facility] Start: 10-04-2021 History SDOH Alcohol Frequency 1 [facility] Start: 1965 Sex Assigned At Not on file [facility] Exposure to SARS-CoV -2 (event) Yes [facility] Start: 11-27-2021 End: 01-28-2023 Exposure to SARS-CoV-2 (event) Not sure [facility] Start: 12-20-2021 End: 07-16-2025 Tobacco smoking status NHIS Ex-smoker [facility] Start: 09-30-1983 End: 09-30-2018 History of tobacco use Current smoker [facility] Start: 12-20-2021 End: 04-25-2025 Cigarettes smoked current (pack per day) - Reported 1 [facility] Start: 09-30-1983 End: 09-30-2018 History of tobacco use Cigarette Smoker [facility] Start: 04-10-2022 Tobacco Comment 04/10/2022- quit 3yrs ago [facility] Start: 09-20-2022 End: 04-25-2025 Tobacco use panel [facility] Adult Depression Scr eening Assessment 0 [facility] (I/We) worried wheth er (my/our) food would run out before (I/we) got money to buy more. DK or Refused [facility] (I/We) worried wheth er (my/our) food would run out before (I/we) got money to buy more. Never true [facility] Has the [employer] oil, or water company threatened to shut off services in your home in past 12Mo No [facility] Start: 04-25-2025 Gender identity Identifies as female gender (finding) [facility] Start: 04-25-2025 Sexual orientation Heterosexual (fin mark) [facility] Medical Equipment Procedure Code Equipment Code Equipment Origin al Text Equipment Identifier Dates Stent 2.25 X 12 [facility] - [id number] [facility] Start: 04-26-2025 Clinical Notes 11-08-2021 to 08-03-2025 Rio Capone MD - 08/03/2025 8:53 AM Tony Guadalupe CNP - 06/30/2025 9:57 AM EDTTelephone Encounter - Jodi, SCOTTIE Dueñas - 06/10/2025 12:24 PM EDTPatient Instructions Note Date & Type Note Facility 08-03-2025 Note [facility] [address] [facility] (11) [facility] PULMONARY [address] [facility] [id number] Name: Gail Lewis Age: 60 y.o. : [...] AUTHENTICATED BY RIO CAPONE, ON 08/03/2025 08:55:54 [facility] 08-03-2025 History of Presen t illness Narrative [facility] (11) [facility] PULMONARY [facility] [address] Name: Gail Lewis Age: 60 y.o. : [...] [Hydrocodone-Acetaminophen] GI Intolerance documented in this encounter [facility] 07-16-2025 Note HISTORY AND PHYSICAL Patient Name: Gail Lewis MR #: [id number] [facility] #: [id number] Clinician: Dian Llamas DO Assessment/Plan Encounter for [...] Heart Cath; Surgeon: Kurt Jarrell MD; [place] [facility]; Service: Cardiovascular; Laterality: N/A; CARDIAC CATHETERIZATION N/A 04/26/2025 Procedure: Fractional Flow [place]; Surgeon: Kurt Jarrell MD; Location: [facility]; Service: Cardiovascular; Laterality: N/A; CARDIAC CATHETERIZATION N/A 04/26/2025 Procedure: IVUS - Coronary; Surgeon: Kurt Jarrell MD; Location: [facility]; Service: Cardiovascular; Laterality: N/A; CARDIAC CATHETERIZATION N/A 04/26/2025 Procedure: NAIMA Stent - Coronary; Surgeon: Kurt Jarrell MD; Location: [facility]; Service: Cardiovascular; Laterality: N/A; CHOLECYSTECTOMY [...] no percussion, no (more content not included)... [facility] 06-30-2025 Note [facility] INTER[facility] [address] [facility] [place] [address] Patient: Gail Lewis is a 60 y.o. [...] Heart Cath; Surgeon: Kurt Jarrell MD; Location: [facility]; Service: Cardiovascular; Laterality: N/A; CARDIAC CATHETERIZATION N/A 04/26/2025 Procedure: Fractional Flow [place]; Surgeon: Kurt Jarrell MD; Location: [facility]; Service: Cardiovascular; Laterality: N/A; CARDIAC CATHETERIZATION N/A 04/26/2025 Procedure: IVUS - Coronary; Surgeon: Kurt Jarrell MD; Location: [facility]; Service: Cardiovascular; Laterality: N/A; CARDIAC CATHETERIZATION N/A 04/26/2025 Procedure: NAIMA Stent - Coronary; Surgeon: Kurt Jarrell MD; Location: [facility]; Service: Cardiovascular; Laterality: N/A; CHOLECYSTECTOMY CT [...] Ears/Nose/Throat/Mouth: oral cavity (more content not included)... [facility] 06-30-2025 History of Presen t illness Narrative [facility] INTERNAL MEDICINE [address] [place] [address] Patient: Gail Lewis is a 60 y.o. [...] Heart Cath; Surgeon: Kurt Jarrell MD; Location: [facility]; Service: Cardiovascular; Laterality: N/A; CARDIAC CATHETERIZATION N/A 04/26/2025 Procedure: Fractional Flow [place]; Surgeon: Kurt Jarrell MD; Location: [facility]; Service: Cardiovascular; Laterality: N/A; CARDIAC CATHETERIZATION N/A 04/26/2025 Procedure: IVUS - Coronary; Surgeon: Kurt Jarrell MD; Location: [facility]; Service: Cardiovascular; Laterality: N/A; CARDIAC CATHETERIZATION N/A 04/26/2025 Procedure: NAIMA Stent - Coronary; Surgeon: Kurt Jarrell MD; Location: [facility]; Service: Cardiovascular; Laterality: N/A; CHOLECYSTECTOMY [...] years old or greater - syringe (CPT 05449) 4. Screening for diabetes mellitus - Hemoglobin A1c; Future 5. Other technician terminal and repeater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 - Hemoglobin A1c; Future [...] [Hydrocodone-Acetaminophen] GI Intolerance documented in this encounter [facility] 06-10-2025 Telephone encounter Note Gail is requesting [...] additional follow up based on information above. [facility] 06-10-2025 Miscellaneous Notes Gail is requesting a [...] on information above. documented in this encounter [facility] 06-07-2025 History of Presen t illness Narrative Interventional Cardiology Clinic Follow-up Heart & Vascular [facility] 06/07/2025 Kurt Jarrell MD [address] [place], [place] [id number] Patient: Gail Lewis Date of : 1965 [...] PMHx remarkable for CAD s/p PCI to [facility] (03/2025), essential HTN, HL, Hx lung [...] Final Result by Interface, Lab Results In [facility] (04/26/2025 1539) Echocardiogram Complete Final Result [...] 14 days allowed.) Kurt Jarrell IV, MD, [facility] Inter[facility] Cardiology [facility] [address] [place] [id number] Office: [1] Tobacco Use Smoking Status Former Current packs/day: 0.00 Average packs/day: 1 pack/day for 35.0 years (35.0 ttl pk-yrs) Types: Cigarettes Start date: 1983 Quit date: 2019 Years since quittin.6 Smokeless Tobacco Never Tobacco Comments 04/10/2022- quit 3yrs ago documented in this encounter [facility] 06-07-2025 Note Interventional Cardi ology Clinic Follow-up Heart & Vascular [facility] 06/07/2025 Kurt Jarrell MD [address] [place] [id number] Patient: Gail Lewis Date of : 1965 (60 y.o.) PCP: Tony Rivera, BULL BUCKER Assessment & Plan Gail Lewis is a 60 y.o. female with a PMHx remarkable for CAD s/p PCI to [facility] (03/2025), essential HTN, HL, Hx lung CA, who presents today for follow-up after recent hospitalization for angina with PCI resulting. #Coronary Artery Disease s/p NAIMA x1 to [facility] (03/2025): - ASA 81mg po [...] PMHx remarkable for CAD s/p PCI to [facility] (03/2025), essential HTN, HL, Hx lung [...] Final Result by Interface, Lab Results In [facility] (04/26/2025 1539) Echocardiogram Complete Final Result [...] 14 days allowed.) Kurt Jarrell IV, MD, [facility] Interventional Cardiology [facility] [address] [place], [place] [id number] Office: [1] Tobacco Use Smoking Status Former Current packs/day: 0.00 Average packs/day: 1 pack/day for 35.0 years (35.0 ttl pk-yrs) Types: Cigarettes Start date: 1983 Quit date: 2019 Years since quittin.6 Smokeless Tobacco Never Tobacco Comments 04/10/2022- quit 3yrs ago AUTHENTICATED BY KURT JARRELL, ON 06/07 (more content not included)... [facility] 04-27-2025 Note Cardiology Progress Note Assessment/Plan: [...] History of lung cancer Plan: -Patient s/p [facility] with PCI to ramus -Right radial cath site without complication, site CDI. No bleeding or hematoma appreciated, palpable radial pulse. Post-cath activity instructions reviewed -continue aspirin 81 mg daily indefinitely and Plavix for 6 months. Patient educated to let computer operations analyst know if unable to afford medications. Patient educated on necessity of med compliance -Continue Coreg. Hold off on addition of BULMARO due to borderline BP. Will increase Lipitor to 80 mg and add additional Zetia given LDL not at goal. Will need repeat lipid panel in approximately 3 months -Will have patient follow-up with Dr. Thompson or [facility] -This OIL WELL GUN PERFORATOR OPERATOR discussed Cardiac Rehabilitation with the Patient. Subjects covered during this discussion included: The importance and benefits of Cardiac Rehab and exercise upon discharge from the hospital. Instructed that a member of the Cardiac Rehab Team will contact them to schedule these appointments after discharge Were provided a list of locations to choose for this follow-up. Card[facility] [place] [place] occur [place] [facility] Cardiac Rehab Referral order placed? YES - [...] AUTHENTICATED BY JESSICA CHAVIS, ON 04/27/2025 10:16:00 [facility] 04-26-2025 Note Pulmonary Consult No te Reason [...] on her insurance formulary[facility] may continue with Ventolin as [...] 04/26/25 04/26/26 Hailey, (more content not included)... [facility] 04-26-2025 Note Addended by: RIO RAI on: 04/26/2025 01:06 PM Modules accepted: Orders [facility] 04-26-2025 Note Addended by: RIO RAI on: 04/26/2025 01:06 PM Modules accepted: Orders [facility] 04-26-2025 Miscellaneous Notes Addended by: RIO CAPONE on: 04/26/2025 01:06 PM Modules accepted: Orders documented in this encounter [facility] 04-26-2025 Miscellaneous Notes Addended by: RIO CAPONE on: 04/26/2025 01:06 PM Modules accepted: Orders documented in this encounter [facility] 04-25-2025 Note HMS HISTORY AND PHYS ICAL ? [facility] Patient Name/: Gail Lewis 1965 Date of [...] Nonischemic No prior echoes, stress MPS, or [facility]'s Repeat EKG on 4 arrival [...] mg/dL 0.68 GLUC (more content not included)... [facility] 08-18-2024 Note [facility] INTER[facility] MEDICINE [address] [facility] [place] [address] Patient: Gail Lewis is a 59 y.o. [...] changes, urinary symptoms. Has not tried anything [id number] Asthma, hx of lung cancer: Currently taking Pulmicort 2 puffs twice daily, albuterol as needed. Patient also reports history of lung cancer in 2019. Currently is in remission. Patient is former smoker. was previously following with pulmonology- has been seen since 2021. Due for follow-up CT. Insurance would not cover the [facility] Ellip. HTN: Currently taking 6.25 of Coreg [...] cigarettes. She s (more content not included)... [facility] 08-18-2024 History of Presen t illness Narrative [facility] INTERNAL MEDICINE [address] [place] [address]. [place] [address] Patient: Gial Lewis is a 59 y.o. female. Chief [...] changes, urinary symptoms. Has not tried anything [id number] Asthma, hx of lung cancer: Currently taking Pulmicort 2 puffs twice daily, albuterol as needed. Patient also reports history of lung cancer in 2019. Currently is in remission. Patient is former smoker. was previously following with pulmonology- has been seen since 2021. Due for follow-up CT. Insurance would not cover the [facility]. HTN: Currently taking 6.25 of Coreg twice [...] Tony Rivera CNP documented in this encounter [facility] 02-11-2024 History of Presen t illness Narrative [facility]YSIC[facility] INTERNAL MEDICINE [facility] [place] [address] Patient: Gail Lewis is a 58 y.o. [...] her insurance as this is what his senior database programmer had suggested previously. Continue with Pulmicort until [...] months (around 08/13/2024) for Annual physical. Tony Rivear CNP documented in this encounter [facility] 08-26-2023 Telephone encounter Note Geraldine: 08/13/23 [facility] 08-26-2023 Miscellaneous Notes Geraldine: 08/13/23 documented in this encounter [facility] 07-08-2023 History of Presen t illness Narrative [facility] INTERNAL MEDICINE [address] [facility] [place] [address] Patient: Gail Lewis is a 58 y.o. [...] daily . 30 tablet 2 flu vacc [id number] 6mos up,PF, (FLUZONE QUAD/FLULAVAL QUAD/FLUARIX QUAD) 60 mcg (15 mcg x 4)/0.5 mL Syrg syringe Sign this order in conjunction with the immunization order to satisfy [place] Board [employer] Pharmacy Positive ID requirements for [...] 6mo or >,Fluzone Quad - flu vacc [id number] 6mos up,PF, (FLUZONE QUAD/FLULAVAL QUAD/FLUARIX QUAD) 60 mcg (15 mcg x 4)/0.5 mL Syrg syringe; Sign this order in conjunction with the immunization order to satisfy [place] Board [employer] Pharmacy Positive ID requirements for [...] for years. States she has been taking [id number] medications. However does not seem to be [...] Tony Rivera CNP documented in this encounter [facility] 01-07-2023 History of Presen t illness Narrative [facility] INTERNAL MEDICINE [facility] [place] [address] Patient: Gail Lewis is a 57 y.o. [...] conjunction with the immunization order to satisfy [place] Board of Pharmacy Positive ID requirements for [...] conjunction with the immunization order to satisfy [place] Board of Pharmacy Positive ID requirements for [...] Tony Rivera CNP documented in this encounter [facility] 04-10-2022 History of Presen t illness Narrative [facility] [address] [facility] PULMONARY [address] [place] [address] Name: Gail Lewis Age: 56 y.o. : [...] RTC as needed documented in this encounter [facility] 01-10-2022 History of Presen t illness Narrative Received results of A1AT screen, which was normal. Results will be scanned under media. documented in this encounter [facility] 12-20-2021 History of Presen t illness Narrative [facility] [address] [facility] PULMONARY [address] [facility] [address] Name: Gail Lewis Age: 56 y.o. : 1965 Today's date: 12/20/21 Outpatient Pulmonary Consult Note CC: Respiratory failure Gail Lewis is a 56 y.o. female who presents to Pulmonary clinic for evaluation of respiratory failure. They were referred by Tony Rivera CNP. HPI: Ms. Lewis was [place] at [facility] [place] early [place] for an upper respiratory infection and establish with a new PCP in October. She had followed with a senior database programmer in [place] and wanted to establish with one here. 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 INTERNAL MEDICINE [address] [place] [address]. [place] [address] Patient: Gail Lewis is a 56 y.o. [...] Tony Rivera CNP documented in this encounter [facility] 11-15-2021 History of Presen t illness Narrative Patient here for blood pressure check. BP- 151/85, pulse-71, SPO2-97%. Waited 5 minutes, BP- 120/79 Patient does not want to schedule mammogram at this time, patient states that she does self exams at home. documented in this encounter [facility] 11-08-2021 Instructions Tony Rivera CNP - 11/08/2021 [...] it properly. Do not take any vitamins, snlw-sud-brwmnjz medicine, or herbal products without talking to [...] exercise. 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 Learn breathing methods such [...] Log into your personal health record on [email or web address] and enter X915 in the "Education" box to learn more about "Chronic Obstructive Pulmonary Disease (COPD): Care Instructions." Current as of: April 04, 2021 Content Version: 13.1 [employer]. Care instructions adapted under license by your healthcare professional. If you have questions about a medical condition or this instruction, always ask your healthcare professional. [employer] disclaims any warranty or liability for your use of this information. documented in this encounter [facility] 11-08-2021 History of Presen t illness Narrative [facility] INTER[facility] MEDICINE [address] [place] [address]. [place] [address] Patient: Gail Lewis is a 56 y.o. female. Chief Complaint Patient presents with Establish Care Medication Refill Needs a nebulizer as well Heartburn HPI: patient here to establish care. Recently moved to [place] from [place]. Past medical history significant for COPD, HTN. Lung cancer, depression, anxiety. COPD, hx of lung cancer: Patient reports history of COPD. Currently taking albuterol nebulizer as needed as well as Anoro Ellipta. Patient needing new nebulizer. Patient states she was following with pulmonology back in [place]. Needing provider locally. Patient also reports history [...] Patient was previously following with pulmonology in [place]. We will get updated lab work. We [...] Tony Rivera CNP documented in this encounter [facility] Evaluation note Diagnosis COPD, moderate (HCC)- Primary [...] and respiratory abnormality [facility] Diagnosis Moderate persistent asthma, uncomplicated [facility] Diagnosis COPD, moderate (HCC)- Primary [facility] Diagnosis Gastroesophageal reflux disease, unspecified whether esophagitis present [facility] Diagnosis Moderate persistent asthma, uncomplicated Hyperlipidemia, unspecified hyperlipidemia type Anxiety Anxiety state, unspecified Hypertension, unspecified type Gastroesophageal reflux disease, unspecified whether esophagitis present [facility] Diagnosis Encounter for screening for lung [...] on right side [facility] Diagnosis Screening for lung cancer- Primary [facility] Diagnosis Pulmonary infiltrate- Primary Pulmonary eosinophilia Moderate persistent asthma, uncomplicated Mediastinal lymphadenopathy Enlargement of lymph nodes [facility] Diagnosis Pulmonary infiltrate- Primary Pulmonary eosinophilia Moderate persistent asthma, uncomplicated Mediastinal lymphadenopathy Enlargement of lymph nodes [facility] Diagnosis 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 [facility] Diagnosis Moderate persistent asthma, uncomplicated Anxiety Anxiety state, unspecified Gastroesophageal reflux disease, unspecified whether esophagitis present [facility] Diagnosis Wellness examination- Primary Prediabetes Other abnormal glucose Need for vaccination Need for prophylactic vaccination and inoculation against unspecified single disease Screening for diabetes mellitus Other fci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 Other specified abnormal findings of blood chemistry Encounter for lipid screening for cardiovascular disease Screening for colon cancer Special screening for malignant neoplasms, colon Family history of colon cancer Family history of malignant neoplasm of gastrointestinal tract [facility] Diagnosis Mild intermittent asthma, uncomplicated- Primary Pulmonary nodule Other diseases of lung, not elsewhere classified [facility] Attachments The following attachments cannot be sent through Care Everywhere. * Diet: DASH (Cypriot) [facility] Attachments The following attachments cannot be sent through Care Everywhere. * Diet: DASH (Cypriot) [facility]* Attachments The following attachments cannot be sent through Care Everywhere. * SOB (Shortness of Breath) (Cypriot) [facility]* Attachments The following attachments cannot be sent through Care Everywhere. * Asthma: Adult (Cypriot) [facility]* Attachments The following attachments cannot be sent through Care Everywhere. * Diet: DASH (Cypriot) [facility]* Attachments The following attachments cannot be sent through Care Everywhere. 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 Advance Directives and Livin g Will 10/04/2021 2:32 PM Documents on File Type Date Recorded Patient Seed Laboratory Assistant Expl 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 Advance Directives and Livin g [...] of lung cancer Tony Rivera, YESSY [address] [place] [address] [facility] [address] [place] [address] Referral ID Status Reason Start Date Expiration Date Visits Requested Visits Authorized [id number] Authorized Specialty Services Required/Pat ient's Best Interest 11/08/2021 11/08/2022 1 1 Specialty Diagnoses / Procedures Referred By Contac t Referred To Contact Central Scheduling Diagnoses Encounter for screening for malignant neoplasm of breast, unspecified screening modality Procedures Mammography Screening Bilateral Tony Rivera CNP [address] [place] [address] Central Scheduling [address] [place] [address] Referral ID Status Reason Start Date Expiration Date V isits Requested Visits Authorized [id number] Authorized 11/08/2021 11/08/2022 1 1 Specialty Diagnoses / Procedures Referred By Contac t Referred To Contact Obstetrics and Gynecology Diagnoses Screening for cervical cancer Tony Rivera CNP [address] [place] [address] [facility] [employer] [address] [address] Referral ID Status Reason Start Date Expiration Date Visits Requested Visits Authorized [id number] Authorized Specialty Services Required/Pat ient's Best Interest 11/08/2021 11/08/2022 1 1 Specialty Diagnoses / Procedures Referred By Contac t Referred To Contact Radiology Diagnoses History of lung cancer Former smoker Encounter for screening for lung cancer Procedures CT Lung Cancer Screening Tony Rivera CNP [address] [place] [address] Referral ID Status Reason Start Date Expiration Date V isits Requested Visits Authorized [id number] New Request 01/07/2023 01/07/2024 1 1 Specialty Diagnoses / Procedures Referred By Contac t Referred To Contact Central Scheduling Diagnoses Lung nodule seen on imaging study History of lung cancer Procedures CT Chest Without Contrast Tony Rivera CNP [address] [place] [address] Central Scheduling [address] [place] [address] Referral ID Status Reason Start Date Expiration Date V isits Requested Visits Authorized [id number] New Request 02/01/2023 02/01/2024 1 1 Specialty Diagnoses / Procedures Referred By Contac t Referred To Contact Central Scheduling Diagnoses Breast cancer screening by mammogram Procedures Mammography Screening Ronak Bilateral Tony Rivera CNP [facility] [place] [address] Central Scheduling [address] [place] [address] Referral ID Status Reason Start Date Expiration Date V isits Requested Visits Authorized [id number] Authorized 02/11/2023 02/11/2024 1 1 Specialty Diagnoses / Procedures Referred By Contac t Referred To Contact Cardiology Diagnoses Dyspnea on exertion Procedures Echocardiogram complete Tony Rivera CNP [address] [place] [id number] Referral ID Status Reason Start Date Expiration Date V isits Requested Visits Authorized [id number] New Request 07/08/2023 07/07/2024 1 1 Specialty Diagnoses / Procedures Referred By Contac t Referred To Contact Radiology Diagnoses Lung nodule seen on imaging study History of lung cancer Procedures CT Chest Without Contrast Tony Rivera CNP [address] [place] [id number] Referral ID Status Reason Start Date Expiration Date V isits Requested Visits Authorized [id number] New Request 07/08/2023 07/07/2024 1 1 Specialty Diagnoses / Procedures Referred By Contac t Referred To Contact Pulmonology Diagnoses Moderate persistent asthma, uncomplicated Tony Rivera CNP [address] [place] [address] Rio Capone MD [address] [place] [id number] Referral ID Status Reason Start Date Expiration Date V isits Requested Visits Authorized [id number] Authorized 02/11/2024 02/10/2025 1 1 Specialty Diagnoses / Procedures Referred By Contac t Referred To Contact Diagnoses Moderate persistent asthma, uncomplicated Tony Rivera CNP [address] [place] [address] Referral ID Status Reason Start Date Expiration Date V isits Requested Visits Authorized [id number] Pending Review 1 1 Additional Source Comments INFORMATION SOURCE (unrecogn ized section and content) DATE CREATED AUTHOR 10/26/2021 [facility] DATE CREATED AUTHOR AUTHOR'S ORGANIZ ATION 08/04/2025 [facility] DATE CREATED AUTHOR AUTHOR'S ORGANIZ ATION 08/08/2025 [facility]spital Reason for Visit (unrecogniz ed section [...] of lung cancer Tony Rivera CNP [address] [place] [address] Rio Capone MD [address] [place] [address] Referral ID Status Reason Start Date Expiration Date V isits Requested Visits Authorized [id number] Closed Specialty Services Required/Anai ent's Best Interest [...] Care Teams (unrecognized sec tion and content) Logistics Team Leader Relationship Specialty Start Date End Date Tony Rivera CNP [address] [place], [place] [address] PCP - Internal Medicine Nurse Practitioner 11/08/21 Logistics Team Leader Relationship Specialty Start Date End Date Tony Rivera CNP [address] [place], [place] [address] PCP - Internal Medicine Nurse Practitioner 11/08/21 Tony Rivera, BULL BUCKER [address] [place] [address] PCP - General Nurse Practitioner 11/15/21 11/15/21 Logistics Team Leader Relationship Specialty Start Date End Date Tony Rivera CNP [address] [place], [place] [address] PCP - Internal Medicine Nurse Practitioner 11/08/21 Logistics Team Leader Relationship Specialty Start Date End Date Tony Rivera, BULL BUCKER [address] [place], [place] [address] PCP - Internal Medicine Nurse Practitioner 11/08/21 Tony Rivera, BULL BUCKER [address] [place] [address] PCP - General Nurse Practitioner 12/20/21 Logistics Team Leader Relationship Specialty Start Date End Date Tony Rivera BULL BUCKER [address] [place] [address] PCP - Internal Medicine Nurse Practitioner 11/08/21 Tony Rivera, BULL BUCKER [address] [place] [address] PCP - General Nurse Practitioner 12/20/21 Logistics Team Leader Relationship Specialty Start Date End Date Tony Rivera, BULL BUCKER [address] [place] [address] PCP - Internal Medicine Nurse Practitioner 11/08/21 Tony Rivera CNP [address] [place] [address] PCP - General Nurse Practitioner 12/20/21 Logistics Team Leader Relationship Specialty Start Date End Date Tony Rivera CNP [address] [place] [address] PCP - Internal Medicine Nurse Practitioner 11/08/21 Tony Rivera CNP [address] [place] [address] PCP - General Nurse Practitioner 12/20/21 Logistics Team Leader Relationship Specialty Start Date End Date Tony Rivera CNP [address] [place] [address] PCP - Internal Medicine Nurse Practitioner 11/08/21 Tony Rivera CNP [address] [place] [address] PCP - General Nurse Practitioner 12/20/21 Logistics Team Leader Relationship Specialty Start Date End Date Tony Rivera CNP [address] [place] [address] PCP - Internal Medicine Nurse Practitioner 11/08/21 Tony Rivera CNP [address] [place] [address] PCP - General Nurse Practitioner 12/20/21 Logistics Team Leader Relationship Specialty Start Date End Date Tony Rivera CNP [address] [place] [address] PCP - Internal Medicine Nurse Practitioner 11/08/21 Tony Rivera CNP [address] [place] [place] [address] PCP - General Nurse Practitioner 12/20/21 Logistics Team Leader Relationship Specialty Start Date End Date Tony Rivera CNP [address] [place] [place] [address] PCP - Internal Medicine Nurse Practitioner 11/08/21 Tony Rivera CNP [address] [place] [place] [address] PCP - General Nurse Practitioner 12/20/21 Logistics Team Leader Relationship Specialty Start Date End Date Tony Rivera CNP [facility] [place] [place] [address] PCP - Internal Medicine Nurse Practitioner 11/08/21 Tony Rivera CNP [facility] [place] [place] [address] PCP - General Nurse Practitioner 12/20/21 Logistics Team Leader Relationship Specialty Start Date End Date Tony Rivera CNP [address] [place] [address] [place] [address] PCP - Internal Medicine Nurse Practitioner 11/08/21 Tony Rivera CNP [facility] [place] [place] [address] PCP - General Nurse Practitioner 12/20/21 Logistics Team Leader Relationship Specialty Start Date End Date Tony Rivera CNP [address] [place] [place] [address] PCP - Internal Medicine Nurse Practitioner 11/08/21 Tony Rivera CNP [address] [place] [address] PCP - General Nurse Practitioner 12/20/21 Logistics Team Leader Relationship Specialty Start Date End Date Tony Rivera CNP [address] [place] [address] PCP - Internal Medicine Nurse Practitioner 11/08/21 Tony Rivera CNP [address] [place] [address] PCP - General Nurse Practitioner 12/20/21 Logistics Team Leader Relationship Specialty Start Date End Date Tony Rivera CNP [address] [place] [address] PCP - Internal Medicine Nurse Practitioner 11/08/21 Tony Rivera CNP [address] [place] [address] PCP - General Nurse Practitioner 12/20/21 Logistics Team Leader Relationship Specialty Start Date End Date Tony Rivera CNP [address] [place] [address] PCP - Internal Medicine Nurse Practitioner 11/08/21 Tony Rivera CNP [address] [place] [address] PCP - General Nurse Practitioner 12/20/21 Logistics Team Leader Relationship Specialty Start Date End Date Tnoy Rivera CNP [address] [place] [address] PCP - Internal Medicine Nurse Practitioner 11/08/21 Tony Rivera CNP [address] [place] [address] PCP - General Nurse Practitioner 12/20/21 Logistics Team Leader Relationship Specialty Start Date End Date Tony Rivera CNP [address] [place] [address] PCP - Internal Medicine Nurse Practitioner 11/08/21 Tony Rivera CNP [address] [place] [address] PCP - General Nurse Practitioner 12/20/21 Logistics Team Leader Relationship Specialty Start Date End Date Tony Rivera CNP [place] [address] PCP - Internal Medicine Nurse Practitioner 11/08/21 Tony Rivera CNP [place] [place] [address] PCP - General Nurse Practitioner 12/20/21 FOR [...] BE BASED ON THE PRIMARY CLINICAL RECORDS. [facility] [email or web address] [facility]. provides no warranty or guarantee of the accuracy or completeness of information in this document.
[2025-08-15 18:47] LABS: Prothrombin Time (Protime)PT. 12.1 SECONDS (11.7-14.9)
[2025-08-15 18:48] LABS: Partial Thromboplast Time 23.5 Seconds (24.1-36.2)
[2025-08-15] MEDS: HEPARIN/D5w 25,000 UNITS 25,000 UNITS/250 ML IV.SOLN. 9.4 UNITS CONT INF (18:53)
[2025-08-15] MEDS: Heparin Nomogram Adjustment 5,000 UNIT/ML VIAL IV (18:53)
[2025-08-15 19:16] LABS: Magnesium 2.2 mg/dL (1.5-2.2)
--- NOTE | 2025-08-15 19:30 | EKG12_ITS ---
Test Reason : CP ADMIT Blood Pressure : */* mmHG Vent. Rate : 77 BPM Atrial Rate : 77 BPM P-R Int : 154 ms QRS Dur : 98 ms QT Int : 418 ms P-R-T Axes : 50 31 99 degrees QTcB Int : 473 ms Normal sinus rhythm [address] & T wave abnormality, consider anterolateral ischemia Abnormal ECG When compared with ECG of 15-Aug-2025 15:13, MANUAL COMPARISON REQUIRED DATA IS UNCONFIRMED Confirmed by VILMA AVINA, MAURICE ([id number]), book editor HOMER CASTRO ([id number]) on 08/16/2025 10:59:13 AM Referred By: Confirmed By: MAURICE ESPARZA MD
[2025-08-15 20:09] LABS: Troponin T High Sens 4 HR 165 ng/L (<=14)
[2025-08-15] MEDS: 0.9% Normal Saline (1000mL) 1,000 ML 75 ML IV (20:56)
[2025-08-15] MEDS: 0.9% Saline Lock 10 ML Syringe IV (21:07)
[2025-08-16] VITALS (14 sets, daily range): BP systolic 97–118; BP diastolic 55–71; PULSE 67–80; RESP 14–20; TEMP 36.6–36.8; O2SAT 91–99; BMI 33.3
[2025-08-16 01:56] LABS: Partial Thromboplast Time 95.1 Seconds (24.1-36.2)
--- NOTE | 2025-08-16 05:55 | ECHOCS_ITS ---
Reason For Study Reason For Study: NSTEMI Procedure This was a 2D Doppler, Color Flow transthoracic echocardiogram. The study was technically difficult. Contrast injection was performed. Exam performed portable in patient room. Left Ventricle Normal LV size. The left ventricular ejection fraction is 50 %. Stage 1 diastolic dysfunction. Mild to moderate segmental systolic dysfunction (see wall motion). [place] : Severely Hypokinetic. Mid-Anterior : Severely Hypokinetic. Inferior [place] : Hypokinetic. There are regional wall motion abnormalities as specified. Right Ventricle Normal RV size. Normal systolic function. Atria Normal left atrium. Normal right atrium. Mitral Valve Normal mitral valve. Tricuspid Valve Normal tricuspid valve. Mild (1+) tricuspid valve insufficiency. Pulmonary artery systolic pressure is 22 mmHg. Aortic Valve Trisinus/trileaflet aortic valve. Pulmonic Valve Normal pulmonic valve. Great Vessels Normal aortic root. The pulmonary artery is normal size. Inferior vena cava collapse with respiration. Pericardium/Pleural No pericardial effusion. Medication Diluted definity 2ml given slow IV push to enhance endocardial definition. MMode/2D Measurements & Calculations LVIDd: 4.0 cm IVSd: 0.99 cm LVOT diam: 2.1 cm LVIDs: 2.2 cm LVPWd: 0.95 cm RVDd: 2.9 cm FS: 45.3 % LVOT area: 3.4 cm2 LAV(MOD-bp): 30.1 ml LVAd ap4: 31.4 cm2 LVAd ap2: 30.6 cm2 LAV(MOD-bp) Indexed: 17.7 ml/m2 LVLd ap4: 7.6 cm LVLd ap2: 7.9 cm LAV(MOD-sp2): 39.8 ml EDV(MOD-sp4): 104.2 ml EDV(MOD-sp2): 95.2 ml LAV(MOD-sp4): 22.8 ml EDV(sp4-el): 109.6 ml EDV(sp2-el): 100.0 ml LVAs ap4: 21.7 cm2 LVAs ap2: 21.6 cm2 LVLs ap4: 6.9 cm LVLs ap2: 7.4 cm ESV(MOD-sp4): 55.8 ml ESV(MOD-sp2): 51.9 ml ESV(sp4-el): 58.0 ml ESV(sp2-el): 54.0 ml EF(MOD-sp4): 46.4 % EF(MOD-sp2): 45.5 % EF(sp4-el): 47.1 % SV(MOD-sp4): 48.3 ml SV(MOD-sp2): 43.3 ml SV(sp4-el): 51.6 ml SI(MOD-sp4): 28.4 ml/m2 SI(MOD-sp2): 25.5 ml/m2 Ao sinus diam: 3.2 cm LA A4 area: 10.6 cm2 LA dimension(2D): 3.4 cm TAPSE: 1.7 cm RA A4 area: 11.2 cm2 Time Measurements MV dec time: 0.24 sec Doppler Measurements & Calculations MV E max tyler: 70.2 cm/sec Lat Peak E' Tyler: 10.7 cm/sec Med Peak E' Tyler: 9.1 cm/sec MV A max tyler: 83.4 cm/sec E/E' lat: 6.5 E/E' med: 7.7 MV E/A: 0.84 MV dec slope: 289.6 cm/sec2 Ao V2 max: 117.0 cm/sec LV V1 max: 99.4 cm/sec Ao max P.5 mmHg LV V1 max P.0 mmHg Ao V2 mean: 84.4 cm/sec LV V1 mean P.2 mmHg Ao mean P.2 mmHg LV V1 mean: 71.7 cm/sec Ao V2 VTI: 27.7 cm LV V1 VTI: 19.8 cm AV (velocity ratio): 0.72 MARIA C(I,D): 2.4 cm2 MARIA C(V,D): 2.8 cm2 SV(LVOT): 66.6 ml PA V2 max: 73.1 cm/sec TR max tyler: 217.5 cm/sec TR max P.9 mmHg ECHO/Echo Complete W/ Contrast Interpretation Summary The left ventricular ejection fraction is 50 %. Normal LV size. Stage 1 diastolic dysfunction. Pulmonary artery systolic pressure is 22 mmHg. Mild to moderate segmental systolic dysfunction (see wall motion). Ordering Physician: Patel Connors Performed By: Sarai Rothman RDCS
--- NOTE | 2025-08-16 05:55 | EKG12_ITS ---
Test Reason : AM EKG Blood Pressure : */* mmHG Vent. Rate : 74 BPM Atrial Rate : 74 BPM P-R Int : 178 ms QRS Dur : 90 ms QT Int : 440 ms P-R-T Axes : 59 36 97 degrees QTcB Int : 488 ms Normal sinus rhythm T wave abnormality, consider anterolateral ischemia Prolonged QT Abnormal ECG When compared with ECG of 15-Aug-2025 20:23, MANUAL COMPARISON REQUIRED DATA IS UNCONFIRMED Confirmed by VILMA AVINA, MAURICE ([id number]), technical editor HOMER CASTRO ([id number]) on 08/16/2025 10:59:03 AM Referred By: Confirmed By: MAURICE ESPARZA MD
[2025-08-16 06:06] LABS: Hematocrit 37.0 % (37-47); Hemoglobin 11.3 g/dL (12.0-15.0); Immature Granulocytes Count 0.040 X10^3/uL (0.0-0.0); Mean Corp Hgb Conc 30.5 g/dL (32-36); Mean Corpuscular Volume 96.4 fL (81-99); Mean Platelet Vol. 8.6 fl (6.2-12.0); NRBC Flagged by Analyzer 0 % (0-5); Platelet Count 302 K/mm3 (150-450); RBC Distribution Width CV 13.9 % (11.6-14.6); RBC Distribution Width SD 49.1 fl (35.1-43.9); Red Blood Count 3.84 M/mm3 (4.2-5.4); White Blood Count 8.6 K/mm3 (4.4-11.0)
[2025-08-16 06:44] LABS: Anion Gap 9 (5-15); BUN 11 mg/dL (4-19); BUN/Creat Ratio 14.1 RATIO (10-20); Calcium,Total 8.8 mg/dL (7.6-11.0); Carbon Dioxide 26.8 mmol/L (21.0-32.0); Chloride 106 mmol/L (98-108); Estimated Creatinine Clearance 71.16 ml/min (50-250); Glucose 112 mg/dL (70-99); Potassium 4.1 mmol/L (3.3-5.1)
[2025-08-16] MEDS: Aspirin E.C. 81 MG Tablet PO (06:48)
[2025-08-16 06:55] LABS: Cholesterol 200 mg/dL (<=200); Low Density Lipoprotein Calc. 116 mg/dL; Triglycerides 229 mg/dL; Very Low Density Lipoprotein 46 mg/dL (5-40); cholesterol:hdl ratio screen 4.50
[2025-08-16] MEDS: Budesonide Respules 0.5 MG/2 ML AMPUL.NEB. INHALATION (06:57)
--- NOTE | 2025-08-16 07:20 | PCM.CONS.C ---
Assessment & Plan Assessment/Plan (1) NSTEMI, initial episode of care: PLAN: Patient presents with exertional chest discomfort and is noted to have a non-ST elevation myocardial infarction. My recommendation will be for her to undergo a repeat cardiac catheterization and depending on the findings further recommendations will be made. There is benefits alternatives have been explained to her she understands and agrees to proceed. (2) History of CAD (coronary artery disease): PLAN: She does have a history of coronary disease status post previous angioplasty and stenting presumably of the left anterior descending artery. This to be reevaluated on the upcoming cardiac catheterization. (3) Hypertension: PLAN: She does have a history of hypertension her blood pressure appears to be well-controlled on the current medical therapy and no changes will be made. (4) Hyperlipidemia: PLAN: She does have a history of hyperlipidemia on a statin and I will increase the statin dose for aggressive risk factor management. Thank you for allowing me to participate in the care of your patient. Please don't hesitate to call if any issues arise. HPI Consult Data Date of Consult: 08/16/25 HPI Narrative HPI Narrative: MARCI LEWIS, is a 60 F who presents to the emergency room yesterday after being brought in with complaints of chest pressure which had been going on for 3 to 4 hours. She underwent a coronary stent procedure in March 2025 in [facility] [place] and says that she had been doing well she moved to this area and she was [place] in [place] when she developed chest discomfort which was a pressure-like squeezing sensation. She has actually run out of her medications for a few days. They called the EMS to give a sublingual nitroglycerin which relieved the pain. She presented to the emergency room initial EKG demonstrated sinus rhythm with a rate of 76 bpm and no acute changes troponins were normal. Troponins were noted to be elevated. Follow-up EKG also demonstrated normal sinus rhythm with a rate of 74 bpm and anterior T wave inversions noted. At this particular time she is pain-free. She denies any dizziness or diaphoresis. She did have some mild lightheadedness when this happened as well as diaphoresis. [facility] Medical History (Updated 08/16/25 @ 07:[address] Santi Ward MD) Hyperlipidemia Hypertension Lung cancer Home Medications Medication Instructions Recorded Last Taken Type aspirin 81 mg tablet,delayed 81 mg PO DAILY 08/15/25 Unknown History release atorvastatin 40 mg tablet 40 mg PO DAILY 08/15/25 08/13/25 History buspirone 10 mg tablet 10 mg PO TID 08/15/25 08/14/25 History carvedilol 6.25 mg tablet 6.25 mg PO BID 08/15/25 Unknown History clopidogrel 75 mg tablet 75 mg PO DAILY 08/15/25 Unknown History Allergy/AdvReac Type Severity Reaction Status Date / Time acetaminophen (From Vicodin) Allergy Mild Nausea Verified 08/15/25 14:52 hydrocodone (From Vicodin) Allergy Mild Nausea Verified 08/15/25 14:52 Surgical History Stented coronary artery S/P lobectomy of lung History of appendectomy Social History Smoking Status: Former smoker ROS Constitutional Constitutional: Denies fever(s) or weight loss Eyes Eyes: Reports systems reviewed and no addt'l complaints, except as documented ENT HEENT: Reports systems reviewed and no addt'l complaints, except as documented Cardiovascular Cardiovascular: Reports chest pain with activity; Denies chest pain at rest, dyspnea at rest, dyspnea on exertion, edema, palpitations or paroxysmal nocturnal dyspnea Respiratory/Chest Respiratory/Chest: Reports dyspnea on exertion; Denies productive cough, shortness of breath at rest or shortness of breath with exertion Gastrointestinal Gastrointestinal: Denies change in bowel habits, nausea, vomiting or weight changes Genitourinary Genitourinary: Denies difficulty urinating Musculoskeletal Musculoskeletal: Denies joint stiffness or muscle weakness Integumentary Integumentary: Denies lesions Neurologic Neurologic: Denies dizziness or syncope Psychiatric Psychiatric: Denies anxiety Endocrine Endocrinology: Denies excessive sweating or fatigue Hematologic/Lymphatic Hematologic/Lymphatic: Denies anemia Allergic/Immunologic Allergic/Immunologic: Denies seasonal rhinorrhea Physical Exam Const alert and oriented x3 Orientation / Consciousness: awake HEENT normocephalic Eyes PERRL Neck full ROM Carotids: normal carotid upstroke Chest inspection of chest normal Resp normal respiratory effort Cardio regular rate and regular rhythm Palpation: normal PMI Extremity normal to inspection Psych mental status grossly normal Objective Data Vital Signs: Vital Signs Temp Pulse Resp BP Pulse Ox O2 Del Method O2 Flow Rate 98.1 F 73 16 105/57 L 93 Nasal Cannula 2 08/16/25 06:46 08/16/25 06:58 08/16/25 06:58 08/16/25 06:46 08/16/25 06:58 08/16/25 06:58 08/16/25 06:58 Oxygen Flow Rate (L/min) 2 Oxygen Delivery Method Nasal Cannula Weight: 165 lb 2.02 oz Body Mass Index (BMI) 33.3 Intake & Output: Intake and Output for Last 24 Hours 08/14/25 08/15/25 08/16/25 23:59 23:59 23:59 Intake Total 300 / 300 66.43 / 66.43 Output Total 0 / 0 Balance 300 / 300 66.43 / 66.43 Lab / Micro Data 08/16/25 05:16 08/16/25 05:16 Labs: Laboratory Results - last 24 hr 08/15/25 15:01: WBC 13.0 H, RBC 4.24, Hgb 12.8, Hct 40.4, MCV 95.3, MCH 30.2, MCHC 31.7 L, RDW Std Deviation 48.1 H, RDW Coeff of Yuliana 13.7, Plt Count 342, MPV 8.5, Immature Gran % (Auto) 0.600, Neut % (Auto) 64.6, Lymph % (Auto) 23.7, [place] % (Auto) 7.5, Eos % (Auto) 2.9, Baso % (Auto) 0.7, Absolute Neuts (auto) 8.4 H, Absolute Lymphs (auto) 3.07, Nucleated RBC % 0, PT 12.1, INR 0.9, APTT 23.5 L, D-Dimer Quant (PE/DVT) 1.53 H*, Sodium 140, Potassium 4.3, Chloride 100, Carbon Dioxide 29.0, Anion Gap 11, BUN 10, Creatinine 0.84, Estim Creat Clear Calc 66.09, Est GFR (MDRD) Non-Af 80, BUN/Creatinine Ratio 12.3, Glucose 120 H, Calcium 9.7, Troponin T High Sens 10 08/15/25 17:10: Magnesium 2.2, Troponin T Hi Sens 2 Hr 111 H* 08/15/25 19:04: Troponin T Hi Sens 4Hr 165 H* 08/16/25 01:06: APTT 95.1 H* 08/16/25 05:16: WBC 8.6, RBC 3.84 L, Hgb 11.3 L, Hct 37.0, MCV 96.4, MCH 29.4, MCHC 30.5 L, RDW Std Deviation 49.1 H, RDW Coeff of Yuliana 13.9, Plt Count 302, MPV 8.6, Immature Gran % (Auto) 0.500, Neut % (Auto) 59.8, Lymph % (Auto) 29.5, [place] % (Auto) 7.5, Eos % (Auto) 2.0, Baso % (Auto) 0.7, Absolute Neuts (auto) 5.2, Absolute Lymphs (auto) 2.53, Nucleated RBC % 0, Sodium 141, Potassium 4.1, Chloride 106, Carbon Dioxide 26.8, Anion Gap 9, BUN 11, Creatinine 0.76, Estim Creat Clear Calc 71.16, Est GFR (MDRD) Non-Af 90, BUN/Creatinine Ratio 14.1, Glucose 112 H, Calcium 8.8, Phosphorus 3.4, Triglycerides 229 H, Cholesterol 200, LDL Cholesterol, Calc 116, VLDL Cholesterol 46 H, HDL Cholesterol 44, Cholesterol/HDL Ratio 4.50, TSH 1.730 Micro: Microbiology 08/15/25 18:55 Mucosa - Nose SARS-CoV-2, Influenza & RSV (PCR) - Final Rhythm Strip Rhythm Strip: Sinus Rhythm Rate: 76 Ectopy: None Cardiology Labs/Tests 08/15/25 15:01: WBC 13.0 H, RBC 4.24, Hgb 12.8, Hct 40.4, MCV 95.3, MCH 30.2, MCHC 31.7 L, Plt Count 342, MPV 8.5, Immature Gran % (Auto) 0.600, Neut % (Auto) 64.6, Lymph % (Auto) 23.7, [place] % (Auto) 7.5, Eos % (Auto) 2.9, Baso % (Auto) 0.7, Absolute Neuts (auto) 8.4 H, Nucleated RBC % 0, PT 12.1, INR 0.9, APTT 23.5 L, D-Dimer Quant (PE/DVT) 1.53 H*, Sodium 140, Potassium 4.3, Chloride 100, Carbon Dioxide 29.0, Anion Gap 11, BUN 10, Creatinine 0.84, Est GFR (MDRD) Non-Af 80, BUN/Creatinine Ratio 12.3, Glucose 120 H, Calcium 9.7 08/15/25 17:10: Magnesium 2.2 08/16/25 01:06: APTT 95.1 H* 08/16/25 05:16: WBC 8.6, RBC 3.84 L, Hgb 11.3 L, Hct 37.0, MCV 96.4, MCH 29.4, MCHC 30.5 L, Plt Count 302, MPV 8.6, Immature Gran % (Auto) 0.500, Neut % (Auto) 59.8, Lymph % (Auto) 29.5, [place] % (Auto) 7.5, Eos % (Auto) 2.0, Baso % (Auto) 0.7, Absolute Neuts (auto) 5.2, Nucleated RBC % 0, Sodium 141, Potassium 4.1, Chloride 106, Carbon Dioxide 26.8, Anion Gap 9, BUN 11, Creatinine 0.76, Est GFR (MDRD) Non-Af 90, BUN/Creatinine Ratio 14.1, Glucose 112 H, Calcium 8.8, Phosphorus 3.4, Triglycerides 229 H, Cholesterol 200, VLDL Cholesterol 46 H, HDL Cholesterol 44, Cholesterol/HDL Ratio 4.50 Rhythm: EKG: ECHO: Stress Test: Cardiac Cath: PCI: CT Surgery: Holter monitor: EPS: PPM: CXR: Chest CT Scan: Radiography Diagnostic Testing: Radiology Impression Chest X-Ray 08/15/25 15:20 IMPRESSION: No acute pulmonary process Reading Location: [id number] Chest CTA 08/15/25 17:25 IMPRESSION: 1. No pulmonary embolism or acute cardiopulmonary abnormality. 2. Ground-glass nodule in the right lower lobe measuring 9 mm, and solid nodule in the right upper lobe measuring 3 mm. In the setting of prior postoperative changes, recommend close clinical follow-up and repeat imaging within 6 months. Reading Location: [id number] APPLE Risk Score for UA/STEMI Assesmment (YES = 1) Risk Stratification Applicable: Yes Age > or = 65: No > or = 3 CAD risk factors (HTN, Hypercholesterolemia, Diabetes, family hx, current smoker): Yes Known CAD (Stenosis > or = 50%): Yes ASA used in past 7 days: No Severe angina (> or = 2 episodes in 24 hrs): No EKG ST change > or = 0.5mm: No Positive cardiac markers: Yes Score APPLE Risk Score of mortality/ recurrent ischemic event over the next 14 days: 3 = 13.2% Intermediate Risk
--- NOTE | 2025-08-16 09:41 | CL.I_ITS ---
Patient Name: MARCI LEWIS Study Date: 08/16/2025 Performing: Irving Michael MD Ht: 59 inches 149.86 cm : 1965 Wt: 165.13 lbs 74.9 kg Age: 60 Gender: female BSA: 1.7 PROCEDURE(S) PERFORMED IC08-(10490)IVUS, CORONARY OR GRAFT, INITIAL VESSEL IC10-(10434)FFR, CORONARY OR GRAFT, INITIAL VESSEL IC11-(58789)FFR, CORONARY OR GRAFT, EACH ADD'L VESSEL CLINICAL PROFILE AND CO-MORBIDITIES Indications: Suspected CAD Heart Failure: None Stress/Imaging Stress/Image Study Performed: No CAD Presentations: Unstable angina. CONCLUSIONS Severe calcified distal LMCA on IVUS. Residual luminal area 3.5 mm sq iFR distal LMCA 7 Mid LAD 0.70 iFR distal LMCA into Ramus 0.84 RECOMMENDATIONS [facility] CTS for evaluation for CABG DESCRIPTION OF PROCEDURE The patient arrived to the procedure lab. The risks and benefits of the procedure as well as a full description of our services here and current unavailability of surgical backup were fully explained to the patient and/or their significant other prior to the catheterization. The Timeout was completed, verifying the correct patient and procedure. The patient's procedural site was prepped and draped in the usual fashion. Local anesthetic was given subcutaneously to right radial region with Lidocaine 2% Using a modified Seldinger technique,arterial access was obtained via the right radial artery, a 6Fr sheath was inserted. Left Coronary Artery selective angiography was performed in multiple views using a 5 Fr. 4.0 Hollywood catheter. Right Coronary Artery selective angiography was then performed in multiple views using a 5 Fr. 4.0 Hollywood catheter. Left Ventriculography was performed in SCHULTZ projection using a 5 Fr. Pigtail catheter. LV to AO pullback pressures were then recorded.The images were reviewed and options discussed. A decision was then made to proceed with an Intervention, IVUS or other adjunct procedure. XB 3.0 Guide catheter was inserted and engaged into the LCA. Runthrough Guide wire was advanced to the Left main. IVUS pullback recording was performed on the Distal left main for pre- intervention / lesion assessment. The FFR/iFR wire was inserted. iFR Ratio: 0.70 iFR Ratio: 0.72 iFR Ratio: 0.61-mid LAD iFR Ratio: 0.84-Ramus The FFR/iFR wire was then removed. Angiogram performed post IFR The arterial sheath was pulled and a TR Band was applied for hemostasis w/ 10ml air INTERVENTION INFORMATION LESION SITE: Left Main (Distal) PROCEDURE: IVUS for pre PCI assessment of vessel, iFR Lesion Devices: Cordis 6 Fr XB3.0 100cm Guide Catheter Terumo .014 180cm Runthrough Extra Floppy straight [employer] [facility] Coronary IVUS Catheter [employer] Coronary FFR Wire LESION SITE: LAD (Mid) PROCEDURE: iFR Lesion Devices: Cordis 6 Fr XB3.0 100cm Guide Catheter Terumo .014 180cm Runthrough Extra Floppy straight [employer] Coronary FFR Wire LESION SITE: Ramus (Mid) Lesion Devices: Cordis 6 Fr XB3.0 100cm Guide Catheter Terumo .014 180cm Runthrough Extra Floppy straight [employer] [facility] Coronary FFR Wire COMPLICATIONS No Complications PROCEDURE MEDICATIONS Versed 1 mg IV Fentanyl 50 mcg IV Oxygen: 2 L/min via nasal cannula Heparin given IA 08/16/2025 08:31:38 Heparin 5000 unit(s) IV 08/16/2025 08:56:13 Nitro 200 mcg IC 08/16/2025 09:04:21 Nitro 200 mcg IC 08/16/2025 09:04:21 Verapamil 2.5mg, Ntg 100mcgs, 3000 units of Heparin given IA 08/16/2025 08:31:38 SUMMARY OF HEMODYNAMIC DATA Time AIR REST ECG 08:18:58 AO 110/70 (90) SA 08:33:34 LV 111/19, 29 08:40:55 LV 103/18, 28 08:41:03 LV 116/20, 34 08:41:39 LV 116/20, 33 08:41:47 LVp 118/18, 32 08:41:53 AOp 112/65 (85) 08:42:00 AO 115/65 (86) 09:04:42 AO 118/72 (92) 09:11:04 AO 123/79 (96) 09:15:45 AO 118/73 (91) 09:18:52 AO 113/61 (83) 09:24:09 AO 130/77 (96) 09:28:48 AIR REST 09:28:53 Signed By Irving Michael MD On 08/16/2025 09:40:21 Irving Michael MD
--- NOTE | 2025-08-16 10:35 | CASEMGMT ---
RN CM Face to Face with patient for initial transition planning/care coordination assessment. RN CM introduced self and role at [facility]. Patient lying in bed, alert and oriented. Patient willing to participate in assessment and is able to answer all questions appropriately. Care providers, pharmacy, and demographics verified. 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 Patient states she is independent at home. Transportation: sister DME/HHC: Patient denies DME in the home. No previous HHC or SNF Patient wishes to discharge home, denies need for home health at this time. Patient states she has no further needs or concerns at this time. CM to follow for discharge planning needs that may arise. Disposition Plan: Patient to discharge home with family support and follow-up plans in place. Gail OLIVER, RN, CM
[2025-08-16 12:34] LABS: ACT Activated Clotting Time 271 sec (74-137)
--- NOTE | 2025-08-16 18:56 | PCM.DC.SUM ---
Providers Date of Admission: 08/15/25 Date of Discharge: 08/16/25 Primary Care Physician: TONY CUEVAS Consultations 08/15/25 19:30 Consult: Cardiology Routine Consulting Provider: Damien Middleton Reason for Consult: Atypical chest pain, NSTEMI EMERGENT Consult: No MD Notified: Yes Date Notified: 08/15/25 Time Notified: 18:21 Method of Notification: ED Physician Initiated Reason For Visit: CHEST PAIN Diagnosis Discharge Diagnosis (1) NSTEMI, initial episode of care: Status: Acute Code(s): I21.4 - Non-ST elevation (NSTEMI) myocardial infarction (2) History of CAD (coronary artery disease): Status: Acute Code(s): Z86.79 - Personal history of other diseases of the circulatory system (3) Hypertension: Status: Chronic Code(s): I10 - Essential (primary) hypertension (4) Hyperlipidemia: Status: Acute Code(s): E78.5 - Hyperlipidemia, unspecified Plan #NSTEMI type I #CAD #HTN @Anxiety Medications at Discharge Home Medications aspirin 81 mg tablet,delayed release 81 mg PO DAILY 08/15/25 atorvastatin 40 mg tablet 40 mg PO DAILY 08/15/25 buspirone 10 mg tablet 10 mg PO TID 08/15/25 carvedilol 6.25 mg tablet 6.25 mg PO BID 08/15/25 clopidogrel 75 mg tablet 75 mg PO DAILY 08/15/25 Hospital Course Procedures Cardiac catheterization Summary of Care Provided Minutes Spent on Discharge: 24 Hospital Course: Per HPI: "MARCI LEWIS, is a 60 F with history of recent IN/cardiac stent in March 2025 outside in [place], [place] was brought to ED by EMS with chest patient/pressure about 3 to 4 hours ago. Patient said that she was doing climbing walking near [place] outside when she developed chest pain which felt like a pressure or squeezing sensation left-sided with radiation to left arm and interscapular area associated with mild shortness of breath, feeling dizzy lightheaded and diaphoresis. Patient did not pass out. Pain persisted till she came to ED and EMS gave nitro sublingual which relieved the pain. Twelve-lead EKG done in the ER shows NSR at 76 bpm, QTc 459 ms. First troponin normal but second troponin high 111. Patient admitted with diagnosis of non-STEMI started on IV heparin drip with bolus. Patient also felt mild cough, dry in nature, losing voice for last 2 days. Denies fever or chills. Patient denies any history of DVT/PE or thromboembolic disease" INTERVAL HISTORY: Patient underwent cardiac cath which showed severe calcified distal LMCA and cardiology recommended transfer for CT surgery evaluation for CABG. Patient evaluated, agreeable to transfer and understands reason for transfer. Denies any chest pain at time of my evaluation and no other new or acute complaints. Patient transferred to [facility] on 08/16/2025 in stable condition Physical Exam Narrative General: Alert, oriented, no apparent distress HEENT: Atraumatic, normocephalic Eyes: Anicteric, normal conjunctiva, extraocular movements grossly intact Neck: Supple Respiratory: Clear to auscultation bilaterally, normal respiratory effort Cardiovascular: Regular rate and rhythm GI: Soft, nontender, nondistended Extremities: No edema Musculoskeletal: Moving all extremities Neuro: No overt focal neurological deficits Skin: No rashes appreciated Psych: Cooperative Weight / BMI Weight Weight: 74.9 kg Body Mass Index (BMI) 33.3 ABG / Lab / Microbiology Data 08/16/25 05:16 08/16/25 05:16 Laboratory: Laboratory Results - last 24 hr 08/15/25 17:10: Magnesium 2.2 08/15/25 19:04: Troponin T Hi Sens 4Hr 165 H* 08/16/25 01:06: APTT 95.1 H* 08/16/25 05:16: WBC 8.6, RBC 3.84 L, Hgb 11.3 L, Hct 37.0, MCV 96.4, MCH 29.4, MCHC 30.5 L, RDW Std Deviation 49.1 H, RDW Coeff of Yuliana 13.9, Plt Count 302, MPV 8.6, Immature Gran % (Auto) 0.500, Neut % (Auto) 59.8, Lymph % (Auto) 29.5, Leon % (Auto) 7.5, Eos % (Auto) 2.0, Baso % (Auto) 0.7, Absolute Neuts (auto) 5.2, Absolute Lymphs (auto) 2.53, Nucleated RBC % 0, Sodium 141, Potassium 4.1, Chloride 106, Carbon Dioxide 26.8, Anion Gap 9, BUN 11, Creatinine 0.76, Estim Creat Clear Calc 71.16, Est GFR (MDRD) Non-Af 90, BUN/Creatinine Ratio 14.1, Glucose 112 H, Calcium 8.8, Phosphorus 3.4, Triglycerides 229 H, Cholesterol 200, LDL Cholesterol, Calc 116, VLDL Cholesterol 46 H, HDL Cholesterol 44, Cholesterol/HDL Ratio 4.50, TSH 1.730 08/16/25 09:06: Activated Clotting Time 271 H Microbiology: Microbiology 08/15/25 18:55 Mucosa - Nose SARS-CoV-2, Influenza & RSV (PCR) - Final Radiography Diagnostic Testing: Radiology Impression Echocardiogram 08/16/25 05:55 Interpretation Summary The left ventricular ejection fraction is 50 %. Normal LV size. Stage 1 diastolic dysfunction. Pulmonary artery systolic pressure is 22 mmHg. Mild to moderate segmental systolic dysfunction (see wall motion). Ordering Physician: Patel Connors Performed By: Sarai Rothman RDCS D/C Instructions DC O2, CPAP, BIPAP Needs Home O2 Discharge instructions: No Meaningful Use Info Meaningful Use Meaningful Use Diagnoses (Choose all that apply): AMI AMI/Post PCI/Angioplasty Aspirin given w/in 24hrs of arrival?: Yes ASA at discharge?: Yes Statins at discharge?: Yes Jeremy/ARB at discharge?: No Reason Jeremy/ARB not ordered:: Not indicated (pt transferred) Beta Aravind at discharge?: No Reason Beta Aravind not ordered:: Drug Interaction (pt transferred) Done w/ Acute IN measure.: Yes Documented LVEF (%): 50 Discharge Plan Admission Admit Date/Time: 08/15/25 18:20 Attending Provider: Mindy Dawkins Primary Care Provider: TONY CUEVAS Consulting Providers: Damien Middleton; Patel Connors Discharge Orders/Prescriptions Prescriptions: No Action atorvastatin 40 mg tablet 40 mg PO DAILY buspirone 10 mg tablet 10 mg PO TID clopidogrel 75 mg tablet 75 mg PO DAILY Patient Comments: PT STATES SHE HASN'T TAKEN RECENTLY BECAUSE SHE RAN OUT aspirin 81 mg tablet,delayed release (DR/EC) 81 mg PO DAILY Patient Comments: PT STATES SHE HASN'T TAKEN RECENTLY BECAUSE SHE RAN OUT carvedilol 6.25 mg tablet 6.25 mg PO BID Referrals / Follow Up: TONY CUEVAS [Other] TONY CUEVAS [Other] Disposition Disposition (needs filled in before D/C Order can be placed): Acute Care Hospital Charges/Coding Visit Charges Inpatient E&M: 96200 Disch Hosp
== END 2025-08-16 16:59 | disposition short-term general hospital (02) | DRG 190 ==
LOC: ED 18:12 → PCU 18:37
PROVIDERS: Admitting Provider Internal Medicine; Emergency Provider Emergency Medicine; Visit Provider Internal Medicine
DX: I21.4 Non-ST elevation (NSTEMI) myocardial infarction (principal); E78.5 Hyperlipidemia, unspecified; I10 Essential (primary) hypertension; I25.2 Old myocardial infarction; I25.110 Atherosclerotic heart disease of native coronary artery with unstable angina pectoris; Z95.5 Presence of coronary angioplasty implant and graft; Z87.891 Personal history of nicotine dependence; Z79.02 Long term (current) use of antithrombotics/antiplatelets; Z79.82 Long term (current) use of aspirin; Z79.899 Other long term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
CPT/HCPCS: 36415; 71046; 71275; 80048; 80061; 83735; 84100; 84443; 84484; 85025; 85347; 85379; 85610; 85730; 87631; 92978; 92979; 93005; 93306; 93458; 94640; 94668; 99152; 99153; 99285; C1887; Q9957; Q9967; A4216; C1753; C1769; C1894; C8929